=== PATIENT | male | born 1955 | race Caucasian/White ===

== ENCOUNTER 2019-02-05 02:36 | Observation (INO) | payer MEDICARE, SELFPAY ==
[2019-02-05] VITALS (32 sets, daily range): BP systolic 134–174; BP diastolic 67–129; PULSE 41–93; RESP 10–24; TEMP 36.4–36.8; O2SAT 96–100
--- NOTE | 2019-02-05 03:01 | W.ED.GENAD ---
Discharge Plan Disposition Patient Disposition: [facility] INPATIENT Condition: Good Discharge Details Chief Complaint: Palpitatns Clinical Impression: Frequent PVCs, Restless leg syndrome, Heart palpitations, Hypomagnesemia Primary Care Provider: Lisa Jack ED Provider: Duc Pulido Home Meds and New Rx's Prescriptions: No Action montelukast [Singulair] 5 MG tablet,chewable 10 mg PO HS RF: 0 carvedilol [Coreg] 12.5 MG tablet 18.25 mg PO BID RF: 0 allopurinol 100 MG tablet 100 mg PO DAILY RF: 0 doxazosin 8 MG tablet 4 mg PO DAILY RF: 0 ascorbic acid (vitamin C) [Vitamin C] 250 MG tablet 250 mg PO DAILY RF: 0 morphine 30 MG tablet 30 mg PO TID RF: 0 ferrous sulfate 325 MG tablet 325 mg PO DAILY RF: 0 bisacodyl 5 MG tablet,delayed release (DR/EC) 100 mg PO DAILY RF: 0 calcitriol 0.25 MCG capsule 0.25 mg PO . TWICE A WEEK RF: 0 tacrolimus 0.5 MG capsule 3 tab PO DAILY RF: 0 oxycodone 5 MG tablet 5 mg PO QID RF: 0 atorvastatin [Lipitor] 40 mg Tablet 40 mg PO QHS RF: 0 chlorthalidone 25 mg Tablet 25 mg PO DAILY RF: 0 dronabinol 2.5 mg Capsule 2.5 mg PO QHS RF: 0 alogliptin 6.25 mg Tablet 6.25 mg PO DAILY RF: 0 omeprazole 20 mg Capsule,Delayed Release(Dr/Ec) 20 mg PO DAILY RF: 0 Medical Decision Making This is a pleasant 63-year-old male with a past medical history of hepatitis C which is resolved secondary liver transplant on tacrolimus, as well as a distant history of SVT but no history of any other significant cardiac disease at this time who presents today for evaluation of restlessness, palpitations, jitteriness and difficulty sleeping. Patient has been under a significant amount of stress over the last few weeks with the recent of his . Then over the last 24 hours he has had notable palpitations, heart thumping sensation. He denies any chest pain or chest tightness. He denies any new medication changes but of note he has not had any morphine for the last 3 days for his chronic 30 mg 3 times daily morphine dose. Physical exam is notably unremarkable, blood pressure stable. On the monitor the patient does go into bigeminy fairly consistently in normal sinus. Signs and symptoms have a broad differential, including thyroid disorder or electrolyte abnormality or other atypical cause, however also thought this may certainly be an atypical reflection of withdrawal from morphine. We will give the patient 0.1 mg clonidine, small amount of Ativan for rest, evaluate for any significant life-threatening etiology. 4:22 AM Patient's laboratory work-up is returned, relatively unremarkable. Hemoglobin is slightly low at 11 8, however MCV is normal. No history of rectal bleeding or other abnormalities, platelets stable. Electrolytes are relatively unremarkable. Magnesium is notably low at 1.4. Potassium normal. Creatinine 2.18 which is at the patient's baseline. Calcium normal. TSH troponin and albumin all normal. The patient was given Ativan IV and unfortunately the patient has had no solution to his symptomatology. Although he is slightly sleepier, he remains extremely fidgety, often jumping immediately out of rest as soon as he starts sleeping, having an extreme continued sensation of leg restlessness. He has received the clonidine but this is not helped his symptoms. We will add morphine supplementation. Additionally we will add 0.125 mg of pramipexole to see if this helps. We will supplement with 2 g magnesium for his hypomagnesemia this this may be a component of his PVCs but I feel unlikely the cause. With the notable frequency of the patient's PVCs, his lack of resolution of symptoms, and his notable frustration with his current state I do feel that 12 the 24-hour observation is indicated for completion of magnesium replacement, continued cardiac evaluation and monitoring, and reassessment. I discussed the case with hospitalist , he agrees with the assessment and plan. I will place admission orders. I have extensively reviewed the treatment plan with the patient. I have addressed all patient concerns at this time. I have also discussed the plan with the admitting physician and they agree with the current assessment and plan and have agreed to assume responsibility for the patient. All parties demonstrate verbal understanding and agreement with our assessment and plan at this time. EKG 2: 46 Rate 75, CO 166, QTc 467, QRS 136, sinus rhythm with a right bundle branch block, no evidence of STEMI. Notable PVCs. EKG from 10/17/2008 demonstrates nearly identical findings. HPI General Date/Time Provider Initiated Documentation: 02/05/19 02:48. HPI Narrative: This is a pleasant 63-year-old male with past medical history of liver transplant, hepatitis C which is resolved, on tacrolimus for his transplant, previous history of SVT, high cholesterol who presents today for evaluation of palpitations that started last 24 hours. Patient has been under an extreme amount of stress with the loss of his , and multiple other family stressors. He has not been sleeping well for the last few weeks, he has noticed continued jitteriness in his legs for the last 2 days, as well as a heart racing sensation, and a thumping and pounding sensation in his chest in the last 24 hours. Patient denies any medication changes, however of note he has not had his chronic regular daily 30 mg 3 times daily morphine for the last 3 days secondary to his prescription not coming in. Patient denies any other complaints at this time. He denies any chest tightness, shortness of breath, numbness tingling or weakness, recent trauma, IV or illicit drug use. He denies any nausea vomiting or diarrhea. He denies any feelings of anxiety. No other complaints. No other modifying factors. Related Data Home Medications Medication Instructions Recorded Confirmed allopurinol 100 mg PO DAILY 11/25/15 02/05/19 ascorbic acid (vitamin C) [Vitamin 250 mg PO DAILY 11/25/15 11/25/15 C] bisacodyl 100 mg PO DAILY 11/25/15 11/25/15 calcitriol 0.25 mg PO . TWICE A WEEK 11/25/15 02/05/19 carvedilol [Coreg] 18.25 mg PO BID 11/25/15 02/05/19 doxazosin 4 mg PO DAILY 11/25/15 11/25/15 ferrous sulfate 325 mg PO DAILY 11/25/15 02/05/19 montelukast [Singulair] 10 mg PO HS 11/25/15 02/05/19 morphine 30 mg PO TID 11/25/15 02/05/19 oxycodone 5 mg PO QID 11/25/15 02/05/19 tacrolimus 3 tab PO DAILY 11/25/15 02/05/19 alogliptin 6.25 mg PO DAILY 02/05/19 02/05/19 atorvastatin [Lipitor] 40 mg PO QHS 02/05/19 02/05/19 chlorthalidone 25 mg PO DAILY 02/05/19 02/05/19 dronabinol 2.5 mg PO QHS 02/05/19 02/05/19 omeprazole 20 mg PO DAILY 02/05/19 02/05/19 Allergies Allergy/AdvReac Type Severity Reaction Status Date / Time cephalexin monohydrate Allergy Severe Anaphylaxsi Unverified 02/05/19 02:58 [From Keflex] s General Stated Complaint: Palpitatns PAPO: 3 Review of Systems All systems reviewed & are unremarkable except as noted in HPI and below PFSH Medical History (Updated 02/05/19 @ 02:58 by Tona Mccall) Diabetes (Chronic) Hepatitis C (Chronic) High cholesterol (Chronic) Myocardial infarction (Chronic) Tachycardia (Acute) Surgical History (Updated 02/05/19 @ 02:53 by Tona Mccall) Liver transplant recipient (Acute) Social History Smoking/Tobacco Use Status: Former Tobacco Use Alcohol Intake: current Drug use: Never Substance use type: does not use Do you feel safe at home: Yes Do you feel safe in your relationship?: Yes Additional Social history: recently ; still going through grieving process Exam Narrative Exam Narrative: 1.Const: Well-nourished, Well-developed, appearing stated age 2.Eyes: PERRL, no conjunctival injection, and symmetrical lids. 3.ENT: Atraumatic external nose and ears. Moist MM. Neck: Symmetric, trachea midline, No thyromegaly. 4.CVS: +S1/S2, No murmurs or gallops. Peripheral pulses 2+ and equal in all extremities. Brisk capillary refill in all extremities. 5.RESP: Unlabored respiratory effort. Clear to auscultation bilaterally. No wheezes rales or rhonchi 6.GI: Soft, Nontender/Nondistended, No hepatosplenomegaly. No guarding or rebound. Notable appropriate abdominal chevron scar from his liver transplant 7.MSK: Normocephalic/Atraumatic, Extremities w/o deformity or ttp No cyanosis or clubbing, Normal movement of all extremities 8.Skin: Warm, Dry. No rashes or lesions. 9.Neuro: spool sorter II-XII grossly intact. Sensation grossly intact, no focal neurologic deficits. 10.Psych: (AAO) x3. Appropriate mood and affect Course Vital Signs Vital signs: Vital Signs Temperature 36.6 C 02/05/19 02:48 Pulse 88 02/05/19 02:48 Respiratory Rate 16 02/05/19 02:48 Blood Pressure 153/89 H 02/05/19 02:48 Pulse Oximetry 100 02/05/19 02:48 Temperature 36.6 C 02/05/19 02:48 Temperature Source Skin 02/05/19 02:48 Pulse 88 02/05/19 02:48 Respiratory Rate 16 02/05/19 02:48 Blood Pressure 153/89 H 02/05/19 02:48 Pulse Oximetry 100 02/05/19 02:48
[2019-02-05] MEDS: Normal Saline 500 ML IV (03:11)
[2019-02-05] MEDS: LORazepam 2 MG/ML VIAL 1 MG IVP (03:12)
[2019-02-05 03:30] LABS: Abs Immature Grans 0.03 k/cumm (0.0-0.09); Absolute Basophil Count 0.02 k/cumm (0.0-0.2); Absolute Eosinophil Count 0.26 k/cumm (0.0-0.7); Absolute Lymphocyte Count 1.22 k/cumm (1.2-3.4); Absolute Monocyte Count 0.71 k/cumm (0.11-0.7); Basophils % 0.2; HGB 11.8 g/dL (13.5-17.5); Immature Grans % 0.3; Lymphocytes % 14.1; Mean Corp. HGB Concentration 35.8 g/dL (32.0-36.0); Mean Corpuscular Hemoglobin 32.2 pg (27.0-33.0); Mean Corpuscular Volume 89.9 fL (80-95); Mean Platelet Volume 10.8 fL (8.0-11.0); Monocytes % 8.2; Neutrophils % 74.2; Platelet Count 147 x1000/uL (130-400); RBC 3.67 m/cumm (4.50-6.00); RBC Distribution Width 11.9 % (11.8-14.1); White Blood Cell Count 8.64 k/cumm (4.4-10.8)
[2019-02-05] MEDS: cloNIDine 0.1 MG TAB PO (03:34)
[2019-02-05 03:46] LABS: INR 1.1 (0.9-1.1); PTT Activated 18.5 sec (21.0-31.4); Prothrombin Time 10.6 sec (9.3-11.0)
[2019-02-05 03:49] LABS: Ammonia 18 umol/L (11-32)
[2019-02-05 03:55] LABS: ALT 19 U/L (16-63); AST 19 U/L (15-37); Albumin 4.2 g/dL (3.4-5.0); Alkaline Phosphatase 112 U/L (46-116); Anion Gap 11.7 mmol/L (3-11); BUN 37 mg/dL (7-18); Bilirubin, Total 0.3 mg/dL (0.2-1.0); CO2 25.3 mmol/L (21.0-32.0); CREATININE 2.18 mg/dL (0.70-1.30); Calcium 9.7 mg/dL (8.5-10.1); Chloride 104 mmol/L (98-107); Glucose 208 mg/dL (74-106); NT-proBNP 6769 pg/mL (<300); Potassium 4.2 mmol/L (3.5-5.1); Sodium 141 mmol/L (136-145); Total Protein 8.5 g/dL (6.4-8.2)
[2019-02-05 03:56] LABS: Troponin I < 0.05 ng/Ml (<0.06)
[2019-02-05 04:01] LABS: Magnesium 1.4 mg/dL (1.8-2.4); TSH (W/Ref FT4) 1.48 uIU/mL (0.36-3.74)
[2019-02-05] MEDS: MAGNESIUM SULFATE 2 GM/50 ML BAG IVPB (04:24)
[2019-02-05] MEDS: Pramipexole 0.25 MG TAB 0.125 MG PO (04:50)
--- NOTE | 2019-02-05 06:08 | HPE_ITS ---
Date of service: 02/05/19 Time of Service: 06:08 Assessment and Plan Assessment and plan (1) Ventricular ectopy: Status: Acute Assessment and plan: We will recheck his magnesium level as well as put shlomo quesada on oral magnesium supplementation. Continue to check serial troponin I levels. We will check an echocardiogram to evaluate LV and RV function particularly in the setting of an elevated proBNP although clinically does not appear to be in any acute congestive heart failure. Consider obtaining an outpatient stress MPI study. He has a history of a myocardial infarction around the time of his liver transplant in 2007 but cannot give me any specifics as to what was done about this. He does not have a history of stent or coronary bypass graft. (2) Myoclonus: Status: Acute Assessment and plan: Probably related to the hypomagnesemia. Although this could be due to acute withdrawal from his narcotics. Patient has been restarted on his routine dose of morphine. Although review the adverse reactions of tacrolimus include myoclonus as well as cardiac arrhythmias however he is been on this since his liver transplant 2007. A tacrolimus level was obtained and sent out for outside labs. (3) Hypomagnesemia: Status: Acute Assessment and plan: Probably nutritionally related as he is been depressed since his 's and has not been eating well and this is been complicated by his continued use of chlorthalidone. He may actually be chronically hypomagnesemic. We will recheck his levels this morning after the IV replacement and start him on some oral supplementation. (4) Chronic kidney disease: Status: Chronic Assessment and plan: It is unspecified as the etiology of his chronic kidney disease however he has had an elevated creatinine dating back to 2015 was 2.62. We will need to obtain more recent labs from his primary care provider for comparison as well as any records related to previous renal work-up. Qualifiers: Chronic kidney disease stage: unspecified stage Qualified Code(s): N18.9 - Chronic kidney disease, unspecified (5) Diabetes: Status: Chronic Assessment and plan: I will check a glycohemoglobin A1c to assess his recent diabetes control. I will continue his alogliptin but monitor his blood sugars before meals and at bedtime and cover with sliding scale insulin sensitive level as needed. History of Present Illness History of Present Illness Chief Complaint: palpitations, muscle twitching Narrative: 63-year-old male with a past medical history significant fo r essential hypertension, diabetes mellitus type 2, hepatitis C, status post liver transplant maintained on tacrolimus, chronic renal disease, hyperlipidemia, SVT, myocardial infarction presents emergency department with complaints of palpitations and muscle twitching. Patient has been under increa sed stress over the last week since his 's . Patient states that she used to manage his medications and order them for him and he has missed multiple doses of his medications over the last 3 days. He has a chronic pain syndrome for which she is on morphine 30 mg 3 times a day but ran out of this 3 days ago. He also takes carvedilol for his hypertension and tachycardia and may have miss ed some doses of this as well. Over the past 24 hours he is developed palpitations with a feeling like his heart is pounding but denies any chest pressure or heaviness, tightness or dyspnea. He also has noted beginning last night severe muscle twitching and jerking which is prevented him from being able to sleep. Patient was evaluated and treated in the emergency department by Dr. Duc Pulido who included EKG and routine labs as per the work-up. CBC showed a chronic anemia with a hemoglobin 11.8 g with normal red cell indices and normal platelet count and normal WBCs. CMP demonstrated a stable chronic kidney disease with a BUN of 37 creatinine 2.18. Electrolytes demonstrate significant hypomagnesemia of 1.4 with rest of his electrolytes being normal. Glucose was 208. LFTs were normal and ammonia level was normal. Initial troponin was less than 0.05. proBNP was elevated at 6769. TSH is normal at 1.48. ECG demonstrates sinus rhythm with a right bundle branch block with frequent PVCs occurring in a trigeminal pattern with no acute ischemic ST changes. According to Dr. Pulido patient had frequent isolated PVCs as well as runs of bigeminy and trigeminy. Prior to lab results Dr. Pulido thought perhaps the patient was suffering from withdrawal of his narcotics and gave him a dose of clonidine 0.1 mg orally as well as Ativan 1 mg IV. He was given a bolus of normal saline 500 mL's and was given a dose of Mirapex 0.125 mg to help with the mild clonus. He was also given a dose of morphine sulfate 4 mg IV when the magnesium level came back low he was given a dose of magnesium sulfate 2 g IV. I discussed case with Dr. Pulido and agree that the patient should be admitted for observation on telemetry while we treat his hypomagnesemia and continue to rule him out for acute coronary syndrome. The myoclonus may be related to his hypomagnesemia. The PVCs may be related to the acute withdrawal of his beta- consuelo therapy as well as the increased stress that he has been under. At this time I am not can put him on any routine medications for restless leg syndrome but see how he responds to the magnesium therapy and put him on some oral replacement since he continues to take chlorthalidone. Tacrolimus level was sent off from the emergency room. Review of Systems All systems reviewed & are unremarkable except as noted in HPI and below [facility] Medical History (Updated 02/05/19 @ 06:58 by Murphy Lima) Chronic kidney disease (Chronic) Diabetes (Chronic) Hepatitis C (Chronic) High cholesterol (Chronic) Myocardial infarction (Chronic) Tachycardia (Acute) Surgical History (Updated 02/05/19 @ 06:53 by Murphy Lima) Liver transplant recipient (Acute) Social History Smoking/Tobacco Use Status: Former Tobacco Use Alcohol Intake: current Drug use: Never Substance use type: does not use Do you feel safe at home: Yes Do you feel safe in your relationship?: Yes Additional Social history: recently ; still going through grieving process Meds Home Medications and Allergies Home Medications Medication Instructions Recorded Confirmed Type allopurinol 100 mg PO DAILY 11/25/15 02/05/19 History ascorbic acid (vitamin C) [Vitamin 250 mg PO DAILY 11/25/15 11/25/15 History C] bisacodyl 100 mg PO DAILY 11/25/15 11/25/15 History calcitriol 0.25 mg PO . TWICE A WEEK 11/25/15 02/05/19 History carvedilol [Coreg] 18.25 mg PO BID 11/25/15 02/05/19 History doxazosin 4 mg PO DAILY 11/25/15 11/25/15 History ferrous sulfate 325 mg PO DAILY 11/25/15 02/05/19 History montelukast [Singulair] 10 mg PO HS 11/25/15 02/05/19 History morphine 30 mg PO TID 11/25/15 02/05/19 History oxycodone 5 mg PO QID 11/25/15 02/05/19 History tacrolimus 3 tab PO DAILY 11/25/15 02/05/19 History alogliptin 6.25 mg PO DAILY 02/05/19 02/05/19 History atorvastatin [Lipitor] 40 mg PO QHS 02/05/19 02/05/19 History chlorthalidone 25 mg PO DAILY 02/05/19 02/05/19 History dronabinol 2.5 mg PO QHS 02/05/19 02/05/19 History omeprazole 20 mg PO DAILY 02/05/19 02/05/19 History Allergies Allergy/AdvReac Type Severity Reaction Status Date / Time cephalexin monohydrate Allergy Severe Anaphylaxsi Unverified 02/05/19 02:58 [From Keflex] s Exam Narrative Exam Narrative: Late middle-aged gentleman lying in bed sleeping. I woke him up and he seemed to be calm and relaxed with no visible myoclonus. He is alert and oriented person place time circumstance. Neck is supple nontender with no thyromegaly no cervical lymphadenopathy. Carotid pulses are strong without bruits. Lungs are clear to auscultation. Heart is regular with intermittent ectopic beats. There is no thrill heave gallop or rub. Abdomen soft and nontender no palpable masses or bruits Lower extremities without peripheral cyanosis or edema. No calf tenderness or swelling Neurologic exam grossly intact no focal motor or sensory deficits. Results Labs Result diagrams: 02/05/19 03:17 02/05/19 03:17 Labs: Laboratory Results - last 24 hr 02/05/19 02/05/19 02/05/19 03:17 03:17 03:17 WBC 8.64 RBC 3.67 L Hgb 11.8 L Hct 33.0 L MCV 89.9 MCH 32.2 MCHC 35.8 RDW 11.9 Plt Count 147 MPV 10.8 Immature Gran % 0.3 Neutrophils % 74.2 Lymphocytes % 14.1 Monocytes % 8.2 Eosinophils % 3.0 Basophils % 0.2 Absolute Neutrophils 6.40 Absolute Lymphocytes 1.22 Absolute Monocytes 0.71 H Absolute Eosinophils 0.26 Absolute Basophils 0.02 PT INR APTT Sodium 141 Potassium 4.2 Chloride 104 Carbon Dioxide 25.3 Anion Gap 11.7 H BUN 37 H Creatinine 2.18 H Estimated GFR/1.73 m2 30.70 Glucose 208 H Calcium 9.7 Magnesium 1.4 L Total Bilirubin 0.3 AST 19 ALT 19 Alkaline Phosphatase 112 Ammonia Troponin I < 0.05 NT-Pro-B Natriuret Pep 6769 Total Protein 8.5 H Albumin 4.2 TSH 1.48 02/05/19 02/05/19 03:17 03:17 WBC RBC Hgb Hct MCV MCH MCHC RDW Plt Count MPV Immature Gran % Neutrophils % Lymphocytes % Monocytes % Eosinophils % Basophils % Absolute Neutrophils Absolute Lymphocytes Absolute Monocytes Absolute Eosinophils Absolute Basophils PT 10.6 INR 1.1 APTT 18.5 L Sodium Potassium Chloride Carbon Dioxide Anion Gap BUN Creatinine Estimated GFR/1.73 m2 Glucose Calcium Magnesium Total Bilirubin AST ALT Alkaline Phosphatase Ammonia 18 Troponin I NT-Pro-B Natriuret Pep Total Protein Albumin TSH Last Vital Signs Temp 36.6 C 02/05/19 02:48 Pulse 75 02/05/19 05:44 Resp 15 02/05/19 04:50 BP 138/73 02/05/19 04:46 Pulse Ox 98 02/05/19 04:50
[2019-02-05 07:15] LABS: Troponin I < 0.05 ng/Ml (<0.06)
[2019-02-05 07:39] LABS: Hemoglobin A1C 7.3 % (4.5-6.2)
[2019-02-05 07:42] LABS: Calculated LDL 52 mg/dL; Cholesterol 102 mg/dL (<200); HDL Cholesterol 34 mg/dL (40-60); Triglyceride 84 mg/dL (<150)
[2019-02-05] MEDS: Tacrolimus 0.5 MG CAP 1.5 MG PO (08:27)
[2019-02-05] MEDS: Insulin Aspart 300 UNITS/3 ML PEN SC ×3 (08:27→16:58)
[2019-02-05] MEDS: Omeprazole 20 MG CAPCR PO (08:27)
[2019-02-05] MEDS: Chlorthalidone 25 MG TAB PO (08:28)
[2019-02-05] MEDS: Ferrous Sulfate 325 MG TAB PO (08:28)
[2019-02-05] MEDS: Magnesium Gluconate 500 MG TAB PO (08:28)
[2019-02-05] MEDS: Allopurinol 100 MG TAB PO (08:28)
[2019-02-05] MEDS: oxyCODONE 5 MG TAB PO (08:41)
--- NOTE | 2019-02-05 09:00 | DI.US_ITS ---
APPROVED REPORT EXAM: Comprehensive 2D, Doppler, and color-flow Echocardiogram Patient Location: In-Patient Slope Hoist Operator: JERALD Hernandez (AE) Indications: palpitations, frequent PVCs. h/o TX now with frequent ventricular ectopy. evaluate LV fu nction Conclusion Left Ventricle : The left ventricle is normal size. Left ventricular systolic function appears mildl y decreased. The posterior wall thickness is mildly increased. The septum is normal. There is normal LV segmental wall motion. The left ventricular diastolic function is normal. LVEF is estimated to be 50-55%. Right Ventricle : The right ventricle appears normal size. The right ventricular systolic function is normal. Atria : The left atrium size is normal. The right atrium size is normal. Aortic Valve : Aortic valve is trileaflet. Trace aortic regurgitation. There is no aortic valvular st enosis. Mitral Valve : The mitral valve leaflets are mildly thickened. Mild mitral regurgitation. No evidence of mitral valve stenosis. Tricuspid Valve : The tricuspid valve is normal in structure. Trace tricuspid regurgitation. Great Vessels : IVC appears normal in size and collapses >50% with inspiration. Estimated RVSP is 21 -24 mmHg. There is no prior echocardiogram available for comparison Wall motion Left Ventricle The left ventricle is normal size. Left ventricular systolic function appears mildly decreased. The p osterior wall thickness is mildly increased. The septum is normal. There is normal LV segmental wall motion. The left ventricular diastolic function is normal. LVEF is estimated to be 50-55%. Right Ventricle The right ventricle appears normal size. The right ventricular systolic function is normal. Atria The left atrium size is normal. The right atrium size is normal. Aortic Valve Aortic valve is trileaflet. There is no aortic valvular stenosis. Trace aortic regurgitation. Mitral Valve The mitral valve leaflets are mildly thickened. No evidence of mitral valve stenosis. Mild mitral reg urgitation. Tricuspid Valve The tricuspid valve is normal in structure. Trace tricuspid regurgitation. Pulmonic Valve Pulmonic valve is not well visualized. Great Vessels The aortic root size is normal. The ascending aorta size is normal. IVC appears normal in size and co llapses >50% with inspiration. Estimated RVSP is 21-24 mmHg. Pericardium possible trivial anterior pericardial effusion. 2D Dimensions IVSd 0.75 cm M: 0.6-1.2 LV EDV A2C 113.20 mL PWd 1.15 cm M: 0.6 - 1.2 LV EDV A4C 96.60 mL LVDd 5.30 cm M: 4.2 - 5.8 LA Volume Index A2C 24.74 mL/m2 LVDs 3.80 cm M: 2.5 - 4.0 LA Volume Index A4C 19.47 mL/m2 Aortic Root 3.35 cm M: 3.1 - 3.7 LA Volume Index Biplane 25.57 mL/m2 RA Area A4C 12.36 cm2 LA Area A4C 13.59 cm2 LVOT 2.20 cm (M/F) 1.5-2.5 LA Area A2C 17.84 cm2 Ascending Aorta 3.21 cm M: 2.6 - 3.4 EF AP4 46.58 % LVEF (Teich) 53.75 % EF AP2 56.18 % LVEF (Posadas's) 50.84 % M: 52 - 72 EF BP 50.84 % LV Volume 79.57 mL M: 62 - 150 LV Volume Index 38.43 mL/m2 M: 34 - 74 FS 27.95 % LV Diastology E/A Ratio 0.8 MED E' 0.07 (>0.07 m/s) LV E/e MED 5.90 (<14) LAT E' 0.09 (>0.1 m/s) LV E/e LAT 4.85 (<14) Aortic Valve LVOT Area 3.89 cm2 LVOT Peak Lg. 0.90 m/s LVOT Mean Lg. 0.65 m/s LVOT Peak Gr. 3.55 mmHg FABIAN Vmax Index 1.25 cm2/m2 LVOT Mean Gr. 1.90 mmHg LVOT VTI 0.10 m FABIAN Mean Lg. Index 1.18 cm2/m2 AoV Peak Lg. 1.42 (0.5-1.3 m/s) AoV Mean Lg. 1.02 m/s AO Peak GR. 8.04 mmHg AO Mean GR. 4.48 (<5 mmHg) VTI Ratio 0.50 FABIAN (VTI) 2.59 (2.5-4.5 cm2) FABIAN (VTI) Index 0.93 cm/m2 Mitral Valve MV E Max Lg. 0.44 (0.4-1.3 m/s) MV A Velocity 0.55 (0.4-1.3 m/s) E/A Ratio 0.80 MV Decel. Time 291.55 (160-240 msec) MV PHT 84.55 msec MVA PHT 2.60 cm2 Tricuspid Valve TR P. Velocity 2.30 m/s TV Regurg Vmax 2.30 m/s RAP Estimate 3.00 mmHg RVSP 24.00 mmHg TR P. Gradient 21.10 mmHg
[2019-02-05] MEDS: Carvedilol 25 MG TAB PO ×2 (10:27→20:07)
[2019-02-05] MEDS: Normal Saline Flush 10 ML SYR IVP (10:28)
[2019-02-05 10:54] LABS: Magnesium 1.9 mg/dL (1.8-2.4)
[2019-02-05 11:15] LABS: Troponin I < 0.05 ng/Ml (<0.06)
--- NOTE | 2019-02-05 11:49 | INITIAL_ITS ---
- If Service Date Differs Date of service: 02/05/19 Time of Service: 11:49 Care Management Initial Assess REASON FOR HOSPITALIZATION:: Palpitations, PVC, restless leg syndrome PAST MEDICAL HISTORY/PAST SURGICAL HISTORY:: Medical History. Chronic kidney disease (Chronic). Diabetes (Chronic). Hepatitis C (Chronic). High cholesterol (Chronic). Myocardial infarction (Chronic). Tachycardia (Acute). Surgical History. Liver transplant recipient (Acute) PREVIOUS FUNCTIONAL STATUS/SOCIAL/FAMILY SUPPORTS:: Ismael lives in [place] with his son and three of his grandkids. His recently , which he is still grieving from. His daughter, Rosmery, lives locally and is very supportive. He has a large, supportive family in the area. He had a liver transplant in 2007. He is independent at baseline. CURRENT FUNCTIONAL STATUS:: Ismael was lying in bed when CM met with him. He reported that he was very tired, but he was pleasant and engaged in conversation. He stated that this visit to the ED was a wake up call, and that he knows he needs to take better care of himself. He reported that he had a liver transplant 11 years ago, and he feels very fortunate to be alive. He stated that he has not been getting much sleep, 1-2 hours a night, since his . He believes this is why he missed his medication. He reported that he hopes to go home soon. CM will continue to follow. ADVANCE DIRECTIVES:: None on file Has patient been provided with information about the portal?: No Did the patient sign up for the portal?: No CODE STATUS:: Full Code INSURANCE COVERAGE / FINANCIAL ISSUES:: [facility] CURRENT HOME/COMMUNITY SERVICES/EQUIPMENT:: Ismael has a cane, crutches and a wheelchair. PRIMARY CARE PHYSICIAN:: Lisa Jack POTENTIAL DISCHARGE NEEDS:: Evalutations for further needs, follow up appointments PATIENT/FAMILY EDUCATION NEEDS:: Review discharge instructions, discussion of self care including Ask Me Three ANTICIPATED BARRIERS TO DISCHARGE:: None identified at this time. TRANSPORTATION:: Anticipate Ismael will return home with family via private vehicle PLAN:: Anticipate Ismael will return home when medically cleared. He may need new orders for RN for med management. His family will transport him home via private vehicle when he is ready.
[2019-02-05] MEDS: Heparin 5,000 UNITS/ML VIAL 5000 UNITS SC ×2 (13:55→22:30)
--- NOTE | 2019-02-05 14:57 | CHAPLAIN ---
Ismael was sitting up in a chair when I visited. He said he was tired as he hasn't gotten much sleep the past few days. Along with his medical concerns, he said his three weeks and he's trying to be strong for his children and grandchildren.. One son and young three grandchildren live with Ismael. he said the grandchildren and a good distraction, and that he needs to be distracted. He explained that his was a bit of a hoarder and so he is beginning to go through her belongs and that has been time consuming, and emotionally difficult at times. He said he realizes he doesn't need to go through everything at once, but he likes to finish a project once he starts it. Ismael said he's had difficulty figuring out his record keeping system for paying bills, because she always took care of that and he never learned her system. We talked about how emotional stress can cause physical health issues. Ismael said he can get time for himself while the kids are at school. He is interested in information about the Grieve Support Group offered by [facility], so I will get that information to him. Ismael shared some personal history, and talked about his family, , children and grandchildren.
[2019-02-05] MEDS: Tacrolimus 0.5 MG CAP 1 MG PO (20:07)
[2019-02-05] MEDS: Atorvastatin 20 MG TAB PO (20:09)
[2019-02-05] MEDS: Montelukast 10 MG TAB PO (22:30)
[2019-02-06] VITALS (7 sets, daily range): BP systolic 107–161; BP diastolic 62–95; PULSE 65–82; RESP 16–18; TEMP 36–36.9; O2SAT 98–99
[2019-02-06] MEDS: Heparin 5,000 UNITS/ML VIAL 5000 UNITS SC (06:41)
[2019-02-06 07:06] LABS: Abs Immature Grans 0.01 k/cumm (0.0-0.09); Absolute Basophil Count 0.02 k/cumm (0.0-0.2); Absolute Eosinophil Count 0.27 k/cumm (0.0-0.7); Absolute Monocyte Count 0.51 k/cumm (0.11-0.7); Absolute Neutrophil Count 3.09 k/cumm (1.2-6.7); Basophils % 0.4; Eosinophils % 5.1; HCT 31.4 % (40.0-50.0); HGB 10.7 g/dL (13.5-17.5); Immature Grans % 0.2; Lymphocytes % 26.4; Mean Corp. HGB Concentration 34.1 g/dL (32.0-36.0); Mean Platelet Volume 10.8 fL (8.0-11.0); Monocytes % 9.6; Neutrophils % 58.3; Platelet Count 122 x1000/uL (130-400); RBC 3.45 m/cumm (4.50-6.00); RBC Distribution Width 11.9 % (11.8-14.1)
[2019-02-06 07:09] LABS: Anion Gap 11.3 mmol/L (3-11); BUN 31 mg/dL (7-18); CO2 26.7 mmol/L (21.0-32.0); Calcium 8.6 mg/dL (8.5-10.1); Chloride 102 mmol/L (98-107); Estimated GFR 28.86 (mL/min/1.73m2); Glucose 146 mg/dL (74-106); Magnesium 1.5 mg/dL (1.8-2.4); Sodium 140 mmol/L (136-145)
[2019-02-06] MEDS: Insulin Aspart 300 UNITS/3 ML PEN SC ×2 (08:03→12:17)
[2019-02-06] MEDS: Ferrous Sulfate 325 MG TAB PO (08:04)
[2019-02-06] MEDS: Tacrolimus 0.5 MG CAP 1 MG PO (08:04)
[2019-02-06] MEDS: Magnesium Gluconate 500 MG TAB PO (08:04)
[2019-02-06] MEDS: Calcitriol 0.25 MCG CAP PO (08:04)
[2019-02-06] MEDS: Allopurinol 100 MG TAB PO (08:05)
[2019-02-06] MEDS: Carvedilol 25 MG TAB PO (08:05)
[2019-02-06] MEDS: Chlorthalidone 25 MG TAB PO (08:05)
[2019-02-06] MEDS: oxyCODONE 5 MG TAB PO (09:13)
[2019-02-06] MEDS: MAGNESIUM SULFATE 2 GM/50 ML BAG IVPB (10:57)
[2019-02-06] MEDS: Normal Saline Flush 10 ML SYR IVP (11:06)
--- NOTE | 2019-02-06 13:22 | W.PM.DS.N ---
Date of service: 02/06/19 Time of Service: 13:22 DS: Diagnosis Discharge Diagnosis (1) Ventricular ectopy: Status: Acute (2) Myoclonus: Status: Acute (3) Hypomagnesemia: Status: Acute (4) Chronic kidney disease: Status: Chronic (5) Diabetes: Status: Chronic Discharge Plan Disposition Patient Disposition: HOME Condition: Stable Discharge Details Chief Complaint: Palpitatns Clinical Impression: Frequent PVCs, Restless leg syndrome, Heart palpitations, Hypomagnesemia Reason For Visit: PALPITATIONS, PVC'S, WRESTLESS LEG SYNDROME Admit Date/Time: 02/05/19 04:31 Admit Provider: Murphy Lima Attending Provider: Murphy Lima Primary Care Provider: Lisa Jack ED Provider: Duc Pulido Hospital Course Hospital Course: Chief Complaint: Palpitations HPI: For details of patien'ts admission, please refer to H&P from yesterday by Dr. Shantanu Lima. In short, 63 year old gentleman with a prior history of HTN, DM, HCV s/p treatment, Liver transplant maintained on Tacrolimus, and CKD, admitted secondary to complaints of palpitations, found to have frequent PVCs with bigeminy and trigeminy. He also complained of jerking/myoclonic type motion that had woken him from sleep. Patient reported running out of most of his medications prior to his hospitalization, including his Carvedilol as well as Oxycodone and Morpine. He did report compliance with his Tacrolimus however. Following admission Mr. Thomas was resumed on his normal home medications. While he still has some evidence of Ventricular ectopy, the rate of PVCs, bigeminy, and trigeminy have dramatically and significantly reduced, and he feels symptomatically improved and at baseline - symptoms were attributed to abrupt stoppage of BB therapy and hypomagnesemia. The 'twitching' was thought secondary to abrupt withdrawl of chronic opiate therapy. The patient is being discharged at baseline condition, with resumption of his usual medications and initiation of magnesium supplementation. Will recheck mag level in 3 days to ensure stablility. Of note, Mr. Thomas's ProBNP was elevated at time of admission, but ECHO was essentially unremarkable (Interpreted as mildly low LV Function, but with LVEF of 50-55%, and clinically euvolemic). He also ruled out with serial cardiac biomarkers. Home Meds and New Rx's Prescriptions: New magnesium gluconate 27 mg magnesium (500 mg) Tablet 500 mg PO BID Qty: 60 RF: 0 Continued montelukast [Singulair] 5 MG tablet,chewable 10 mg PO HS RF: 0 carvedilol [Coreg] 12.5 MG tablet 25 mg PO BID RF: 0 allopurinol 100 MG tablet 100 mg PO DAILY RF: 0 doxazosin 8 MG tablet 4 mg PO DAILY RF: 0 ascorbic acid (vitamin C) [Vitamin C] 250 MG tablet 250 mg PO DAILY RF: 0 ferrous sulfate 325 MG tablet 325 mg PO DAILY RF: 0 bisacodyl 5 MG tablet,delayed release (DR/EC) 100 mg PO DAILY RF: 0 calcitriol 0.25 MCG capsule 0.25 mg PO DAILY RF: 0 tacrolimus 0.5 MG capsule 2 tab PO BID RF: 0 oxycodone 5 MG tablet 5 mg PO QID PRNRF: 0 chlorthalidone 25 mg Tablet 25 mg PO DAILY RF: 0 dronabinol 2.5 mg Capsule 2.5 mg PO BID PRNRF: 0 alogliptin 6.25 mg Tablet 6.25 mg PO DAILY RF: 0 atorvastatin 20 mg Tablet 20 mg PO QPM RF: 0 morphine 30 mg Tablet Extended Release 30 mg PO BID RF: 0 rabeprazole 20 mg Tablet,Delayed Release (Dr/Ec) 20 mg PO DAILY RF: 0 Discharge Instructions Additional Instructions: Please follow-up with your primary care provider within 2 weeks of discharge. Please note that there was some question regarding the correct dosing of your home medications. You are to resume your regular home meds at the same dose, with the only change being the addition of supplemental Magnesium. Stand Alone Forms: Nursing Discharge Form Referrals: Lisa Jack [Primary Care Provider] - 02/16/19 2:00 pm Activity:: No strenuous activity Equipment/Supplies:: No Equipment Needed Diet:: Carb Counting Discharge Orders Discharge Orders: Discharge Order (Routine); Ordered 02/06/19 Ordered By: Irving Khan DS: Summary Status at Discharge Functional status at discharge: independent ambulation Overall status at discharge: patient is back to baseline Mental Status: mental status grossly normal Speech and Movement: speech and movement normal Mood: congruent mood Affect: normal affect Exam Psych Mental Status: mental status grossly normal Speech and Movement: speech and movement normal Mood: congruent mood Affect: normal affect DS: Data Vitals/I&O Vitals and I&O: Vital Signs Temperature 36.7 C 02/06/19 07:23 Temperature Source Tympanic 02/06/19 07:23 Pulse 65 02/06/19 07:23 Pulse Rhythm Irregular 02/06/19 10:11 Pulse 75 02/05/19 04:50 Respiratory Rate 18 02/06/19 07:23 Respiratory Effort 02/06/19 10:11 Respiratory Depth Normal 02/06/19 10:11 Respiratory Pattern Normal 02/06/19 10:11 Blood Pressure 161/95 H 02/06/19 07:23 Blood Pressure Mean 88 02/05/19 04:46 Pulse Oximetry 99 02/06/19 07:23 Oxygen Delivery Method Room Air 02/06/19 07:23 Oxygen Flow Rate 0 02/06/19 07:23 Pain Level 4 02/06/19 09:13 Intake & Output 02/05/19 02/06/19 02/06/19 23:59 11:59 23:59 Intake Total 480 / 1280 240 / 240 Balance 480 / 880 240 / 240 Weight 74.9 kg Intake: Oral 480 / 780 240 / 240 Other: Urine Appearance Clear Data Completed and Pending Completed studies during hospitalization [Text1]: Exam(s) a US:US echocardiogram APPROVED REPORT EXAM: Comprehensive 2D, Doppler, and color-flow Echocardiogram Patient Location: In-Patient 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 h/o ME now with frequent ventricular ectopy. evaluate LV function Conclusion Left Ventricle : The left ventricle is normal size. Left ventricular systolic function appears mildly decreased. The posterior wall thickness is mildly increased. The septum is normal. There is normal LV segmental wall motion. The left ventricular diastolic function is normal. LVEF is estimated to be 50-55%. Right Ventricle : The right ventricle appears normal size. The right ventricular systolic function is normal. Atria : The left atrium size is normal. The right atrium size is normal. Aortic Valve : Aortic valve is trileaflet. Trace aortic regurgitation. There is no aortic valvular stenosis. Mitral Valve : The mitral valve leaflets are mildly thickened. Mild mitral regurgitation. No evidence of mitral valve stenosis. Tricuspid Valve : The tricuspid valve is normal in structure. Trace tricuspid regurgitation. Great Vessels : IVC appears normal in size and collapses >50% with inspiration. Estimated RVSP is 21-24 mmHg. There is no prior echocardiogram available for comparison Labs on day of discharge: Labs from last 24 hours 02/06/19 02/06/19 06:35 06:35 WBC 5.30 D RBC 3.45 L Hgb 10.7 L Hct 31.4 L MCV 91.0 MCH 31.0 MCHC 34.1 RDW 11.9 Plt Count 122 L MPV 10.8 Immature Gran % 0.2 Neutrophils % 58.3 Lymphocytes % 26.4 Monocytes % 9.6 Eosinophils % 5.1 Basophils % 0.4 Absolute Neutrophils 3.09 Absolute Lymphocytes 1.40 Absolute Monocytes 0.51 Absolute Eosinophils 0.27 Absolute Basophils 0.02 Sodium 140 Potassium 4.0 Chloride 102 Carbon Dioxide 26.7 Anion Gap 11.3 H BUN 31 H Creatinine 2.30 H Estimated GFR/1.73 m2 28.86 Glucose 146 H Calcium 8.6 Magnesium 1.5 L PFSH Medical History Chronic kidney disease (Chronic) Diabetes (Chronic) Hepatitis C (Chronic) High cholesterol (Chronic) Myocardial infarction (Chronic) Tachycardia (Acute) Surgical History Liver transplant recipient (Acute) Social History Smoking/Tobacco Use Status: Former Tobacco Use Alcohol Intake: current Drug use: Never Substance use type: does not use Do you feel safe at home: Yes Do you feel safe in your relationship?: Yes Additional Social history: recently ; still going through grieving process
[2019-02-06 13:27] LABS: Tacrolimus 3.2 ng/mL (See Note)
--- NOTE | 2019-02-06 15:50 | CHAPLAIN ---
I checked in with Ismael to make sure he got the information about the bereavement support group that I had left for him yesterday while he was sleeping. Today we talked about his plans for the holidays. He explained that his Stacy, who three weeks ago, was very much into celebrating [place] and had lots of decorations. Ismael said he plans to give each of his kids and grandkids some of the decorations. He anticipates it will be a difficult Lucy for his young grandchildren, as well as his kids and himself. We talked about grief not happening in a set order of stages, and he said he has already experienced that. He understands that his grief, and the pressure to be the patriarch and be strong for everyone, may have something to do with what brought him to the ER. He said he realized know that he needs to make some time for himself on a daily basis and find something he likes to do, or rest. I have Ismael my work phone number in case I can be of any help in the future, and he said he plans to attend the bereavement support group at least once to check it out.
--- NOTE | 2019-02-06 16:29 | CMDISCH_ITS ---
- If Service Date Differs Date of service: 02/06/19 Time of Service: 16:29 LACE Index Scoring Tool - Questions: Length of Stay (in days): 1 Acuity (Admit via E.D.?): Yes Comorbidities: Previous M.I., Diabetes w/o Complication, Liver or Renal Disease E.D. Visits: 1 - Answers: Total Score: 10 Risk of Readmission: High Risk Care Management Discharge Reason for Hospitalization: Palpitations, PVC, restless leg syndrome Discharge Plan: Al will be discharged home with a resumption of Meals on Wheels. He will follow up with his new P[facility] [place]. He will transport with his son via private vehicle. Patient/Family Education Needs: Discharge plan, limitations, follow up plan, Ask Me Three. Services Needed at Discharge: Home Delivered Meals
== END 2019-02-06 16:40 | disposition home or self-care (01) ==
LOC: ER 04:50 → MS 05:19
PROVIDERS: Admitting Provider Internal Medicine; Emergency Provider Student in an Organized Health Care Education/Training Program; PCP Internal Medicine; Visit Provider Internal Medicine
DX: I49.3 Ventricular premature depolarization (principal); G25.3 Myoclonus; E83.42 Hypomagnesemia; E11.22 Type 2 diabetes mellitus with diabetic chronic kidney disease; N18.9 Chronic kidney disease, unspecified; R00.8 Other abnormalities of heart beat; Z94.4 Liver transplant status; Z79.899 Other long term (current) drug therapy
CPT/HCPCS: 36415; 80048; 80053; 80061; 93005; 93306; 96361; 96374; 96375; 99217; 99223; 99285; 80197; 82140; 83036; 83735; 83880; 84443; 84484; 85025; 85610; 85730; 93010; 99220; G0378; J1644; J2060; J3490

== ENCOUNTER 2019-04-13 13:19 | Emergency (ER) | payer MEDICARE, SELFPAY ==
[2019-04-13] VITALS (10 sets, daily range): BP systolic 150–155; BP diastolic 57–86; PULSE 44–106; RESP 9–30; TEMP 36.6; O2SAT 97–99
--- NOTE | 2019-04-13 13:58 | ED.GENADUL_ITS ---
Discharge Plan Disposition Patient Disposition: HOME Condition: Good Discharge Details Chief Complaint: Palpitatns Clinical Impression: Palpitations Primary Care Provider: Kassi,Local ED Provider: Margoth Caballero Home Meds and New Rx's Prescriptions: New Narcan 4 mg/actuation spray,non-aerosol 4 mg CALE Q2M PRN (Reason: opioid overdose) Qty: 2 RF: 0 Continued montelukast [Singulair] 5 MG tablet,chewable 10 mg PO HS RF: 0 carvedilol [Coreg] 12.5 MG tablet 25 mg PO BID RF: 0 allopurinol 100 MG tablet 100 mg PO DAILY RF: 0 doxazosin 8 MG tablet 4 mg PO DAILY RF: 0 ascorbic acid (vitamin C) [Vitamin C] 250 MG tablet 250 mg PO DAILY RF: 0 ferrous sulfate 325 MG tablet 325 mg PO DAILY RF: 0 bisacodyl 5 MG tablet,delayed release (DR/EC) 100 mg PO DAILY RF: 0 calcitriol 0.25 MCG capsule 0.25 mg PO DAILY RF: 0 tacrolimus 0.5 MG capsule 2 tab PO BID RF: 0 oxycodone 5 MG tablet 5 mg PO QID PRNRF: 0 chlorthalidone 25 mg Tablet 25 mg PO DAILY RF: 0 dronabinol 2.5 mg Capsule 2.5 mg PO BID PRNRF: 0 alogliptin 6.25 mg Tablet 6.25 mg PO DAILY RF: 0 atorvastatin 20 mg Tablet 20 mg PO QPM RF: 0 morphine 30 mg Tablet Extended Release 30 mg PO BID RF: 0 rabeprazole 20 mg Tablet,Delayed Release (Dr/Ec) 20 mg PO DAILY RF: 0 magnesium gluconate 27 mg magnesium (500 mg) Tablet 500 mg PO BID Qty: 60 RF: 0 Discharge Instructions Instructions: Lorazepam (By mouth), Palpitations (ED) Additional Instructions: Drink plenty of fluids and get plenty of rest. Take your regular medications as directed. Follow-up with your primary care doctor next week. Return to the emergency department with any worsening or new concerning symptoms. You may use the Ativan as prescribed if you have any recurrent anxiety. Please only take as prescribed and do not take when you are taking your pain medication. Please call respiratory therapy in the morning, numbers on your form, to discuss when to come in for Holter monitor. Discharge Data Discharge Date/Time-TO BE ENTERED AT DEPARTURE: 04/13/19 19:30 Discharge Physician: Eladia Lacey Medical Decision Making <Eladia Lacey DO - Last Filed: 04/14/19 09:13> 1345 -- 64-year-old male with a history of diabetes, chronic kidney disease, hepatitis C with liver transplant 2007, previous history of tachycardia presents with an episode of palpitations and tachycardia that occurred while sitting at h ome 30 minutes prior to arrival. States symptoms have since improved. He denies any chest pain, shortness of breath, cough or fever. He does admit to some dizziness with standing. He admits to the loss of his 3 months ago and has had stress and anxiety since then and feels that this may be a factor. He denies any caffeine intake, recent illness, alcohol or drugs. EKG on arrival notes a rate of 92, sinus with frequent PVCs but no acute ST ischemic changes. There is no acute significant change from previous EKG. Heart rate 90s on my evaluation. Blood pressure mildly elevated. He appears nontoxic. Lungs clear. Differential diagnosis includes arrhythmia, electrolyte abnormality, dehydration, PE, anxiety reaction, etc. Will check screening labs including d- dimer, TSH as well as chest x-ray. 1530 --labs and imaging reviewed. Normal white blood cell count. D-dimer elevated at 649 but appropriate per age-adjusted cut off. Creatinine 2.17 which is his baseline. Magnesium 1.4, will replete. Troponin negative. TSH within normal limits. Chest x-ray notes a density right apex and markings in the right super hilar region both are was concerning for a mass. This was discussed with radiologist who is recommending a CT chest. Unable to obtain with contrast due to CKD. 1545 --patient feels much better after ativan and denies any sensation of heart palpitations at this time. 1600 --Case endorsed to KYARA Justin to follow-up on repeat troponin and CT chest. Medical Records Medical records reviewed: Yes I reviewed the patient's medical records. Lab Data Lab results reviewed: Yes I reviewed the patient's lab results. ECG Data Attestation: I personally reviewed and interpreted this ECG (s) as follows: Interpretation: Rate of 92, sinus, occasional PVCs. <KYARA Gonzalez - Last Filed: 04/14/19 12:06> Care assumed to be myself from Dr. Lacey. Please see her initial note for exam, initial medical evaluation. Patient presents today with chief complaint of palpable and audible palpitations. Also noticed some lightheadedness with sitting standing position. Patient has had palpitations in the past. He has been on Holter monitor historically. Recently diagnosed per patient report. Patient has been asymptomatic since being here. He received IV fluids and IV Ativan. Thus far, labs and exam are reassuring. Repeat troponin and CT results pending. Repeat troponin is less than 0.05. CT reviewed by radiologist: FINDINGS: Lungs: Consolidation in the right apex could represent pneumonia, scarring or less likely malignancy. This extends into the anterior segment of the right upper lobe. 5 mm nodule in the lateral segment of the right lower lobe (2/39). 4 mm nodule in the lateral segment of the right middle lobe (2/40). Calcified granuloma in the left lower lobe. Subsegmental atelectatic changes at the pulmonary bases. Pleural space: Unremarkable. No pneumothorax. No pleural effusion. Heart: Unremarkable. No cardiomegaly. No pericardial effusion. Pulmonary arteries: Normal. Aorta: Unremarkable. No aortic aneurysm. Lymph nodes: Unremarkable. No enlarged lymph nodes. Bones/joints: Unremarkable. No acute fracture. Soft tissues: Unremarkable. IMPRESSION: Consolidation in the right apex could represent pneumonia, scarring or less likely malignancy. This extends into the anterior segment of the right upper lobe. Pulmonary nodules. For patients at low risk (minimal or absent history of smoking and of other known risk factors), no routine follow-up is indicated. For patients at high risk (history of smoking or of other known risk factors), consider optional CT at 12 months. (Renetta et al., Fleischner Society, 2017) Discussed these findings with the patient and his daughter. Patient has had history of spontaneous pneumothorax and has had chest tubes placed historically. The daughter is aware that the patient has had findings on his x-ray followed by his primary care. They believe that these findings are associated with scarring. He is not had any fevers, cough or evidence to suggest pneumonia. At this point, we will hold off on treating for pneumonia and will have him follow- up with primary care to discuss necessity of repeat imaging based on history. Discussed palpitations further with the patient and his daughter. Patient does have history of anxiety has been on Ativan historically. He is responded quite well to this medication the past and did so again today. They are questioning some of these palpitations and symptoms he been having is associated with recurrent anxiety in the setting of the recent passing of his . They are questioning if he could have a few PRN Ativan for home with. I am in agreement with this particular as patient is responded well to this historically. However, as the patient is chronically on narcotics strict usage guidelines was given and patient was also prescribed Narcan. I have asked that he follow-up with primary care soon as possible. Unable to obtain a Holter monitor today but have asked that he return to have this placed. All of their questions or concerns were addressed and they are in agreement this plan. Patient was ordered to have a Holter monitor recently by primary care as he had had palpitations similar to this recently. HPI <Eladia Lacey DO - Last Filed: 04/14/19 09:13> General Mode of arrival: ambulatory . Date/Time Provider Initiated Documentation: 04/13/19 13:50 . Limitations to Documentation: no limitations . Information obtained by: patient . History of Present Illness 64 year old M presents to the emergency department with the chief complaint of Palpitations and thumping of heartbeat, and is localized to the chest. Patient reports no radiation. Patient started experiencing this hour(s) (1) and it has been intermittent (Now improved). No relieving factors improve symptom(s), No exacerbating factors reported . Patient notes denies chest pain, cough, diaphoresis, fever/chills, headaches, loss of appetite, malaise, nausea/vomiting, rash, seizure, shortness of breath, syncope and weakness. Patient did receive the following treatments prior to arrival, none Related Data Home Medications Medication Instructions Recorded Confirmed allopurinol 100 mg PO DAILY 11/25/15 04/13/19 ascorbic acid (vitamin C) [Vitamin 250 mg PO DAILY 11/25/15 04/13/19 C] bisacodyl 100 mg PO DAILY 11/25/15 04/13/19 calcitriol 0.25 mg PO DAILY 11/25/15 04/13/19 carvedilol [Coreg] 25 mg PO BID 11/25/15 04/13/19 doxazosin 4 mg PO DAILY 11/25/15 04/13/19 ferrous sulfate 325 mg PO DAILY 11/25/15 04/13/19 montelukast [Singulair] 10 mg PO HS 11/25/15 04/13/19 oxycodone 5 mg PO QID PRN 11/25/15 04/13/19 tacrolimus 2 tab PO BID 11/25/15 04/13/19 alogliptin 6.25 mg PO DAILY 02/05/19 04/13/19 atorvastatin 20 mg PO QPM 02/05/19 04/13/19 chlorthalidone 25 mg PO DAILY 02/05/19 04/13/19 dronabinol 2.5 mg PO BID PRN 02/05/19 04/13/19 morphine 30 mg PO BID 02/05/19 04/13/19 rabeprazole 20 mg PO DAILY 02/05/19 04/13/19 magnesium gluconate 500 mg PO BID #60 tab 02/06/19 04/13/19 naloxone [Narcan] 4 mg CALE Q2M PRN #2 each 04/13/19 Previous Rx's Medication Instructions Recorded magnesium gluconate 500 mg PO BID #60 tab 02/06/19 naloxone [Narcan] 4 mg CALE Q2M PRN #2 each 04/13/19 Allergies Allergy/AdvReac Type Severity Reaction Status Date / Time cephalexin monohydrate Allergy Severe Anaphylaxsi Unverified 04/13/19 13:39 [From Keflex] s General Stated Complaint: Palpitatns PAPO: 2 Review of Systems <Eladia Lacey DO - Last Filed: 04/14/19 09:13> All systems reviewed & are unremarkable except as noted in HPI and below Constitutional Constitutional: Reports as per HPI, Denies chills and Denies fever(s) Eyes Eyes: Denies blurry vision ENT Ears, Nose, Mouth, and Throat: Reports dizziness (with standing), Denies sore throat and Denies throat swelling Cardiovascular Cardiovascular: Denies chest pain, Reports palpitations and Denies dyspnea Respiratory Respiratory: Denies cough and Denies dyspnea Gastrointestinal Gastrointestinal: Denies abdominal pain, Denies diarrhea and Denies vomiting Genitourinary Genitourinary: Denies hematuria and Denies dysuria Musculoskeletal Musculoskeletal: Denies back pain and Denies numbness Integumentary/Breasts Skin/Breast: Denies lesions and Denies rash Neurologic Neurologic: Reports dizziness (with standing), Denies focal weakness and Denies numbness Endocrine Endocrine: Reports palpitations Allergic/Immunologic Allergic/Immunologic: Denies throat swelling PFSH <Eladia Lacey DO - Last Filed: 04/14/19 09:13> Medical History Chronic kidney disease (Chronic) Diabetes (Chronic) Hepatitis C (Chronic) High cholesterol (Chronic) Myocardial infarction (Chronic) Tachycardia (Acute) Surgical History Liver transplant recipient (Acute) Social History Smoking/Tobacco Use Status: Former Tobacco Use Alcohol Intake: former Drug use: Never Substance use type: does not use Do you feel safe at home: Yes Do you feel safe in your relationship?: Yes Additional Social history: recently ; still going through grieving process Exam <Eladia Lacey DO - Last Filed: 04/14/19 09:13> Const General: cooperative, comfortable and no acute distress HENMT Head: normal to inspection Face and sinus: normal facial exam Eyes General: appearance normal, both eyes and all related structures EOM: EOM intact bilaterally Neck Neck: normal visual inspection and No submandibular swelling Lymphatic: no lymphadenopathy noted Chest Chest: normal inspection of the chest and no tenderness Resp Effort & Inspection: normal respiratory effort and able to speak in complete sentences Auscultation: clear to auscultation bilaterally Cardio Rate: regular rate Rhythm: regular rhythm GI Inspection: normal to inspection Palpation: soft, not firm, not rigid and nontender Auscultation: normal bowel sounds Skin General skin exam: no rashes or lesions noted Neuro General: alert, awake and oriented x3 Cognition: normal cognition Speech: speech normal Motor: muscle tone normal throughout Sensory Exam: no sensory deficits noted Extrem General: normal to inspection, full ROM, normal capillary refill, no calf tenderness bilaterally and no edema Psych Appearance: grossly normal Mental Status: mental status grossly normal Speech and Movement: speech and movement normal Affect: normal affect Course <Eladia Lacey DO - Last Filed: 04/14/19 09:13> Vital Signs Vital signs: Vital Signs Temperature 97.9 F 04/13/19 13:33 Pulse 106 H 04/13/19 13:33 Respiratory Rate 18 04/13/19 13:33 Blood Pressure 153/62 H 04/13/19 13:33 Pulse Oximetry 99 04/13/19 13:33 Temperature 97.9 F 04/13/19 13:33 Temperature Source Skin 04/13/19 13:33 Pulse 106 H 04/13/19 13:33 Respiratory Rate 18 04/13/19 13:33 Respiratory Effort Non-Labored 04/13/19 13:38 Blood Pressure 153/62 H 04/13/19 13:33 Blood Pressure Position Supine 04/13/19 13:33 Pulse Oximetry 99 04/13/19 13:33 Oxygen Delivery Method Room Air 04/13/19 13:33 Oxygen Flow Rate 0 04/13/19 13:33 Pain Level 0 04/13/19 13:33 Sign Out <Eladia Lacey DO - Last Filed: 04/14/19 09:13> Sign Out Data: Sign Out Comment: Follow-up on repeat troponin and results of CT chest. If negative and patient symptoms continue to improve, can discharged home with plan for follow-up with PCP. Last updated by Eladia Lacey DO at 04/13/19 16:13
[2019-04-13 14:05] LABS: Abs Immature Grans 0.01 k/cumm (0.0-0.09); Absolute Basophil Count 0.02 k/cumm (0.0-0.2); Absolute Eosinophil Count 0.24 k/cumm (0.0-0.7); Absolute Lymphocyte Count 1.04 k/cumm (1.2-3.4); Absolute Monocyte Count 0.61 k/cumm (0.11-0.7); Absolute Neutrophil Count 3.95 k/cumm (1.2-6.7); Basophils % 0.3; Eosinophils % 4.1; HCT 35.9 % (40.0-50.0); HGB 12.6 g/dL (13.5-17.5); Immature Grans % 0.2 %; Lymphocytes % 17.7; Mean Corp. HGB Concentration 35.1 g/dL (32.0-36.0); Mean Corpuscular Hemoglobin 31.2 pg (27.0-33.0); Mean Corpuscular Volume 88.9 fL (80-95); Mean Platelet Volume 10.8 fL (8.0-11.0); Monocytes % 10.4; Neutrophils % 67.3; Platelet Count 140 x1000/uL (130-400); RBC 4.04 m/cumm (4.50-6.00); RBC Distribution Width 11.8 % (11.8-14.1); White Blood Cell Count 5.87 k/cumm (4.4-10.8)
[2019-04-13 14:26] LABS: ALT 23 U/L (16-63); AST 19 U/L (15-37); Albumin 4.2 g/dL (3.4-5.0); Alkaline Phosphatase 95 U/L (46-116); Anion Gap 7.6 mmol/L (3-11); BUN 29 mg/dL (7-18); Bilirubin, Total 0.5 mg/dL (0.2-1.0); CO2 31.4 mmol/L (21.0-32.0); CREATININE 2.17 mg/dL (0.70-1.30); Calcium 8.8 mg/dL (8.5-10.1); Chloride 100 mmol/L (98-107); Estimated GFR 30.77 (mL/min/1.73m2); Glucose 189 mg/dL (74-106); Magnesium 1.4 mg/dL (1.8-2.4); Potassium 3.9 mmol/L (3.5-5.1); Sodium 139 mmol/L (136-145); TSH (W/Ref FT4) 0.99 uIU/mL (0.36-3.74); Total Protein 8.1 g/dL (6.4-8.2)
[2019-04-13 14:27] LABS: Troponin I < 0.05 ng/Ml (<0.06)
[2019-04-13] MEDS: Normal Saline 1,000 ML 1000 ML IV (14:28)
[2019-04-13] MEDS: LORazepam 2 MG/ML VIAL 0.5 MG IVP (14:28)
[2019-04-13 14:41] LABS: D-Dimer 649 ng/mlFEU (<500)
[2019-04-13] MEDS: MAGNESIUM SULFATE 1 GM/100 ML BAG IVPB (14:50)
--- NOTE | 2019-04-13 15:03 | DI.RAD_ITS ---
EXAM: XR CHEST 2V PA LATERAL CLINICAL HISTORY: tachycardia, palpitations, r/o acute disease TECHNIQUE: COMPARISON: ABD FLAT UPRIGHT PA CHEST from 01/27/2010 FINDINGS: Heart is not enlarged. Left lung is clear. There is masslike radiodensity at the right lung apex, n ot present on prior films of 01/27/2010. There is also a question of mild right superior hilar fulln ess and retraction. No pleural effusion seen. No additional pulmonary findings. IMPRESSION: Findings raising the possibility of right upper lobe mass, suspicious for neoplasm. Correlation with chest CT recommended.
--- NOTE | 2019-04-13 16:05 | DI.CT_ITS ---
EXAM: CT CHEST WO CLINICAL HISTORY: assess R apex/suprahilar region for mass. TECHNIQUE: Imaging protocol: Axial computed tomography images were obtained and coronal and sagittal reformatted images were created and reviewed. COMPARISON: XR CHEST 2V PA LATERAL from 04/13/2019 FINDINGS: Tracheobronchial tree: Patent where visualized. Mediastinum and Carli: No dominant adenopathy or fluid collection. Pulmonary parenchyma: There is an area of consolidation in the right lung apex. This lies predominan tly posteriorly. There is also an area of consolidation in the anterior aspect of the right upper lo be. There is scarring in the lung bases bilaterally. There is a 4 millimeter noncalcified pulmonary nodule in the lateral aspect of the right middle lobe. There is a 5 millimeter noncalcified pulmona ry nodule in the lateral aspect of the right lower lobe. There is a calcified granuloma in the left lower lobe. Pleura: No effusion or pneumothorax. Heart: The heart is not dilated. Mild coronary artery calcification is present. Aorta: Thoracic aorta non-dilated. Mild atherosclerosis. Upper abdomen: Unremarkable. Lymph nodes: Within normal limits. Bones:Degenerative changes. IMPRESSION: 1. Areas of consolidation in the right lung apex and right upper lobe. This could represent pneumoni a or scarring. Malignancy cannot be excluded. 2. Pulmonary nodules. For patients at high risk, consider CT scan at 6-12 months. DATA REPOSITORY: All CT scans at this facility are submitted to the National Radiology Data Registry (NRDR) Dose Index Registry (DIR) with the [employer] (ACR). RADIATION OPTIMIZATION: All CT scans at this facility use at least one of these dose optimization te chniques: automated exposure control; mA and/or kV adjustment per patient size (includes targeted exa ms where dose is matched to clinical indication); or iterative reconstruction.
--- NOTE | 2019-04-13 16:18 | DI.VRAD_ITS ---
PROCEDURE INFORMATION: Exam: CT Chest Without Contrast Exam date and time: 04/13/2019 4:01 PM Age: 64 years old Clinical indication: Mass, lump, or swelling in the chest; Patient HX: Assess R apex/suprahilar region for mass TECHNIQUE: Imaging protocol: Computed tomography of the chest without contrast. Radiation optimization: All CT scans at this facility use at least one of these dose optimization techniques: automated exposure control; mA and/or kV adjustment per patient size (includes targeted exams where dose is matched to clinical indication); or iterative reconstruction. COMPARISON: CR XR CHEST 2V PA LATERAL 04/13/2019 3:03 PM FINDINGS: Lungs: Consolidation in the right apex could represent pneumonia, scarring or less likely malignancy. This extends into the anterior segment of the right upper lobe. 5 mm nodule in the lateral segment of the right lower lobe (2/39). 4 mm nodule in the lateral segment of the right middle lobe (2/40). Calcified granuloma in the left lower lobe. Subsegmental atelectatic changes at the pulmonary bases. Pleural space: Unremarkable. No pneumothorax. No pleural effusion. Heart: Unremarkable. No cardiomegaly. No pericardial effusion. Pulmonary arteries: Normal. Aorta: Unremarkable. No aortic aneurysm. Lymph nodes: Unremarkable. No enlarged lymph nodes. Bones/joints: Unremarkable. No acute fracture. Soft tissues: Unremarkable. IMPRESSION: Consolidation in the right apex could represent pneumonia, scarring or less likely malignancy. This extends into the anterior segment of the right upper lobe. Pulmonary nodules. For patients at low risk (minimal or absent history of smoking and of other known risk factors), no routine follow-up is indicated. For patients at high risk (history of smoking or of other known risk factors), consider optional CT at 12 months. (Renetta et al., Fleischner Society, 2017) Dictated and Authenticated by: Taj Kaur MD. Ordering:SANAM Montilla MD
[2019-04-13 18:10] LABS: Troponin I < 0.05 ng/Ml (<0.06)
[2019-04-13] MEDS: LORazepam 0.5 MG TAB 1 MG PO (19:19)
--- NOTE | 2019-04-13 19:32 | NUR.NOTE ---
IV removed. Discharge instructions reviewed with verbal understanding. aware to f/u with resp tomorrow re: holter monitor placement. ambulated to exit with steady gait.
== END 2019-04-13 19:30 | disposition home or self-care (01) ==
PROVIDERS: Physician Assistant; Emergency Provider Physician Assistant
DX: R00.2 Palpitations (principal); R00.0 Tachycardia, unspecified; F41.9 Anxiety disorder, unspecified; E11.22 Type 2 diabetes mellitus with diabetic chronic kidney disease; N18.9 Chronic kidney disease, unspecified
CPT/HCPCS: 36415; 71250; 80053; 93005; 96361; 96365; 96375; 99285; 71046; 83735; 84443; 84484; 85025; 85379; 93010; J2060; J3475

== ENCOUNTER 2019-04-14 10:39 | Outpatient (CLI) | payer MEDICARE, SELFPAY ==
--- NOTE | 2019-04-19 09:05 | W.HOLTRPT ---
Date of service: 04/19/19 Time of Service: 09:06 Holter Monitor Report Holter Monitor Note: This is a 2-day Holter monitor ordered for the indication of palpitations. ?Patient was in normal sinus rhythm for 88% of this recording. ?There was one episode of supraventricular tachycardia with lasted 3 beats. There were rare (0.1%) premature atrial contractions. ?There were no episodes of ventricular tachycardia. ?There were frequent (7.4%) premature ventricular contractions as well as couplets and triplets. ?There were no episodes of atrial fibrillation, no pauses greater than 3 seconds, and no evidence of high degree heart block.
== END 2019-04-14 10:59 ==
PROVIDERS: PCP Family Medicine; Visit Provider Internal Medicine Cardiovascular Disease
DX: R00.2 Palpitations (principal); I47.1 Supraventricular tachycardia; I49.1 Atrial premature depolarization; I49.3 Ventricular premature depolarization
CPT/HCPCS: 93225

== ENCOUNTER 2019-04-18 11:54 | Outpatient (CLI) | payer MEDICARE, SELFPAY | END 2019-04-18 12:14 | PROVIDERS: PCP Family Medicine; Visit Provider Internal Medicine Cardiovascular Disease | DX: R00.2 Palpitations (principal); I47.1 Supraventricular tachycardia; I49.1 Atrial premature depolarization; I49.3 Ventricular premature depolarization | CPT/HCPCS: 93226 ==

== ENCOUNTER 2019-04-19 09:05 | Outpatient (CLI) | payer MEDICARE, SELFPAY | END 2019-04-19 09:25 | PROVIDERS: PCP Family Medicine; Referring Provider Family Medicine; Visit Provider Internal Medicine Cardiovascular Disease | DX: R00.2 Palpitations (principal); I47.1 Supraventricular tachycardia; I49.1 Atrial premature depolarization; I49.3 Ventricular premature depolarization | CPT/HCPCS: 93227 ==

== ENCOUNTER 2020-10-31 17:41 | Emergency (ER) | payer MEDICARE, SELFPAY ==
[2020-10-31] VITALS (57 sets, daily range): BP systolic 127–169; BP diastolic 81–114; PULSE 89–149; RESP 4–30; TEMP 36.6; O2SAT 94–100
--- NOTE | 2020-10-31 18:02 | W.ED.GENAD ---
Discharge Plan Disposition Patient Disposition: OTHER Condition: Serious Discharge Details Clinical Impression: Non-ST elevation [place] (NSTEMI) Primary Care Provider: John Ceballos ED Provider: Margoth Caballero Home Meds and New Rx's Prescriptions: No Action montelukast [Singulair] 5 MG tablet,chewable 10 mg PO HS RF: 0 carvedilol [Coreg] 12.5 MG tablet 37.5 mg PO BID RF: 0 allopurinol 100 MG tablet 200 mg PO DAILY PRNRF: 0 doxazosin 8 MG tablet 4 mg PO DAILY RF: 0 ascorbic acid (vitamin C) [Vitamin C] 250 MG tablet 250 mg PO DAILY RF: 0 ferrous sulfate 325 MG tablet 325 mg PO DAILY RF: 0 bisacodyl 5 MG tablet,delayed release (DR/EC) 100 mg PO DAILY PRNRF: 0 calcitriol 0.25 MCG capsule 0.25 mg PO DAILY RF: 0 tacrolimus 0.5 MG capsule 2 tab PO HS RF: 0 oxycodone 5 MG tablet 5 mg PO Q4H PRNRF: 0 chlorthalidone 25 mg Tablet 25 mg PO DIRECTED RF: 0 dronabinol 2.5 mg Capsule 2.5 mg PO BID PRNRF: 0 alogliptin 6.25 mg Tablet 6.25 mg PO DAILY RF: 0 atorvastatin 20 mg Tablet 20 mg PO QPM RF: 0 morphine 30 mg Tablet Extended Release 30 mg PO BID RF: 0 rabeprazole 20 mg Tablet,Delayed Release (Dr/Ec) 20 mg PO DAILY RF: 0 magnesium gluconate 27 mg magnesium (500 mg) Tablet 500 mg PO BID Qty: 60 RF: 0 Narcan 4 mg/actuation spray,non-aerosol 4 mg CALE Q2M PRN (Reason: opioid overdose) Qty: 2 RF: 0 albuterol sulfate 90 mcg/actuation Aerosol Powdr Breath Activated 2 inh INHALATION TID PRNRF: 0 psyllium Powder 1 tsp PO DAILY RF: 0 cholecalciferol (vitamin D3) 50 mcg (2,000 unit) Tablet 4,000 unit PO DAILY RF: 0 aspirin 81 mg Tablet 81 mg PO DAILY RF: 0 magnesium oxide 400 mg magnesium Tablet 400 mg PO BID RF: 0 Discharge Data Discharge Date/Time-TO BE ENTERED AT DEPARTURE: 10/31/20 23:45 Medical Decision Making Patient is a pleasant 55-year-old male presenting today with chief complaint of hot flashes, nausea, diarrhea. He states that he woke with some GI upset this morning. Denies any unusual p.o. intake. No recent medication changes. Patient is status post liver transplant. He reports that he has been having episodes of lightheadedness with profuse diaphoresis and nausea. Reports that he has felt like he had a fever then will become chilled. Has not used any antipyretics. He denies any chest pain or shortness of breath. No palpitations. Denies any abdominal pain. Reports that he is currently mildly nauseous but declines any antiemetics. He denies any significant cardiac history. Denies any blood in his stool. No change in urinary habits. Past medical history is pertinent for liver transplant, CKD, high cholesterol, diabetes, ventricular ectopy. On exam, patient appears acute on chronically ill. He is quite pale and thin. He is tachycardic. At the time I evaluated in the room, his heart rate was 140. He had multiple PVCs at times having runs of bigeminy. His lungs are clear. Abdomen is benign. He has 2+ distal pulses in all extremities. No calf tenderness. No lower extremity edema. Patient is immunocompromised. Considered in this etiology particularly as he did feel febrile at home. Will obtain urinalysis, CBC, CMP, lactate, blood cultures. Also concern for potential cardiac source of his diaphoresis and nausea. He is not actively having chest pain but with his chronic disease, these may be anemic. Also obtain EKG and troponin. EKG was obtained and reviewed by Dr. Lacey. Patient is in sinus tachycardia with a rate of 128. Patient does have 4 beats of bigeminy. No STEMI. Patient has elevated troponin 0.23. Will give the patient aspirin, begin heparinizing the patient. Patient began having another episode of diaphoresis and nausea. Heart rate again bumped into the 140s. Patient does report that he did take his carvedilol this morning. Remaining labs reviewed. Patient is awake and of 11.8. Stable H&H. Lactate 1.4. Coags are normal. Creatinine is elevated at 2.3 which is baseline for the patient. TSH is normal. Patient does have blood in his urine he reports that this is typical for him. We will give the patient dose of Lopressor and nitroglycerin sublingual. [facility] is unable to accept the patient or put on list for tomorrow. Consulted with [facility]. They do not have capacity to accept patient that is not in network. FINDINGS: Tubes, catheters and devices: Monitoring wires noted. Lungs: Mild patchy airspace opacity noted at the lung bases, right greater than left. Pleural spaces: Blunting noted in the costophrenic angles, right greater than left. No evidence of pneumothorax. Heart/Mediastinum: Unremarkable. No cardiomegaly. Bones/joints: Unremarkable. IMPRESSION: 1. Mild basilar infiltrates and/or edema. 2. Mild bilateral pleural effusions versus pleuroparenchymal scar. Patient did not clinically appear fluid overloaded. No lower extremity edema. No calf tenderness. lungs clear on initial exam. Heart rate is now down into the 110s. He is no longer diaphoretic. He reports that his nausea is improved after the sublingual nitro. Called multiple facilities. [facility] closest with bed availability. Consulted with Dr. Carmen. Discussed history, exam, labs. [facility] is able to accept the patient into their ICU. Patient transferred to their facility. Heart rate is now in the 110s. He is feeling much improved and has no active symptoms. Patient was being transferred to [facility], his daughter arrived. She adds that infected patient does have a cardiac history and had an [place] several years ago with stent placement. She also reports that he has been endorsing some chest pressure as well as shortness of breath over the past several days to week but has been hesitant to be evaluated. HPI General Mode of arrival: EMS. Date/Time Provider Initiated Documentation: 10/31/20 18:01. Limitations to Documentation: no limitations. Information obtained by: patient, EMS and RN notes reviewed. History of Present Illness 65 year old M presents to the emergency department with the chief complaint of nausea and diarrhea, diaphoresis, described as moderate, Quality is described as other (patient denies any pain), and is localized to the abdomen. Patient started experiencing this hour(s) and it has been intermittent. No relieving factors improve symptom(s), No exacerbating factors reported . Patient notes diaphoresis, loss of appetite and nausea/vomiting (nausea, no vomiting); denies chest pain, fever/chills, rash, shortness of breath and weakness. Patient did receive the following treatments prior to arrival, none Related Data Home Medications Medication Instructions Recorded Confirmed allopurinol 200 mg PO DAILY PRN 11/25/15 10/31/20 ascorbic acid (vitamin C) [Vitamin 250 mg PO DAILY 11/25/15 10/31/20 C] bisacodyl 100 mg PO DAILY PRN 11/25/15 10/31/20 calcitriol 0.25 mg PO DAILY 11/25/15 10/31/20 carvedilol [Coreg] 37.5 mg PO BID 11/25/15 10/31/20 doxazosin 4 mg PO DAILY 11/25/15 10/31/20 ferrous sulfate 325 mg PO DAILY 11/25/15 10/31/20 montelukast [Singulair] 10 mg PO HS 11/25/15 10/31/20 oxycodone 5 mg PO Q4H PRN 11/25/15 10/31/20 tacrolimus 2 tab PO HS 11/25/15 10/31/20 alogliptin 6.25 mg PO DAILY 02/05/19 10/31/20 atorvastatin 20 mg PO QPM 02/05/19 10/31/20 chlorthalidone 25 mg PO DIRECTED 02/05/19 10/31/20 dronabinol 2.5 mg PO BID PRN 02/05/19 10/31/20 morphine 30 mg PO BID 02/05/19 10/31/20 rabeprazole 20 mg PO DAILY 02/05/19 10/31/20 magnesium gluconate 500 mg PO BID #60 tab 02/06/19 04/13/19 naloxone [Narcan] 4 mg CALE Q2M PRN #2 each 04/13/19 10/31/20 albuterol sulfate 2 inh INHALATION TID PRN 10/31/20 10/31/20 aspirin 81 mg PO DAILY 10/31/20 10/31/20 cholecalciferol (vitamin D3) 4,000 unit PO DAILY 10/31/20 10/31/20 magnesium oxide 400 mg PO BID 10/31/20 10/31/20 psyllium 1 tsp PO DAILY 10/31/20 10/31/20 Previous Rx's Medication Instructions Recorded magnesium gluconate 500 mg PO BID #60 tab 02/06/19 naloxone [Narcan] 4 mg CALE Q2M PRN #2 each 04/13/19 Allergies Allergy/AdvReac Type Severity Reaction Status Date / Time cephalexin monohydrate Allergy Severe Anaphylaxsi Unverified 10/31/20 20:14 [From Keflex] s General Stated Complaint: Nausea/Vomit/Diar PAPO: 2 Review of Systems Constitutional Constitutional: Reports as per HPI, Denies chills, Reports excessive sweating, Denies fever(s), Denies headache(s), Denies lethargy and Denies poor appetite Eyes Eyes: Denies change in vision ENT Ears, Nose, Mouth, and Throat: Denies dizziness and Denies headache(s) Cardiovascular Cardiovascular: Reports as per HPI, Denies dyspnea and Denies dyspnea on exertion Respiratory Respiratory: Reports as per HPI, Denies chest congestion, Denies cough, Denies pain on inspiration, Denies pain with cough, Denies dyspnea, Denies dyspnea on exertion and Denies wheezing Gastrointestinal Gastrointestinal: Reports as per HPI, Denies abdominal pain, Denies melena, Denies bloating, Denies hematochezia, Denies cramping, Reports diarrhea, Reports nausea and Denies vomiting Genitourinary Genitourinary: Denies system reviewed and no additional complaints, except as documented (denies change in urinary habits) Musculoskeletal Musculoskeletal: Reports as per HPI and Denies back pain Integumentary/Breasts Skin/Breast: Reports as per HPI and Denies rash Neurologic Neurologic: Reports as per HPI, Denies dizziness and Denies headache(s) Endocrine Endocrine: Reports excessive sweating Allergic/Immunologic Allergic/Immunologic: Denies wheezing [facility] Medical History (Updated 11/01/20 @ 14:04 by KYARA Gonzalez) Chronic kidney disease Diabetes Hepatitis C High cholesterol Myocardial infarction Tachycardia Surgical History Liver transplant recipient Social History Smoking/Tobacco Use Status: Former Tobacco Use Smoking risk assessment performed?: Yes Alcohol Intake: former Drug use: Never Substance use type: does not use Do you feel safe at home: Yes Do you feel safe in your relationship?: Yes Additional Social history: recently ; still going through grieving process Exam Const General: cooperative, comfortable, well developed, anxious and ill appearing acutely and chronically Nutritional Appearance: average body habitus and well nourished Orientation: alert, awake and oriented x3 HENMT Head: normal to inspection Ears: hearing grossly normal bilaterally Mouth: moist mucous membranes Resp Effort & Inspection: normal respiratory effort, able to speak in complete sentences and no respiratory distress Auscultation: clear to auscultation bilaterally, no rales, no rhonchi and no wheezes Cardio Rate: tachycardic Rhythm: regular rhythm Heart Sounds: S1 normal and S2 normal GI Inspection: normal to inspection, no edema and non-distended Palpation: soft, no hepatosplenomegaly, not firm, no guarding, no masses, no pulsatile masses, not rigid and nontender Auscultation: normal bowel sounds Back/Spine/Pelvis Back: no CVA tenderness Thoracic/Lumbar Spine: thoracic and lumbar spine normal to inspection Skin General skin exam: no rashes or lesions noted Trauma: no lacerations or abrasions Neuro General: patient alert, patient awake and patient oriented x3 Cognition: normal cognition Speech: speech normal Extrem General: normal to inspection, capillary refill normal, no pedal edema, no calf tenderness and other (2+ distal pulses in all extremities) Psych Appearance: grossly normal and well kempt Mental Status: mental status grossly normal Speech and Movement: speech and movement normal Course Vital Signs Vital signs: Vital Signs Temperature 36.6 C 10/31/20 17:47 Pulse 120 H 10/31/20 17:47 Respiratory Rate 18 10/31/20 17:47 Blood Pressure 143/96 H 10/31/20 17:47 Pulse Oximetry 99 10/31/20 17:47 Temperature 36.6 C 10/31/20 17:47 Temperature Source Oral 10/31/20 17:47 Pulse 120 H 10/31/20 17:47 Respiratory Rate 18 10/31/20 17:47 Blood Pressure 143/96 H 10/31/20 17:47 Blood Pressure Position Supine 10/31/20 17:47 Pulse Oximetry 99 10/31/20 17:47 Oxygen Delivery Method Room Air 10/31/20 17:47 Oxygen Flow Rate 0 10/31/20 17:47 Pain Level 0 10/31/20 17:47 Critical Care Time Critical Care Time Critical Care Time: Yes Total Critical Care Time: 47 Attestation: Bedside management of the patient's NSTEMI with tachydysrhythmia required . Immediate management of life-threatening pathology
[2020-10-31] MEDS: Normal Saline 1,000 ML 1000 ML IV (18:10)
--- NOTE | 2020-10-31 18:15 | RT.EKG_ITS ---
APPROVED REPORT Exam: Resting ECG Reason for Exam: lightheaded Patient Location: E HR:128 bpm ECG Measurements Heart Rate 128 AXIS OR 152 P 78 QRSd 134 QRS -80 QT 352 T 30 QTc 515 Conclusion Sinus tachycardia...rate> 99 Ventricular bigeminy...bigeminy string>4 w/ V complexes RBBB and LAFB...QRSd >120mS, axis(-40,240) Consider anteroseptal infarct...Q >30mS, dimin R, V1-V2. Sinus. Bigeminy. No STEMI. I have reviewed and interpreted ECG and agree with software generated interpretation.
[2020-10-31 18:40] LABS: Source Nasal/Nares
--- NOTE | 2020-10-31 19:00 | RT.EKG_ITS ---
APPROVED REPORT Exam: Resting ECG Reason for Exam: sweating again Patient Location: E HR:124 bpm ECG Measurements Heart Rate 124 AXIS IA 158 P 77 QRSd 131 QRS 239 QT 324 T 30 QTc 464 Conclusion Sinus tachycardia...rate> 99 Multiple ventricular premature complexes...V complexes w/ short R-R intervls Right bundle branch block...QRSd>120, terminal axis(90,270) Consider anteroseptal infarct...Q >30mS, dimin R, V1-V2. Sinus. PVCs. No STEMI. I have reviewed and interpreted ECG and agree with software generated interpretation.
[2020-10-31 19:07] LABS: Lactate 1.4 mmol/L (0.6-1.4)
[2020-10-31 19:13] LABS: Abs Immature Grans 0.06 10^3/uL (0.0-0.06); Absolute Eosinophil Count 0.14 10^3/uL (0.0-0.7); Absolute Lymphocyte Count 1.17 10^3/uL (1.2-3.4); Basophils % 0.3; Eosinophils % 1.2; HCT 38.7 % (40.0-50.0); HGB 13.3 g/dL (13.5-17.5); Immature Grans % 0.5; Lymphocytes % 9.9; MCH 29.8 pg (27.0-33.0); MCHC 34.4 % (32.0-36.0); MCV 86.8 fL (80-95); MPV 10.5 fL (8.0-11.0); Monocytes % 6.3; Neutrophils % 81.8; Nucleated RBC 0 %; Platelet Count 203 10^3/uL (130-400); RBC 4.46 10^6/uL (4.36-5.78); WBC 11.83 10^3/uL (4.4-10.8)
[2020-10-31 19:14] LABS: Absolute Basophil Count 0.04 10^3/uL (0.0-0.2); Absolute Monocyte Count 0.75 10^3/uL (0.1-0.8); Absolute Neutrophil Count 9.68 10^3/uL (1.2-6.7)
[2020-10-31 19:20] LABS: Bilirubin Negative (Negative); Blood Moderate (Negative); Clarity Sl Cloudy (Clear); Glucose Negative (Negative); Ketones Negative (Negative); Leukocyte Esterase Small (Negative); Nitrite Negative (Negative); Urobilinogen 0.2 EU/dL (Up TO 0.2); pH 5.5 (5-8)
[2020-10-31 19:28] LABS: ALT 17 U/L (16-63); AST 15 U/L (15-37); Albumin 4.3 g/dL (3.4-5.0); Alkaline Phosphatase 143 U/L (46-116); Anion Gap 9.2 mmol/L (3-11); BUN 26 mg/dL (7-18); Bilirubin, Total 0.5 mg/dL (0.2-1.0); CO2 26.8 mmol/L (21.0-32.0); CREATININE 2.3 mg/dL (0.70-1.30); Calcium 9.3 mg/dL (8.5-10.1); Chloride 102 mmol/L (98-107); Estimated GFR 28.68 (mL/min/1.73m2); Glucose 193 mg/dL (74-106); Magnesium 1.8 mg/dL (1.8-2.4); Potassium 4.9 mmol/L (3.5-5.1); Sodium 138 mmol/L (136-145); Total Protein 8.9 g/dL (6.4-8.2)
[2020-10-31 19:31] LABS: Bacteria Few HPF (Negative); C & S Indicated? Yes; Casts 0-2 Hyaline LPF (Negative); Crystals Negative HPF (Negative); Epithelial Cells Few HPF (Negative); Mucus Negative (Negative); Other Cells Few Transitional (Negative); WBC >50 HPF (0-5)
[2020-10-31 19:35] LABS: COVID-19 PCR Negative (Negative)
[2020-10-31 19:35] LABS: TSH (W/Ref FT4) 1.12 uIU/mL (0.36-3.74)
[2020-10-31 19:44] LABS: Troponin I 0.23 ng/mL (<0.06)
--- NOTE | 2020-10-31 20:00 | DI.RAD_ITS ---
Exam(s) XR PORTABLE CHEST AP EXAM: XR PORTABLE CHEST AP CLINICAL HISTORY: elevated troponin, diaphoresis. TECHNIQUE: 2D digital imaging was performed. COMPARISON: CR XR CHEST 2V PA LATERAL from 04/13/2019 FINDINGS: Heart size is normal. The mediastinum is not widened. Left lung is clear. Increased markings in the right upper lobe are again noted, possibly scarring. No new confluent infiltrates evident. No pleural effusions. No pulmonary edema. Chest leads in place. IMPRESSION: No acute pulmonary findings on this single AP portable view of the chest. Right upper lobe infiltrate and pleural thickening, similar to previous. No obvious rib destruction. If clinically indicated follow-up CT scan can be performed to exclude lesion at this level in right lung. DATA REPOSITORY: RADIATION DOSE DELIVERED: All CT scans at this facility use at least one of these dose optimization techniques: automated exposure control; mA and/or kV adjustment per patient size (includes targeted e xams where dose is matched to clinical indication); or iterative reconstruction.
[2020-10-31] MEDS: Aspirin 81 MG CHEW 324 MG CH (20:07)
[2020-10-31] MEDS: nitroGLYcerin 0.4 MG TAB (20:13)
[2020-10-31] MEDS: Clopidogrel 75 MG TAB PO (20:24)
[2020-10-31] MEDS: Metoprolol 5 MG/5 ML VIAL IVP (20:25)
[2020-10-31 21:01] LABS: INR 1.1 (0.9-1.1); PTT Activated 24.6 sec (21.0-27.5)
--- NOTE | 2020-10-31 21:02 | DI.VRAD_ITS ---
PROCEDURE INFORMATION: Exam: XR Chest Exam date and time: 10/31/2020 8:10 PM Age: 65 years old Clinical indication: Patient HX: Elevated troponin, diaphoresis. Weakness, TECHNIQUE: Imaging protocol: XR of the chest. Views: 1 view. COMPARISON: CT CHEST WO 04/13/2019 4:05 PM FINDINGS: Tubes, catheters and devices: Monitoring wires noted. Lungs: Mild patchy airspace opacity noted at the lung bases, right greater than left. Pleural spaces: Blunting noted in the costophrenic angles, right greater than left. No evidence of pneumothorax. Heart/Mediastinum: Unremarkable. No cardiomegaly. Bones/joints: Unremarkable. IMPRESSION: 1. Mild basilar infiltrates and/or edema. 2. Mild bilateral pleural effusions versus pleuroparenchymal scar. Dictated and Authenticated by: Jed Trent MD. Ordering:АНДРЕЙ Justin MD
[2020-10-31 23:02] LABS: Troponin I 0.43 ng/mL (<0.06)
--- NOTE | 2020-11-05 08:33 | NUR.NOTE ---
Nursing Note: Urine culture result faxed to [facility], [id number] for follow up. Daina Tobar [phone]
== END 2020-10-31 23:45 | disposition other institution (70) ==
PROVIDERS: Emergency Provider Physician Assistant; PCP Family Medicine
DX: I21.4 Non-ST elevation (NSTEMI) myocardial infarction (principal); R00.0 Tachycardia, unspecified; I25.2 Old myocardial infarction; Z20.822 Contact with and (suspected) exposure to COVID-19; Z03.818 Encounter for observation for suspected exposure to other biological agents ruled out
CPT/HCPCS: 36415; 80053; 87040; 87077; 87635; 93005; 96361; 96365; 96366; 96375; 96376; 99291; 71045; 81003; 81015; 83605; 83735; 84443; 84484; 85025; 85610; 85730; 87086; 87186; 93010

== ENCOUNTER 2022-03-11 15:01 | Emergency (ER) | payer OTHER, SELFPAY ==
[2022-03-11 15:05] VITALS: BP 190/95; PULSE 84; RESP 20; TEMP 36.4; O2SAT 98
[2022-03-11 16:31] VITALS: BP 180/79; PULSE 84; RESP 19; TEMP 36.9; O2SAT 97
--- NOTE | 2022-03-11 16:59 | ED.GENADUL_ITS ---
Discharge Plan Disposition Patient Disposition: Home Condition: Improving Discharge Details Clinical Impression: Bronchitis Primary Care Provider: John Ceballos ED Provider: Ryan Wood Home Meds and New Rx's Prescriptions: New doxycycline hyclate 100 mg capsule 100 mg PO BID 7 Days Qty: 14 0RF prednisone 50 mg tablet 50 mg PO DAILY 5 Days Qty: 5 0RF Continued montelukast [Singulair] 5 MG tablet,chewable 10 mg PO HS carvedilol [Coreg] 12.5 MG tablet 37.5 mg PO BID allopurinol 100 MG tablet 200 mg PO DAILY PRN doxazosin 8 MG tablet 4 mg PO DAILY ascorbic acid (vitamin C) [Vitamin C] 250 MG tablet 250 mg PO DAILY ferrous sulfate 325 MG tablet 325 mg PO DAILY bisacodyl 5 MG tablet,delayed release (DR/EC) 100 mg PO DAILY PRN calcitriol 0.25 MCG capsule 0.25 mg PO DAILY tacrolimus 0.5 MG capsule 2 tab PO HS Label Comments: 11/25/15-takes 0.75 in the am, 0.75 at night every other day and on the odd day takes 0.5. oxycodone 5 MG tablet 5 mg PO Q4H PRN Rx Instructions: Q4-6H PRN chlorthalidone 25 mg Tablet 25 mg PO DIRECTED Rx Instructions: every other day dronabinol 2.5 mg Capsule 2.5 mg PO BID PRN alogliptin 6.25 mg Tablet 6.25 mg PO DAILY atorvastatin 20 mg Tablet 20 mg PO QPM Label Comments: does not take morphine 30 mg Tablet Extended Release 30 mg PO BID rabeprazole 20 mg Tablet,Delayed Release (Dr/Ec) 20 mg PO DAILY magnesium gluconate 27 mg magnesium (500 mg) Tablet 500 mg PO BID Qty: 60 0RF naloxone [Narcan] 4 mg/actuation spray,non-aerosol 4 mg CALE Q2M PRN (Reason: opioid overdose) Qty: 2 0RF Rx Instructions: spray 1 dose into ONE nostril; alternate nostrils w each dose until help arrives albuterol sulfate 90 mcg/actuation Aerosol Powdr Breath Activated 2 inh INHALATION TID PRN psyllium Powder 1 tsp PO DAILY cholecalciferol (vitamin D3) 50 mcg (2,000 unit) Tablet 4,000 unit PO DAILY aspirin 81 mg Tablet 81 mg PO DAILY magnesium oxide 400 mg magnesium Tablet 400 mg PO BID Discharge Instructions Instructions: Acute Bronchitis (ED) Additional Instructions: Please take antibiotics and prednisone as prescribed until finished. Home to rest this evening. Continue small, frequent sips of fluids to maintain good hydration. Please follow-up with regular doctor if not improving in 5 to 7 days time. Return to the emergency department for any acute concerns. Medical Decision Making 66-year-old male presents complaining of persistent cough, congestion, fever and chills over 3+ weeks time. He states at the beginning of of the month he had a home positive test for COVID, then felt like he improved, now with 1 week of worsening cough, congestion and fever. He has a history of liver transplantation and is immunocompromised. He is afebrile and oxygenating normally. Exam does reveal left base rhonchi. Patient referred for viral swab which indicates negative COVID and negative influenza. The remainder of his laboratories show a CBC that is reassuring, chemistries that note BUN 28, creatinine 1.9. AST 54, 54. Chest x-ray with no focal consolidation. Please see the formal report. Patient is not hypoxic or wheezing but may have a mild exacerbation of COPD, he may also have long COVID. Cannot exclude underlying postviral bronchitis and will opt to treat him with a burst of steroid as well as antibiotic. He understands home management and indications to seek reevaluation. HPI General Mode of arrival: ambulatory . Date/Time Provider Initiated Documentation: 03/11/22 15:38 . Limitations to Documentation: no limitations . Information obtained by: patient . History of Present Illness 66 year old M presents to the emergency department with the chief complaint of Cough, fever, malaise, described as moderate, Quality is described as dull, and is localized to the chest. Patient reports no radiation. Patient started experiencing this day(s) and it has been constant. No relieving factors improve symptom(s), No exacerbating factors reported . Patient notes cough, fever/chills, loss of appetite, malaise, nausea/vomiting and weakness; denies confusion, chest pain and syncope. Patient did receive the following treatments prior to arrival, none Related Data Home Medications Medication Instructions Recorded Confirmed allopurinol 100 mg tablet 200 mg PO DAILY PRN 11/25/15 03/11/22 ascorbic acid (vitamin C) 250 mg 250 mg PO DAILY 11/25/15 03/11/22 tablet (Vitamin C) bisacodyl 5 mg tablet,delayed 100 mg PO DAILY PRN 11/25/15 03/11/22 release calcitriol 0.25 mcg capsule 0.25 mg PO DAILY 11/25/15 03/11/22 carvedilol 12.5 mg tablet (Coreg) 37.5 mg PO BID 11/25/15 03/11/22 doxazosin 8 mg tablet 4 mg PO DAILY 11/25/15 03/11/22 ferrous sulfate 325 mg (65 mg 325 mg PO DAILY 11/25/15 03/11/22 iron) tablet montelukast 5 mg chewable tablet 10 mg PO HS 11/25/15 03/11/22 (Singulair) oxycodone 5 mg tablet 5 mg PO Q4H PRN 11/25/15 03/11/22 tacrolimus 0.5 mg capsule, 2 tab PO HS 11/25/15 03/11/22 immediate-release alogliptin 6.25 mg tablet 6.25 mg PO DAILY 02/05/19 03/11/22 atorvastatin 20 mg tablet 20 mg PO QPM 02/05/19 03/11/22 chlorthalidone 25 mg tablet 25 mg PO DIRECTED 02/05/19 03/11/22 dronabinol 2.5 mg capsule 2.5 mg PO BID PRN 02/05/19 03/11/22 morphine 30 mg tablet,extended 30 mg PO BID 02/05/19 03/11/22 release rabeprazole 20 mg tablet,delayed 20 mg PO DAILY 02/05/19 03/11/22 release magnesium gluconate 27 mg 500 mg PO BID #60 tabs 02/06/19 03/11/22 magnesium (500 mg) tablet naloxone 4 mg/actuation nasal 4 mg intranasal Q2M PRN opioid 04/13/19 03/11/22 spray (Narcan) overdose #2 ea albuterol sulfate 90 mcg/actuation 2 inh inhalation TID PRN 10/31/20 03/11/22 breath activated powder inhaler aspirin 81 mg tablet 81 mg PO DAILY 10/31/20 03/11/22 cholecalciferol (vitamin D3) 50 4,000 unit PO DAILY 10/31/20 03/11/22 mcg (2,000 unit) tablet magnesium oxide 400 mg PO BID 10/31/20 03/11/22 psyllium 1 tsp PO DAILY 10/31/20 03/11/22 doxycycline hyclate 100 mg capsule 100 mg PO BID 7 days #14 caps 03/11/22 prednisone 50 mg tablet 50 mg PO DAILY 5 days #5 tabs 03/11/22 Previous Rx's Medication Instructions Recorded magnesium gluconate 27 mg 500 mg PO BID #60 tabs 02/06/19 magnesium (500 mg) tablet naloxone 4 mg/actuation nasal 4 mg intranasal Q2M PRN opioid 04/13/19 spray (Narcan) overdose #2 ea doxycycline hyclate 100 mg capsule 100 mg PO BID 7 days #14 caps 03/11/22 prednisone 50 mg tablet 50 mg PO DAILY 5 days #5 tabs 03/11/22 Allergies Allergy/AdvReac Type Severity Reaction Status Date / Time cephalexin monohydrate Allergy Severe Anaphylaxsi Unverified 03/11/22 15:10 [From Keflex] s General Stated Complaint: RespSymp PAPO: 4 Review of Systems Narrative: No known sick contacts but attended [employer] events with his family. Reports home positive COVID test 4 weeks ago. No leg pain or swelling. States has been taking his medications. Reports malaise, body ache, fever, chills, cough, congestion, production of sputum. 8 systems were reviewed. PFSH All Active Problems (Updated 03/11/22 @ 18:36 by Ryan Wood MD) Palpitations (Acute) Non-ST elevation [place] (NSTEMI) (Acute) Bronchitis (Acute) Liver transplant recipient (Acute) Chronic kidney disease (Chronic) High cholesterol (Chronic) Diabetes (Chronic) Hypomagnesemia (Acute) Myoclonus (Acute) Ventricular ectopy (Acute) Medical History (Updated 03/11/22 @ 18:36 by Ryan Wood MD) Hepatitis C Myocardial infarction Tachycardia Social History Smoking/Tobacco Use Status: Former Tobacco Use Smoking risk assessment performed?: Yes Alcohol Intake: former Drug use: Never Substance use type: does not use Do you feel safe at home: Yes Do you feel safe in your relationship?: Yes Additional Social history: recently ; still going through grieving process Exam Narrative Exam Narrative: GEN: awake, alert, oriented 3. Pleasant, well groomed, interactive. HEAD: Normocephalic, atraumatic ENT: Mucous membranes moist, oropharynx unremarkable, External ear exam unremarkable EYES: PERRL, EOMI NECK: Full ROM, no YANIV, no menigismus CHEST/RESP: Nontender, left base rhonchi, otherwise clear CARDIOVASCULAR: RRR, no murmur, rub sam. 2+ Rad pulse bilateral ABDOMEN: Soft, nontender, no mass. +Bowel sounds EXT: Full ROM, no edema, no rash Neuro: Grossly normal neurologic exam, conversant, interactive. Psych: Speech fluent, thoughts congruent, affect normal Course Vital Signs Vital signs: Vital Signs Temperature 36.4 C L 03/11/22 15:05 Pulse 84 03/11/22 15:05 Respiratory Rate 20 03/11/22 15:05 Blood Pressure 190/95 H 03/11/22 15:05 Pulse Oximetry 98 03/11/22 15:05 Temperature 36.9 C 03/11/22 16:31 Temperature Source Oral 03/11/22 16:31 Pulse 84 03/11/22 16:31 Respiratory Rate 19 03/11/22 16:31 Respiratory Effort Non-Labored 03/11/22 15:13 Respiratory Depth Normal 03/11/22 15:12 Blood Pressure 180/79 H 03/11/22 16:31 Blood Pressure Position Sitting 03/11/22 15:05 Pulse Oximetry 97 03/11/22 16:31 Oxygen Delivery Method Room Air 03/11/22 16:31 Oxygen Flow Rate 0 03/11/22 16:31 Pain Level 10 03/11/22 16:31
[2022-03-11 17:24] LABS: Abs Immature Grans 0.02 10^3/uL (0.0-0.06); Absolute Basophil Count 0.02 10^3/uL (0.0-0.2); Absolute Eosinophil Count 0.12 10^3/uL (0.0-0.7); Absolute Lymphocyte Count 1.31 10^3/uL (1.2-3.4); Absolute Monocyte Count 0.83 10^3/uL (0.1-0.8); Absolute Neutrophil Count 5.65 10^3/uL (1.2-6.7); Basophils % 0.3; Eosinophils % 1.5; HCT 43.4 % (40.0-50.0); HGB 14.8 g/dL (13.5-17.5); Immature Grans % 0.3; Lymphocytes % 16.5; MCH 30.7 pg (27.0-33.0); MCHC 34.1 % (32.0-36.0); MCV 90 fL (80-95); MPV 10.9 fL (8.0-11.0); Monocytes % 10.4; Platelet Count 169 10^3/uL (130-400); RBC 4.82 10^6/uL (4.36-5.78); RDW 11.9 % (11.8-14.1); WBC 7.95 10^3/uL (4.4-10.8)
[2022-03-11] MEDS: Normal Saline 1,000 ML 1000 ML IV (17:25)
--- NOTE | 2022-03-11 17:32 | DI.RAD_ITS ---
Exam(s) XR CHEST 2V PA LATERAL EXAM: XR CHEST 2V PA LATERAL CLINICAL HISTORY: cough TECHNIQUE: 2D digital imaging was performed. COMPARISON: CT CT CHEST WO from 04/13/2019 CR,XR XR PORTABLE CHEST AP from 10/31/2020 FINDINGS: Right-sided volume loss is again noted. HEART: Normal size. Aorta: Not dilated. PULMONARY VASCULATURE: Normal. LUNGS: Biapical pleural thickening, right greater than left. Right upper lobe scarring. Some underl reggie emphysematous changes. No superimposed acute infiltrate. PLEURAL SPACE: No pleural effusion or pneumothorax. BONE:Unremarkable for age. IMPRESSION: Stable right-sided postsurgical changes and bi apical scarring. No acute abnormality. DATA REPOSITORY: RADIATION DOSE DELIVERED:
[2022-03-11 17:39] LABS: ALT 54 U/L (16-63); AST 54 U/L (15-37); Albumin 4.8 g/dL (3.4-5.0); Alkaline Phosphatase 204 U/L (46-116); Anion Gap 7.5 mmol/L (3-11); BUN 28 mg/dL (7-18); Bilirubin, Total 0.7 mg/dL (0.2-1.0); CO2 30.5 mmol/L (21.0-32.0); CREATININE 1.9 mg/dL (0.70-1.30); Calcium 9.9 mg/dL (8.5-10.1); Chloride 100 mmol/L (98-107); Estimated GFR 38.42 (mL/min/1.73m2); Glucose 161 mg/dL (74-106); Magnesium 2.2 mg/dL (1.8-2.4); Potassium 4.2 mmol/L (3.5-5.1); Sodium 138 mmol/L (136-145); Total Protein 9.4 g/dL (6.4-8.2)
--- NOTE | 2022-03-11 17:57 | DI.VRAD_ITS ---
PROCEDURE INFORMATION: Exam: XR Chest Exam date and time: 03/11/2022 17:35 Age: 66 years old Clinical indication: Cough TECHNIQUE: Imaging protocol: Radiologic exam of the chest. Views: 2 views. COMPARISON: CR XR PORTABLE CHEST AP 10/31/2020 20:34 FINDINGS: Lungs: Emphysema without airspace consolidation. Pleural spaces: No pleural effusion. No pneumothorax. Heart/Mediastinum: No cardiomegaly. Diaphragm: Elevated right hemidiaphragm. Bones/joints: No acute fracture. Other findings: Mild apical scarring right greater than left similar to prior. IMPRESSION: Emphysema without airspace consolidation. Dictated and Authenticated by: Jodee Shrestha MD. Ordering:DANNY Davis MD
[2022-03-11] MEDS: Doxycycline Hyclate 100 MG CAP PO (18:48)
--- NOTE | 2022-03-15 09:35 | NUR.NOTE ---
Nursing Note: Accessed patient chart to determine how many EKG orders were in the chart from the ED. There was an outstanding EKG in ordered status. There are no EKG's in the [employer] system that are outstanding. EKG order was deleted.
== END 2022-03-11 18:51 | disposition home or self-care (01) ==
PROVIDERS: Emergency Provider Emergency Medicine; PCP Family Medicine
DX: J20.9 Acute bronchitis, unspecified (principal); Z86.16 Personal history of COVID-19; Z94.4 Liver transplant status; R50.9 Fever, unspecified
CPT/HCPCS: 80053; 96360; 99284; 71046; 83735; 85025

== ENCOUNTER 2022-03-11 19:17 | Inpatient (IN) | payer OTHER, SELFPAY ==
[2022-03-11] VITALS (88 sets, daily range): BP systolic 131–210; BP diastolic 64–183; PULSE 50–171; RESP 11–33; TEMP 36.5
--- NOTE | 2022-03-11 19:15 | RT.EKG_ITS ---
APPROVED REPORT Exam: Resting ECG Reason for Exam: SOB Patient Location: E HR:139 bpm ECG Measurements Heart Rate 139 AXIS [place] [id number] P [id number] QRSd 132 QRS 153 QT 324 T 45 QTc 494 Conclusion Atrial fibrillation. Right bundle branch block
--- NOTE | 2022-03-11 19:25 | ED.GENADUL_ITS ---
Discharge Plan Disposition Patient Disposition: Admit to [facility] Condition: Stable Discharge Details Clinical Impression: New onset atrial fibrillation, Generalized weakness, History of COVID-19 Admit Date/Time: 03/11/22 22:56 Admit Provider: Sushma Gale Attending Provider: Sushma Gale Primary Care Provider: John Ceballos ED Provider: Eladia Lacey Discharge Data Discharge Date/Time-TO BE ENTERED AT DEPARTURE: 03/12/22 01:43 Medical Decision Making <Ryan Wood MD - Last Filed: 03/11/22 19:49> XT 6-year-old male who returns after evaluation in the emergency department this afternoon. He has a history of COVID infection approximately 4 weeks ago that seemed to improved and then has had recurrence of cough, congestion, subjective fever and chills and what he states are episodes of diaphoresis. After being evaluated in the emergency department earlier today with chest x-ray, negative influenza and COVID swabs, screening blood work and approximately 300 cc of fluid, the patient had felt improved and was discharged. I had elected to treat him for bronchitis and initiated a course of doxycycline. Upon leaving the patient states with walking out to his car he became lighthead ed, diaphoretic, and was noted to have tachycardia. He was brought back and readmitted to the emergency department. After the patient's exertion his pulse is approximately 140. Will initiate fluids, obtain troponin, blood cultures lactic acid and CRP.. The patient's previous work-up included CBC and comprehensive panel; will repeat CBC. He appears to have gone into rapid atrial fibrillation after discharge. Given that he is described intermittent episodes of this sensation since having COVID infection, would strongly consider he has had paroxysmal and rapid atrial fibrillation. As he does take a beta-consuelo, will initiate increased beta- blockade/rate control with 5 mg IV metoprolol. Would consider the patient's differential diagnosis to include hypovolemia, paroxysmal atrial fibrillation, atypical presentation of myocarditis; As it is change of shift, we will sign the patient out to Dr. Lacey pending repeat evaluation. <Eladia Lacye DO - Last Filed: 03/13/22 05:22> Dr. Wood 66-year-old male who returns after evaluation in the emergency department this afternoon. He has a history of COVID infection approximately 4 weeks ago that seemed to improved and then has had recurrence of cough, congestion, subjective fever and chills and what he states are episodes of diaphoresis. After being evaluated in the emergency department earlier today with chest x-ray, negative influenza and COVID swabs, screening blood work and approximately 300 cc of fluid, the patient had felt improved and was discharged. I had elected to treat him for bronchitis and initiated a course of doxycycline. Upon leaving the patient states with walking out to his car he became lightheaded, diaphoretic, and was noted to have tachycardia. He was brought back and readmitted to the emergency department. After the patient's exertion his pulse is approximately 140. Will initiate fluids, obtain troponin, blood cultures lactic acid and CRP.. The patient's previous work-up included CBC and comprehensive panel; will repeat CBC. He appears to have gone into rapid atrial fibrillation after discharge. Given that he is described intermittent episodes of this sensation since having COVID infection, would strongly consider he has had paroxysmal and rapid atrial fibrillation. As he does take a beta-consuelo, will initiate increased beta- blockade/rate control with 5 mg IV metoprolol. Would consider the patient's differential diagnosis to include hypovolemia, paroxysmal atrial fibrillation, atypical presentation of myocarditis; As it is change of shift, we will sign the patient out to Dr. Lacey pending repeat evaluation. Dr. Lacey 1999 --please see Dr. Wood's note for initial presentation, exam and plan. Case endorsed to follow-up on labs and imaging and final disposition. 66-year-old male with a history of liver transplant on tacrolimus, hypertension, hyperlipidemia, diabetes, chronic kidney disease who presents for several weeks of cough, congestion, generalized weakness and fatigue which were likely secondary to recent diagnosis of COVID and then the symptoms improved and he developed multiple episodes feeling cold sweats and chills over the last 3 weeks. I agree with Dr. Wood that I suspect he may have been experiencing paroxysmal A. fib during these episodes. Patient has no known history of atrial fibrillation. Heart rate now improved to 90s but occasionally increases to 120s. Repeat EKG notes a rate of 98 still in A. fib with PVCs but no ischemic findings. His blood pressure remains hypertensive at 199/101. May consider diltiazem and/or diltiazem drip if heart rate becomes elevated and persists. Will need IV fluid hydration, cardiology consultation and potentially PT due to generalized fatigue and weakness. 2044 --heart rate continuing to increase to 110s to 120s. We will give a dose of diltiazem and additional IV fluids. We will plan for admission. No beds available will likely have to hold in the ED for boarding until staffing and bed available in the morning. 2199 --Case discussed with hospitalist --patient is apparently followed by the [facility]. We will attempt to see if they have beds available for transfer. If no beds available at the [facility], will admit here. Heart rate much improved to the 70s to 80s. We will also give his evening dose of Coreg. 2299 --no bed availability at the [facility]. Per [facility] accounts receivable administrator, patient is not fully service-connected and can be admitted here. Case discussed with hospitalist accepts patient for admission. Medical Records Medical records reviewed: Yes I reviewed the patient's medical records. Medical records narrative: 03/11/22 ?XR Chest Exam date and time: 03/11/2022 17:35 Age: 66 years old Clinical indication: Cough TECHNIQUE: Imaging protocol: Radiologic exam of the chest. Views: 2 views. COMPARISON: CR XR PORTABLE CHEST AP 10/31/2020 20:34 FINDINGS: Lungs: Emphysema without airspace consolidation. Pleural spaces: No pleural effusion. No pneumothorax. Heart/Mediastinum: No cardiomegaly. Diaphragm: Elevated right hemidiaphragm. Bones/joints: No acute fracture.? Other findings: Mild apical scarring right greater than left similar to prior. IMPRESSION: Emphysema without airspace consolidation. Lab Data Lab results reviewed: Yes I reviewed the patient's lab results. Labs: 03/11/22 19:55 Blood Blood Culture - Pending 03/11/22 19:45 Blood Blood Culture - Pending Laboratory Tests Range/Units 03/11/22 03/11/22 03/11/22 19:40 19:45 19:55 WBC (4.4-10.8) 10^3/uL RBC (4.36-5.78) 10^6/uL Hgb (13.5-17.5) g/dL Hct (40.0-50.0) % MCV (80-95) fL MCH (27.0-33.0) pg MCHC (32.0-36.0) % RDW (11.8-14.1) % Plt Count (130-400) 10^3/uL MPV (8.0-11.0) fL Immature Gran % Neutrophils % Lymphocytes % Monocytes % Eosinophils % Basophils % Nucleated RBC % (0.0-0.3) % Absolute Neutrophils (1.2-6.7) 10^3/uL Absolute Lymphocytes (1.2-3.4) 10^3/uL Absolute Monocytes (0.1-0.8) 10^3/uL Absolute Eosinophils (0.0-0.7) 10^3/uL Absolute Basophils (0.0-0.2) 10^3/uL VBG Lactate (0.6-1.4) mmol/L Sodium (136-145) mmol/L 138 Potassium (3.5-5.1) mmol/L 3.8 Chloride (98-107) mmol/L 99 Carbon Dioxide (21.0-32.0) mmol/L 26.5 Anion Gap (3-11) mmol/L 12.5 H BUN (7-18) mg/dL 28 H Creatinine (0.70-1.30) mg/dL 2.1 H Est GFR (CKD-EPI 2020) (mL/min/1.73m2) 34.08 Glucose (74-106) mg/dL 242 H Calcium (8.5-10.1) mg/dL 9.8 Total Bilirubin (0.2-1.0) mg/dL 0.8 AST (15-37) U/L 52 H ALT (16-63) U/L 54 Alkaline Phosphatase (46-116) U/L 207 H Troponin I (<or=60) ng/L < 50 C-Reactive Protein (0.0-0.3) mg/dL 0.40 H Total Protein (6.4-8.2) g/dL 9.7 H Albumin (3.4-5.0) g/dL 4.9 TSH (0.36-3.74) uIU/mL Urine Color (Yellow) Urine Clarity (Clear) Urine pH (5-8) Ur Specific Lincoln (1.005-1.025) Urine Protein (Negative) mg/dL Urine Ketones (Negative) mg/dL Urine Blood (Negative) Urine Nitrite (Negative) Urine Bilirubin (Negative) Urine Urobilinogen (Up TO 0.2) EU/dL Ur Leukocyte Esterase (Negative) Urine RBC (0-2) HPF Urine WBC (0-5) HPF Ur Epithelial Cells (Negative) HPF Urine Crystals (Negative) HPF Urine Bacteria (Negative) HPF Urine Casts (Negative) LPF Urine Mucus (Negative) Ur Culture Indicated? Urine Glucose (Negative) mg/dL Range/Units 03/11/22 03/11/22 03/11/22 19:55 19:55 19:55 WBC (4.4-10.8) 10^3/uL 8.51 RBC (4.36-5.78) 10^6/uL 5.29 Hgb (13.5-17.5) g/dL 16.2 Hct (40.0-50.0) % 48.1 MCV (80-95) fL 91 MCH (27.0-33.0) pg 30.6 MCHC (32.0-36.0) % 33.7 RDW (11.8-14.1) % 12.0 Plt Count (130-400) 10^3/uL 172 MPV (8.0-11.0) fL 10.9 Immature Gran % 0.2 Neutrophils % 67.9 Lymphocytes % 22.2 Monocytes % 8.0 Eosinophils % 1.3 Basophils % 0.4 Nucleated RBC % (0.0-0.3) % 0.0 Absolute Neutrophils (1.2-6.7) 10^3/uL 5.78 Absolute Lymphocytes (1.2-3.4) 10^3/uL 1.89 Absolute Monocytes (0.1-0.8) 10^3/uL 0.68 Absolute Eosinophils (0.0-0.7) 10^3/uL 0.11 Absolute Basophils (0.0-0.2) 10^3/uL 0.03 VBG Lactate (0.6-1.4) mmol/L 1.9 H Sodium (136-145) mmol/L Potassium (3.5-5.1) mmol/L Chloride (98-107) mmol/L Carbon Dioxide (21.0-32.0) mmol/L Anion Gap (3-11) mmol/L BUN (7-18) mg/dL Creatinine (0.70-1.30) mg/dL Est GFR (CKD-EPI 2020) (mL/min/1.73m2) Glucose (74-106) mg/dL Calcium (8.5-10.1) mg/dL Total Bilirubin (0.2-1.0) mg/dL AST (15-37) U/L ALT (16-63) U/L Alkaline Phosphatase (46-116) U/L Troponin I (<or=60) ng/L C-Reactive Protein (0.0-0.3) mg/dL Total Protein (6.4-8.2) g/dL Albumin (3.4-5.0) g/dL TSH (0.36-3.74) uIU/mL 2.32 Urine Color (Yellow) Urine Clarity (Clear) Urine pH (5-8) Ur Specific Lincoln (1.005-1.025) Urine Protein (Negative) mg/dL Urine Ketones (Negative) mg/dL Urine Blood (Negative) Urine Nitrite (Negative) Urine Bilirubin (Negative) Urine Urobilinogen (Up TO 0.2) EU/dL Ur Leukocyte Esterase (Negative) Urine RBC (0-2) HPF Urine WBC (0-5) HPF Ur Epithelial Cells (Negative) HPF Urine Crystals (Negative) HPF Urine Bacteria (Negative) HPF Urine Casts (Negative) LPF Urine Mucus (Negative) Ur Culture Indicated? Urine Glucose (Negative) mg/dL Range/Units 03/11/22 03/11/22 21:50 22:20 WBC (4.4-10.8) 10^3/uL RBC (4.36-5.78) 10^6/uL Hgb (13.5-17.5) g/dL Hct (40.0-50.0) % MCV (80-95) fL MCH (27.0-33.0) pg MCHC (32.0-36.0) % RDW (11.8-14.1) % Plt Count (130-400) 10^3/uL MPV (8.0-11.0) fL Immature Gran % Neutrophils % Lymphocytes % Monocytes % Eosinophils % Basophils % Nucleated RBC % (0.0-0.3) % Absolute Neutrophils (1.2-6.7) 10^3/uL Absolute Lymphocytes (1.2-3.4) 10^3/uL Absolute Monocytes (0.1-0.8) 10^3/uL Absolute Eosinophils (0.0-0.7) 10^3/uL Absolute Basophils (0.0-0.2) 10^3/uL VBG Lactate (0.6-1.4) mmol/L Sodium (136-145) mmol/L Potassium (3.5-5.1) mmol/L Chloride (98-107) mmol/L Carbon Dioxide (21.0-32.0) mmol/L Anion Gap (3-11) mmol/L BUN (7-18) mg/dL Creatinine (0.70-1.30) mg/dL Est GFR (CKD-EPI 2020) (mL/min/1.73m2) Glucose (74-106) mg/dL Calcium (8.5-10.1) mg/dL Total Bilirubin (0.2-1.0) mg/dL AST (15-37) U/L ALT (16-63) U/L Alkaline Phosphatase (46-116) U/L Troponin I (<or=60) ng/L < 50 C-Reactive Protein (0.0-0.3) mg/dL Total Protein (6.4-8.2) g/dL Albumin (3.4-5.0) g/dL TSH (0.36-3.74) uIU/mL Urine Color (Yellow) Yellow Urine Clarity (Clear) Sl Cloudy Urine pH (5-8) 6.5 Ur Specific Lincoln (1.005-1.025) 1.020 Urine Protein (Negative) mg/dL >=300 H Urine Ketones (Negative) mg/dL Negative Urine Blood (Negative) Small H Urine Nitrite (Negative) Negative Urine Bilirubin (Negative) Negative Urine Urobilinogen (Up TO 0.2) EU/dL 0.2 Ur Leukocyte Esterase (Negative) Negative Urine RBC (0-2) HPF 3-5 H Urine WBC (0-5) HPF Negative Ur Epithelial Cells (Negative) HPF Rare Urine Crystals (Negative) HPF Negative Urine Bacteria (Negative) HPF Rare Urine Casts (Negative) LPF Negative Urine Mucus (Negative) Negative Ur Culture Indicated? No Urine Glucose (Negative) mg/dL 500 H ECG Data Attestation: I personally reviewed and interpreted this ECG (s) as follows: Interpretation: #1 -- rate of 139, afib, RBBB, no stemi. HPI <Ryan Wood MD - Last Filed: 03/11/22 19:49> General Mode of arrival: wheelchair . Date/Time Provider Initiated Documentation: 03/11/22 19:20 . Limitations to Documentation: no limitations . Information obtained by: patient and family . History of Present Illness 66 year old M presents to the emergency department with the chief complaint of Diaphoresis and weakness, described as moderate and similar to prior episodes, Patient reports no radiation. Patient started experiencing this day(s) and it has been intermittent. Rest improves symptom(s), Movement worsens symptoms . Patient notes cough, fever/chills, loss of appetite and weakness; denies chest pain. Patient did receive the following treatments prior to arrival, other Related Data Home Medications Medication Instructions Recorded Confirmed allopurinol 100 mg tablet 200 mg PO DAILY PRN 11/25/15 03/11/22 ascorbic acid (vitamin C) 250 mg 250 mg PO DAILY 11/25/15 03/11/22 tablet (Vitamin C) bisacodyl 5 mg tablet,delayed 100 mg PO DAILY PRN 11/25/15 03/11/22 release calcitriol 0.25 mcg capsule 0.25 mg PO DAILY 11/25/15 03/11/22 carvedilol 12.5 mg tablet (Coreg) 37.5 mg PO BID 11/25/15 03/11/22 doxazosin 8 mg tablet 4 mg PO DAILY 11/25/15 03/11/22 ferrous sulfate 325 mg (65 mg 325 mg PO DAILY 11/25/15 03/11/22 iron) tablet montelukast 5 mg chewable tablet 10 mg PO HS 11/25/15 03/11/22 (Singulair) oxycodone 5 mg tablet 5 mg PO Q4H PRN 11/25/15 03/11/22 alogliptin 6.25 mg tablet 6.25 mg PO DAILY 02/05/19 03/11/22 atorvastatin 20 mg tablet 20 mg PO QPM 02/05/19 03/11/22 chlorthalidone 25 mg tablet 25 mg PO DIRECTED 02/05/19 03/11/22 morphine 30 mg tablet,extended 30 mg PO BID 02/05/19 03/11/22 release rabeprazole 20 mg tablet,delayed 20 mg PO DAILY 02/05/19 03/11/22 release magnesium gluconate 27 mg 500 mg PO BID #60 tabs 02/06/19 03/11/22 magnesium (500 mg) tablet naloxone 4 mg/actuation nasal 4 mg intranasal Q2M PRN opioid 04/13/19 03/11/22 spray (Narcan) overdose #2 ea albuterol sulfate 90 mcg/actuation 2 inh inhalation TID PRN 10/31/20 03/11/22 breath activated powder inhaler aspirin 81 mg tablet 81 mg PO DAILY 10/31/20 03/11/22 cholecalciferol (vitamin D3) 50 4,000 unit PO DAILY 10/31/20 03/11/22 mcg (2,000 unit) tablet magnesium oxide 400 mg PO BID 10/31/20 03/11/22 doxycycline hyclate 100 mg capsule 100 mg PO BID 7 days #14 caps 03/11/22 prednisone 50 mg tablet 50 mg PO DAILY 5 days #5 tabs 03/11/22 03/11/22 diltiazem HCl 120 mg 120 mg PO DAILY #30 caps 03/12/22 capsule,extended release 24 hr Previous Rx's Medication Instructions Recorded magnesium gluconate 27 mg 500 mg PO BID #60 tabs 02/06/19 magnesium (500 mg) tablet naloxone 4 mg/actuation nasal 4 mg intranasal Q2M PRN opioid 04/13/19 spray (Narcan) overdose #2 ea doxycycline hyclate 100 mg capsule 100 mg PO BID 7 days #14 caps 03/11/22 prednisone 50 mg tablet 50 mg PO DAILY 5 days #5 tabs 03/11/22 diltiazem HCl 120 mg 120 mg PO DAILY #30 caps 03/12/22 capsule,extended release 24 hr Allergies Allergy/AdvReac Type Severity Reaction Status Date / Time cephalexin monohydrate Allergy Severe Anaphylaxsi Unverified 03/11/22 15:10 [From Keflex] s General PAPO: 4 Review of Systems <Ryan Wood MD - Last Filed: 03/11/22 19:49> Narrative: No chest pain. Denies syncope. He has felt weak and lightheaded primarily with exertion. Its been associated with diaphoresis. PFSH <Ryan Wood MD - Last Filed: 03/11/22 19:49> All Active Problems (Updated 03/13/22 @ 00:00 by HECTOR YARBROUGH) Hypertension (Chronic) Palpitations (Acute) Non-ST elevation SD (NSTEMI) (Acute) New onset atrial fibrillation (Acute) History of COVID-19 (Acute) Liver transplant recipient (Chronic) Chronic kidney disease (Chronic) High cholesterol (Chronic) Diabetes (Chronic) Hypomagnesemia (Acute) Myoclonus (Acute) Ventricular ectopy (Acute) Medical History Depression Erectile dysfunction Gastric ulcer GI bleeding Hepatitis C Myocardial infarction SVT (supraventricular tachycardia) Tachycardia Surgical History H/O vasectomy S/P liver transplant Family History Mother Heart disease Sister Heart disease Brother Heart disease Other Diabetes Social History Smoking/Tobacco Use Status: Former Tobacco Use Smoking risk assessment performed?: Yes Alcohol Intake: former Drug use: Never Substance use type: does not use Do you feel safe at home: Yes Do you feel safe in your relationship?: Yes Additional Social history: recently ; still going through grieving process Exam <Ryan Wood MD - Last Filed: 03/11/22 19:49> Narrative Exam Narrative: GEN: awake, alert, oriented 3. Pleasant, well groomed, interactive. HEAD: Normocephalic, atraumatic ENT: Mucous membranes moist, oropharynx unremarkable, External ear exam unre markable EYES: PERRL, EOMI NECK: Full ROM, no YANIV, no menigismus CHEST/RESP: Nontender, clear to auscultation bilateral, no wheeze/rhonchi/rales CARDIOVASCULAR: Regular and tachycardic, no murmur, rub sam. Weak but palpable rad pulse bilateral ABDOMEN: Soft, nontender, no mass. +Bowel sounds EXT: Full ROM, no edema, no rash Neuro: Grossly normal neurologic exam, conversant, interactive. Psych: Speech fluent, thoughts congruent, affect normal Sign Out <Ryan Wood MD - Last Filed: 03/11/22 19:49> Sign Out Data: Sign Out Comment: Rapid Afib after DC, followup labs, etc. Last updated by Ryan Wood MD at 03/11/22 20:04
[2022-03-11] MEDS: Normal Saline 1,000 ML 1000 ML IV (19:48)
[2022-03-11] MEDS: Metoprolol 5 MG/5 ML VIAL IVP (19:48)
[2022-03-11 20:02] LABS: Lactate 1.9 mmol/L (0.6-1.4)
[2022-03-11 20:03] LABS: Abs Immature Grans 0.02 10^3/uL (0.0-0.06); Absolute Basophil Count 0.03 10^3/uL (0.0-0.2); Absolute Eosinophil Count 0.11 10^3/uL (0.0-0.7); Absolute Lymphocyte Count 1.89 10^3/uL (1.2-3.4); Absolute Monocyte Count 0.68 10^3/uL (0.1-0.8); Absolute Neutrophil Count 5.78 10^3/uL (1.2-6.7); Basophils % 0.4; Eosinophils % 1.3; HCT 48.1 % (40.0-50.0); HGB 16.2 g/dL (13.5-17.5); Immature Grans % 0.2; Lymphocytes % 22.2; MCH 30.6 pg (27.0-33.0); MCHC 33.7 % (32.0-36.0); MCV 91 fL (80-95); MPV 10.9 fL (8.0-11.0); Neutrophils % 67.9; Platelet Count 172 10^3/uL (130-400); RBC 5.29 10^6/uL (4.36-5.78); RDW-SD 40.1 fL; WBC 8.51 10^3/uL (4.4-10.8)
[2022-03-11] MEDS: Ondansetron 4 MG/2 ML VIAL IVP (20:03)
[2022-03-11 20:05] LABS: Troponin I < 50 ng/L (<or=60)
--- NOTE | 2022-03-11 20:15 | RT.EKG_ITS ---
APPROVED REPORT Exam: Resting ECG Reason for Exam: tach Patient Location: E HR:98 bpm ECG Measurements Heart Rate 98 AXIS SD [id number] P [id number] QRSd 140 QRS -93 QT 398 T 49 QTc 509 Conclusion Atrial fibrillation...V-rate 68-117, irreg A-activity Paired ventricular premature complexes...sequence of 2 V complexes RBBB and LAFB...QRSd >120mS, axis(-40,240). Afib. PVCs. No STEMI. I have reviewed and interpreted ECG and agree with software generated interpretation.
[2022-03-11 20:30] LABS: TSH 2.32 uIU/mL (0.36-3.74)
[2022-03-11 20:34] LABS: ALT 54 U/L (16-63); AST 52 U/L (15-37); Albumin 4.9 g/dL (3.4-5.0); Alkaline Phosphatase 207 U/L (46-116); Anion Gap 12.5 mmol/L (3-11); BUN 28 mg/dL (7-18); Bilirubin, Total 0.8 mg/dL (0.2-1.0); CO2 26.5 mmol/L (21.0-32.0); CREATININE 2.1 mg/dL (0.70-1.30); Calcium 9.8 mg/dL (8.5-10.1); Chloride 99 mmol/L (98-107); Estimated GFR 34.08 (mL/min/1.73m2); Glucose 242 mg/dL (74-106); Potassium 3.8 mmol/L (3.5-5.1); Sodium 138 mmol/L (136-145); Total Protein 9.7 g/dL (6.4-8.2)
[2022-03-11] MEDS: dilTIAZem 25 MG/5 ML VIAL 15 MG IVP (20:52)
[2022-03-11] MEDS: LORazepam 1 MG TAB PO (21:32)
[2022-03-11 22:04] LABS: Bilirubin Negative (Negative); Blood Small (Negative); Clarity Sl Cloudy (Clear); Glucose 500 mg/dL (Negative); Ketones Negative (Negative); Leukocyte Esterase Negative (Negative); Nitrite Negative (Negative); Urobilinogen 0.2 EU/dL (Up TO 0.2); pH 6.5 (5-8)
[2022-03-11 22:06] LABS: WBC Negative HPF (0-5)
[2022-03-11 22:07] LABS: Bacteria Rare HPF (Negative); C & S Indicated? No; Casts Negative LPF (Negative); Crystals Negative HPF (Negative); Epithelial Cells Rare HPF (Negative); Mucus Negative (Negative)
[2022-03-11 22:48] LABS: Troponin I < 50 ng/L (<or=60)
--- NOTE | 2022-03-11 23:11 | W.PM.HP.N ---
Date of service: 03/11/22 Time of Service: 23:12 Assessment and Plan Assessment and plan (1) New onset atrial fibrillation: Status: Acute Assessment and plan: The patient is not sure but thinks that may he has had this diagnosis before. We will obtain medical records. He did convert to NSR during my exam. Continue home coreg. Consider increasing dose. Add cardizem 30 mg PO TID. Obtain an echocardiogram. The patient does have a h/o GI bleeding in the past and I think that we should touch base with his hepatology/transplant team prior to making a decision on anticoagulation. (2) Bronchitis: Status: Suspected Assessment and plan: negative for influenza, RSV, and COVID-19. Await blood culture results. Check procalcitonin. Continue prednisone and doxycycline initiated in the ED. Will write for prn levalbuterol, mucinex, IS/Acapella. (3) Generalized weakness: Status: Acute Assessment and plan: C/s PT (4) Hypertension: Status: Chronic Assessment and plan: Add cardizem to coreg. Monitor BP on the new agents. We will also verify his outpatient medications (5) Liver transplant recipient: Status: Chronic Assessment and plan: Will obtain medication list from the [place] as the patient is not sure re names of his immunosuppresive medications. 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 He thinks he has a h/o Afib and does describe palpitations. He was found to be in rapid Afib with HR of about 140. He was initiated on lopressor 5 mg IV with HR improving to 120s. He then receive d a dose of diltiazem 15 mg IV x1 with HR going down to the 60s. Admission to the hospitalist service was requested for further management of Afib. When I spoke with the patient, he also endorsed generalized weakness, n/v, and constipation. He has been able to keep down his medications. He denies falls at home. Review of Systems All systems reviewed & are unremarkable except as noted in HPI and below PFSH All Active Problems (Updated 03/12/22 @ 01:42 by Sushma Gale MD) Discharge planning issues (Acute) DVT prophylaxis (Acute) Hypertension (Chronic) Palpitations (Acute) Non-ST elevation [place] (NSTEMI) (Acute) New onset atrial fibrillation (Acute) Generalized weakness (Acute) History of COVID-19 (Acute) Liver transplant recipient (Chronic) Chronic kidney disease (Chronic) High cholesterol (Chronic) Diabetes (Chronic) Hypomagnesemia (Acute) Myoclonus (Acute) Ventricular ectopy (Acute) Medical History (Updated 03/12/22 @ 01:42 by Sushma Gale MD) Depression Erectile dysfunction Gastric ulcer GI bleeding Hepatitis C Myocardial infarction SVT (supraventricular tachycardia) Tachycardia Surgical History (Updated 03/12/22 @ 01:43 by Sushma Gale MD) H/O vasectomy S/P liver transplant Family History (Updated 03/12/22 @ 01:44 by Sushma Gale MD) Mother Heart disease Sister Heart disease Brother Heart disease Other Diabetes Social History Smoking/Tobacco Use Status: Former Tobacco Use Smoking risk assessment performed?: Yes Alcohol Intake: former Drug use: Never Substance use type: does not use Do you feel safe at home: Yes Do you feel safe in your relationship?: Yes Additional Social history: recently ; still going through grieving process Meds Allergies and Home Medications Allergies Allergy/AdvReac Type Severity Reaction Status Date / Time cephalexin monohydrate Allergy Severe Anaphylaxsi Unverified 03/11/22 15:10 [From Keflex] s Home Medications Medication Instructions Recorded Confirmed Type allopurinol 100 mg tablet 200 mg PO DAILY PRN 11/25/15 03/11/22 History ascorbic acid (vitamin C) 250 mg 250 mg PO DAILY 11/25/15 03/11/22 History tablet (Vitamin C) bisacodyl 5 mg tablet,delayed 100 mg PO DAILY PRN 11/25/15 03/11/22 History release calcitriol 0.25 mcg capsule 0.25 mg PO DAILY 11/25/15 03/11/22 History carvedilol 12.5 mg tablet (Coreg) 37.5 mg PO BID 11/25/15 03/11/22 History doxazosin 8 mg tablet 4 mg PO DAILY 11/25/15 03/11/22 History ferrous sulfate 325 mg (65 mg 325 mg PO DAILY 11/25/15 03/11/22 History iron) tablet montelukast 5 mg chewable tablet 10 mg PO HS 11/25/15 03/11/22 History (Singulair) oxycodone 5 mg tablet 5 mg PO Q4H PRN 11/25/15 03/11/22 History alogliptin 6.25 mg tablet 6.25 mg PO DAILY 02/05/19 03/11/22 History atorvastatin 20 mg tablet 20 mg PO QPM 02/05/19 03/11/22 History chlorthalidone 25 mg tablet 25 mg PO DIRECTED 02/05/19 03/11/22 History morphine 30 mg tablet,extended 30 mg PO BID 02/05/19 03/11/22 History release rabeprazole 20 mg tablet,delayed 20 mg PO DAILY 02/05/19 03/11/22 History release magnesium gluconate 27 mg 500 mg PO BID #60 tabs 02/06/19 03/11/22 Rx magnesium (500 mg) tablet naloxone 4 mg/actuation nasal 4 mg intranasal Q2M PRN opioid 04/13/19 03/11/22 Rx spray (Narcan) overdose #2 ea albuterol sulfate 90 mcg/actuation 2 inh inhalation TID PRN 10/31/20 03/11/22 History breath activated powder inhaler aspirin 81 mg tablet 81 mg PO DAILY 10/31/20 03/11/22 History cholecalciferol (vitamin D3) 50 4,000 unit PO DAILY 10/31/20 03/11/22 History mcg (2,000 unit) tablet magnesium oxide 400 mg PO BID 10/31/20 03/11/22 History doxycycline hyclate 100 mg capsule 100 mg PO BID 7 days #14 caps 03/11/22 Rx prednisone 50 mg tablet 50 mg PO DAILY 5 days #5 tabs 03/11/22 03/11/22 Rx Exam Narrative Exam Narrative: General: Pleasant middle-aged male, having rigors and is diaphoretic, A&Ox3 Neurological: A&Ox3, no focal deficits Psychiatric: Appropriate speech pattern/content Skin: Visible skin intact, including B feet; clammy. HEENT: Atraumatic, normocephalic, EOMI, dry MM, clear oropharynx, no submandibular or cervical lymphadenopathy, no goiter or JVD Cardiovascular: RRR by the time of my exam, no m/r/g Lungs: Diminished breath sounds Gastrointestinal: soft, nontender, nondistended Genitourinary: deferred Extremities: no edema BLEs, trace to 1+ pedal pulses B, no c/c, no lesions on B feet Results Imaging Additional studies: CXR: Emphysema without airspace consolidation. Afib, HR 98, PVCs, no acute ischemia Labs Result diagrams: 03/11/22 19:55 03/11/22 19:45 Labs: Laboratory Results - last 24 hr 03/11/22 03/11/22 03/11/22 19:40 19:45 19:55 WBC RBC Hgb Hct MCV MCH MCHC RDW Plt Count MPV Immature Gran % Neutrophils % Lymphocytes % Monocytes % Eosinophils % Basophils % Nucleated RBC % Absolute Neutrophils Absolute Lymphocytes Absolute Monocytes Absolute Eosinophils Absolute Basophils VBG Lactate Sodium 138 Potassium 3.8 Chloride 99 Carbon Dioxide 26.5 Anion Gap 12.5 H BUN 28 H Creatinine 2.1 H Est GFR (CKD-EPI 2020) 34.08 Glucose 242 H Calcium 9.8 Total Bilirubin 0.8 AST 52 H ALT 54 Alkaline Phosphatase 207 H Troponin I < 50 C-Reactive Protein 0.40 H Total Protein 9.7 H Albumin 4.9 TSH Urine Color Urine Clarity Urine pH Ur Specific [place] Urine Protein Urine Ketones Urine Blood Urine Nitrite Urine Bilirubin Urine Urobilinogen Ur Leukocyte Esterase Urine RBC Urine WBC Ur Epithelial Cells Urine Crystals Urine Bacteria Urine Casts Urine Mucus Ur Culture Indicated? Urine Glucose 03/11/22 03/11/22 03/11/22 19:55 19:55 19:55 WBC 8.51 RBC 5.29 Hgb 16.2 Hct 48.1 MCV 91 MCH 30.6 MCHC 33.7 RDW 12.0 Plt Count 172 MPV 10.9 Immature Gran % 0.2 Neutrophils % 67.9 Lymphocytes % 22.2 Monocytes % 8.0 Eosinophils % 1.3 Basophils % 0.4 Nucleated RBC % 0.0 Absolute Neutrophils 5.78 Absolute Lymphocytes 1.89 Absolute Monocytes 0.68 Absolute Eosinophils 0.11 Absolute Basophils 0.03 VBG Lactate 1.9 H Sodium Potassium Chloride Carbon Dioxide Anion Gap BUN Creatinine Est GFR (CKD-EPI 2020) Glucose Calcium Total Bilirubin AST ALT Alkaline Phosphatase Troponin I C-Reactive Protein Total Protein Albumin TSH 2.32 Urine Color Urine Clarity Urine pH Ur Specific [place] Urine Protein Urine Ketones Urine Blood Urine Nitrite Urine Bilirubin Urine Urobilinogen Ur Leukocyte Esterase Urine RBC Urine WBC Ur Epithelial Cells Urine Crystals Urine Bacteria Urine Casts Urine Mucus Ur Culture Indicated? Urine Glucose 03/11/22 03/11/22 21:50 22:20 WBC RBC Hgb Hct MCV MCH MCHC RDW Plt Count MPV Immature Gran % Neutrophils % Lymphocytes % Monocytes % Eosinophils % Basophils % Nucleated RBC % Absolute Neutrophils Absolute Lymphocytes Absolute Monocytes Absolute Eosinophils Absolute Basophils VBG Lactate Sodium Potassium Chloride Carbon Dioxide Anion Gap BUN Creatinine Est GFR (CKD-EPI 2020) Glucose Calcium Total Bilirubin AST ALT Alkaline Phosphatase Troponin I < 50 C-Reactive Protein Total Protein Albumin TSH Urine Color Yellow Urine Clarity Sl Cloudy Urine pH 6.5 Ur Specific [place] 1.020 Urine Protein >=300 H Urine Ketones Negative Urine Blood Small H Urine Nitrite Negative Urine Bilirubin Negative Urine Urobilinogen 0.2 Ur Leukocyte Esterase Negative Urine RBC 3-5 H Urine WBC Negative Ur Epithelial Cells Rare Urine Crystals Negative Urine Bacteria Rare Urine Casts Negative Urine Mucus Negative Ur Culture Indicated? No Urine Glucose 500 H Last Vital Signs Temp 36.5 C 03/11/22 19:21 Pulse 56 L 03/11/22 21:51 Resp 13 03/11/22 21:51 BP 188/106 H 03/11/22 21:51
[2022-03-11] MEDS: Carvedilol 12.5 MG TAB 37.5 MG PO (23:13)
[2022-03-11 23:18] LABS: Source Nasal/Nares
[2022-03-11 23:48] LABS: COVID-19 PCR Negative (Negative)
[2022-03-11] MEDS: oxyCODONE 5 MG TAB PO (23:51)
[2022-03-12] VITALS (30 sets, daily range): BP systolic 104–194; BP diastolic 62–148; PULSE 59–135; RESP 2–28; TEMP 36.2–37; O2SAT 91–100
[2022-03-12] MEDS: dilTIAZem 30 MG TAB PO ×2 (00:20→09:10)
[2022-03-12] MEDS: Heparin 5,000 UNITS/ML VIAL 5000 UNITS SC ×3 (00:21→14:29)
--- NOTE | 2022-03-12 00:57 | TELEP.MEDR_ITS ---
Date of service: 03/12/22 Time of Service: 00:57 Telepharmacy Home Med Rec Allergies Allergies: cephalexin monohydrate [From Keflex] Allergy (Severe, Unverified 03/11/22 15:10) Anaphylaxsis Interview Person Interviewed: * none Changes made to Home Medication List: ADDITIONS: * none Additional Notes Additional Notes: * Called [facility] station and asked to speak with patient. RN said to call back since patient is in the bathroom. Later when we called back, we were informed by RN that everything is all set, that med rec is no longer needed from us. Recommended Changes Attestation: The home medication list is now updated to the best of my knowledge and is ready to be reconciled by the provider. Please contact the TelePharmacy Medication Reconciliation Pharmacist at for any questions.
--- NOTE | 2022-03-12 01:00 | RT.EKG_ITS ---
APPROVED REPORT Exam: Resting ECG Reason for Exam: ryskyem change Patient Location: E HR:89 bpm ECG Measurements Heart Rate 89 AXIS ME 190 P 77 QRSd 139 QRS -105 QT 424 T 43 QTc 514 Conclusion Sinus rhythm...normal P axis, V-rate 60- 99 Multiform ventricular premature complexes...short R-R, variable morphology Probable left atrial enlargement...P >50mS, <-0.10mV V1 RBBB and LAFB...QRSd >120mS, axis(-40,240). Sinus. PVCs. No STEMI. I have reviewed and interpreted ECG and agree with software generated interpretation.
[2022-03-12] MEDS: Lactated Ringers 1,000 ML 125 ML IV (06:06)
[2022-03-12 06:53] LABS: HCT 39.6 % (40.0-50.0); MCH 30.4 pg (27.0-33.0); MCHC 32.8 % (32.0-36.0); MCV 93 fL (80-95); MPV 11.2 fL (8.0-11.0); Platelet Count 169 10^3/uL (130-400); RBC 4.27 10^6/uL (4.36-5.78); RDW 12.2 % (11.8-14.1); WBC 7.59 10^3/uL (4.4-10.8)
[2022-03-12 07:11] LABS: Anion Gap 5.4 mmol/L (3-11); BUN 30 mg/dL (7-18); CO2 31.6 mmol/L (21.0-32.0); Calcium 8.9 mg/dL (8.5-10.1); Chloride 104 mmol/L (98-107); Estimated GFR 36.13 (mL/min/1.73m2); Glucose 143 mg/dL (74-106); Magnesium 2.1 mg/dL (1.8-2.4); Sodium 141 mmol/L (136-145)
[2022-03-12 07:31] LABS: Procalcitonin 0.1 ng/mL
--- NOTE | 2022-03-12 07:50 | DI.US_ITS ---
APPROVED REPORT EXAM: Comprehensive 2D, Doppler, and color-flow Echocardiogram Patient Location: In-Patient Room/Bed: 227 Supervisor Lump Room: Ashley Martinez RDCS (AE) Indications: New onset A Fib Other Information Study Quality: Fair. Technically limited study due to body habitus, patient unable to stay still. Conclusion Normal left ventricular wall thickness and chamber size. Estimated ejection fraction is 50 to 55%. There is very mild global hypokinesis Right atrium and right ventricle are not well visualized Left atrium is normal in size There are no structural valvular abnormalities Trace aortic regurgitation Moderate mitral regurgitation Right ventricular systolic pressure could not be estimated Wall motion Left Ventricle The left ventricle is normal size. Left ventricular systolic function is mildly decreased. There is n ormal left ventricular wall thickness. There is very mild global hypokinesis of the left ventricle. T here is no ventricular septal defect visualized. LVEF is 50-55%. Right Ventricle Right ventricle is not well visualized. Right ventricular systolic function could not be assessed. Atria The left atrium size is normal. Right atrium is not well visualized. The interatrial septum is intact with no evidence for an atrial septal defect. Aortic Valve The aortic valve is normal in structure. Aortic valve is trileaflet. There is no aortic valvular sten osis. Trace aortic regurgitation. Mitral Valve The mitral valve is normal in structure. No evidence of mitral valve stenosis. Moderate mitral regurg itation. Tricuspid Valve The tricuspid valve is normal in structure. There is no tricuspid valve stenosis. Trace tricuspid reg urgitation. Unable to assess PA pressure. Pulmonic Valve The pulmonary valve is normal in structure. There is no pulmonic valvular stenosis. Trace pulmonic re gurgitation. Great Vessels The aortic root is normal in size. The ascending aorta is normal in size. Aortic arch is normal in ca liber. IVC is normal in size and collapses >50% with inspiration. Pericardium There is no pericardial effusion. 2D Dimensions IVSD d PLAX 0.82 cm M: 0.6-1.2 LV Vol A2C d MOD 153.1 mL LVPW d PLAX 0.89 cm M: 0.6 - 1.2 LV Vol A4C d MOD 138.2 mL LVID d PLAX 5.34 cm M: 4.2 - 5.8 LA Area A4C s MOD 17.00 cm2 LVDs 3.95 cm M: 2.5 - 4.0 LA Area A2C s MOD 14.23 cm2 Ao Root d 3.32 cm M: 3.1 - 3.7 LV EF A4C MOD 50.3 % Ao Asc Diam d 3.19 cm M: 2.6 - 3.4 LV EF A2C MOD 50.5 % LV EF Teichholz 50.0 % LV EF Biplane MOD 50.3 % LVEF (Posadas's) 50.31 % M: 52 - 72 SV 73.88 mL LV Volume 146.86 mL M: 62 - 150 LV Volume Index 72.70 mL/m2 M: 34 - 74 LV Vol Biplane MOD 146.9 mL FS 25.60 % M-Mode TAPSE 2.09 cm (M/F) >1.7 LV Diastology E/A Ratio 3.3 MV E Vmax 0.99 (0.4-1.3 m/s) MV A Vmax 0.30 (0.4-1.3 m/s) MV E/A Ratio 3.27 Aortic Valve LVOT Area 3.44 cm2 AoV Area Vmax 2.96 cm2 LVOT Vmax 0.77 m/s FABIAN Mean Lg. 2.63 cm2 LVOT Mean Lg. 0.50 m/s LVOT Peak Grad 2.3 mmHg LVOT Mean Grad 1.2 mmHg LVOT VTI 0.142 m LVOT Diam s 2.05 cm AoV Vmax 0.89 m/s Velocity Ratio 0.87 AoV Mean Lg. 0.66 m/s AoV Peak Grad 3.2 mmHg LVOT SV 48.92 mL AoV Mean Grad 1.9 mmHg AoV VTI 0.157 m AoV Area VTI 3.11 cm2 Mitral Valve MV DT 145 (160-240 msec) MR Vmax 4.99 m/s MV PHT 42 msec MR VTI 1.663 m MV Area PHT 5.23 cm2 MR Peak Grad 99.5 mmHg MV VTI 0.308 m MR Mean Grad 72.4 mmHg MV Area VTI 1.59 (4.0-6.0 cm2) Pulmonary Valve PV Vmax 0.88 (0.5-1.5 m/s) RVOT Peak Gr. 1.87 mmHg PV Peak Grad 3.1 mmHg RVOT Mean Gr. 1.00 mmHg PV Mean Grad 1.6 mmHg RVOT VTI 0.126 m PV VTI 0.169 m RVOT Vmax 0.68 m/s
[2022-03-12 08:40] LABS: Lab Add On Test DONE
[2022-03-12] MEDS: Ipratropium 0.5 MG/2.5 ML UPD VIAL UPD ×2 (08:55→11:49)
[2022-03-12] MEDS: Levalbuterol 1.25 MG/3 ML UPD VIAL UPD (08:57)
[2022-03-12] MEDS: Cholecalciferol (Vitamin D3) 1,000 UNIT TAB 4000 UNITS PO (09:10)
[2022-03-12] MEDS: Polyethylene Glycol 3350 17 GM PACKET PO (09:10)
[2022-03-12] MEDS: Ferrous Sulfate 325 MG TAB PO (09:11)
[2022-03-12] MEDS: Doxycycline Hyclate 100 MG CAP PO (09:11)
[2022-03-12] MEDS: guaiFENesin 600 MG TABCR PO (09:11)
[2022-03-12] MEDS: Docusate Sodium 100 MG CAP PO (09:11)
[2022-03-12] MEDS: Magnesium Gluconate 500 MG TAB PO (09:11)
[2022-03-12] MEDS: Carvedilol 12.5 MG TAB 37.5 MG PO (09:12)
[2022-03-12] MEDS: Pantoprazole 40 MG TABCR PO (09:12)
[2022-03-12] MEDS: Aspirin 81 MG CHEW PO (09:12)
[2022-03-12] MEDS: predniSONE 20 MG TAB 40 MG PO (09:12)
[2022-03-12] MEDS: Magnesium Oxide 400 MG TAB PO (09:12)
[2022-03-12] MEDS: Ascorbic Acid 500 MG TAB 250 MG PO (09:12)
[2022-03-12] MEDS: Insulin Aspart 300 UNITS/3 ML PEN SC ×2 (09:13→12:00)
[2022-03-12] MEDS: Normal Saline Flush 10 ML SYR (09:13)
[2022-03-12] MEDS: oxyCODONE 5 MG TAB PO (09:36)
--- NOTE | 2022-03-12 10:11 | INITIAL_ITS ---
- If Service Date Differs Date of service: 03/12/22 Time of Service: 10:11 Care Management Initial Assess REASON FOR HOSPITALIZATION:: New onset atrial fibrillation, Bronchitis PAST MEDICAL HISTORY/PAST SURGICAL HISTORY:: All Active Problems (Updated 03/12/22 @ 01:42 by Sushma Gale MD). Discharge planning issues (Acute). DVT prophylaxis (Acute). Hypertension (Chronic). Palpitations (Acute). Non-ST elevation PR (NSTEMI) (Acute). New onset atrial fibrillation (Acute). Generalized weakness (Acute). History of COVID-19 (Acute). Liver transplant recipient (Chronic). Chronic kidney disease (Chronic). High cholesterol (Chronic). Diabetes (Chronic). Hypomagnesemia (Acute). Myoclonus (Acute). Ventricular ectopy (Acute). Medical History (Updated 03/12/22 @ 01:42 by Sushma Gale MD). Depression. Erectile dysfunction. Gastric ulcer. GI bleeding. Hepatitis C. Myocardial infarction. SVT (supraventricular tachycardia). Tachycardia. Surgical History (Updated 03/12/22 @ 01:43 by Sushma Gale MD). H/O vasectomy. S/P liver transplant PREVIOUS FUNCTIONAL STATUS/SOCIAL/FAMILY SUPPORTS:: Ismael lives in alone in [place]. He is retired, [facility] and gets his care through the [place]. He has four adult children that he identifies as being supportive. He is independent at baseline and drives. He recently started using a cane. CURRENT FUNCTIONAL STATUS:: Ismael is sitting in his chair when CM met with him. He is awake, alert and able to engaged in conversation. He has no concerns at this time. ADVANCE DIRECTIVES:: None on file. Has patient been provided with info about the portal/API?: Yes Did the patient sign up for the portal?: No CODE STATUS:: Full Code INSURANCE COVERAGE / FINANCIAL ISSUES:: [place]. [place] CURRENT HOME/COMMUNITY SERVICES/EQUIPMENT:: [employer]. [facility]. Uses a cane and home nebulizer PRIMARY CARE PHYSICIAN:: Dr. Munroe ([place]) POTENTIAL DISCHARGE NEEDS:: New [facility] RN/PT, close outpatient follow up with [facility] and community providers. PATIENT/FAMILY EDUCATION NEEDS:: Review discharge instructions, limitations, medications and plan to follow up with [facility] and community providers. Discuss ask me three and goals of self care. TRANSPORTATION:: via private vehicle with son. PLAN:: Anticipate, Ismael will discharge home with New [facility] RN/PT (if needed) when medically ready. He will follow up with [facility] and community providers. CM will continue to support pt and access discharge needs.
--- NOTE | 2022-03-12 10:29 | IN_ITS ---
Date of service: 03/12/22 Time of Service: 10:29 PT Notes Visit Reasons: Rapid Afib Physical Therapy Inpatient Initial Evaluation Date: 03/12/2022 Referring Doctor: Sushma Gale MD PT Orders: PT CONSULT: Limited ability Precautions: Fall. Standard. Activity as tolerated. Patient Profile/Admitting Diagnosis: This is a 66-year-old male who recently received liver transplant who presented to the ED on 03/11/2022 due to recurrence of cough, congestion, fever, chills, and diaphoresis patient is diagnosed with new onset atrial fibrillation, bronchitis, generalized weakness, and hypertension. PMHX: All Active Problems?(Updated 03/12/22 @ 01:42 by Sushma Gale MD) Discharge planning issues (Acute) DVT prophylaxis (Acute) Hypertension (Chronic) Palpitations (Acute) Non-ST elevation [place] (NSTEMI) (Acute) New onset atrial fibrillation (Acute) Generalized weakness (Acute) History of COVID-19 (Acute) Liver transplant recipient (Chronic) Chronic kidney disease (Chronic) High cholesterol (Chronic) Diabetes (Chronic) Hypomagnesemia (Acute) Myoclonus (Acute) Ventricular ectopy (Acute) Medical History?(Updated 03/12/22 @ 01:42 by Sushma Gale MD) Depression Erectile dysfunction Gastric ulcer GI bleeding Hepatitis C Myocardial infarction SVT (supraventricular tachycardia) Tachycardia Surgical History?(Updated 03/12/22 @ 01:43 by Sushma Gale MD) H/O vasectomy S/P liver transplant Social History/Home Situation: Lives on the second floor of an apartment building with 1 flight of steps to enter, rail on one side. Independent with all indoor and outdoor ambulation using single point wooden cane. 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 Equipment Owned/DME: Single point cane, wooden Subjective: Feels much stronger and better today. Agreeable to walking in the hallway. States that he has family close by who can help as needed. Compained about discommfort and instability in B knees (R more affected) because of arthritis. Objective: General Observation: Seated at edge of bed. Telemetry monitoring in place. IV through R UE. Mental Status: Alert and oriented as to person, place, time, and purpose. Able to pay attention, focus, and respond appropriately. Pain: 2/10 in B knees Vital Signs: WNl as closely monitored via tele ROM: Right Upper Extremity: Shoulder Flexion WFL. Shoulder abduction WFL. Elbow flexion WFL. Wrist flexion WFL. Functional opening and closing of hand WFL. Left Upper Extremity: Shoulder Flexion WFL. Shoulder abduction WFL. Elbow flexion WFL. Wrist flexion WFL. Functional opening and closing of hand WFL. Right Lower Extremity: Hip flexion WFL. Hip abduction WFL. Knee flexion WFL. Ankle dorsiflexion WFL. Ankle plantarflexion WFL. Left Lower Extremity: Hip flexion WFL. Hip abduction WFL. Knee flexion WFL. Ankle dorsiflexion WFL. Ankle plantarflexion WFL. Strength: Right Upper Extremity: Shoulder flexors 4/5. Shoulder abductors 4/5. Elbow flexors 5/5. Elbow extensors 5/5. Aluminum Siding Installer strong. Left Upper Extremity: Shoulder flexors 4/5. Shoulder abductors 4/5. Elbow flexors 5/5. Elbow extensors 5/5. Aluminum Siding Installer strong. Right Lower Extremity: Hip flexors 4/5. Hip abductors 5/5. Knee flexors 5/5. Knee extensors 4/5. Ankle dorsiflexors 4/5. Ankle plantarflexors 4/5. Left Lower Extremity: Hip flexors 4/5. Hip abductors 5/5. Knee flexors 5/5. Knee extensors 4/5. Ankle dorsiflexors 4/5. Ankle plantarflexors 4/5. Bed Mobility/Transfers: Sit to stand independent Stand to sit independent Bed to reclining chair independent Reclining chair to bed independent Gait: Instructed patient with level surface ambulation of 250 feet requiring supervision assist. Lori decreased. Mild path deviation but no LOB. Patient feels better but not back at baseline yet. Stairs: Up and down 12 x 4-inch steps and 8 x 6-inchs teps while holding onto B rails for needed support. Step-over step pattern. Balance: Static Sitting: Normal Dynamic Sitting: Normal Static Standing: Good Dynamic Standing: Fair Special Tests: Mobility Limitations Standardized Measure [facility] AM-PAC 6 clicks Basic Mobility Inpatient Short Form: Raw Score: 24 CMS Score: 0% deficit Informed Consent/Education: Patient was instructed in purpose of PT consult and plan of care. Agreeable to proceed with established PT POC to achieve personal goals. Assessment: Still not fully at baseline mobility level and will be seen for 1-2 sessions more to establish independence in the hallway for an increased amount of distance using wooden single point wooden cane. Patient presents with clinical signs and symptoms consistent with current/admitting diagnoses that have resulted to mobility limitations, gait instability, generalized weakness, and overall ADL decline as demonstrated by the following impairment level findings: 1. Decreased strength to B quadriceps 2. Impaired standing balance 3. Impaired activity tolerance Impairments are contributing to the following functional limitations: 1. Difficulty with ambulation without assistive device 2. Increased completion time for mobility ADL performance 3. Increased risk for falls 4. Difficulty with managing steps alone safely Patient is assessed as a [id number] low complexity based on the following: History: 66-year-old male with past medical history as indicated above Examination: Demonstrable impairment in strength, balance, and mobility level with underlying impairments and functional limitations Presentation: Stable Decision Makin low complexity Goals: Goals X1 week 1. Independent gait on level surface with use of single point wooden stick for at least 300 feet without report of pain nor dyspnea 2. Independent stair negotiation while holding onto 1 rail for at least 12 steps without report of pain nor dyspnea Plan of Care/Treatment Plan: 1-2x/day, 7 days/week x 1 week. Plan of care has been reviewed with the CONSTRUCTION SAFETY MANAGER providing the service under Physical Therapy direction. Initiate Physical Therapy intervention for pain management as needed, strengthening, bed mobility, transfers, gait, stairs, balance training, and use of assistive device. DISCHARGE RECOMMENDATIONS: [X] Home with no services. Home when medically cleared by hospitalist. No equipment needs at this time. [] Home with services [specify] [] Home with outpatient PT [] [] SNF for continued rehabilitation [] [] [facility] [] [] SNF versus LTC based on ability to participate and progress [] TREATMENT CODE/TIME: 67073 x 20 minutes. 12025 x 11 minutes beginning at 10:29 AM. Thank you for the opportunity to participate in the care of this patient. Umu Cheek PT, DPT, CLT [facility] [place], [place]
--- NOTE | 2022-03-12 11:16 | W.INDIABCONS ---
Date of service: 03/12/22 Time of Service: 11:16 Diabetes Inpatient Consult Reason for Visit: DM DESCRIPTION/ASSESSMENT: Ismael was admitted last night for new onset afib, bronchitis with hx of NIDDM, liver transplant recepient, immunosuppressive therapy, CKD3. Typical weight around 158lbs, suspect most recent weight of 140 lbs is incorrect. Will monitor trends. Dm home meds: alogliptin. No A1C available. Following diabetic diet with 100% completion. At nutritional risk in view of low weight. Will monitor trends. Currently meeting 100% macronutrient needs. PLAN: Will follow up once A1C available. Will monitor po intake, labs and weight trends Time Spent in Nutritional Counseling and Treatment: 0
[2022-03-12] MEDS: Doxazosin 2 MG TAB 4 MG PO (12:00)
[2022-03-12] MEDS: Calcitriol 0.25 MCG CAP PO (12:00)
--- NOTE | 2022-03-12 12:50 | PT.INIE ---
Date of service: 03/12/22 Time of Service: 10:29 PT Notes Visit Reasons: Rapid Afib Physical Therapy Inpatient Initial Evaluation Date: 03/12/2022 Referring Doctor: Sushma Gale MD PT Orders: PT CONSULT: Limited ability Precautions: Fall. Standard. Activity as tolerated. Patient Profile/Admitting Diagnosis: Ismael is a 66-year-old male who presented to the ED on 03/11/2022 due to cough, congestion, fever, chills, and diaphoresis. Patient is diagnosed with new onset atrial fibrillation, bronchitis, generalized weakness, and hypertension. PMHX: All Active Problems?(Updated 03/12/22 @ 01:42 by Sushma Gale MD) Discharge planning issues (Acute) DVT prophylaxis (Acute) Hypertension (Chronic) Palpitations (Acute) Non-ST elevation [place] (NSTEMI) (Acute) New onset atrial fibrillation (Acute) Generalized weakness (Acute) History of COVID-19 (Acute) Liver transplant recipient (Chronic) Chronic kidney disease (Chronic) High cholesterol (Chronic) Diabetes (Chronic) Hypomagnesemia (Acute) Myoclonus (Acute) Ventricular ectopy (Acute) Medical History?(Updated 03/12/22 @ 01:42 by Sushma Gale MD) Depression Erectile dysfunction Gastric ulcer GI bleeding Hepatitis C Myocardial infarction SVT (supraventricular tachycardia) Tachycardia Surgical History?(Updated 03/12/22 @ 01:43 by Sushma Gale MD) H/O vasectomy S/P liver transplant Social History/Home Situation: Equipment Owned/DME: [] Subjective: [] Objective: [] General Observation: [] Mental Status: Alert and oriented as to person, place, time, and purpose. Able to pay attention, focus, and respond appropriately. Pain: []/10 in [] [] Vital Signs: [] ROM: Right Upper Extremity: Shoulder Flexion WFL. Shoulder abduction WFL. Elbow flexion WFL. Wrist flexion WFL. Functional opening and closing of hand WFL. Left Upper Extremity: Shoulder Flexion WFL. Shoulder abduction WFL. Elbow flexion WFL. Wrist flexion WFL. Functional opening and closing of hand WFL. Right Lower Extremity: Hip flexion WFL. Hip abduction WFL. Knee flexion WFL. Ankle dorsiflexion WFL. Ankle plantarflexion WFL. Left Lower Extremity: Hip flexion WFL. Hip abduction WFL. Knee flexion WFL. Ankle dorsiflexion WFL. Ankle plantarflexion WFL. Strength: Right Upper Extremity: Shoulder flexors []/5. Shoulder abductors []/5. Elbow flexors []/5. Elbow extensors []/5. Sizing Machine Operator strong. Left Upper Extremity: Shoulder flexors []/5. Shoulder abductors []/5. Elbow flexors []/5. Elbow extensors []/5. Sizing Machine Operator strong. Right Lower Extremity: Hip flexors []/5. Hip abductors []/5. Knee flexors []/5. Knee extensors []/5. Ankle dorsiflexors []/5. Ankle plantarflexors []/5. Left Lower Extremity: Hip flexors []/5. Hip abductors []/5. Knee flexors []/5. Knee extensors []/5. Ankle dorsiflexors []/5. Ankle plantarflexors []/5. Bed Mobility/Transfers: Rolling with [] cues for safe/correct technique Supine to sit with [] cues for safe/correct technique Sit to supine with [] cues for safe/correct technique Sit to stand with [] with [] cues for safe/correct technique Stand to sit with [] with [] cues for safe/correct technique Bed to bedside commode with [] with [] cues for safe/correct technique Bedside commode to bed with [] with [] cues for safe/correct technique Bed to reclining chair with [] with [] cues for safe/correct technique Reclining chair to bed with [] with [] cues for safe/correct technique Gait: Instructed patient with level surface ambulation of [] feet requiring [] assist. Lori []. Step height []. Step length []. Balance: Static Sitting: [] Dynamic Sitting: [] Static Standing: [] Dynamic Standing: [] Special Tests: Mobility Limitations Standardized Measure [facility] 6 clicks Basic Mobility Inpatient Short Form: Raw Score: [] CMS Score: []% deficit Informed Consent/Education: Patient was instructed in purpose of PT consult and plan of care. Agreeable to proceed with established PT POC to achieve personal goals. Assessment: Patient presents with clinical signs and symptoms consistent with current/admitting diagnoses that have resulted to mobility limitations, gait instability, generalized weakness, and overall ADL decline as demonstrated by the following impairment level findings: 1. Decreased strength to [] [] major muscle groups 2. Impaired sitting/standing balance 3. Impaired activity tolerance 4. Limitation of joint range of motion in [] 5. Shortness of breath 6. Swelling Impairments are contributing to the following functional limitations: 1. Decline in bed mobility skills 2. Decline in transfer skills 3. Difficulty with ambulation without assistive device and physical assistance 4. Increased completion time for mobility ADL performance 5. Increased risk for falls 6. Difficulty with managing steps alone safely Patient is assessed as a [] complexity based on the following: History: []-year-old [] with past medical history as indicated above Examination: Demonstrable impairment in strength, balance, and mobility level with underlying impairments and functional limitations as exhibited above as well as deficit score of []% utilizing the [facility] Mobility Inpatient Short Form Presentation: [] Decision Making: [] complexity Goals: Goals X1 week 1. Supine-Sit independent 2. Sit-Supine independent 3. Sit-Stand independent 4. Stand-Sit independent with [] 5. Bed-Chair independent with [] 6. Chair-Bed independent with [] 7. Independent gait on level surface with use of [] for at least [] feet without report of pain nor dyspnea 8. Independent stair negotiation while holding onto [] rails for at least [] steps without report of pain nor dyspnea 9. Independent with home exercise program 10. Good static and dynamic standing balance/tolerance Plan of Care/Treatment Plan: 1-2x/day, 7 days/week x 1 week. Plan of care has been reviewed with the TEACHING SPECIALISTS providing the service under Physical Therapy direction. Initiate Physical Therapy intervention for pain management as needed, strengthening, bed mobility, transfers, gait, stairs, balance training, and use of assistive device. DISCHARGE RECOMMENDATIONS: [] Home with no services [] [] Home with services [specify] [] Home with outpatient PT [] [] SNF for continued rehabilitation [] [] [facility] [] [] SNF versus LTC based on ability to participate and progress [] TREATMENT CODE/TIME: [] Thank you for the opportunity to participate in the care of this patient. Umu Cheek PT, DPT, CLT [facility] [place], [place]
[2022-03-12] MEDS: dilTIAZem CD 120 MG CAPCR PO (14:29)
--- NOTE | 2022-03-12 14:40 | DSE_ITS ---
Date of service: 03/12/22 Time of Service: 14:40 DS: Diagnosis Discharge Diagnosis (1) New onset atrial fibrillation: Status: Acute Asessment and Plan: 66-year-old male with a history of liver transplant with a history of recent COVID-19 illness 3 weeks ago as well as a history of NSTEMI was followed through the [facility] in [place] by his shank stitcher Dr. Spivey who also has chronic kidney disease stage III and NIDDM 2 recently diagnosed with acute bronchitis when he presented with complaints of sweats shaking and a cough and congestion. He was discharged home after being found negative for COVID-19 and RSV and influenza. He now return to emergency department with tachycardia and diaphoresis found to be in rapid atrial fibrillation. He had no associated chest pain but felt palpitations. He was initially treated with boluses of IV Lopressor and IV diltiazem and then started on diltiazem drip but then quickly weaned off and was admitted to the medical/surgical floor on telemetry where he was started on oral diltiazem and maintained on his Coreg. He converted overnight to normal sinus rhythm and remained in sinus rhythm throughout the rest of the day on 03/12/2022. Troponin enzymes were normal. Echocardiogram was performed demonstrated normal left ventricular size and wall motion but with very mild global hypokinesis with an LVEF of 50 to 55% which is improved over his previous echocardiogram performed at the [facility] March 2021 his echo does show moderate mitral regurgitation. Patient had no evidence for acute congestive heart failure and as the patient was doing markedly better and requiring no supplemental oxygen with stable heart rate and blood pressure and sinus rhythm he was discharged home to follow-up with his director of critical care at the [facility]. His director of critical care was called by myself and notified of the patient's admission and treatment for paroxysmal atrial fibrillation. When I performed [id number] score and a has bled score it was felt to be because of his chronic renal failure and liver disease there is risk of bleeding outweigh the benefit of anticoagulation and I defer decision regarding chronic anticoagulation to be determined by his director of critical care who plans to follow-up with him next week. Discharge Plan Disposition Patient Disposition: Home Condition: Good Discharge Details Reason For Visit: Rapid Afib Admit Date/Time: 03/11/22 22:56 Admit Provider: Sushma Gale Attending Provider: Sushma Gale Primary Care Provider: John Ceballos Home Meds and New Rx's Prescriptions: New diltiazem HCl 120 mg Capsule,Extended Release 24hr 120 mg PO DAILY Qty: 30 0RF Continued montelukast [Singulair] 5 MG tablet,chewable 10 mg PO HS carvedilol [Coreg] 12.5 MG tablet 37.5 mg PO BID allopurinol 100 MG tablet 200 mg PO DAILY PRN doxazosin 8 MG tablet 4 mg PO DAILY ascorbic acid (vitamin C) [Vitamin C] 250 MG tablet 250 mg PO DAILY ferrous sulfate 325 MG tablet 325 mg PO DAILY bisacodyl 5 MG tablet,delayed release (DR/EC) 100 mg PO DAILY PRN calcitriol 0.25 MCG capsule 0.25 mg PO DAILY oxycodone 5 MG tablet 5 mg PO Q4H PRN Rx Instructions: Q4-6H PRN chlorthalidone 25 mg Tablet 25 mg PO DIRECTED Rx Instructions: every other day alogliptin 6.25 mg Tablet 6.25 mg PO DAILY atorvastatin 20 mg Tablet 20 mg PO QPM Label Comments: does not take morphine 30 mg Tablet Extended Release 30 mg PO BID rabeprazole 20 mg Tablet,Delayed Release (Dr/Ec) 20 mg PO DAILY magnesium gluconate 27 mg magnesium (500 mg) Tablet 500 mg PO BID Qty: 60 0RF naloxone [Narcan] 4 mg/actuation spray,non-aerosol 4 mg CALE Q2M PRN (Reason: opioid overdose) Qty: 2 0RF Rx Instructions: spray 1 dose into ONE nostril; alternate nostrils w each dose until help arrives albuterol sulfate 90 mcg/actuation Aerosol Powdr Breath Activated 2 inh INHALATION TID PRN cholecalciferol (vitamin D3) 50 mcg (2,000 unit) Tablet 4,000 unit PO DAILY aspirin 81 mg Tablet 81 mg PO DAILY magnesium oxide 400 mg magnesium Tablet 400 mg PO BID doxycycline hyclate 100 mg capsule 100 mg PO BID 7 Days Qty: 14 0RF prednisone 50 mg tablet 50 mg PO DAILY 5 Days Qty: 5 0RF Discharge Instructions Instructions: Diltiazem (By mouth), A-fib (Atrial Fibrillation) (DC) Stand Alone Forms: Nursing Discharge Form Referrals: [facility] [Outside] (keep your follow up w/ your director of critical care, Dr. Monet Morales.) John Ceballos [Primary Care Provider] - (Please call to make a follow up appointment.) Activity:: Activity as Tolerated Equipment/Supplies:: No Equipment Needed Diet:: Low Sodium Discharge Orders Discharge Orders: Discharge Order (Routine); Ordered 03/12/22 Ordered By: Murphy Lima Other Ambulatory Orders: Cardiac Event Recorder (Routine) Timeframe: 1 Day Facility: [facility] - Location: Respiratory Therapy Ordered By: Murphy Lima Discharge Data Discharge Date/Time-TO BE ENTERED AT DEPARTURE: 03/12/22 16:03 DS: Summary Time Spent with Patient providing and/or coordinating discharge services: Greater than 30 minutes Specific discharge activities: Interview/exam of patient; review of discharge instructions, completion of prescriptions/discharge instructions; discussion w/ nursing and CM; documentation of hospital visit Status at Discharge Functional status at discharge: independent ambulation Overall status at discharge: patient is back to baseline Mental Status: mental status grossly normal Speech and Movement: speech and movement normal Mood: congruent mood Affect: normal affect Exam Narrative Exam Narrative: Middle-aged white male sitting up in bed alert and oriented person place time circumstance in no acute respiratory discomfort. Neck veins are flat Lungs are clear to auscultation Heart regular rate and rhythm Abdomen soft nondistended nontender Extremities without peripheral cyanosis or edema Psych Mental Status: mental status grossly normal Speech and Movement: speech and movement normal Mood: congruent mood Affect: normal affect DS: Data Vitals/I&O Vitals and I&O: Vital Signs Temperature 37 C 03/12/22 11:19 Temperature Source Tympanic 03/12/22 11:19 Pulse 78 03/12/22 12:08 Pulse Rhythm Irregular 03/12/22 09:00 Pulse 110 H 03/12/22 00:55 Respiratory Rate 16 03/12/22 12:08 Respiratory Effort Non-Labored 03/12/22 09:00 Respiratory Depth Normal 03/12/22 09:00 Respiratory Pattern Normal 03/12/22 09:00 Blood Pressure 104/62 03/12/22 11:19 Blood Pressure Mean 146 03/12/22 00:55 Pulse Oximetry 99 03/12/22 12:08 Oxygen Delivery Method Room Air 03/12/22 11:49 Oxygen Flow Rate 0 03/12/22 11:49 Pain Level 0 03/12/22 11:19 Intake & Output 03/11/22 03/12/22 03/12/22 23:59 11:59 23:59 Intake Total 1000 / 1000 440 / 1396.25 956.25 / 1396.25 Output Total 200 / 200 150 / 150 Balance 800 / 800 290 / 1246.25 956.25 / 1246.25 Weight 72.575 kg 64.4 kg Intake: IV 1000 / 1000 10 / 966.25 956.25 / 966.25 Oral 430 / 430 Output: Urine 200 / 200 150 / 150 Other: Urine Color Yellow Urine Appearance Clear Urine Odor Normal Voiding Methods Urinal Data Completed and Pending Labs on day of discharge: Labs from last 24 hours 03/12/22 03/12/22 03/12/22 06:41 06:00 06:00 WBC RBC Hgb Hct MCV MCH MCHC RDW Plt Count MPV Immature Gran % Neutrophils % Lymphocytes % Monocytes % Eosinophils % Basophils % Nucleated RBC % Absolute Neutrophils Absolute Lymphocytes Absolute Monocytes Absolute Eosinophils Absolute Basophils VBG Lactate Sodium Potassium Chloride Carbon Dioxide Anion Gap BUN Creatinine Est GFR (CKD-EPI 2020) Glucose Calcium Magnesium Total Bilirubin AST ALT Alkaline Phosphatase Troponin I C-Reactive Protein Total Protein Albumin Procalcitonin TSH Urine Color Urine Clarity Urine pH Ur Specific [place] Urine Protein Urine Ketones Urine Blood Urine Nitrite Urine Bilirubin Urine Urobilinogen Ur Leukocyte Esterase Urine RBC Urine WBC Ur Epithelial Cells Urine Crystals Urine Bacteria Urine Casts Urine Mucus Ur Culture Indicated? Urine Glucose B. divergens/MO-1 PCR Pending Babesia duncani (PCR) Pending Babesia microti DNA PCR Pending Lyme Disease Antibody Pending COVID-19 Source SARS-CoV-2 (PCR) E.chaffeensis DNA (PCR) Pending E.ewingii/canis DNA PCR Pending E.muris eauclairensis (PCR) Pending A. phagocytophilum (PCR) Pending Blood B. miyamotoi (PCR) Pending Add-On Test Request Pending DONE 03/12/22 03/12/22 03/12/22 06:00 06:00 06:00 WBC 7.59 RBC 4.27 L Hgb 13.0 L D Hct 39.6 L MCV 93 MCH 30.4 MCHC 32.8 RDW 12.2 Plt Count 169 MPV 11.2 H Immature Gran % Neutrophils % Lymphocytes % Monocytes % Eosinophils % Basophils % Nucleated RBC % Absolute Neutrophils Absolute Lymphocytes Absolute Monocytes Absolute Eosinophils Absolute Basophils VBG Lactate Sodium 141 Potassium 4.0 Chloride 104 Carbon Dioxide 31.6 Anion Gap 5.4 BUN 30 H Creatinine 2.0 H Est GFR (CKD-EPI 2020) 36.13 Glucose 143 H Calcium 8.9 Magnesium 2.1 Total Bilirubin AST ALT Alkaline Phosphatase Troponin I C-Reactive Protein Total Protein Albumin Procalcitonin 0.1 TSH Urine Color Urine Clarity Urine pH Ur Specific [place] Urine Protein Urine Ketones Urine Blood Urine Nitrite Urine Bilirubin Urine Urobilinogen Ur Leukocyte Esterase Urine RBC Urine WBC Ur Epithelial Cells Urine Crystals Urine Bacteria Urine Casts Urine Mucus Ur Culture Indicated? Urine Glucose B. divergens/MO-1 PCR Babesia duncani (PCR) Babesia microti DNA PCR Lyme Disease Antibody COVID-19 Source SARS-CoV-2 (PCR) E.chaffeensis DNA (PCR) E.ewingii/canis DNA PCR E.muris eauclairensis (PCR) A. phagocytophilum (PCR) Blood B. miyamotoi (PCR) Add-On Test Request 03/11/22 03/11/22 03/11/22 23:15 22:20 21:50 WBC RBC Hgb Hct MCV MCH MCHC RDW Plt Count MPV Immature Gran % Neutrophils % Lymphocytes % Monocytes % Eosinophils % Basophils % Nucleated RBC % Absolute Neutrophils Absolute Lymphocytes Absolute Monocytes Absolute Eosinophils Absolute Basophils VBG Lactate Sodium Potassium Chloride Carbon Dioxide Anion Gap BUN Creatinine Est GFR (CKD-EPI 2020) Glucose Calcium Magnesium Total Bilirubin AST ALT Alkaline Phosphatase Troponin I < 50 C-Reactive Protein Total Protein Albumin Procalcitonin TSH Urine Color Yellow Urine Clarity Sl Cloudy Urine pH 6.5 Ur Specific [place] 1.020 Urine Protein >=300 H Urine Ketones Negative Urine Blood Small H Urine Nitrite Negative Urine Bilirubin Negative Urine Urobilinogen 0.2 Ur Leukocyte Esterase Negative Urine RBC 3-5 H Urine WBC Negative Ur Epithelial Cells Rare Urine Crystals Negative Urine Bacteria Rare Urine Casts Negative Urine Mucus Negative Ur Culture Indicated? No Urine Glucose 500 H B. divergens/MO-1 PCR Babesia duncani (PCR) Babesia microti DNA PCR Lyme Disease Antibody COVID-19 Source Nasal/Nares SARS-CoV-2 (PCR) Negative E.chaffeensis DNA (PCR) E.ewingii/canis DNA PCR E.muris eauclairensis (PCR) A. phagocytophilum (PCR) Blood B. miyamotoi (PCR) Add-On Test Request 03/11/22 03/11/22 03/11/22 19:55 19:55 19:55 WBC 8.51 RBC 5.29 Hgb 16.2 Hct 48.1 MCV 91 MCH 30.6 MCHC 33.7 RDW 12.0 Plt Count 172 MPV 10.9 Immature Gran % 0.2 Neutrophils % 67.9 Lymphocytes % 22.2 Monocytes % 8.0 Eosinophils % 1.3 Basophils % 0.4 Nucleated RBC % 0.0 Absolute Neutrophils 5.78 Absolute Lymphocytes 1.89 Absolute Monocytes 0.68 Absolute Eosinophils 0.11 Absolute Basophils 0.03 VBG Lactate 1.9 H Sodium Potassium Chloride Carbon Dioxide Anion Gap BUN Creatinine Est GFR (CKD-EPI 2020) Glucose Calcium Magnesium Total Bilirubin AST ALT Alkaline Phosphatase Troponin I C-Reactive Protein Total Protein Albumin Procalcitonin TSH 2.32 Urine Color Urine Clarity Urine pH Ur Specific [place] Urine Protein Urine Ketones Urine Blood Urine Nitrite Urine Bilirubin Urine Urobilinogen Ur Leukocyte Esterase Urine RBC Urine WBC Ur Epithelial Cells Urine Crystals Urine Bacteria Urine Casts Urine Mucus Ur Culture Indicated? Urine Glucose B. divergens/MO-1 PCR Babesia duncani (PCR) Babesia microti DNA PCR Lyme Disease Antibody COVID-19 Source SARS-CoV-2 (PCR) E.chaffeensis DNA (PCR) E.ewingii/canis DNA PCR E.muris eauclairensis (PCR) A. phagocytophilum (PCR) Blood B. miyamotoi (PCR) Add-On Test Request 03/11/22 03/11/22 03/11/22 19:55 19:45 19:40 WBC RBC Hgb Hct MCV MCH MCHC RDW Plt Count MPV Immature Gran % Neutrophils % Lymphocytes % Monocytes % Eosinophils % Basophils % Nucleated RBC % Absolute Neutrophils Absolute Lymphocytes Absolute Monocytes Absolute Eosinophils Absolute Basophils VBG Lactate Sodium 138 Potassium 3.8 Chloride 99 Carbon Dioxide 26.5 Anion Gap 12.5 H BUN 28 H Creatinine 2.1 H Est GFR (CKD-EPI 2020) 34.08 Glucose 242 H Calcium 9.8 Magnesium Total Bilirubin 0.8 AST 52 H ALT 54 Alkaline Phosphatase 207 H Troponin I < 50 C-Reactive Protein 0.40 H Total Protein 9.7 H Albumin 4.9 Procalcitonin TSH Urine Color Urine Clarity Urine pH Ur Specific [place] Urine Protein Urine Ketones Urine Blood Urine Nitrite Urine Bilirubin Urine Urobilinogen Ur Leukocyte Esterase Urine RBC Urine WBC Ur Epithelial Cells Urine Crystals Urine Bacteria Urine Casts Urine Mucus Ur Culture Indicated? Urine Glucose B. divergens/MO-1 PCR Babesia duncani (PCR) Babesia microti DNA PCR Lyme Disease Antibody COVID-19 Source SARS-CoV-2 (PCR) E.chaffeensis DNA (PCR) E.ewingii/canis DNA PCR E.muris eauclairensis (PCR) A. phagocytophilum (PCR) Blood B. miyamotoi (PCR) Add-On Test Request 03/11/22 19:55 Blood Blood Culture - Pending 03/11/22 19:45 Blood Blood Culture - Pending Preliminary micro results at discharge 03/11/22 19:55 Blood Culture - Pending Blood 03/11/22 19:45 Blood Culture - Pending Blood PFSH All Active Problems Discharge planning issues (Acute) DVT prophylaxis (Acute) Hypertension (Chronic) Palpitations (Acute) Non-ST elevation [place] (NSTEMI) (Acute) New onset atrial fibrillation (Acute) Generalized weakness (Acute) History of COVID-19 (Acute) Liver transplant recipient (Chronic) Chronic kidney disease (Chronic) High cholesterol (Chronic) Diabetes (Chronic) Hypomagnesemia (Acute) Myoclonus (Acute) Ventricular ectopy (Acute) Medical History Depression Erectile dysfunction Gastric ulcer GI bleeding Hepatitis C Myocardial infarction SVT (supraventricular tachycardia) Tachycardia Surgical History H/O vasectomy S/P liver transplant Family History Mother Heart disease Sister Heart disease Brother Heart disease Other Diabetes Social History Smoking/Tobacco Use Status: Former Tobacco Use Smoking risk assessment performed?: Yes Alcohol Intake: former Drug use: Never Substance use type: does not use Do you feel safe at home: Yes Do you feel safe in your relationship?: Yes Additional Social history: recently ; still going through grieving process
--- NOTE | 2022-03-12 14:53 | CHAPLAIN ---
Ismael said he will likely be discharged home today. He asked me if we offered services in the chapel on Tuesday and I explained that we didn't. He said he and his family are Hinduism, but do not attend taoist. His grandchildren are beginning to ask questions, he said, and he was hoping he could bring them to a service. I invited him to bring his kids into the [facility] chapel anytime, and we talked about local churches that have Tuesday school programs.
--- NOTE | 2022-03-12 16:00 | CMDISCH_ITS ---
- If Service Date Differs Date of service: 03/12/22 Time of Service: 16:00 LACE Index Scoring Tool - Questions: Length of Stay (in days): 1 Acuity (Admit via E.D.?): Yes Comorbidities: Diabetes w/o Complication, Liver or Renal Disease E.D. Visits: 2 - Answers: Total Score: 11 Risk of Readmission: High Risk Care Management Discharge Reason for Hospitalization: New onset atrial fibrillation, Bronchitis Discharge Plan: Ismael is discharged home via private vehicle with his son. New RX is printed. Cardiac event recorder is ordered. Ismael will call his PCP to schedule a follow up and plans to keep his appt at [place] [facility]. No new [facility] services are indicated at the time of discharge. Patient/Family Education Needs: Review discharge instructions, limitations, medications and plan [facility]. Discuss ask me three and goals of self care.
--- NOTE | 2022-03-15 09:36 | NUR.NOTE ---
Nursing Note: Accessed patient chart to determine how many EKG orders were in the chart from the ED. There was an outstanding EKG in ordered status. There are no EKG's in the [employer] system that are outstanding. EKG order was deleted.
[2022-03-15 10:37] LABS: Lyme Ab w Rflx to Lyme Confirm Negative (Negative)
[2022-03-15 16:54] LABS: Anaplasma phagocytophilum Negative (Negative); B. miyamotoi PCR Negative (Negative); Babesia divergens/MO-1 Negative (Negative); Babesia duncani Negative (Negative); Babesia microti Negative (Negative); Ehrlichia chaffeensis Negative (Negative); Ehrlichia ewingii/canis Negative (Negative); Ehrlichia muris eauclairensis Negative (Negative)
--- NOTE | 2022-03-16 09:33 | PT.INDS ---
Date of service: 03/16/22 Time of Service: 09:33 PT Notes Visit Reasons: Rapid Afib Physical Therapy Inpatient Discharge Summary Date: 03/12/2022 Dates of Service: 03/12/2022 only This is a clinical summary of care provided for the duration of dates listed above. No charge was made in the completion of this documentation. Referring Doctor:? Sushma Gale MD PT Orders: PT CONSULT: Limited ability Precautions: Fall. Standard. Activity as tolerated. Patient Profile/Admitting Diagnosis:? This is a 66-year-old male who recently received liver transplant who presented to the ED on 03/11/2022 due to recurrence of cough, congestion, fever, chills, and diaphoresis patient is diagnosed with new onset atrial fibrillation, bronchitis, generalized weakness, and hypertension. PMHX: All Active Problems?(Updated 03/12/22 @ 01:42 by Sushma Gale MD) Discharge planning issues (Acute) DVT prophylaxis (Acute) Hypertension (Chronic) Palpitations (Acute) Non-ST elevation [place] (NSTEMI) (Acute) New onset atrial fibrillation (Acute) Generalized weakness (Acute) History of COVID-19 (Acute) Liver transplant recipient (Chronic) Chronic kidney disease (Chronic) High cholesterol (Chronic) Diabetes (Chronic) Hypomagnesemia (Acute) Myoclonus (Acute) Ventricular ectopy (Acute) Medical History?(Updated 03/12/22 @ 01:42 by Sushma Gale MD) Depression Erectile dysfunction Gastric ulcer GI bleeding Hepatitis C Myocardial infarction SVT (supraventricular tachycardia) Tachycardia Surgical History?(Updated 03/12/22 @ 01:43 by Sushma Gale MD) H/O vasectomy S/P liver transplant Social History/Home Situation: Lives on the second floor of an apartment building with 1 flight of steps to enter,? rail on one side.? Independent with all indoor and outdoor ambulation using single point wooden cane.? 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 Equipment Owned/DME: Single point cane, wooden Subjective: NT. See most recent BRICK CHIMNEY SUPERVISOR notes. Objective: General Observation: NT. See most recent BRICK CHIMNEY SUPERVISOR notes. Mental Status: NT. See most recent BRICK CHIMNEY SUPERVISOR notes. Pain: NT. See most recent BRICK CHIMNEY SUPERVISOR notes. Vital Signs: NT. See most recent BRICK CHIMNEY SUPERVISOR notes. ROM: Right Upper Extremity: ? Shoulder Flexion WFL. Shoulder abduction WFL. Elbow flexion WFL. Wrist flexion WFL. Functional opening and closing of hand WFL. Left Upper Extremity:? Shoulder Flexion WFL. Shoulder abduction WFL. Elbow flexion WFL. Wrist flexion WFL. Functional opening and closing of hand WFL. Right Lower Extremity: Hip flexion WFL. Hip abduction WFL. Knee flexion WFL. Ankle dorsiflexion WFL. Ankle plantarflexion WFL. Left Lower Extremity: Hip flexion WFL. Hip abduction WFL. Knee flexion WFL. Ankle dorsiflexion WFL. Ankle plantarflexion WFL. Strength: Right Upper Extremity: Shoulder flexors 4/5. Shoulder abductors 4/5. Elbow flexors 5/5. Elbow extensors 5/5. Fork Lift Truck Operator strong. Left Upper Extremity: Shoulder flexors 4/5. Shoulder abductors 4/5. Elbow flexors 5/5. Elbow extensors 5/5. Fork Lift Truck Operator strong. Right Lower Extremity: Hip flexors 4/5. Hip abductors 5/5. Knee flexors 5/5. Knee extensors 4/5. Ankle dorsiflexors 4/5. Ankle plantarflexors 4/5. Left Lower Extremity: Hip flexors 4/5. Hip abductors 5/5. Knee flexors 5/5. Knee extensors 4/5. Ankle dorsiflexors 4/5. Ankle plantarflexors 4/5. Bed Mobility/Transfers: Sit to stand independent Stand to sit independent Bed to reclining chair independent Reclining chair to bed independent Gait: Instructed patient with level surface ambulation of 250 feet requiring supervision assist. Lori decreased.? Mild path deviation but no LOB.? Patient feels better but not back at baseline yet. Stairs: Up and down 12 x 4-inch steps and 8 x 6-inchs teps while holding onto B rails for needed support.? Step-over step pattern. Balance: Static Sitting: Normal Dynamic Sitting: Normal Static Standing: Good Dynamic Standing: Fair Assessment: Still not fully at baseline mobility level and will be seen for 1-2 sessions more to establish independence in the hallway for an increased amount of distance using wooden single point wooden cane.? Patient presents with clinical signs and symptoms consistent with current/admitting diagnoses that have resulted to mobility limitations, gait instability, generalized weakness, and overall ADL decline as demonstrated by the following impairment level findings: 1.? Decreased strength to B quadriceps 2.? Impaired standing balance 3.? Impaired activity tolerance Impairments are contributing to the following functional limitations: 1.? Difficulty with ambulation without assistive device 2.? Increased completion time for mobility ADL performance 3.? Increased risk for falls 4.? Difficulty with managing steps alone safely Goals: Goals X1 week 1. Independent gait on level surface with use of single point wooden stick for at least 300 feet without report of pain nor dyspnea MET 2. Independent stair negotiation while holding onto 1 rail for at least 12 steps without report of pain nor dyspnea MET DISCHARGE RECOMMENDATIONS: [X] ? Home with no services.? Home when medically cleared by hospitalist.? No equipment needs at this time. [] ? Home with services [specify] [] ? Home with outpatient PT [] [] ? SNF for continued rehabilitation [] [] ? Half-Way Care [] [] ? SNF versus LTC based on ability to participate and progress [] TREATMENT CODE/TIME: OR Thank you for the opportunity to participate in the care of this patient. Umu Cheek PT, DPT, CLT [facility] [place], [place]
[2022-05-05 23:30] LABS: Lab Add On Test DONE
== END 2022-03-12 16:03 | disposition home or self-care (01) | DRG 309 ==
LOC: ER 23:13 → MS 03-12 01:41
PROVIDERS: Emergency Medicine; Admitting Provider Internal Medicine; Emergency Provider Physician Assistant; PCP Family Medicine; Visit Provider Internal Medicine
DX: I48.0 Paroxysmal atrial fibrillation (principal); D84.821 Immunodeficiency due to drugs; Z94.4 Liver transplant status; I34.0 Nonrheumatic mitral (valve) insufficiency; E11.22 Type 2 diabetes mellitus with diabetic chronic kidney disease; I10 Essential (primary) hypertension; N18.30 Chronic kidney disease, stage 3 unspecified; E78.00 Pure hypercholesterolemia, unspecified; R53.1 Weakness; E83.42 Hypomagnesemia; I25.2 Old myocardial infarction; Z79.899 Other long term (current) drug therapy; J20.9 Acute bronchitis, unspecified; Z87.891 Personal history of nicotine dependence; Z86.16 Personal history of COVID-19
CPT/HCPCS: 36415; 36416; 80048; 80053; 82962; 84145; 85027; 87040; 87077; 87635; 87798; 93005; 93270; 96361; 96374; 96375; 97162; 97530; 99285; 81003; 81015; 83605; 83735; 84443; 84484; 85025; 86140; 86618; 87186; 93010; 93306; 94640; 94667; 99223; 99239; J1644; J2405; J7512; J7614; J7644

== ENCOUNTER 2022-03-12 14:58 | Outpatient (RCR) | payer OTHER, SELFPAY | END 2022-03-13 23:59 | disposition home or self-care (01) | LOC: RT 14:58 | DX: I48.91 Unspecified atrial fibrillation (principal) ==

== ENCOUNTER 2022-04-06 08:14 | Outpatient (CLI) | payer OTHER, SELFPAY ==
--- NOTE | 2022-04-06 12:23 | W.CARDEVENT ---
Date of service: 04/06/22 Time of Service: 12:23 Cardiac Event Recorder Referring Provider:: Murphy Lima Indications:: Atrial fibrillation Cardiac Event Note: This disk and tape machine tender was ordered for atrial fibrillation. Patient was monitored for 4 days Rhythm was sinus with an average heart rate of 77. Minimum was 58, maximum 107 There was no atrial fibrillation, no high-grade AV block, no pauses greater than 3 seconds Self-limited runs occurred. These were most likely supraventricular tachycardia with aberrancy, not ventricular tachycardia. The longest of these was 9 beats in duration No patient symptoms were reported
== END 2022-04-06 08:15 | disposition home or self-care (01) ==
LOC: CARDOPNVT 08:14
PROVIDERS: Visit Provider Internal Medicine Cardiovascular Disease
DX: I48.91 Unspecified atrial fibrillation (principal)

== ENCOUNTER 2022-05-18 09:27 | Inpatient (IN) | payer OTHER, SELFPAY ==
[2022-05-18] VITALS (135 sets, daily range): BP systolic 102–190; BP diastolic 59–172; PULSE 70–159; RESP 10–37; TEMP 36.4–37.8; O2SAT 82–100
--- NOTE | 2022-05-18 09:30 | RT.EKG_ITS ---
APPROVED REPORT Exam: Resting ECG Reason for Exam: dizzy Patient Location: E HR:127 bpm ECG Measurements Heart Rate 127 AXIS [place] 157 P 84 QRSd 127 QRS -160 QT 304 T 43 QTc 442 Conclusion Sinus tachycardia...rate> 99 Ventricular trigeminy...trigeminy string>6 w/ V complexes Probable left atrial enlargement...P >50mS, <-0.10mV V1 Right bundle branch block...QRSd>120, terminal axis(90,270)
[2022-05-18 09:58] LABS: Abs Immature Grans 0.04 10^3/uL (0.0-0.06); Absolute Eosinophil Count 0.01 10^3/uL (0.0-0.7); Basophils % 0.3; Eosinophils % 0.1; HCT 45.1 % (40.0-50.0); HGB 15.8 g/dL (13.5-17.5); Immature Grans % 0.3; Lymphocytes % 6.5; MCH 31.1 pg (27.0-33.0); MCV 89 fL (80-95); MPV 10.7 fL (8.0-11.0); Monocytes % 6.5; Neutrophils % 86.3; Platelet Count 185 10^3/uL (130-400); RBC 5.08 10^6/uL (4.36-5.78); RDW 12.2 % (11.8-14.1); RDW-SD 39.5 fL; WBC 11.77 10^3/uL (4.4-10.8)
--- NOTE | 2022-05-18 09:58 | ED.GENADUL_ITS ---
Discharge Plan Disposition Patient Disposition: Admit to [facility] Condition: Critical Discharge Details Clinical Impression: Pneumonia, Sepsis, SABRINA (acute kidney injury), Atrial fibrillation, Acidosis, lactic Primary Care Provider: Hannah Farrell ED Provider: Qasim Benedict Home Meds and New Rx's Prescriptions: No Action montelukast [Singulair] 5 MG tablet,chewable 10 mg PO HS Patient Comments: patient no longer taking carvedilol [Coreg] 12.5 MG tablet 25 mg PO BID allopurinol 100 MG tablet 200 mg PO DAILY PRN Patient Comments: patient no longer taking doxazosin 8 MG tablet 4 mg PO DAILY Patient Comments: patient states no longer taking ascorbic acid (vitamin C) [Vitamin C] 250 MG tablet 250 mg PO DAILY Patient Comments: patient no longer taking bisacodyl 5 MG tablet,delayed release (DR/EC) 100 mg PO DAILY PRN Patient Comments: patient no longer taking calcitriol 0.25 MCG capsule 0.25 mg PO DAILY Patient Comments: patient no longer taking oxycodone 5 MG tablet 5 mg PO Q4H PRN Rx Instructions: Q4-6H PRN chlorthalidone 25 mg Tablet 25 mg PO DIRECTED Patient Comments: patient no longer taking Rx Instructions: every other day alogliptin 6.25 mg Tablet 6.25 mg PO DAILY Patient Comments: patient no longer taking atorvastatin 20 mg Tablet 20 mg PO QPM Patient Comments: does not take morphine 30 mg Tablet Extended Release 30 mg PO BID rabeprazole 20 mg Tablet,Delayed Release (Dr/Ec) 20 mg PO DAILY magnesium gluconate 27 mg magnesium (500 mg) Tablet 500 mg PO BID Qty: 60 0RF Patient Comments: patient no longer taking naloxone [Narcan] 4 mg/actuation spray,non-aerosol 4 mg CALE Q2M PRN (Reason: opioid overdose) Qty: 2 0RF Rx Instructions: spray 1 dose into ONE nostril; alternate nostrils w each dose until help arrives albuterol sulfate 90 mcg/actuation Aerosol Powdr Breath Activated 2 inh INHALATION TID PRN cholecalciferol (vitamin D3) 50 mcg (2,000 unit) Tablet 4,000 unit PO DAILY Patient Comments: patient no longer taking aspirin 81 mg Tablet 81 mg PO DAILY magnesium oxide 400 mg magnesium Tablet 400 mg PO BID tacrolimus 1 mg Capsule 1 mg PO HS Eliquis 5 mg Tablet 5 mg PO BID empagliflozin 25 mg Tablet 25 mg PO DAILY diltiazem HCl 120 mg Capsule,Extended Release 24hr 120 mg PO DAILY Qty: 30 0RF Patient Comments: patient no longer taking Medical Decision Making 1000 --67-year-old male with history of liver transplant 2005, on tacrolimus, here with fever, chills, generalized weakness, nausea and vomiting today. Patient does have tenderness left lower quadrant but has no abdominal pain. Patient is in critical condition on arrival. Patient is tachycardic and in atrial fibrillation. He is hypertensive. Saturating well in no respiratory distress. Airway intact and mentating well at this time. Initial labs including lactate reviewed and elevated. Concern for sepsis. Plan to check blood cultures. I will give IV fluid resuscitation with initial 1 L bolus. Plan to obtain CT of the abdomen pelvis to assess for acute intra- abdominal surgical process. Consider COVID. Consider influenza. Plan to obtain fluid testing. 1130 -- Patient reassessed remains tachycardic despite 1 L fluid bolus. Will give additional fluid bolus and plan to reassess. Leukocytosis noted. Creatinine is elevated at 2.4. Anion gap acidosis noted. 1324 --CT of the chest interpreted by radiology:1. There is infiltrate in the posterior basal segments of both lower lobes, larger on the left side.? There is also significant prominent area of infiltrate in the sub apical right upper lobe. 2. No pleural effusions.? No obvious intrathoracic adenopathy. 3. 5 millimeter noncalcified nodule in the right lower lobe which will require appropriate follow-up. Patient reassessed: Patient juana tachycardic 120s to 140s --appears to be atrial fibrillation with aberancy, RVR, PVCs noted. Patient remains hypertensive. Patient remains tachycardic despite IV fluid bolus. I spoke with Dr. Lima, on-call hospitalist, discussed ED presentation and course, he r emembers caring for the patient in the past and reviewed prior medical record. He will admit the patient. He recommends diltiazem 10 mg IV bolus to be given. Lab Data Lab results reviewed: Yes I reviewed the patient's lab results. Labs: 05/18/22 10:18 Blood Blood Culture - Pending 05/18/22 10:10 Blood Blood Culture - Pending Laboratory Tests Range/Units 05/18/22 05/18/22 05/18/22 09:50 09:50 09:50 WBC (4.4-10.8) 10^3/uL 11.77 H RBC (4.36-5.78) 10^6/uL 5.08 Hgb (13.5-17.5) g/dL 15.8 Hct (40.0-50.0) % 45.1 MCV (80-95) fL 89 MCH (27.0-33.0) pg 31.1 MCHC (32.0-36.0) % 35.0 RDW (11.8-14.1) % 12.2 Plt Count (130-400) 10^3/uL 185 MPV (8.0-11.0) fL 10.7 Immature Gran % 0.3 Neutrophils % 86.3 Lymphocytes % 6.5 Monocytes % 6.5 Eosinophils % 0.1 Basophils % 0.3 Nucleated RBC % (0.0-0.3) % 0.0 Absolute Neutrophils (1.2-6.7) 10^3/uL 10.16 H Absolute Lymphocytes (1.2-3.4) 10^3/uL 0.77 L Absolute Monocytes (0.1-0.8) 10^3/uL 0.77 Absolute Eosinophils (0.0-0.7) 10^3/uL 0.01 Absolute Basophils (0.0-0.2) 10^3/uL 0.04 VBG Lactate (0.6-1.4) mmol/L 3.3 H* Sodium (136-145) mmol/L 143 Potassium (3.5-5.1) mmol/L 4.2 Chloride (98-107) mmol/L 102 Carbon Dioxide (21.0-32.0) mmol/L 25.9 Anion Gap (3-11) mmol/L 15.1 H BUN (7-18) mg/dL 27 H Creatinine (0.70-1.30) mg/dL 2.4 H Est GFR (CKD-EPI 2020) (mL/min/1.73m2) 28.85 Glucose (74-106) mg/dL 237 H Calcium (8.5-10.1) mg/dL 10.0 Total Bilirubin (0.2-1.0) mg/dL 0.8 AST (15-37) U/L 30 ALT (16-63) U/L 38 Alkaline Phosphatase (46-116) U/L 193 H Troponin I (<or=60) ng/L Total Protein (6.4-8.2) g/dL 9.4 H Albumin (3.4-5.0) g/dL 4.5 Urine Color (Yellow) Urine Clarity (Clear) Urine pH (5-8) Ur Specific [place] (1.005-1.025) Urine Protein (Negative) mg/dL Urine Ketones (Negative) mg/dL Urine Blood (Negative) Urine Nitrite (Negative) Urine Bilirubin (Negative) Urine Urobilinogen (Up to 0.2) mg/dL Ur Leukocyte Esterase (Negative) Urine RBC (0-2) HPF Urine WBC (0-5) HPF Ur Epithelial Cells (Negative) HPF Urine Crystals (Negative) HPF Urine Bacteria (Negative) HPF Urine Casts (Negative) LPF Urine Mucus (Negative) Ur Culture Indicated? Urine Glucose (Negative) mg/dL COVID-19 Source SARS-CoV-2 (PCR) (Negative) Influenza Type A (PCR) (Negative) Influenza Type B (PCR) (Negative) RSV (PCR) (Negative) Range/Units 05/18/22 05/18/22 05/18/22 09:50 09:52 11:30 WBC (4.4-10.8) 10^3/uL RBC (4.36-5.78) 10^6/uL Hgb (13.5-17.5) g/dL Hct (40.0-50.0) % MCV (80-95) fL MCH (27.0-33.0) pg MCHC (32.0-36.0) % RDW (11.8-14.1) % Plt Count (130-400) 10^3/uL MPV (8.0-11.0) fL Immature Gran % Neutrophils % Lymphocytes % Monocytes % Eosinophils % Basophils % Nucleated RBC % (0.0-0.3) % Absolute Neutrophils (1.2-6.7) 10^3/uL Absolute Lymphocytes (1.2-3.4) 10^3/uL Absolute Monocytes (0.1-0.8) 10^3/uL Absolute Eosinophils (0.0-0.7) 10^3/uL Absolute Basophils (0.0-0.2) 10^3/uL VBG Lactate (0.6-1.4) mmol/L Sodium (136-145) mmol/L Potassium (3.5-5.1) mmol/L Chloride (98-107) mmol/L Carbon Dioxide (21.0-32.0) mmol/L Anion Gap (3-11) mmol/L BUN (7-18) mg/dL Creatinine (0.70-1.30) mg/dL Est GFR (CKD-EPI 2020) (mL/min/1.73m2) Glucose (74-106) mg/dL Calcium (8.5-10.1) mg/dL Total Bilirubin (0.2-1.0) mg/dL AST (15-37) U/L ALT (16-63) U/L Alkaline Phosphatase (46-116) U/L Troponin I (<or=60) ng/L 59 Total Protein (6.4-8.2) g/dL Albumin (3.4-5.0) g/dL Urine Color (Yellow) Yellow Urine Clarity (Clear) Clear Urine pH (5-8) 5.5 Ur Specific [place] (1.005-1.025) 1.025 Urine Protein (Negative) mg/dL >=300 H Urine Ketones (Negative) mg/dL 15 H Urine Blood (Negative) Moderate H Urine Nitrite (Negative) Negative Urine Bilirubin (Negative) Negative Urine Urobilinogen (Up to 0.2) mg/dL 0.2 Ur Leukocyte Esterase (Negative) Negative Urine RBC (0-2) HPF 10-20 H Urine WBC (0-5) HPF 0-2 Ur Epithelial Cells (Negative) HPF Rare Urine Crystals (Negative) HPF Negative Urine Bacteria (Negative) HPF Rare Urine Casts (Negative) LPF 0-2 Coarse Granular Urine Mucus (Negative) Trace Ur Culture Indicated? No Urine Glucose (Negative) mg/dL 500 H COVID-19 Source Nasopharynx SARS-CoV-2 (PCR) (Negative) Negative Influenza Type A (PCR) (Negative) Negative Influenza Type B (PCR) (Negative) Negative RSV (PCR) (Negative) Negative HPI General Mode of arrival: ambulatory . Date/Time Provider Initiated Documentation: 05/18/22 09:45 . Limitations to Documentation: no limitations . Information obtained by: patient, family and EMS . HPI Narrative: 67-year-old male with multiple medical problems including history of atrial fibrillation, hypertension, diabetes, hypercholesterolemia, chronic kidney disease, liver transplant 2005, here with chief complaint of nausea. Patient notes nausea and vomiting that started today. He has been experiencing generalized weakness and chills over the past few days. Symptoms worse today. Patient denies associated cough. No dysuria. No abdominal pain. No rash. No headache. No neck stiffness. Related Data Home Medications Medication Instructions Recorded Confirmed allopurinol 100 mg tablet 200 mg PO DAILY PRN 11/25/15 03/11/22 ascorbic acid (vitamin C) 250 mg 250 mg PO DAILY 11/25/15 03/11/22 tablet (Vitamin C) bisacodyl 5 mg tablet,delayed 100 mg PO DAILY PRN 11/25/15 03/11/22 release calcitriol 0.25 mcg capsule 0.25 mg PO DAILY 11/25/15 03/11/22 carvedilol 12.5 mg tablet (Coreg) 25 mg PO BID 11/25/15 05/18/22 doxazosin 8 mg tablet 4 mg PO DAILY 11/25/15 03/11/22 montelukast 5 mg chewable tablet 10 mg PO HS 11/25/15 03/11/22 (Singulair) oxycodone 5 mg tablet 5 mg PO Q4H PRN 11/25/15 05/18/22 alogliptin 6.25 mg tablet 6.25 mg PO DAILY 02/05/19 03/11/22 atorvastatin 20 mg tablet 20 mg PO QPM 02/05/19 03/11/22 chlorthalidone 25 mg tablet 25 mg PO DIRECTED 02/05/19 03/11/22 morphine 30 mg tablet,extended 30 mg PO BID 02/05/19 05/18/22 release rabeprazole 20 mg tablet,delayed 20 mg PO DAILY 02/05/19 05/18/22 release magnesium gluconate 27 mg 500 mg PO BID #60 tabs 02/06/19 03/11/22 magnesium (500 mg) tablet naloxone 4 mg/actuation nasal 4 mg intranasal Q2M PRN opioid 04/13/19 05/18/22 spray (Narcan) overdose #2 ea albuterol sulfate 90 mcg/actuation 2 inh inhalation TID PRN 10/31/20 05/18/22 breath activated powder inhaler aspirin 81 mg tablet 81 mg PO DAILY 10/31/20 05/18/22 cholecalciferol (vitamin D3) 50 4,000 unit PO DAILY 10/31/20 03/11/22 mcg (2,000 unit) tablet magnesium oxide 400 mg PO BID 10/31/20 03/11/22 diltiazem HCl 120 mg 120 mg PO DAILY #30 caps 03/12/22 capsule,extended release 24 hr apixaban 5 mg tablet (Eliquis) 5 mg PO BID 05/18/22 05/18/22 empagliflozin 25 mg tablet 25 mg PO DAILY 05/18/22 05/18/22 tacrolimus 1 mg capsule, 1 mg PO HS 05/18/22 05/18/22 immediate-release Previous Rx's Medication Instructions Recorded magnesium gluconate 27 mg 500 mg PO BID #60 tabs 02/06/19 magnesium (500 mg) tablet naloxone 4 mg/actuation nasal 4 mg intranasal Q2M PRN opioid 04/13/19 spray (Narcan) overdose #2 ea diltiazem HCl 120 mg 120 mg PO DAILY #30 caps 03/12/22 capsule,extended release 24 hr Allergies Allergy/AdvReac Type Severity Reaction Status Date / Time cephalexin monohydrate Allergy Severe Anaphylaxsi Unverified 05/18/22 09:36 [From Keflex] s General Stated Complaint: GenMedical PAPO: 2 Review of Systems All systems reviewed & are unremarkable except as noted in HPI and below Constitutional Constitutional: Reports chills, Reports fever(s) and Reports weakness Respiratory Respiratory: Denies cough Neurologic Neurologic: Reports weakness PFSH All Active Problems (Updated 05/18/22 @ 13:27 by Qasim Benedict MD) Pneumonia (Acute) Sepsis (Acute) SABRINA (acute kidney injury) (Acute) Atrial fibrillation (Chronic) Acidosis, lactic (Acute) Hypertension (Chronic) Palpitations (Acute) Non-ST elevation CA (NSTEMI) (Acute) New onset atrial fibrillation (Acute) History of COVID-19 (Acute) Liver transplant recipient (Chronic) Chronic kidney disease (Chronic) High cholesterol (Chronic) Diabetes (Chronic) Hypomagnesemia (Acute) Myoclonus (Acute) Ventricular ectopy (Acute) Medical History Depression Erectile dysfunction Gastric ulcer GI bleeding Hepatitis C Myocardial infarction SVT (supraventricular tachycardia) Tachycardia Surgical History H/O vasectomy S/P liver transplant Family History Mother Heart disease Sister Heart disease Brother Heart disease Other Diabetes Social History Smoking/Tobacco Use Status: Former Tobacco Use Smoking risk assessment performed?: Yes Alcohol Intake: former Drug use: Never Substance use type: does not use Do you feel safe at home: Yes Do you feel safe in your relationship?: Yes Additional Social history: recently ; still going through grieving process Exam Const General: cooperative and diaphoretic Nutritional Appearance: thin Orientation: alert, awake and oriented x3 HENMT Head: normocephalic Mouth: mucous membranes dry Eyes Conjunctivae: normal conjunctivae Sclera: normal sclerae Neck Neck: trachea midline and supple Resp Auscultation: clear to auscultation bilaterally, no rales, no rhonchi and no wheezes Cardio Rate: tachycardic Rhythm: abnormal rhythm irregularly irregular GI Palpation: soft, not firm, no guarding, no masses, not rigid and tender in the LLQ Skin General skin exam: no rashes or lesions noted Neuro General: patient alert, patient awake, patient oriented x3 and tone normal Extrem General: no edema Psych Appearance: grossly normal Mental Status: mental status grossly normal Course Vital Signs Vital signs: Vital Signs Temperature 36.4 C L 05/18/22 09:29 Pulse 135 H 05/18/22 09:29 Respiratory Rate 18 05/18/22 09:29 Blood Pressure 185/114 H 05/18/22 09:29 Pulse Oximetry 100 05/18/22 09:29 Temperature 36.4 C L 05/18/22 09:29 Temperature Source Oral 05/18/22 09:29 Pulse 135 H 05/18/22 09:29 Respiratory Rate 18 05/18/22 09:29 Respiratory Effort Normal 05/18/22 09:35 Blood Pressure 185/114 H 05/18/22 09:29 Blood Pressure Position Supine 05/18/22 09:29 Pulse Oximetry 100 05/18/22 09:29 Oxygen Delivery Method Room Air 05/18/22 09:29 Oxygen Flow Rate 0 05/18/22 09:29 Pain Level 0 05/18/22 09:29 Lab/Test Results Lab/Test Results: 05/18/22 09:47 Blood Blood Culture - Pending 05/18/22 09:47 Blood Blood Culture - Pending Critical Care Time Critical Care Time Critical Care Time: Yes Total Critical Care Time: 60 Attestation: I spent greater than 60 minutes addressing this patient's immediate life threats. Please see MDM section of note. This time was spent engaged in work directly related to the patient's care, exclusive of separate procedures, and failure to initiate these interventions would have likely resulted in clinically significant or life threatening deterioration in the patient's condition.
[2022-05-18 09:59] LABS: Absolute Basophil Count 0.04 10^3/uL (0.0-0.2); Absolute Lymphocyte Count 0.77 10^3/uL (1.2-3.4); Absolute Monocyte Count 0.77 10^3/uL (0.1-0.8); Absolute Neutrophil Count 10.16 10^3/uL (1.2-6.7)
[2022-05-18 10:01] LABS: Lactate 3.3 mmol/L (0.6-1.4)
[2022-05-18 10:22] LABS: ALT 38 U/L (16-63); AST 30 U/L (15-37); Albumin 4.5 g/dL (3.4-5.0); Alkaline Phosphatase 193 U/L (46-116); Anion Gap 15.1 mmol/L (3-11); BUN 27 mg/dL (7-18); Bilirubin, Total 0.8 mg/dL (0.2-1.0); CO2 25.9 mmol/L (21.0-32.0); CREATININE 2.4 mg/dL (0.70-1.30); Chloride 102 mmol/L (98-107); Estimated GFR 28.85 (mL/min/1.73m2); Glucose 237 mg/dL (74-106); Potassium 4.2 mmol/L (3.5-5.1); Sodium 143 mmol/L (136-145); Total Protein 9.4 g/dL (6.4-8.2)
[2022-05-18] MEDS: Ondansetron 4 MG/2 ML VIAL IVP (10:25)
[2022-05-18] MEDS: Normal Saline 1,000 ML 1000 ML IV (10:25)
--- NOTE | 2022-05-18 10:30 | DI.CT_ITS ---
Exam(s) CT ABDOMEN PELVIS WO EXAM: CT ABDOMEN PELVIS WO CLINICAL HISTORY: llq tenderness, septic, liver tplant 2006. TECHNIQUE: Imaging Protocol: Axial computed tomography images with coronal and sagittal reformatted images were created and reviewed CONTRAST MATERIAL: Intravenous: none Oral: None COMPARISON: CT RENAL COLIC WO CONTRAST from 11/24/2015 FINDINGS: VISUALIZED LUNG BASES: There is infiltrate in both lung bases involving the posterior basal segments of both lower lobes. This is more prominent on the left side. No associated pleural effusions.. ABDOMEN: There is no ascites. LIVER: There are no obvious focal hepatic lesions evident of this noninfused study. GALLBLADDER/BILIARY: Gallbladder is not definitively identified or may be slightly low lying it adjac ent to the CBD. CBD diameter is slightly prominent. There are no clips in the gallbladder fossa. C BD diameter is prominent but unchanged from 2016. Measures 1.3 cm. CBD is not dilated. PANCREAS: No evidence of pancreatic mass nor dilatation of the pancreatic duct. SPLEEN: Spleen is not enlarged. No obvious intrasplenic lesions. ADRENALS: There are no significant adrenal masses. KIDNEYS:No cysts evident. No solid renal masses. No calculi nor hydronephrosis. . ABDOMINAL AORTA: Calcified but not enlarged. Common iliac arteries are also calcified but not enlarg ed. Heavy calcification noted at the origin of the left renal artery. LYMPH NODES: There is no retroperitoneal nor paraaortic adenopathy. ABDOMINAL WALL: No evidence of significant anterior abdominal wall nor inguinal hernia. GI: There is no evidence of bowel obstruction, free air, nor abscess. PELVIS: LYMPH NODES: There is no intrapelvic nor inguinal adenopathy. GI: No evidence of appendicitis.No evidence of sigmoid diverticulitis. URINARY BLADDER: No calculi nor obvious masses evident REPRODUCTIVE: Prostate not enlarged. Seminal vesicles unremarkable. OSSEOUS: No significant osseous lesions. No fractures evident. IMPRESSION: 1. There is significant filtrate in both lung bases, more prominent on the left side. Infiltrate inv olves posterior basal segments of both lower lobes. There are no pleural effusions. 2. Gallbladder is not able to be identified, similar to 2016. Slight prominence of the CBD diameter is again noted which is possibly developmental. No calculus in lower CBD and no mass pancreatic head evident. 3. There presently no renal calculi (as was the case in 2016). No hydronephrosis nor hydroureter. N o calculi in the urinary bladder. RADIATION DOSE DELIVERED: 643.61mGy.cm Total DLP DATA REPOSITORY: All CT scans at this facility are submitted to the National Radiology Data Registry (NRDR) Dose Index Registry (DIR) with the [employer] ([employer]). RADIATION OPTIMIZATION: All CT scans at this facility use at least one of these dose optimization te chniques: automated exposure control; mA and/or kV adjustment per patient size (includes targeted exa ms where dose is matched to clinical indication); or iterative reconstruction.
[2022-05-18] MEDS: Normal Saline Flush 10 ML SYR IVP (11:06)
[2022-05-18 11:29] LABS: COVID-19 PCR Negative (Negative); Influenza A PCR Negative (Negative); Influenza B PCR Negative (Negative); RSV PCR Negative (Negative)
--- NOTE | 2022-05-18 11:30 | DI.CT_ITS ---
Exam(s) CT CHEST WO EXAM: CT CHEST WO CLINICAL HISTORY: ground glass opacity on ct abd. TECHNIQUE: Multi planar reconstructions were performed. CONTRAST MATERIAL: None COMPARISON: CT CT CHEST WO from 04/13/2019 FINDINGS: CHEST: LUNGS: There is a significant area of infiltrate in the superior aspect of the right upper lobe at an d below the lung apex, exhibiting air bronchograms but not associated with overlying rib destruction nor pleural effusion. Lower down in the right lung there is a 5 millimeter nodular density in the ri ght lower lobe, noncalcified. There is also small area of infiltrate in the posterior basal segment of the right lower lobe. In the opposite-left lung there is a larger area of infiltrate in the left lower lobe posterior basal segment extending up towards the superior segment of the left lower lobe. There is no infiltrate in the left upper lobe nor in lingular segment of the left lung. No pleural effusion. MEDIASTINUM: There is no obvious hilar nor mediastinal adenopathy. Visualized thyroid unremarkable.No obvious axillary adenopathy CARDIAC: Heart size is normal. There is no pericardial effusion.Caliber of the thoracic aorta is wit hin normal limits. VISUALIZED UPPER ABDOMEN:See abdominal CT report OSSEOUS: No significant osseous lesions.. IMPRESSION: 1. There is infiltrate in the posterior basal segments of both lower lobes, larger on the left side. There is also significant prominent area of infiltrate in the sub apical right upper lobe. 2. No pleural effusions. No obvious intrathoracic adenopathy. 3. 5 millimeter noncalcified nodule in the right lower lobe which will require appropriate follow-up. Called by myself to ER physician RADIATION DOSE DELIVERED: 398.35mGy.cm Total DLP DATA REPOSITORY: All CT scans at this facility are submitted to the National Radiology Data Registry (NRDR) Dose Index Registry (DIR) with the [employer] (ACR). RADIATION OPTIMIZATION: All CT scans at this facility use at least one of these dose optimization te chniques: automated exposure control; mA and/or kV adjustment per patient size (includes targeted exa ms where dose is matched to clinical indication); or iterative reconstruction.
[2022-05-18 11:35] LABS: Source Nasopharynx
[2022-05-18 11:41] LABS: Bilirubin Negative (Negative); Blood Moderate (Negative); Clarity Clear (Clear); Glucose 500 mg/dL (Negative); Ketones 15 mg/dL (Negative); Leukocyte Esterase Negative (Negative); Nitrite Negative (Negative); Specific Gravity 1.025 (1.005-1.025); Urobilinogen 0.2 mg/dL (Up to 0.2); pH 5.5 (5-8)
[2022-05-18 11:47] LABS: Bacteria Rare HPF (Negative); Epithelial Cells Rare HPF (Negative); WBC 0-2 HPF (0-5)
[2022-05-18] MEDS: levoFLOXacin 750 MG/150 ML BAG 100 MG IVPB (11:47)
[2022-05-18 11:48] LABS: C & S Indicated? No; Casts 0-2 Coarse Granular LPF (Negative); Crystals Negative HPF (Negative); Mucus Trace (Negative)
[2022-05-18 11:52] LABS: Troponin I 59 ng/L (<or=60)
[2022-05-18] MEDS: LORazepam 0.5 MG TAB (12:03)
[2022-05-18] MEDS: dilTIAZem 25 MG/5 ML VIAL 10 MG IVP (13:30)
[2022-05-18 16:02] LABS: Lactate 1.4 mmol/L (0.6-1.4)
[2022-05-18] MEDS: dilTIAZem 125 MG in Normal Saline 100 ML IV (17:07)
--- NOTE | 2022-05-18 17:12 | W.PM.HP.N ---
Date of service: 05/18/22 Time of Service: 17:12 Assessment and Plan Assessment and plan (1) Sepsis: Status: Acute Assessment and plan: Blood cultures have been obtained patient's been started on Levaquin 750 mg IV every 48 hours for treatment of community-acquired pneumonia. We will continue with bronchodilators attempt obtain a sputum culture as well as obtain urine for Legionella and strep antigen. Request sputum for mycoplasma. Encourage cough and deep breathing use of incentive spirometry and Acapella. We will treat his nausea and give him IV fluids overnight. Monitor his urine output. Critical care time spent interviewing and examining the patient, reviewing studies, discussing case with patient's nurse and consulting physicians was 60 minutes. (2) Pneumonia: Status: Acute Assessment and plan: As above (3) Atrial flutter: Status: Acute Assessment and plan: Titrate IV diltiazem, begin Lopressor. Coreg was held to allow more blood pressure for titration of the diltiazem and Lopressor was substituted for the Coreg. (4) Acidosis, lactic: Status: Acute Assessment and plan: Repeat lactate is normalized with IV fluid hydration. I think his lactic acidosis was due to dehydration. (5) SABRINA (acute kidney injury): Status: Acute Assessment and plan: Patient has superimposed prerenal azotemia in the setting of stage III chronic kidney disease. We will get a tacrolimus level in the morning and monitor his BMP and urine output overnight. (6) Chronic kidney disease: Status: Chronic Assessment and plan: As above. If renal function does not improve her urine output remains low we will ultrasound his kidneys. Qualifiers: Chronic kidney disease stage: unspecified stage Qualified Code(s): N18.9 - Chronic kidney disease, unspecified (7) Liver transplant recipient: Status: Chronic Assessment and plan: Continue his tacrolimus in spite of his infection. Check tacrolimus level. (8) Diabetes: Status: Chronic Assessment and plan: Patient's been on Jardiance but no other diabetic medications. While he is hospitalized we will treat his hyperglycemia with insulin sensitive sliding scale NovoLog. (9) Symptom of bladder outlet obstruction: Status: Acute Assessment and plan: Placement of Cruz catheter. Consider urology consultation. We will perform digital rectal exam in the morning when the patient's more stable from a respiratory standpoint. History of Present Illness History of Present Illness Chief Complaint: Dizziness, nausea vomiting, dyspnea Narrative: 66-year-old male with history of liver transplant status posttreatment of hepatitis C and alcoholic liver disease, transplant was in 2005 at [facility] in [facility]. Patient has been abstinent of alcohol since then. Follow-up testing for HCV has been negative. Patient has chronic kidney disease stage III, essential hypertension as well as a history of coronary artery disease with previous NSTEMI October 31, 2020 for which he was transferred to [facility] in [facility] he reportedly had cardiac catheterization but no stent. Patient has had atrial fibrillation which was recently diagnosed in February 2022 when he was here at [facility]. He was treated that admission w/ iv diltiazem and discharged home on 03/12/22 on cardizem CD 120 mg daily along w/ his home dose of carvedilol 37.5 mg bid. Since that time he has had follow up w/ his cardilogist through the [facility] in [place], [place]; with Dr. Monet Morales. Since that time his diltiazem has been stopped and he is now on coreg 25 mg bid. Today he presents w/ increasing dyspnea, chills (rigors), decreased appetite and oral intake along w/ nausea and vomiting but no chest pain or pressure and no abdominal pain. Patient has been around ill contacts including grandchildren who have had respiratory viral illnesses but not COVID or RSV. On arrival to the ED he was found to be in narrow complex tachycardia w/ HR in the 140's to 150's and he was not hypoxemic but was found to have an elevated white count of 11,700 and was found to have worsening azotemia compared to his baseline chronic kidney disease. BUN was 27 creatinine 2.4 from his last values of 30 and 2.0 respectively 2 months prior. Procalcitonin level was not checked in the emergency department but has since been checked and found to be mildly elevated 0.2. LFTs were essentially normal except for a chronically elevated alkaline phosphatase of 193. Blood lactate was elevated at 3.3 but after he had 1 and half liters of fluid of normal saline given the emergency department repeat lactate is now down to 1.4. His troponin was normal at 59 and his EKG demonstrated either sinus tachycardia or atrial flutter at 2:1. However upon arrival to the ICU he was noted to be in rate in the 140's and what appears to be atrial flutter at 2:[address] scan of his chest multifocal pneumonia w/ infiltrates in the posterior basal segment of both lower lobes larger on the left as well as a significant infiltrate in the subapical right upper lobe. No pleural effusions and no adenopathy. Does have a 5 mm noncalcified nodule in the right lower lobe. Blood cultures were obtained. Patient was begun on Levaquin 750 mg IV as the patient has a history of anaphylaxis to Keflex. Per my request he was started on Cardizem drip after initial bolus of 10 mg. Patient's had dry heaves since presenting to the intensive care unit. He has been given a dose of Phenergan. He will continue to receive more IV fluids overnight and have started him on low-dose Lopressor and will titrate the Cardizem drip. Heart rate is down into the 110s to 120 range. Patient be kept on Levaquin 750 mg IV every 48 hours due to his renal insufficiency. We will monitor his urine output. He has been having symptoms of urinary urgency and hesitancy and incomplete emptying of his bladder. Bladder scan tonight was for over 400 mL therefore Cruz catheter was placed. Review of Systems All systems reviewed & are unremarkable except as noted in HPI and below PFSH All Active Problems (Updated 05/18/22 @ 19:19 by Murphy Lima MD) Symptom of bladder outlet obstruction (Acute) Atrial flutter (Acute) Pneumonia (Acute) Sepsis (Acute) SABRINA (acute kidney injury) (Acute) Atrial fibrillation (Chronic) Acidosis, lactic (Acute) Hypertension (Chronic) Palpitations (Acute) Non-ST elevation [place] (NSTEMI) (Acute) New onset atrial fibrillation (Acute) Liver transplant recipient (Chronic) Chronic kidney disease (Chronic) High cholesterol (Chronic) Diabetes (Chronic) Hypomagnesemia (Acute) Myoclonus (Acute) Ventricular ectopy (Acute) Medical History (Updated 05/18/22 @ 19:19 by Murphy Lima MD) Depression Erectile dysfunction Gastric ulcer GI bleeding Hepatitis C History of COVID-19 Myocardial infarction SVT (supraventricular tachycardia) Tachycardia Surgical History H/O vasectomy S/P liver transplant Family History Mother Heart disease Sister Heart disease Brother Heart disease Other Diabetes Social History Smoking/Tobacco Use Status: Former Tobacco Use Smoking risk assessment performed?: Yes Alcohol Intake: former Drug use: Never Substance use type: does not use Do you feel safe at home: Yes Do you feel safe in your relationship?: Yes Additional Social history: recently ; still going through grieving process Meds Allergies and Home Medications Allergies Allergy/AdvReac Type Severity Reaction Status Date / Time cephalexin monohydrate Allergy Severe Anaphylaxsi Unverified 05/18/22 09:36 [From [facility]] s Home Medications Medication Instructions Recorded Confirmed Type carvedilol 12.5 mg tablet (Coreg) 25 mg PO BID 11/25/15 05/18/22 History oxycodone 5 mg tablet 5 mg PO Q4H PRN 11/25/15 05/18/22 History morphine 30 mg tablet,extended 30 mg PO BID 02/05/19 05/18/22 History release rabeprazole 20 mg tablet,delayed 20 mg PO DAILY 02/05/19 05/18/22 History release naloxone 4 mg/actuation nasal 4 mg intranasal Q2M PRN opioid 04/13/19 05/18/22 Rx spray (Narcan) overdose #2 ea albuterol sulfate 90 mcg/actuation 2 inh inhalation TID PRN 10/31/20 05/18/22 History breath activated powder inhaler aspirin 81 mg tablet 81 mg PO DAILY 10/31/20 05/18/22 History apixaban 5 mg tablet (Eliquis) 5 mg PO BID 05/18/22 05/18/22 History empagliflozin 25 mg tablet 25 mg PO DAILY 05/18/22 05/18/22 History tacrolimus 1 mg capsule, 1 mg PO HS 05/18/22 05/18/22 History immediate-release Exam Narrative Exam Narrative: Corby appears to be toxic he is alert oriented person place time circumstance but he is diaphoretic mildly tachypneic and tachycardic. Neck veins are flat Oropharynx reveals dry mucous membranes Lungs are clear anteriorly posteriorly has some bibasilar rales no rhonchi Heart is tachycardic and irregularly irregular with no appreciable murmur Abdomen is soft nondistended minimal tenderness with deep palpation no palpable masses or bruits Extremities without peripheral cyanosis or edema Neuro exam grossly intact no focal cranial nerve deficits no focal motor deficits. Results Labs 05/18/22 09:50 05/18/22 09:50 Labs: Laboratory Results - last 24 hr 05/18/22 05/18/22 05/18/22 09:50 09:50 09:50 WBC 11.77 H RBC 5.08 Hgb 15.8 Hct 45.1 MCV 89 MCH 31.1 MCHC 35.0 RDW 12.2 Plt Count 185 MPV 10.7 Immature Gran % 0.3 Neutrophils % 86.3 Lymphocytes % 6.5 Monocytes % 6.5 Eosinophils % 0.1 Basophils % 0.3 Nucleated RBC % 0.0 Absolute Neutrophils 10.16 H Absolute Lymphocytes 0.77 L Absolute Monocytes 0.77 Absolute Eosinophils 0.01 Absolute Basophils 0.04 VBG Lactate 3.3 H* Sodium 143 Potassium 4.2 Chloride 102 Carbon Dioxide 25.9 Anion Gap 15.1 H BUN 27 H Creatinine 2.4 H Est GFR (CKD-EPI 2020) 28.85 Glucose 237 H Calcium 10.0 Total Bilirubin 0.8 AST 30 ALT 38 Alkaline Phosphatase 193 H Troponin I Total Protein 9.4 H Albumin 4.5 Urine Color Urine Clarity Urine pH Ur Specific [place] Urine Protein Urine Ketones Urine Blood Urine Nitrite Urine Bilirubin Urine Urobilinogen Ur Leukocyte Esterase Urine RBC Urine WBC Ur Epithelial Cells Urine Crystals Urine Bacteria Urine Casts Urine Mucus Ur Culture Indicated? Urine Glucose COVID-19 Source SARS-CoV-2 (PCR) Influenza Type A (PCR) Influenza Type B (PCR) RSV (PCR) 05/18/22 05/18/22 05/18/22 09:50 09:52 11:30 WBC RBC Hgb Hct MCV MCH MCHC RDW Plt Count MPV Immature Gran % Neutrophils % Lymphocytes % Monocytes % Eosinophils % Basophils % Nucleated RBC % Absolute Neutrophils Absolute Lymphocytes Absolute Monocytes Absolute Eosinophils Absolute Basophils VBG Lactate Sodium Potassium Chloride Carbon Dioxide Anion Gap BUN Creatinine Est GFR (CKD-EPI 2020) Glucose Calcium Total Bilirubin AST ALT Alkaline Phosphatase Troponin I 59 Total Protein Albumin Urine Color Yellow Urine Clarity Clear Urine pH 5.5 Ur Specific [place] 1.025 Urine Protein >=300 H Urine Ketones 15 H Urine Blood Moderate H Urine Nitrite Negative Urine Bilirubin Negative Urine Urobilinogen 0.2 Ur Leukocyte Esterase Negative Urine RBC 10-20 H Urine WBC 0-2 Ur Epithelial Cells Rare Urine Crystals Negative Urine Bacteria Rare Urine Casts 0-2 Coarse Granular Urine Mucus Trace Ur Culture Indicated? No Urine Glucose 500 H COVID-19 Source Nasopharynx SARS-CoV-2 (PCR) Negative Influenza Type A (PCR) Negative Influenza Type B (PCR) Negative RSV (PCR) Negative 05/18/22 15:54 WBC RBC Hgb Hct MCV MCH MCHC RDW Plt Count MPV Immature Gran % Neutrophils % Lymphocytes % Monocytes % Eosinophils % Basophils % Nucleated RBC % Absolute Neutrophils Absolute Lymphocytes Absolute Monocytes Absolute Eosinophils Absolute Basophils VBG Lactate 1.4 Sodium Potassium Chloride Carbon Dioxide Anion Gap BUN Creatinine Est GFR (CKD-EPI 2020) Glucose Calcium Total Bilirubin AST ALT Alkaline Phosphatase Troponin I Total Protein Albumin Urine Color Urine Clarity Urine pH Ur Specific [place] Urine Protein Urine Ketones Urine Blood Urine Nitrite Urine Bilirubin Urine Urobilinogen Ur Leukocyte Esterase Urine RBC Urine WBC Ur Epithelial Cells Urine Crystals Urine Bacteria Urine Casts Urine Mucus Ur Culture Indicated? Urine Glucose COVID-19 Source SARS-CoV-2 (PCR) Influenza Type A (PCR) Influenza Type B (PCR) RSV (PCR) Last Vital Signs Temp 36.6 C 05/18/22 10:52 Pulse 125 H 05/18/22 16:31 Resp 20 05/18/22 16:31 BP 169/107 H 05/18/22 16:31 Pulse Ox 97 05/18/22 16:30 Time Spent Time spent with Patient: 55-74 minutes Time was spent: preparing to see the patient(eg.review tests), obtaining and/or reviewing separately otained hiistory, ordering medications,tests, procedures, referring, communicating with other health reservoir caretaker, indepentently interpreting results, counseling the patient and care coordination
[2022-05-18] MEDS: Normal Saline 500 ML 30 ML IV (17:22)
[2022-05-18 18:23] LABS: Lab Add On Test DONE
[2022-05-18] MEDS: Lactated Ringers 1,000 ML 150 ML IV (18:48)
[2022-05-18 18:55] LABS: Procalcitonin 0.2 ng/mL
[2022-05-18] MEDS: Metoprolol 25 MG TAB PO (19:37)
[2022-05-18] MEDS: Apixaban 5 MG TAB PO (19:37)
[2022-05-18 19:57] LABS: Troponin I 317 ng/L (<or=60)
[2022-05-18] MEDS: Tacrolimus 0.5 MG CAP 1 MG PO (21:30)
[2022-05-18] MEDS: Pantoprazole 40 MG TABCR PO (21:31)
[2022-05-18] MEDS: Acetaminophen 325 MG TAB PO (21:44)
[2022-05-18 22:40] LABS: Troponin I 426 ng/L (<or=60)
[2022-05-19] VITALS (43 sets, daily range): BP systolic 100–165; BP diastolic 58–94; PULSE 57–143; RESP 12–30; TEMP 36.6–37.4; O2SAT 86–100
[2022-05-19] MEDS: Metoprolol 25 MG TAB PO ×5 (00:06→23:39)
[2022-05-19] MEDS: Lactated Ringers 1,000 ML 150 ML IV ×3 (01:13→14:17)
[2022-05-19 04:25] LABS: Abs Immature Grans 0.04 10^3/uL (0.0-0.06); Absolute Basophil Count 0.02 10^3/uL (0.0-0.2); Absolute Eosinophil Count 0.01 10^3/uL (0.0-0.7); Absolute Lymphocyte Count 1.24 10^3/uL (1.2-3.4); Basophils % 0.2; Eosinophils % 0.1; HCT 34.3 % (40.0-50.0); HGB 11.8 g/dL (13.5-17.5); Immature Grans % 0.3; Lymphocytes % 10.8; MCH 31.1 pg (27.0-33.0); MCHC 34.4 % (32.0-36.0); MCV 90 fL (80-95); MPV 10.7 fL (8.0-11.0); Neutrophils % 77.6; Platelet Count 164 10^3/uL (130-400); RDW 12.4 % (11.8-14.1); RDW-SD 40.7 fL
[2022-05-19 04:28] LABS: Absolute Monocyte Count 1.27 10^3/uL (0.1-0.8); Absolute Neutrophil Count 8.92 10^3/uL (1.2-6.7)
[2022-05-19 05:04] LABS: ALT 23 U/L (16-63); AST 24 U/L (15-37); Albumin 3.2 g/dL (3.4-5.0); Alkaline Phosphatase 129 U/L (46-116); Anion Gap 8.8 mmol/L (3-11); BUN 37 mg/dL (7-18); Bilirubin, Total 0.5 mg/dL (0.2-1.0); CO2 26.2 mmol/L (21.0-32.0); CREATININE 2.3 mg/dL (0.70-1.30); Chloride 105 mmol/L (98-107); Estimated GFR 30.36 (mL/min/1.73m2); Glucose 120 mg/dL (74-106); Potassium 3.9 mmol/L (3.5-5.1); Sodium 140 mmol/L (136-145); TSH 0.62 uIU/mL (0.36-3.74); Total Protein 6.6 g/dL (6.4-8.2)
[2022-05-19 05:10] LABS: Troponin I 503 ng/L (<or=60)
[2022-05-19 05:13] LABS: Hemoglobin A1C 6.5 % (<5.7)
[2022-05-19] MEDS: oxyCODONE 5 MG TAB PO (05:21)
[2022-05-19] MEDS: Pantoprazole 40 MG TABCR PO (07:43)
[2022-05-19] MEDS: Apixaban 5 MG TAB PO (08:22)
[2022-05-19] MEDS: Aspirin E.C. 81 MG TABEC PO (08:22)
[2022-05-19] MEDS: Empaglifozin 25 MG TAB PO (08:22)
[2022-05-19] MEDS: Normal Saline Flush 10 ML SYR IVP ×2 (08:23→19:50)
--- NOTE | 2022-05-19 08:39 | W.PM.PROGNOT ---
Date of Service Date of service: 05/19/22 Time of Service: 08:39 Assessment and Plan Assessment and plan (1) Sepsis: Status: Acute Assessment and plan: Blood culture results are pending. Urine for Legionella and strep antigen are pending. So far patient has been unable to produce a sputum. For now we will continue Levaquin 750 mg every 48 hours. Encourage cough and deep breathing incentive spirometry etc. Patient remains on LR at 150 mL an hour. Cruz catheter was placed because of obstructive symptoms. We will continue IV fluids for this morning but if he continues to eat and drink well we will discontinue IV fluids this afternoon. Critical care time spent interviewing and examining the patient, reviewing studies, discussing case with patient's nurse and consulting physicians was 30 minutes (2) Pneumonia: Status: Acute Assessment and plan: As above (3) Atrial flutter: Status: Acute Assessment and plan: Now in sinus rhythm. Continue metoprolol 25 mg every 6 hours with holding parameters. Continue Eliquis. (4) Elevated troponin I level: Status: Acute Assessment and plan: Likely demand ischemia brought on by his infection is rapid atrial flutter. We will continue to trend his troponin levels until they plateau and start to decline. We will check a repeat EKG this morning to be sure there is no new ST-T wave abnormalities and check an echocardiogram this morning. Looking for any new regional wall motion abnormalities. Of note when he has previous NSTEMI he did not have typical chest pain or pressure. Once I have his repeat troponin level back in his echocardiogram report I will call his instrument and electrical technician Dr. Monet Morales at [facility]. (5) Acidosis, lactic: Status: Resolved Assessment and plan: Repeat lactate is normalized with IV fluid hydration. I think his lactic acidosis was due to dehydration. (6) SABRINA (acute kidney injury): Status: Acute Assessment and plan: Patient has superimposed prerenal azotemia in the setting of stage III chronic kidney disease. Tacrolimus level is pending. Creatinine is unchanged at 2.3 BUN is slightly higher at 37. We will continue IV fluid hydration for now but once he is taking adequate p.o. liquids we will stop his IV fluids. We will get a renal ultrasound this morning given his history of obstructive symptoms and I will consult with Dr. Trent. (7) Chronic kidney disease: Status: Chronic Assessment and plan: As above. In light of his rising creatinine will get an ultrasound of his kidneys and ask urology to evaluate his obstructive symptoms. Continue Cruz catheter for now. Continue IV fluid hydration. Qualifiers: Chronic kidney disease stage: unspecified stage Qualified Code(s): N18.9 - Chronic kidney disease, unspecified (8) Liver transplant recipient: Status: Chronic Assessment and plan: Continue his tacrolimus in spite of his infection. Check tacrolimus level. (9) Diabetes: Status: Chronic Assessment and plan: Patient's been on Jardiance but no other diabetic medications. While he is hospitalized we will treat his hyperglycemia with insulin sensitive sliding scale NovoLog. (10) Symptom of bladder outlet obstruction: Status: Acute Assessment and plan: Placement of Cruz catheter. When asked Dr. Trent to evaluate the patient. We will obtain renal ultrasound. Subjective Subjective Interval history since last seen: Patient denies any chest pain or pressure overnight denies any dyspnea this morning. His nausea has resolved and he has an appetite and ate about 50% of his breakfast. Overnight his troponin luanne to 503 ng/L. We will recheck an EKG and echocardiogram this morning and I will continue to trend his troponins until it plateaus and starts to decline. With respect to his tachycardia he has been in sinus rhythm and actually his rate is now controlled in the 70s. He is off the diltiazem drip. We are now treating his rhythm with scheduled doses of Lopressor. Exam Narrative Exam Narrative: Ismael is sitting up in bed talking with his daughter Rosmery he is alert and oriented person place time circumstance denies any discomfort or dyspnea. Patient denies any sputum production. Lungs are clear anteriorly particular in the upper marie posteriorly has bibasilar rales no rhonchi or wheezing Heart is regular rate and rhythm no appreciable murmur rub Abdomen soft nondistended nontender Extremities without peripheral edema Objective Last Vital Signs Temp 36.8 C 05/19/22 04:04 Pulse 75 05/19/22 06:01 Resp 13 05/19/22 06:01 BP 115/71 05/19/22 06:01 Pulse Ox 100 05/19/22 04:04 Laboratory Results - last 24 hr 05/18/22 05/18/22 05/18/22 09:50 09:50 09:50 WBC 11.77 H RBC 5.08 Hgb 15.8 Hct 45.1 MCV 89 MCH 31.1 MCHC 35.0 RDW 12.2 Plt Count 185 MPV 10.7 Immature Gran % 0.3 Neutrophils % 86.3 Lymphocytes % 6.5 Monocytes % 6.5 Eosinophils % 0.1 Basophils % 0.3 Nucleated RBC % 0.0 Absolute Neutrophils 10.16 H Absolute Lymphocytes 0.77 L Absolute Monocytes 0.77 Absolute Eosinophils 0.01 Absolute Basophils 0.04 VBG Lactate 3.3 H* Sodium 143 Potassium 4.2 Chloride 102 Carbon Dioxide 25.9 Anion Gap 15.1 H BUN 27 H Creatinine 2.4 H Est GFR (CKD-EPI 2020) 28.85 Glucose 237 H Hemoglobin A1c Calcium 10.0 Total Bilirubin 0.8 AST 30 ALT 38 Alkaline Phosphatase 193 H Troponin I Total Protein 9.4 H Albumin 4.5 Procalcitonin TSH Urine Color Urine Clarity Urine pH Ur Specific [place] Urine Protein Urine Ketones Urine Blood Urine Nitrite Urine Bilirubin Urine Urobilinogen Ur Leukocyte Esterase Urine RBC Urine WBC Ur Epithelial Cells Urine Crystals Urine Bacteria Urine Casts Urine Mucus Ur Culture Indicated? Urine Glucose COVID-19 Source SARS-CoV-2 (PCR) Influenza Type A (PCR) Influenza Type B (PCR) RSV (PCR) Add-On Test Request 05/18/22 05/18/22 05/18/22 09:50 09:52 11:30 WBC RBC Hgb Hct MCV MCH MCHC RDW Plt Count MPV Immature Gran % Neutrophils % Lymphocytes % Monocytes % Eosinophils % Basophils % Nucleated RBC % Absolute Neutrophils Absolute Lymphocytes Absolute Monocytes Absolute Eosinophils Absolute Basophils VBG Lactate Sodium Potassium Chloride Carbon Dioxide Anion Gap BUN Creatinine Est GFR (CKD-EPI 2020) Glucose Hemoglobin A1c Calcium Total Bilirubin AST ALT Alkaline Phosphatase Troponin I 59 Total Protein Albumin Procalcitonin TSH Urine Color Yellow Urine Clarity Clear Urine pH 5.5 Ur Specific [place] 1.025 Urine Protein >=300 H Urine Ketones 15 H Urine Blood Moderate H Urine Nitrite Negative Urine Bilirubin Negative Urine Urobilinogen 0.2 Ur Leukocyte Esterase Negative Urine RBC 10-20 H Urine WBC 0-2 Ur Epithelial Cells Rare Urine Crystals Negative Urine Bacteria Rare Urine Casts 0-2 Coarse Granular Urine Mucus Trace Ur Culture Indicated? No Urine Glucose 500 H COVID-19 Source Nasopharynx SARS-CoV-2 (PCR) Negative Influenza Type A (PCR) Negative Influenza Type B (PCR) Negative RSV (PCR) Negative Add-On Test Request 05/18/22 05/18/2205/18/23 15:54 15:54 15:54 WBC RBC Hgb Hct MCV MCH MCHC RDW Plt Count MPV Immature Gran % Neutrophils % Lymphocytes % Monocytes % Eosinophils % Basophils % Nucleated RBC % Absolute Neutrophils Absolute Lymphocytes Absolute Monocytes Absolute Eosinophils Absolute Basophils VBG Lactate 1.4 Sodium Potassium Chloride Carbon Dioxide Anion Gap BUN Creatinine Est GFR (CKD-EPI 2020) Glucose Hemoglobin A1c Calcium Total Bilirubin AST ALT Alkaline Phosphatase Troponin I Total Protein Albumin Procalcitonin 0.2 TSH Urine Color Urine Clarity Urine pH Ur Specific [place] Urine Protein Urine Ketones Urine Blood Urine Nitrite Urine Bilirubin Urine Urobilinogen Ur Leukocyte Esterase Urine RBC Urine WBC Ur Epithelial Cells Urine Crystals Urine Bacteria Urine Casts Urine Mucus Ur Culture Indicated? Urine Glucose COVID-19 Source SARS-CoV-2 (PCR) Influenza Type A (PCR) Influenza Type B (PCR) RSV (PCR) Add-On Test Request DONE 05/18/22 05/18/22 05/19/22 19:10 22:00 04:06 WBC RBC Hgb Hct MCV MCH MCHC RDW Plt Count MPV Immature Gran % Neutrophils % Lymphocytes % Monocytes % Eosinophils % Basophils % Nucleated RBC % Absolute Neutrophils Absolute Lymphocytes Absolute Monocytes Absolute Eosinophils Absolute Basophils VBG Lactate Sodium 140 Potassium 3.9 Chloride 105 Carbon Dioxide 26.2 Anion Gap 8.8 BUN 37 H Creatinine 2.3 H Est GFR (CKD-EPI 2020) 30.36 Glucose 120 H Hemoglobin A1c Calcium 9.0 Total Bilirubin 0.5 AST 24 ALT 23 Alkaline Phosphatase 129 H Troponin I 317 H* 426 H* 503 H* Total Protein 6.6 Albumin 3.2 L Procalcitonin TSH 0.62 Urine Color Urine Clarity Urine pH Ur Specific [place] Urine Protein Urine Ketones Urine Blood Urine Nitrite Urine Bilirubin Urine Urobilinogen Ur Leukocyte Esterase Urine RBC Urine WBC Ur Epithelial Cells Urine Crystals Urine Bacteria Urine Casts Urine Mucus Ur Culture Indicated? Urine Glucose COVID-19 Source SARS-CoV-2 (PCR) Influenza Type A (PCR) Influenza Type B (PCR) RSV (PCR) Add-On Test Request 05/19/22 05/19/22 04:06 04:06 WBC 11.50 H RBC 3.80 L Hgb 11.8 L D Hct 34.3 L MCV 90 MCH 31.1 MCHC 34.4 RDW 12.4 Plt Count 164 MPV 10.7 Immature Gran % 0.3 Neutrophils % 77.6 Lymphocytes % 10.8 Monocytes % 11.0 Eosinophils % 0.1 Basophils % 0.2 Nucleated RBC % 0.0 Absolute Neutrophils 8.92 H Absolute Lymphocytes 1.24 Absolute Monocytes 1.27 H Absolute Eosinophils 0.01 Absolute Basophils 0.02 VBG Lactate Sodium Potassium Chloride Carbon Dioxide Anion Gap BUN Creatinine Est GFR (CKD-EPI 2020) Glucose Hemoglobin A1c 6.5 H Calcium Total Bilirubin AST ALT Alkaline Phosphatase Troponin I Total Protein Albumin Procalcitonin TSH Urine Color Urine Clarity Urine pH Ur Specific [place] Urine Protein Urine Ketones Urine Blood Urine Nitrite Urine Bilirubin Urine Urobilinogen Ur Leukocyte Esterase Urine RBC Urine WBC Ur Epithelial Cells Urine Crystals Urine Bacteria Urine Casts Urine Mucus Ur Culture Indicated? Urine Glucose COVID-19 Source SARS-CoV-2 (PCR) Influenza Type A (PCR) Influenza Type B (PCR) RSV (PCR) Add-On Test Request Time Spent with Patient Time Spent with Patient: 25-34 minutes Time was spent: preparing to see the patient(eg.review tests), obtaining and/or reviewing separately otained hiistory, ordering medications,tests, procedures, referring, communicating with other health direct care supervisor (Nursing staff), indepentently interpreting results, counseling the patient and care coordination
--- NOTE | 2022-05-19 08:45 | RT.EKG_ITS ---
APPROVED REPORT Exam: Resting ECG Reason for Exam: elevated troponin Patient Location: I HR:71 bpm ECG Measurements Heart Rate 71 AXIS IL 164 P 60 QRSd 141 QRS 35 QT 427 T 136 QTc 465 Conclusion Sinus rhythm...normal P axis, V-rate 50- 99 Atrial premature complex...SV complex w/ short R-R interval Right bundle branch block...QRSd>120, terminal axis(90,270) Premature ventricular contraction
--- NOTE | 2022-05-19 09:06 | INITIAL_ITS ---
- If Service Date Differs Date of service: 05/19/22 Time of Service: 09:06 Care Management Initial Assess REASON FOR HOSPITALIZATION:: Sepsis, Pneumonia, Rapid afib PAST MEDICAL HISTORY/PAST SURGICAL HISTORY:: All Active Problems (Updated 05/18/22 @ 19:19 by Murphy Lima MD). Symptom of bladder outlet obstruction (Acute). Atrial flutter (Acute). Pneumonia (Acute). Sepsis (Acute). SABRINA (acute kidney injury) (Acute). Atrial fibrillation (Chronic). Acidosis, lactic (Acute). Hypertension (Chronic). Palpitations (Acute). Non- ST elevation SC (NSTEMI) (Acute). New onset atrial fibrillation (Acute). Liver transplant recipient (Chronic). Chronic kidney disease (Chronic). High cholesterol (Chronic). Diabetes (Chronic). Hypomagnesemia (Acute). Myoclonus (Acute). Ventricular ectopy (Acute). Medical History (Updated 05/18/22 @ 19:19 by Murphy Lima MD). Depression. Erectile dysfunction. Gastric ulcer. GI bleeding. Hepatitis C. History of COVID-19. Myocardial infarction. SVT (supraventricular tachycardia). Tachycardia. Surgical History . H/O vasectomy. S/P liver transplant PREVIOUS FUNCTIONAL STATUS/SOCIAL/FAMILY SUPPORTS:: Ismael lives in alone in [facility]. He is retired, [facility] and [facility]. He has four adult children that are supportive. Ismael drives and is independent at baseline. He recently started using a walking stick. CURRENT FUNCTIONAL STATUS:: Ismael is lying in bed when CM met with him. He is awake and easily engages in conversation. Per pt his PCP, Production Material Handler and first mate through the [facility] in [facility]. Ismael shaers that he has a supportive family and is especially proud of his daughter Rosmery. ADVANCE DIRECTIVES:: None on file. Has patient been provided with info about the portal/API?: Yes Did the patient sign up for the portal?: No CODE STATUS:: Full Code INSURANCE COVERAGE / FINANCIAL ISSUES:: [facility] CURRENT HOME/COMMUNITY SERVICES/EQUIPMENT:: [employer], [employer]. [facility]. Uses a cane and home nebulizer PRIMARY CARE PHYSICIAN:: Dr. Munroe ([facility]) POTENTIAL DISCHARGE NEEDS:: New [facility] RN/PT, close outpatient follow up with [facility] and community providers. PATIENT/FAMILY EDUCATION NEEDS:: Review discharge instructions, limitations, medications and plan to follow up with [facility] and community providers. Discuss ask me three and goals of self care. TRANSPORTATION:: via private vehicle with son. PLAN:: Anticipate, Ismael will discharge home with New [facility] RN/PT (if needed) when medically ready. He will follow up with [facility] and community providers. CM will continue to support pt and access discharge needs.
--- NOTE | 2022-05-19 10:17 | NUR.NOTE ---
Telemetry nursing audit chart review - Bertha Bethea 05/19/22 1018 Nursing Note:
[2022-05-19 12:05] LABS: Troponin I 436 ng/L (<or=60)
[2022-05-19] MEDS: Insulin Aspart 300 UNITS/3 ML PEN SC (12:13)
--- NOTE | 2022-05-19 15:36 | PHA.REVIEW2 ---
Pharmacy Admission Review - Admission Clinical Review (Last Updated 05/18/22 @ 19:16 by Murphy Lima MD) Elevated troponin I level (Acute) Symptom of bladder outlet obstruction (Acute) Atrial flutter (Acute) Pneumonia (Acute) Sepsis (Acute) SABRINA (acute kidney injury) (Acute) cephalexin monohydrate [From Keflex] Allergy (Severe, Unverified 05/18/22 09:36) Anaphylaxsis Resuscitation Status Full Code Height 6 ft 4 in Weight 62.3 kg - Renal Dosing Renal Dosing: BUN 37 mg/dL (7-18) H 05/19/22 04:06 Creatinine 2.3 mg/dL (0.70-1.30) H 05/19/22 04:06 Medications needing adjustments: Reviewed (eCrCl 27 ml/min; levaquin is renally adjusted, other orders ok) - Anticoagulation Anticoagulation: Hgb 11.8 g/dL (13.5-17.5) L D 05/19/22 04:06 Hct 34.3 % (40.0-50.0) L 05/19/22 04:06 Plt Count 164 10^3/uL (130-400) 05/19/22 04:06 Creatinine 2.3 mg/dL (0.70-1.30) H 05/19/22 04:06 Therapeutic Anticoagulation: Reviewed Medications: Apixaban (appropriately dosed) - Opiate Usage Evaluate Pain Scale/Pains Meds: Reviewed (morphine cr 30 BID + oxycodone 5mg q4h prn) Scheduled Bowel Reg ordered if on Opiates?: Yes (prn orders only) - Relevant Labs Sodium 140 mmol/L (136-145) 05/19/22 04:06 Potassium 3.9 mmol/L (3.5-5.1) 05/19/22 04:06 Chloride 105 mmol/L (98-107) 05/19/22 04:06 Electrolytes, C-Reactive P, ESR: Reviewed - DM Control DM Control: Glucose 120 mg/dL (74-106) H 05/19/22 04:06 Hemoglobin A1c 6.5 % (<5.7) H 05/19/22 04:06 Finger Stick Blood Glucose 161 Finger Stick Blood Glucose 161 Finger Stick Blood Glucose 161 Finger Stick Blood Glucose 107 Finger Stick Blood Glucose 107 Finger Stick Blood Glucose 107 DM Control: Reviewed (aspart per SS) - Cardiac Review Cardiac Review: Troponin I 436 ng/L (<or=60) H* 05/19/22 11:05 BP, HR, EF%: Reviewed (dilt gtt paused, metoprolol q6h) - Qtc Review QTc: Reviewed If Elevated, List meds needing intervention: QTc 442 on admission - IV to PO Switch IV Medications: Reviewed - Home Meds Home Med List reviewed: Reviewed Relevent Home Meds Not ordered & why?: all ordered - Current meds Current Medication Order Review: Reviewed (levaquin 750mg q48h, so far patient has been unable to produce sputum for culture)
[2022-05-19] MEDS: Clopidogrel 300 MG TAB PO (17:39)
[2022-05-19 17:48] LABS: INR 1.2 (0.9-1.1); PTT Activated 29.6 sec (21.5-31.9); Prothrombin Time 12.6 sec (9.3-11.0)
[2022-05-19 17:56] LABS: Troponin I 416 ng/L (<or=60)
[2022-05-19] MEDS: Atorvastatin 40 MG TAB PO (19:49)
[2022-05-19] MEDS: Tacrolimus 0.5 MG CAP 1 MG PO (21:15)
--- NOTE | 2022-05-19 21:24 | NUR.NOTE ---
Sent [facility] transfer center EKGs per Dr. Lima for a cardiology consult.
[2022-05-19] MEDS: Acetaminophen 325 MG TAB PO (21:40)
[2022-05-20] VITALS (93 sets, daily range): BP systolic 111–158; BP diastolic 63–98; PULSE 69–114; RESP 11–30; TEMP 36.4–37.3; O2SAT 94–100
[2022-05-20 02:18] LABS: PTT Activated 36.6 sec (21.5-31.9)
[2022-05-20] MEDS: Metoprolol 25 MG TAB PO ×3 (06:15→18:32)
[2022-05-20 06:40] LABS: Abs Immature Grans 0.04 10^3/uL (0.0-0.06); Absolute Basophil Count 0.04 10^3/uL (0.0-0.2); Absolute Eosinophil Count 0.07 10^3/uL (0.0-0.7); Absolute Lymphocyte Count 2.19 10^3/uL (1.2-3.4); Absolute Monocyte Count 0.99 10^3/uL (0.1-0.8); Absolute Neutrophil Count 7.36 10^3/uL (1.2-6.7); Basophils % 0.4; Eosinophils % 0.7; HCT 36.9 % (40.0-50.0); HGB 12.6 g/dL (13.5-17.5); Immature Grans % 0.4; Lymphocytes % 20.5; MCH 30.9 pg (27.0-33.0); MCHC 34.1 % (32.0-36.0); MCV 90 fL (80-95); MPV 11.1 fL (8.0-11.0); Monocytes % 9.3; Neutrophils % 68.7; Platelet Count 144 10^3/uL (130-400); RBC 4.08 10^6/uL (4.36-5.78); RDW 12.4 % (11.8-14.1); RDW-SD 40.4 fL; WBC 10.69 10^3/uL (4.4-10.8)
[2022-05-20 06:52] LABS: PTT Activated 50.6 sec (21.5-31.9)
[2022-05-20 07:03] LABS: Anion Gap 10.9 mmol/L (3-11); BUN 37 mg/dL (7-18); C-Reactive Protein 1.85 mg/dL (0.0-0.3); CO2 27.1 mmol/L (21.0-32.0); CREATININE 2.5 mg/dL (0.70-1.30); Calcium 9.1 mg/dL (8.5-10.1); Chloride 105 mmol/L (98-107); Estimated GFR 27.47 (mL/min/1.73m2); Glucose 131 mg/dL (74-106); Potassium 3.8 mmol/L (3.5-5.1); Sodium 143 mmol/L (136-145)
[2022-05-20 07:36] LABS: Procalcitonin 0.2 ng/mL
[2022-05-20] MEDS: Pantoprazole 40 MG TABCR PO (07:44)
--- NOTE | 2022-05-20 08:34 | CMPROGNOTE_ITS ---
- If Service Date Differs Date of service: 05/20/22 Time of Service: 08:34 Care Management Progress Note S/O: Ismael continues to require close monitoring and treatment in the ICU. He is lying in bed watching TV when CM met with him. He is awake and easily engages in conversation. He had a visit from his daughter Rosmery this morning and he shares that he feels a bit better today. Per Dr. Prajapati he consulted with [facility] today and they do not feel a cardiac cath is needed immediately and recommend to continue to treat medically and discharge home when ready with outpatient follow up with [facility] and outpatient stress test. CM will continue to follow. A: 67 year old male admitted to [facility] on 05/18/22 for Sepsis, Pneumonia, Rapid afib P:Anticipate, Ismael will discharge home with New [facility] RN/PT (if needed) when medically ready. He will follow up with [facility] and community providers. CM will c ontinue to support pt and access discharge needs.
[2022-05-20 08:45] LABS: PTT Activated 47.9 sec (21.5-31.9)
[2022-05-20] MEDS: Empaglifozin 25 MG TAB PO (09:30)
[2022-05-20] MEDS: levoFLOXacin 750 MG/150 ML BAG 100 MG IVPB (11:51)
[2022-05-20] MEDS: Acetaminophen 325 MG TAB PO (11:56)
[2022-05-20] MEDS: Isosorbide Mononitrate 30 MG TABCR PO (11:57)
[2022-05-20] MEDS: hydrALAZINE 25 MG TAB PO ×2 (13:24→19:44)
[2022-05-20 13:49] LABS: Tacrolimus <2.0 ng/mL (See Note)
--- NOTE | 2022-05-20 14:41 | PGE_ITS ---
Date of Service Date of service: 05/20/22 Time of Service: 14:41 Assessment and Plan Assessment and plan (1) Sepsis: Status: Acute Assessment and plan: BP normaled and WBC count normalized. Afebrile. Lactate normalized. Blood culture results are negative x 48 hours. Secondary to PNA. (2) Pneumonia: Status: Acute Assessment and plan: CT scan of his chest multifocal pneumonia w/ infiltrates in the posterior basal segment of both lower lobes larger on the left as well as a significant infiltrate in the subapical right upper lobe. He has been unable to produce a sputum. Continue Levaquin 750 mg every 48 hours. Encourage cough and deep breathing incentive spirometry. Initial mildly elevated WBC count now normalized. (3) Atrial flutter: Status: Acute Assessment and plan: Now in sinus rhythm. Continue metoprolol 25 mg every 6 hours with holding parameters. Now on heparin drip for 48 hours (see below). Restart Eliquis once heparin drip completed. (4) Elevated troponin I level: Status: Acute Assessment and plan: Likely demand ischemia brought on by his infection is rapid atrial flutter. Troponin level peaked and then declined. EKG with no new ST-T wave abnormalities. Echocardiogram: LV normal size. + segmental wall motion abnormalities in the distribution of the circumflex. Est EF of 40%. Of note when he has previous NSTEMI he did not have typical chest pain or pressure. Dr Lima previously spoke with his surface supply breathing apparatus Dr. Monet Morales at [facility]. Initially, no bed availability at [facility] for possible cardiac catheterization. [facility] did call back and discussed patient with . Recommendation was 48 hours of heparin then resume Eliquis. Continue Plavix and aspirin. Afterload reduction with hydralazine 25mg TID and Imdur 30mg daily. Monitor BP closely. Follow up with surface supply breathing apparatus at [facility] and reimage if appropriate and consider a NM stress test. (5) Acidosis, lactic: Status: Resolved Assessment and plan: Repeat lactate normalized with IV fluid hydration. His lactic acidosis was likely due to dehydration. (6) SABRINA (acute kidney injury): Status: Acute Assessment and plan: Patient has superimposed prerenal azotemia in the setting of stage III chronic kidney disease. Tacrolimus level is pending. Creatinine is 2.5 (2.3 yesterday)BUN remains at 37. Dr Trent consultation pending. (7) Chronic kidney disease: Status: Chronic Assessment and plan: As above. Qualifiers: Chronic kidney disease stage: unspecified stage Qualified Code(s): N18.9 - Chronic kidney disease, unspecified (8) Liver transplant recipient: Status: Chronic Assessment and plan: Continue his tacrolimus in spite of his infection. Tacrolimus level pending. (9) Diabetes: Status: Chronic Assessment and plan: Patient's been on Jardiance but no other diabetic medications. While he is hospitalized we will treat his hyperglycemia with insulin sensitive sliding scale NovoLog. Adjust as necessary. (10) Symptom of bladder outlet obstruction: Status: Acute Assessment and plan: Placement of Cruz catheter. When asked Dr. Trent to evaluate the patient. Subjective Subjective Patient reports: no new complaints and afebrile; denies nausea or vomiting Interval history since last seen: He has had no CP/palpitations/diaphoresis Nursing reports he appears to be anxious. He endorses multiple stressors that include his current medical issues. Exam Narrative Exam Narrative: Ismael is lying in bed. His daughter Rosmery is present. Lungs are clear anteriorly particular in the upper marie posteriorly has bibasilar faint rales. Heart is regular rate and rhythm no appreciable murmur rub Abdomen soft nondistended nontender Extremities without peripheral edema Psych: affect appropriate to somewhat anxious. Objective Last Vital Signs Temp 37.3 C 05/20/22 11:45 Pulse 79 05/20/22 12:00 Resp 20 05/20/22 13:00 BP 143/84 H 05/20/22 12:00 Pulse Ox 95 05/20/22 12:00 Laboratory Results - last 24 hr 05/19/22 05/19/22 05/20/22 17:18 17:18 02:00 WBC RBC Hgb Hct MCV MCH MCHC RDW Plt Count MPV Immature Gran % Neutrophils % Lymphocytes % Monocytes % Eosinophils % Basophils % Nucleated RBC % Absolute Neutrophils Absolute Lymphocytes Absolute Monocytes Absolute Eosinophils Absolute Basophils PT 12.6 H INR 1.2 H APTT 29.6 36.6 H Sodium Potassium Chloride Carbon Dioxide Anion Gap BUN Creatinine Est GFR (CKD-EPI 2020) Glucose Calcium Troponin I 416 H* C-Reactive Protein Procalcitonin 05/20/22 05/20/22 05/20/22 05:25 06:25 06:25 WBC 10.69 RBC 4.08 L Hgb 12.6 L Hct 36.9 L MCV 90 MCH 30.9 MCHC 34.1 RDW 12.4 Plt Count 144 MPV 11.1 H Immature Gran % 0.4 Neutrophils % 68.7 Lymphocytes % 20.5 Monocytes % 9.3 Eosinophils % 0.7 Basophils % 0.4 Nucleated RBC % 0.0 Absolute Neutrophils 7.36 H Absolute Lymphocytes 2.19 Absolute Monocytes 0.99 H Absolute Eosinophils 0.07 Absolute Basophils 0.04 PT INR APTT Sodium 143 Potassium 3.8 Chloride 105 Carbon Dioxide 27.1 Anion Gap 10.9 BUN 37 H Creatinine 2.5 H Est GFR (CKD-EPI 2020) 27.47 Glucose 131 H Calcium 9.1 Troponin I C-Reactive Protein 1.85 H Procalcitonin 0.2 05/20/22 05/20/22 06:25 08:23 WBC RBC Hgb Hct MCV MCH MCHC RDW Plt Count MPV Immature Gran % Neutrophils % Lymphocytes % Monocytes % Eosinophils % Basophils % Nucleated RBC % Absolute Neutrophils Absolute Lymphocytes Absolute Monocytes Absolute Eosinophils Absolute Basophils PT INR APTT 50.6 H 47.9 H Sodium Potassium Chloride Carbon Dioxide Anion Gap BUN Creatinine Est GFR (CKD-EPI 2020) Glucose Calcium Troponin I C-Reactive Protein Procalcitonin Time Spent with Patient Time Spent with Patient: 35-49 minutes Time was spent: preparing to see the patient(eg.review tests), ordering medications,tests, procedures and counseling the patient
[2022-05-20] MEDS: LORazepam 0.5 MG TAB PO (15:02)
--- NOTE | 2022-05-20 15:10 | W.UROLOGYCON ---
Date of service: 05/20/22 Time of Service: 18:00 Assessment and Plan Assessment and plan (1) Symptom of bladder outlet obstruction: Status: Acute Assessment and plan: In reviewing his [facility] records and specifically his med list, it appears that he was started on doxazosin sometime between 2015 and 2018. At some point, the patient stopped taking the doxazosin. I can't tell if the patient was asked to stop the medication or if he did so on his own. Doxazosin can be used as an antihypertensive, but it is also used for bladder outlet obstruction symptoms. From past experience, I know that it is frequently one of the preferred treatments for [facility] patients. I see no contraindication to using an alpha consuelo on this gentleman, so I would suggest at least a short course until his voiding returns to baseline. At his age, he certainly is at risk for an enlarged prostate which can cause lower urinary tract symptoms. He has also had urologic procedures for his previous stone episode, so he is at risk for urethral stricture disease as well. If his stricture disease was very significant, I would have expected a much more difficult time placing this gentleman's catheter. His CT scan is more consistent with medical renal disease rather than obstructive uropathy. I do not believe that he will need chronic catheter drainage (either CIC or an indwelling catheter). I believe the goal should be symptom relief. Once he is able to ambulate to the restroom, I think a voiding trial would be in order. Any constipation should be addressed as well since bowel function can impact voiding function, too. History of Present Illness History of Present Illness Chief Complaint: Urinary incontinence Narrative: This is a 67-year-old gentleman who generally receives his medical care through the [facility]. He tells me that he sees a urologist at the [facility]. He was admitted to the hospital with sepsis related to pneumonia. He tells me that prior to his admission, he was quite weak and felt ill. During his illness, he would get up to void and do so without issues. He would then leak urine after he thought he was done urinating. This was a new finding for him. He does have a history of renal insufficiency, but no history of urinary retention or hydronephrosis. He has not had any type of surgical treatment on the prostate or kidneys. At one point in time, he was on doxazosin. He cannot exactly tell me why the medication was started or why it was discontinued. He has been a bit more constipated recently. He uses Metamucil at times. The patient believes that once his strength returns, his voiding will return to baseline. Review of Systems Narrative: Weakness. No fevers or chills No vision change or dysphasia No diabetes or thyroid dysfunction Short of breath with activity Palpitations but no chest pain No nausea, vomiting, hepatitis, ulcers, jaundice No seizures, strokes or peripheral neuropathy Anticoagulated - easy bruising No gout PFSH All Active Problems (Updated 05/19/22 @ 09:05 by Murphy Lima MD) Elevated troponin I level (Acute) Symptom of bladder outlet obstruction (Acute) Atrial flutter (Acute) Pneumonia (Acute) Sepsis (Acute) SABRINA (acute kidney injury) (Acute) Atrial fibrillation (Chronic) Hypertension (Chronic) Palpitations (Acute) Non-ST elevation GA (NSTEMI) (Acute) New onset atrial fibrillation (Acute) Liver transplant recipient (Chronic) Chronic kidney disease (Chronic) High cholesterol (Chronic) Diabetes (Chronic) Hypomagnesemia (Acute) Myoclonus (Acute) Ventricular ectopy (Acute) Medical History (Updated 05/19/22 @ 09:05 by Murphy Lima MD) Depression Erectile dysfunction Gastric ulcer GI bleeding Hepatitis C History of COVID-19 Myocardial infarction SVT (supraventricular tachycardia) Tachycardia Surgical History H/O vasectomy S/P liver transplant Family History Mother Heart disease Sister Heart disease Brother Heart disease Other Diabetes Social History Smoking/Tobacco Use Status: Former Tobacco Use Smoking risk assessment performed?: Yes Alcohol Intake: former Drug use: Never Substance use type: does not use Do you feel safe at home: Yes Do you feel safe in your relationship?: Yes Additional Social history: recently ; still going through grieving process Exam Narrative Exam Narrative: He is a pleasant gentleman in no obvious distress. He is cooperative. His vital signs are documented elsewhere He is awake and alert A Cruz catheter is in place and is draining clear urine I reviewed his lab work. His renal function has not really improved with the catheter in place I reviewed his CT scan on the PACS system. He has thinned renal parenchyma bilaterally with no hydronephrosis. Results Last Vital Signs Temp 37.3 C 05/20/22 11:45 Pulse 79 05/20/22 12:00 Resp 20 05/20/22 13:00 BP 143/84 H 05/20/22 12:00 Pulse Ox 95 05/20/22 12:00 Labs 05/20/22 05:25 05/20/22 06:25 Labs: Laboratory Results - last 24 hr 05/19/22 05/19/22 05/20/22 17:18 17:18 02:00 WBC RBC Hgb Hct MCV MCH MCHC RDW Plt Count MPV Immature Gran % Neutrophils % Lymphocytes % Monocytes % Eosinophils % Basophils % Nucleated RBC % Absolute Neutrophils Absolute Lymphocytes Absolute Monocytes Absolute Eosinophils Absolute Basophils PT 12.6 H INR 1.2 H APTT 29.6 36.6 H Sodium Potassium Chloride Carbon Dioxide Anion Gap BUN Creatinine Est GFR (CKD-EPI 2020) Glucose Calcium Troponin I 416 H* C-Reactive Protein Procalcitonin 05/20/22 05/20/22 05/20/22 05:25 06:25 06:25 WBC 10.69 RBC 4.08 L Hgb 12.6 L Hct 36.9 L MCV 90 MCH 30.9 MCHC 34.1 RDW 12.4 Plt Count 144 MPV 11.1 H Immature Gran % 0.4 Neutrophils % 68.7 Lymphocytes % 20.5 Monocytes % 9.3 Eosinophils % 0.7 Basophils % 0.4 Nucleated RBC % 0.0 Absolute Neutrophils 7.36 H Absolute Lymphocytes 2.19 Absolute Monocytes 0.99 H Absolute Eosinophils 0.07 Absolute Basophils 0.04 PT INR APTT Sodium 143 Potassium 3.8 Chloride 105 Carbon Dioxide 27.1 Anion Gap 10.9 BUN 37 H Creatinine 2.5 H Est GFR (CKD-EPI 2020) 27.47 Glucose 131 H Calcium 9.1 Troponin I C-Reactive Protein 1.85 H Procalcitonin 0.2 05/20/22 05/20/22 06:25 08:23 WBC RBC Hgb Hct MCV MCH MCHC RDW Plt Count MPV Immature Gran % Neutrophils % Lymphocytes % Monocytes % Eosinophils % Basophils % Nucleated RBC % Absolute Neutrophils Absolute Lymphocytes Absolute Monocytes Absolute Eosinophils Absolute Basophils PT INR APTT 50.6 H 47.9 H Sodium Potassium Chloride Carbon Dioxide Anion Gap BUN Creatinine Est GFR (CKD-EPI 2020) Glucose Calcium Troponin I C-Reactive Protein Procalcitonin
[2022-05-20 15:19] LABS: PTT Activated 52.7 sec (21.5-31.9)
[2022-05-20 16:34] LABS: Lab Add On Test DONE
[2022-05-20 16:55] LABS: Magnesium 1.7 mg/dL (1.8-2.4)
[2022-05-20] MEDS: Atorvastatin 40 MG TAB PO (19:40)
[2022-05-20] MEDS: Tamsulosin 0.4 MG CAPCR PO (19:40)
[2022-05-20] MEDS: Tacrolimus 0.5 MG CAP 1 MG PO (19:42)
[2022-05-20] MEDS: oxyCODONE 5 MG TAB PO (19:42)
[2022-05-20] MEDS: Magnesium Oxide 400 MG TAB PO (19:44)
[2022-05-20 21:26] LABS: PTT Activated 43.7 sec (21.5-31.9)
[2022-05-20] MEDS: Insulin Aspart 300 UNITS/3 ML PEN SC (22:56)
[2022-05-21] VITALS (39 sets, daily range): BP systolic 112–168; BP diastolic 54–106; PULSE 77–122; RESP 11–86; TEMP 36.2–37.1; O2SAT 90–96
[2022-05-21] MEDS: Metoprolol 25 MG TAB PO ×2 (01:02→06:39)
[2022-05-21] MEDS: oxyCODONE 5 MG TAB PO (04:08)
[2022-05-21 06:10] LABS: Anion Gap 11.7 mmol/L (3-11); BUN 37 mg/dL (7-18); CO2 26.3 mmol/L (21.0-32.0); CREATININE 2.4 mg/dL (0.70-1.30); Calcium 8.9 mg/dL (8.5-10.1); Chloride 103 mmol/L (98-107); Estimated GFR 28.85 (mL/min/1.73m2); Glucose 166 mg/dL (74-106); PTT Activated 61.1 sec (21.5-31.9); Potassium 3.8 mmol/L (3.5-5.1); Sodium 141 mmol/L (136-145)
[2022-05-21] MEDS: Pantoprazole 40 MG TABCR PO (06:39)
--- NOTE | 2022-05-21 08:21 | CMPROGNOTE_ITS ---
- If Service Date Differs Date of service: 05/21/22 Time of Service: 08:21 Care Management Progress Note S/O: Ismael is feeling better today, and is medically ready for discharge per provider. Plan is reviewed with pt and his daughter per provider. A: 67 year old male admitted to [facility] on 05/18/22 for Sepsis, Pneumonia, Rapid afib P:Anticipate, Ismael will discharge home with New [facility] RN/PT (if needed) when medically ready. He will follow up with [facility] and community providers. CM will continue to support pt and access discharge needs.
[2022-05-21] MEDS: Carvedilol 12.5 MG TAB 25 MG PO (08:39)
[2022-05-21] MEDS: Clopidogrel 75 MG TAB PO (08:39)
[2022-05-21] MEDS: Aspirin 81 MG CHEW PO (08:39)
[2022-05-21] MEDS: Empaglifozin 25 MG TAB PO (08:40)
[2022-05-21] MEDS: Isosorbide Mononitrate 30 MG TABCR PO (08:40)
[2022-05-21] MEDS: hydrALAZINE 25 MG TAB PO ×2 (08:40→15:02)
[2022-05-21] MEDS: Docusate Sodium 100 MG CAP PO (08:40)
[2022-05-21] MEDS: Magnesium Oxide 400 MG TAB PO (08:40)
[2022-05-21] MEDS: Tamsulosin 0.4 MG CAPCR PO (08:41)
[2022-05-21] MEDS: Apixaban 5 MG TAB PO (09:10)
[2022-05-21] MEDS: Insulin Aspart 300 UNITS/3 ML PEN SC (11:37)
--- NOTE | 2022-05-21 11:55 | NUR.NOTE ---
Patient set up with his lunch tray. Patient is up in chair.Nursing Note:
--- NOTE | 2022-05-21 13:34 | DSE_ITS ---
Date of service: 05/21/22 Time of Service: 13:35 DS: Diagnosis Discharge Diagnosis (1) Symptom of bladder outlet obstruction: Status: Acute Asessment and Plan: Urology consulted. Doxazosin recommended and this was initiated. He had received one dose of tamsulosin 0.4mg prior to the urology consult. Doxazosin 2mg QHS was then initiated and the tamsulosin stopped. (2) Elevated troponin I level: Status: Resolved Asessment and Plan: Likely demand ischemia brought on by his infection is rapid atrial flutter.? Troponin level peaked and then declined. EKG with no new ST-T wave abnormalities. Echocardiogram: LV normal size.? + segmental wall motion abnormalities in the distribution of the circumflex.? Est EF of 40%.? Of note when he has previous NSTEMI he did not have typical chest pain or pressure.? Dr Lima previously spoke with his clay hoister Dr. Monet Morales at [facility]. Initially, no bed availability at [facility] for possible cardiac catheterization.? [facility] did call back and discussed patient with .? Recommendation was 48 hours of heparin then resume Eliquis.? Continue Plavix and aspirin. Afterload reduction with hydralazine 25mg TID and Imdur 30mg daily.? Monitor BP closely. He has tolerated the addition of these 2 medications. Follow up with clay hoister at [facility] and reimage if appropriate and consider a NM stress test.? (3) Atrial flutter: Status: Acute Asessment and Plan: He converted back to sinus rhythm. Diltiazem drip stopped and metoprolol continued. At time of discharge; changed BB coverage back to his routine carvedilol. Cont Eliquis. (4) Pneumonia: Status: Acute Asessment and Plan: CT scan of his chest multifocal pneumonia w/ infiltrates in the posterior basal segment of both lower lobes larger on the left as well as a significant infiltrate in the subapical right upper lobe. Continue levaquin 750mg po Q48 hours; 4 doses. (5) SABRINA (acute kidney injury): Status: Resolved Asessment and Plan: Baseline creatinine now appears to be 2.0. Currently creatinine of 2.4 Monitor as outpt. (6) Hypertension: Status: Chronic Asessment and Plan: Cont carvedilol. Also now on hydralazine and Imdur. (7) Non-ST elevation SD (NSTEMI): Status: Acute Asessment and Plan: See elevated troponin. (8) Chronic kidney disease: Status: Chronic Asessment and Plan: As above. (9) Depression: Asessment and Plan: Previously on an SSRI Remaron 7.5mg QHS initiated; can titrate upward as indicated as outpt. (10) S/P liver transplant: Asessment and Plan: Tacrolimus level is low; <2.0. He needs to discuss dosage and further follow up with his PCP, possibly in consultation with the liver transplant team Discharge Plan Disposition Patient Disposition: Home Condition: Improving Discharge Details Reason For Visit: Sepsis,Pneumonia,Rapid AFIB Admit Date/Time: 05/18/22 15:38 Admit Provider: Murphy Lima Attending Provider: Murphy Lima Primary Care Provider: Hannah Farrell Hospital Course Hospital Course: 66-year-old male with history of liver transplant status posttreatment of hepatitis C and alcoholic liver disease, transplant was in 2005 at [facility] in [facility].? Patient has been abstinent of alcohol since then.? Follow-up testing for HCV has been negative.? Patient has chronic kidney disease stage III, essential hypertension as well as a history of coronary artery disease with previous NSTEMI October 31, 2020 for which he was transferred to [facility] he reportedly had cardiac catheterization but no stent.?NSTEMI diagnosed. Patient has had atrial fibrillation which was recently diagnosed in February 2022 when he was here at [facility]. He was treated that admission w/ iv diltiazem and discharged home on 03/12/22 on cardizem CD 120 mg daily along w/ his home dose of carvedilol 37.5 mg bid. Since that time he has had follow up w/ his cardilogist through the [facility] in [place], [place]; with Dr. Monet Morales. Since that time his diltiazem has been stopped and he is now on coreg 25 mg bid. Today he presents w/ increasing dyspnea, chills (rigors), decreased appetite and oral intake along w/ nausea and vomiting but no chest pain or pressure and no abdominal pain. Patient has been around ill contacts including grandchildren who have had respiratory viral illnesses but not COVID or RSV. On arrival to the ED he was found to be in narrow complex tachycardia w/ HR in the 140's to 150's and he was not hypoxemic but was found to have an elevated white count of 11,700 and was found to have worsening azotemia compared to his baseline chronic kidney disease.? BUN was 27 creatinine 2.4 from his last values of 30 and 2.0 respectively 2 months prior.? Procalcitonin level was not checked in the emergency department but has since been checked and found to be mildly elevated 0.2.? LFTs were essentially normal except for a chronically elevated alkaline phosphatase of 193.? Blood lactate was elevated at 3.3 but after he had 1 and half liters of fluid of normal saline given the emergency department repeat lactate is now down to 1.4. His troponin? was normal at 59 and his EKG demonstrated either sinus tachycardia or atrial flutter at 2:1. However upon arrival to the ICU he was noted to be in rate in the 140's and what appears to be atrial flutter at 2:[address] scan of his chest multifocal pneumonia w/ infiltrates in the posterior basal segment of both lower lobes larger on the left as well as a significant infiltrate in the subapical right upper lobe.? No pleural effusions and no adenopathy.? Does have a 5 mm noncalcified nodule in the right lower lobe. Blood cultures were obtained.? 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 He was started on Cardizem drip after initial bolus of 10 mg.? Patient's had dry heaves when he presented to the intensive care unit.? He was been given a dose of Phenergan.? He received further IV fluids overnight and was started on low-dose Lopressor. Continued Cardizem drip.? Heart rate is down into the 110s to 120 range.? Patient be kept on Levaquin 750 mg IV every 48 hours due to his renal insufficiency.? He has been having symptoms of urinary urgency and hesitancy and incomplete emptying of his bladder.? Bladder scan tonight was for over 400 mL therefore Dumont catheter was placed. See Diagnosis Scheduling appt with [place] cardiology for follow up. Home Meds and New Rx's Prescriptions: New atorvastatin 40 mg Tablet 40 mg PO QPM Qty: 30 0RF polyethylene glycol 3350 17 gram Powder In Packet 17 g PO DAILY PRN PRN (Reason: Constipation) Qty: 0 0RF isosorbide mononitrate 30 mg Tablet Extended Release 24 Hr 30 mg PO DAILY Qty: 30 0RF hydralazine 25 mg Tablet 25 mg PO TID Qty: 30 0RF clopidogrel 75 mg Tablet 75 mg PO DAILY Qty: 30 0RF mirtazapine 15 mg Tablet 7.5 mg PO HS Qty: 30 0RF doxazosin 2 mg Tablet 2 mg PO HS Qty: 30 0RF levofloxacin 750 mg tablet 750 mg PO Q48H Qty: 4 0RF Rx Instructions: First dose on 05/22/22. Continued carvedilol [Coreg] 12.5 MG tablet 25 mg PO BID oxycodone 5 MG tablet 5 mg PO Q4H PRN Rx Instructions: Q4-6H PRN morphine 30 mg Tablet Extended Release 30 mg PO BID rabeprazole 20 mg Tablet,Delayed Release (Dr/Ec) 20 mg PO DAILY naloxone [Narcan] 4 mg/actuation spray,non-aerosol 4 mg CALE Q2M PRN (Reason: opioid overdose) Qty: 2 0RF Rx Instructions: spray 1 dose into ONE nostril; alternate nostrils w each dose until help arrives albuterol sulfate 90 mcg/actuation Aerosol Powdr Breath Activated 2 inh INHALATION TID PRN aspirin 81 mg Tablet 81 mg PO DAILY tacrolimus 1 mg Capsule 1 mg PO HS Eliquis 5 mg Tablet 5 mg PO BID empagliflozin 25 mg Tablet 25 mg PO DAILY Discharge Instructions Stand Alone Forms: Nursing Discharge Form Referrals: [facility] [Outside] (Cardiology f/u with Dr Morales.) Activity:: Activity as Tolerated Equipment/Supplies:: No Equipment Needed Diet:: Heart healthy Discharge Orders Discharge Orders: Discharge Order (Routine); Ordered 05/21/22 Ordered By: Matt Prajapati Discharge Data Discharge Date/Time-TO BE ENTERED AT DEPARTURE: 05/21/22 16:35 Discharge Comment: home w/son driving, states daughter pickup scripts DS: Summary Time Spent with Patient providing and/or coordinating discharge services: Greater than 30 minutes Status at Discharge Functional status at discharge: independent ambulation Overall status at discharge: patient is progressing back to baseline Mental Status: mental status grossly normal Speech and Movement: speech and movement normal Mood: congruent mood Affect: anxious affect Exam Narrative Exam Narrative: Ismael is lying in bed. Pleasant and cooperative. Lungs are clear anteriorly Heart is regular rate and rhythm no appreciable murmur rub Abdomen soft nondistended nontender Extremities without peripheral edema Psych: affect appropriate to somewhat anxious. Psych Mental Status: mental status grossly normal Speech and Movement: speech and movement normal Mood: congruent mood Affect: anxious affect DS: Data Vitals/I&O Vitals and I&O: Vital Signs Temperature 36.8 C 05/21/22 11:49 Temperature Source Temporal Artery Scan 05/21/22 11:49 Pulse 90 05/21/22 11:49 Pulse Rhythm Regular 05/21/22 08:58 Pulse 98 H 05/21/22 12:00 Respiratory Rate 33 H 05/21/22 12:00 Respiratory Effort Normal 05/21/22 08:58 Respiratory Depth Normal 05/21/22 08:58 Respiratory Pattern Normal 05/21/22 08:58 Blood Pressure 119/63 05/21/22 11:49 Blood Pressure Mean 77 05/21/22 11:47 Blood Pressure Position Supine 05/20/22 11:45 Pulse Oximetry 95 05/21/22 11:49 Oxygen Delivery Method Room Air 05/21/22 11:49 Oxygen Flow Rate 0 05/21/22 11:49 Pain Level 3 05/21/22 11:49 Comment Right lower abdomen pain that patient says is chronic. 05/21/22 07:51 Intake & Output 05/20/22 05/21/22 05/21/22 23:59 11:59 23:59 Intake Total 579.358 / 1034.583 341.325 / 541.325 200 / 541.325 Output Total 350 / 1550 1400 / 1400 Balance 229.358 / -515.417 -1058.675 / -858.675 200 / -858.675 Weight 63.5 kg Intake: IV 279.358 / 384.583 101.325 / 101.325 Oral 300 / 650 240 / 440 200 / 440 Output: Urine 350 / 1550 1400 / 1400 Other: Urine Color Yellow Yellow Urine Appearance Clear Clear Urine Odor None Comment dumont in place and patent Voiding Methods Indwelling Catheter Data Completed and Pending Labs on day of discharge: Labs from last 24 hours 03/01/0305/21/22 05/20/22 05:35 05:35 21:05 APTT 61.1 H 43.7 H Sodium 141 Potassium 3.8 Chloride 103 Carbon Dioxide 26.3 Anion Gap 11.7 H BUN 37 H Creatinine 2.4 H Est GFR (CKD-EPI 2020) 28.85 Glucose 166 H Calcium 8.9 Magnesium Tacrolimus Add-On Test Request 05/20/22 05/20/22 05/20/22 14:59 14:59 14:59 APTT 52.7 H Sodium Potassium Chloride Carbon Dioxide Anion Gap BUN Creatinine Est GFR (CKD-EPI 2020) Glucose Calcium Magnesium 1.7 L Tacrolimus Add-On Test Request DONE 05/19/22 06:03 APTT Sodium Potassium Chloride Carbon Dioxide Anion Gap BUN Creatinine Est GFR (CKD-EPI 2020) Glucose Calcium Magnesium Tacrolimus <2.0 Add-On Test Request Preliminary micro results at discharge 05/18/22 10:18 Blood Culture - Preliminary Blood NO GROWTH 72 HOURS 05/18/22 10:10 Blood Culture - Preliminary Blood NO GROWTH 72 HOURS PFSH All Active Problems (Updated 05/22/22 @ 00:01 by HECTOR YARBROUGH) Symptom of bladder outlet obstruction (Acute) Atrial flutter (Acute) Pneumonia (Acute) Atrial fibrillation (Chronic) Hypertension (Chronic) Palpitations (Acute) Non-ST elevation SD (NSTEMI) (Acute) New onset atrial fibrillation (Acute) Liver transplant recipient (Chronic) Chronic kidney disease (Chronic) High cholesterol (Chronic) Diabetes (Chronic) Hypomagnesemia (Acute) Myoclonus (Acute) Ventricular ectopy (Acute) Medical History Depression Erectile dysfunction Gastric ulcer GI bleeding Hepatitis C History of COVID-19 Myocardial infarction SVT (supraventricular tachycardia) Tachycardia Surgical History H/O vasectomy S/P liver transplant Family History Mother Heart disease Sister Heart disease Brother Heart disease Other Diabetes Social History Smoking/Tobacco Use Status: Former Tobacco Use Smoking risk assessment performed?: Yes Alcohol Intake: former Drug use: Never Substance use type: does not use Do you feel safe at home: Yes Do you feel safe in your relationship?: Yes Additional Social history: recently ; still going through grieving process Time Spent with Patient Time Spent with Patient: <45 minutes Time was spent: preparing to see the patient(eg.review tests), obtaining and/or reviewing separately otained hiistory, referring, communicating with other health urgent care technician, indepentently interpreting results and counseling the patient
--- NOTE | 2022-05-21 13:53 | CHAPLAIN ---
I visited with Ismael yesterday. He was resting in bed, and pleasantly engaged in conversation. His daughter Rosmery has been in to visit. Rosmery is a nurse, a former [employer] employee and is currently work at [employer]. I explained my role and offered support.
--- NOTE | 2022-05-21 14:16 | PDOC.CMDIS ---
- If Service Date Differs Date of service: 05/21/22 Time of Service: 14:16 LACE Index Scoring Tool - Questions: Length of Stay (in days): 3 Acuity (Admit via E.D.?): Yes Comorbidities: Previous M.I., Diabetes w/o Complication, Liver or Renal Disease E.D. Visits: 2 - Answers: Total Score: 13 Risk of Readmission: High Risk Care Management Discharge Reason for Hospitalization: Sepsis, Pneumonia, Rapid afib Discharge Plan: Ismael is discharged home via private vehicle with family. No new [facility] services are ordered. [facility] and discharge plan of care as prescribed. New RX's are transmitted to [facility]. Patient/Family Education Needs: Review discharge instructions, limitations, medications and plan to follow up with [facility] and [facility] providers. Discuss ask me three.
== END 2022-05-21 16:35 | disposition home or self-care (01) | DRG 871 ==
LOC: ER 13:27 → ICU 16:50
PROVIDERS: Family Medicine; Admitting Provider Internal Medicine; Emergency Provider Student in an Organized Health Care Education/Training Program; PCP Internal Medicine Cardiovascular Disease; Visit Provider Internal Medicine
DX: A41.9 Sepsis, unspecified organism (principal); I21.4 Non-ST elevation (NSTEMI) myocardial infarction; J18.9 Pneumonia, unspecified organism; I48.92 Unspecified atrial flutter; N17.9 Acute kidney failure, unspecified; Z94.4 Liver transplant status; E11.22 Type 2 diabetes mellitus with diabetic chronic kidney disease; N32.0 Bladder-neck obstruction; I12.9 Hypertensive chronic kidney disease with stage 1 through stage 4 chronic kidney disease, or unspecified chronic kidney disease; N18.30 Chronic kidney disease, stage 3 unspecified; I25.10 Atherosclerotic heart disease of native coronary artery without angina pectoris; I25.2 Old myocardial infarction; I48.91 Unspecified atrial fibrillation; E83.42 Hypomagnesemia; E78.00 Pure hypercholesterolemia, unspecified; F32.A Depression, unspecified; Z87.891 Personal history of nicotine dependence; Z79.69 Long term (current) use of other immunomodulators and immunosuppressants
CPT/HCPCS: 36410; 36415; 36416; 71250; 80048; 80053; 82962; 84145; 87040; 87637; 93005; 93308; 96361; 96365; 96366; 96374; 96375; 99285; 74176; 80197; 81003; 81015; 83036; 83605; 83735; 84443; 84484; 85025; 85610; 85730; 86140; 87086; 93010; 99233; 99239; 99291; J1956; J2405; J3490

== ENCOUNTER 2022-06-24 11:07 | Inpatient (IN) | payer OTHER, SELFPAY ==
[2022-06-24] VITALS (16 sets, daily range): BP systolic 114–178; BP diastolic 58–80; PULSE 62–90; RESP 10–21; TEMP 36.5–36.6; O2SAT 97–99
--- NOTE | 2022-06-24 | DI.US_ITS ---
Exam(s) US CAROTID EXAM: US CAROTID CLINICAL HISTORY: CVA/TIA. TECHNIQUE: Ultrasound carotids performed using grayscale, color-flow, and spectral Doppler imaging. COMPARISON: No exams were available for comparison FINDINGS: RIGHT CAROTID ARTERY: Plaque: Focus of mixed plaque in bulb and proximal ICA. Visually approximately 50 percent stenosis. Velocity elevation: Mildly elevated systolic velocity in proximal ICA. LEFT CAROTID ARTERY: Plaque: mixed plaque in bulb and proximal ICA. Visually approximately 50 percent stenosis. Velocity elevation: Mildly elevated systolic classic prior more ICA. VERTEBRAL ARTERIES: Antegrade flow. Measurements: R Bulb: 80.7cm/s PS / 12.8cm/s ED R CCA: 96.5cm/s PS / 10.4cm/s ED R ECA: 106.8cm/s PS / 9.1cm/s ED R ICA Prox: 139.8cm/s PS / 19.3cm/s ED R ICA Mid: 92.4cm/s PS / 10.2cm/s ED R ICA Distal: 125.2cm/s PS /28.5cm/s ED R Vert: 74cm/s PS / 12.8cm/s ED R SVR: 1.7 R DVR: 1.4 L Bulb: 72.8cm/s PS / 15.9cm/s ED L CCA: 73.8cm/s PS / 16.5cm/s ED L ECA: 117.9cm/s PS / 8.4cm/s ED L ICA Prox: 130.7cm/s PS / 32.1cm/s ED L ICA Mid: 117.9cm/s PS / 37.6cm/s ED L ICA Distal: 117.9cm/s PS / 37.6cm/s ED L Vert: 65.1cm/s PS / 17.1cm/s ED L SVR: 1.8 L DVR: 1.8 IMPRESSION: Mixed plaque in the common carotid bulbs and proximal internal carotid arteries with mild systolic ve locity elevation consistent with approximate 50 percent stenosis. Criteria for Carotid Stenosis: Normal: ICA PSV <125 cm/s no plaque or intimal thickening is visible. <50% stenosis: ICA PSV <125 cm/s and plaque or intimal thickening is visible. 50-69% stenosis: ICA PSV is 125-250 cm/s and plaque is visible. >70% stenosis to near occlusion: ICA PSV >250 cm/s with visible plaque and luminal narrowing. DATA REPOSITORY:
--- NOTE | 2022-06-24 11:15 | RT.EKG_ITS ---
APPROVED REPORT Exam: Resting ECG Reason for Exam: CVA symptoms Patient Location: E HR:70 bpm ECG Measurements Heart Rate 70 AXIS IN 182 P 79 QRSd 139 QRS -109 QT 434 T 52 QTc 469 Conclusion Sinus rhythm...normal P axis, V-rate 60- 99 Ventricular bigeminy...bigeminy string>4 w/ V complexes Left atrial enlargement...P, P'>60mS, <-0.15mV V1 RBBB and LAFB...QRSd >120mS, axis(-40,240) Consider anteroseptal infarct...Q >30mS, dimin R, V1-V2. Sinus. Ventricular bigeminy. RBBB. LAFB. PVCs. No STEMI. I have reviewed and interpreted ECG and agree with software generated interpretation.
--- NOTE | 2022-06-24 11:37 | W.ED.GENAD ---
Discharge Plan Disposition Patient Disposition: Admit to [facility] Discharge Details Clinical Impression: Facial paresthesia, Right sided weakness, History of liver transplant, Chronic anticoagulation, Immunosuppressed status Admit Date/Time: 06/24/22 13:22 Admit Provider: Matt Prajapati Attending Provider: Matt Prajapati Primary Care Provider: Hannah Farrell ED Provider: Eladia Lacey Discharge Data Discharge Date/Time-TO BE ENTERED AT DEPARTURE: 06/24/22 14:44 Medical Decision Making 1145 -- 67yo M with a history of liver transplant in 2005, on tacrolimus, secondary to hepatitis C and alcoholic liver disease, atrial fibrillation on Eliquis, hypertension, hyperlipidemia, coronary artery disease/NSTEMI on dual antiplatelet therapy, chronic kidney disease and diabetes presents with 1 hour of right-sided facial, right arm and right leg numbness in addition to right arm and leg weakness that started just over 1 hour ago while he was sitting at home. Patient is alert and oriented x3. He answers questions appropriately. No evidence of slurred speech or facial droop. He does have right arm and leg pronator drift but no other obvious focal deficits. 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 He has an NIH score of 4 based mainly on the right-sided pronator drift and does not appear to have significant deficits to suggest the use of tPA and this would also be contraindicated as he is on Eliquis. He denies any fever and has no meningeal signs to suggest acute infectious process such as meningitis. Differential diagnosis includes TIA, CVA, electrolyte abnormality, dehydration. We cannot obtain a CTA head and neck secondary to his chronic kidney disease. We will proceed with noncontrast CT head and attempt to obtain MRI brain. 1230 --Labs and imaging reviewed. Creatinine baseline at 2.4. Normal white blood cell count and hemoglobin. Troponin negative. Noncontrast CT head negative. 1300 --Case discussed with Dr. Del Rosario --agrees with plan for admission with plan for MRI brain w/o and MRA brain and neck w/o contrast in addition to carotid ultrasound and echocardiogram. Also recommends checking a factor X antibody which can assess whether patient is taking his DOAC. Recommends patient stay on his aspirin, Plavix and Eliquis at this time. Case discussed with hospitalist who accepts patient for admission. Medical Records Medical records reviewed: Yes I reviewed the patient's medical records. Imaging Data Radiologic Study: Radiologist's impression: CT HEAD WO CLINICAL HISTORY: ? R face/arm/leg numb/weakness, r/o cva. ? TECHNIQUE:? Imaging Protocol: Axial computed tomography images with coronal and sagittal reformatted images were created and reviewed COMPARISON:? No exams were available for comparison FINDINGS: Ventricles and Extra axial spaces: Normal in size and morphology for the patient's age. Hemorrhage: None. Cerebral parenchyma: Minimal atrophy.? Mild white matter changes of microvascular disease. Midline shift: None. Brainstem/Cerebellum: Normal. Calvarium: Normal. Visualized Paranasal sinuses/Mastoids: Clear. Soft Tissues: Unremarkable. IMPRESSION: No acute intracranial process. Lab Data Lab results reviewed: Yes I reviewed the patient's lab results. Labs: Laboratory Tests Range/Units 06/24/22 06/24/22 11:30 11:30 WBC (4.4-10.8) 10^3/uL 6.31 RBC (4.36-5.78) 10^6/uL 4.09 L Hgb (13.5-17.5) g/dL 12.6 L Hct (40.0-50.0) % 36.1 L MCV (80-95) fL 88 MCH (27.0-33.0) pg 30.8 MCHC (32.0-36.0) % 34.9 RDW (11.8-14.1) % 11.3 L Plt Count (130-400) 10^3/uL 120 L MPV (8.0-11.0) fL 10.9 Immature Gran % 0.3 Neutrophils % 62.9 Lymphocytes % 19.5 Monocytes % 10.5 Eosinophils % 6.3 Basophils % 0.5 Nucleated RBC % (0.0-0.3) % 0.0 Absolute Neutrophils (1.2-6.7) 10^3/uL 3.97 Absolute Lymphocytes (1.2-3.4) 10^3/uL 1.23 Absolute Monocytes (0.1-0.8) 10^3/uL 0.66 Absolute Eosinophils (0.0-0.7) 10^3/uL 0.40 Absolute Basophils (0.0-0.2) 10^3/uL 0.03 Sodium (136-145) mmol/L 138 Potassium (3.5-5.1) mmol/L 4.0 Chloride (98-107) mmol/L 97 L Carbon Dioxide (21.0-32.0) mmol/L 33.3 H Anion Gap (3-11) mmol/L 7.7 BUN (7-18) mg/dL 41 H Creatinine (0.70-1.30) mg/dL 2.4 H Est GFR (CKD-EPI 2020) (mL/min/1.73m2) 28.85 Glucose (74-106) mg/dL 182 H Calcium (8.5-10.1) mg/dL 9.4 Magnesium (1.8-2.4) mg/dL 2.2 Total Bilirubin (0.2-1.0) mg/dL 0.7 AST (15-37) U/L 20 ALT (16-63) U/L 22 Alkaline Phosphatase (46-116) U/L 102 Troponin I (<or=60) ng/L < 50 Total Protein (6.4-8.2) g/dL 8.3 H Albumin (3.4-5.0) g/dL 4.2 ECG Data Attestation: I personally reviewed and interpreted this ECG (s) as follows: Interpretation: Rate of 70, sinus, ventricular bigeminy, right bundle branch block and left anterior fascicular block. PVCs. No acute ischemic findings. HPI General Mode of arrival: ambulatory. Date/Time Provider Initiated Documentation: 06/24/22 11:34. Limitations to Documentation: no limitations. Information obtained by: patient. HPI Narrative: Pt is a 67yo M with a history of liver transplant in 2005, on tacrolimus, status posttreatment of hepatitis C and alcoholic liver disease, atrial fibrillation on Eliquis, hypertension, hyperlipidemia, NSTEMI, chronic kidney disease, diabetes who presents to the ED with 1 hour of right-sided facial, right arm and right leg numbness in addition to right arm and leg weakness that started at 10:30 AM while he was sitting at home. Patient states he feels that his right arm and leg feel heavy . Patient states he has been able to ambulate but feels that his leg is going to give out . Patient denies fever, headache, blurry vision, slurred speech, chest pain, shortness of breath, abdominal pain, vomiting or diarrhea. Of note, patient was admitted here last month for bladder outlet obstruction and was also treated for pneumonia and atrial flutter. Related Data Home Medications Medication Instructions Recorded Confirmed carvedilol 12.5 mg tablet (Coreg) 25 mg PO BID 11/25/15 06/24/22 oxycodone 5 mg tablet 5 mg PO Q4H PRN 11/25/15 06/24/22 morphine 30 mg tablet,extended 30 mg PO BID 02/05/19 06/24/22 release rabeprazole 20 mg tablet,delayed 20 mg PO DAILY 02/05/19 06/24/22 release naloxone 4 mg/actuation nasal 4 mg intranasal Q2M PRN opioid 04/13/19 06/24/22 spray (Narcan) overdose #2 ea albuterol sulfate 90 mcg/actuation 2 inh inhalation TID PRN 10/31/20 06/24/22 breath activated powder inhaler aspirin 81 mg tablet 81 mg PO DAILY 10/31/20 06/24/22 apixaban 5 mg tablet (Eliquis) 5 mg PO BID 05/18/22 06/24/22 empagliflozin 25 mg tablet 25 mg PO DAILY 05/18/22 06/24/22 tacrolimus 1 mg capsule, 1 mg PO HS 05/18/22 06/24/22 immediate-release atorvastatin 40 mg tablet 40 mg PO QPM #30 tabs 05/21/22 06/24/22 clopidogrel 75 mg tablet 75 mg PO DAILY #30 tabs 05/21/22 06/24/22 doxazosin 2 mg tablet 2 mg PO HS #30 tabs 05/21/22 06/24/22 hydralazine 25 mg tablet 25 mg PO TID #30 tabs 05/21/22 06/24/22 isosorbide mononitrate 30 mg 30 mg PO DAILY #30 tabs 05/21/22 06/24/22 tablet,extended release 24 hr mirtazapine 15 mg tablet 7.5 mg PO HS #30 tabs 05/21/22 06/24/22 polyethylene glycol 3350 17 gram 17 g PO DAILY PRN PRN Constipation 05/21/22 06/24/22 oral powder packet #0 ea Previous Rx's Medication Instructions Recorded naloxone 4 mg/actuation nasal 4 mg intranasal Q2M PRN opioid 04/13/19 spray (Narcan) overdose #2 ea atorvastatin 40 mg tablet 40 mg PO QPM #30 tabs 05/21/22 clopidogrel 75 mg tablet 75 mg PO DAILY #30 tabs 05/21/22 doxazosin 2 mg tablet 2 mg PO HS #30 tabs 05/21/22 hydralazine 25 mg tablet 25 mg PO TID #30 tabs 05/21/22 isosorbide mononitrate 30 mg 30 mg PO DAILY #30 tabs 05/21/22 tablet,extended release 24 hr mirtazapine 15 mg tablet 7.5 mg PO HS #30 tabs 05/21/22 polyethylene glycol 3350 17 gram 17 g PO DAILY PRN PRN Constipation 05/21/22 oral powder packet #0 ea Allergies Allergy/AdvReac Type Severity Reaction Status Date / Time cephalexin monohydrate Allergy Severe Anaphylaxsi Unverified 06/24/22 11:29 [From Keflex] s General Stated Complaint: CVA/TIA PAPO: 3 Review of Systems All systems reviewed & are unremarkable except as noted in HPI and below Constitutional Constitutional: Reports as per HPI, Denies chills and Denies fever(s) Eyes Eyes: Denies blurry vision ENT Ears, Nose, Mouth, and Throat: Denies dizziness, Denies sore throat and Denies throat swelling Cardiovascular Cardiovascular: Denies chest pain and Denies dyspnea Respiratory Respiratory: Denies cough and Denies dyspnea Gastrointestinal Gastrointestinal: Denies abdominal pain, Denies diarrhea and Denies vomiting Genitourinary Genitourinary: Denies hematuria and Denies dysuria Musculoskeletal Musculoskeletal: Denies back pain and Reports numbness Integumentary/Breasts Skin/Breast: Denies lesions and Denies rash Neurologic Neurologic: Denies dizziness, Reports localized weakness and Reports numbness Allergic/Immunologic Allergic/Immunologic: Denies throat swelling PFSH All Active Problems (Updated 06/25/22 @ 15:48 by Matt Prajapati MD) Lacunar stroke (Acute) Facial paresthesia (Acute) Right sided weakness (Acute) History of liver transplant (Acute) Chronic anticoagulation (Acute) Immunosuppressed status (Acute) Symptom of bladder outlet obstruction (Acute) Atrial flutter (Acute) Pneumonia (Acute) Atrial fibrillation (Chronic) Hypertension (Chronic) Palpitations (Acute) Non-ST elevation PR (NSTEMI) (Acute) New onset atrial fibrillation (Acute) Liver transplant recipient (Chronic) Chronic kidney disease (Chronic) High cholesterol (Chronic) Diabetes (Chronic) Hypomagnesemia (Acute) Myoclonus (Acute) Ventricular ectopy (Acute) Medical History Depression Erectile dysfunction Gastric ulcer GI bleeding Hepatitis C History of COVID-19 Myocardial infarction SVT (supraventricular tachycardia) Tachycardia Surgical History H/O vasectomy S/P liver transplant Family History Mother Heart disease Sister Heart disease Brother Heart disease Other Diabetes Social History Smoking/Tobacco Use Status: Former Tobacco Use Smoking risk assessment performed?: Yes Alcohol Intake: former Drug use: Never Substance use type: does not use Do you feel safe at home: Yes Do you feel safe in your relationship?: Yes Additional Social history: recently ; still going through grieving process Course Vital Signs Vital signs: Vital Signs Pulse 90 06/24/22 11:23 Respiratory Rate 18 06/24/22 11:23 Blood Pressure 166/80 H 06/24/22 11:23 Pulse Oximetry 98 06/24/22 11:23 Pulse 90 06/24/22 11:23 Respiratory Rate 18 06/24/22 11:23 Blood Pressure 166/80 H 06/24/22 11:23 Pulse Oximetry 98 06/24/22 11:23 Oxygen Delivery Method Room Air 06/24/22 11:23 Oxygen Flow Rate 0 06/24/22 11:23 Critical Care Time Critical Care Time Critical Care Time: Yes Total Critical Care Time: 30 Attestation: I spent 30 minutes of critical care time with this patient. This does not include time spent on separately reported billable procedures.
--- NOTE | 2022-06-24 12:00 | DI.CT_ITS ---
Exam(s) CT HEAD WO EXAM: CT HEAD WO CLINICAL HISTORY: R face/arm/leg numb/weakness, r/o cva. TECHNIQUE: Imaging Protocol: Axial computed tomography images with coronal and sagittal reformatted images were created and reviewed COMPARISON: No exams were available for comparison FINDINGS: Ventricles and Extra axial spaces: Normal in size and morphology for the patient's age. Hemorrhage: None. Cerebral parenchyma: Minimal atrophy. Mild white matter changes of microvascular disease. Midline shift: None. Brainstem/Cerebellum: Normal. Calvarium: Normal. Visualized Paranasal sinuses/Mastoids: Clear. Soft Tissues: Unremarkable. IMPRESSION: No acute intracranial process. RADIATION DOSE DELIVERED: 743.38mGy.cm Total DLP DATA REPOSITORY: All CT scans at this facility are submitted to the National Radiology Data Registry (NRDR) Dose Index Registry (DIR) with the [employer] (A[employer]). RADIATION OPTIMIZATION: All CT scans at this facility use at least one of these dose optimization te chniques: automated exposure control; mA and/or kV adjustment per patient size (includes targeted exa ms where dose is matched to clinical indication); or iterative reconstruction.
[2022-06-24 12:24] LABS: Abs Immature Grans 0.02 10^3/uL (0.0-0.06); Absolute Basophil Count 0.03 10^3/uL (0.0-0.2); Absolute Lymphocyte Count 1.23 10^3/uL (1.2-3.4); Absolute Monocyte Count 0.66 10^3/uL (0.1-0.8); Absolute Neutrophil Count 3.97 10^3/uL (1.2-6.7); Basophils % 0.5; Eosinophils % 6.3; HCT 36.1 % (40.0-50.0); HGB 12.6 g/dL (13.5-17.5); Immature Grans % 0.3; Lymphocytes % 19.5; MCH 30.8 pg (27.0-33.0); MCHC 34.9 % (32.0-36.0); MCV 88 fL (80-95); MPV 10.9 fL (8.0-11.0); Monocytes % 10.5; Neutrophils % 62.9; Platelet Count 120 10^3/uL (130-400); RBC 4.09 10^6/uL (4.36-5.78); RDW 11.3 % (11.8-14.1); RDW-SD 35.9 fL; WBC 6.31 10^3/uL (4.4-10.8)
[2022-06-24 12:48] LABS: ALT 22 U/L (16-63); AST 20 U/L (15-37); Albumin 4.2 g/dL (3.4-5.0); Alkaline Phosphatase 102 U/L (46-116); Anion Gap 7.7 mmol/L (3-11); BUN 41 mg/dL (7-18); Bilirubin, Total 0.7 mg/dL (0.2-1.0); CO2 33.3 mmol/L (21.0-32.0); CREATININE 2.4 mg/dL (0.70-1.30); Calcium 9.4 mg/dL (8.5-10.1); Chloride 97 mmol/L (98-107); Estimated GFR 28.85 (mL/min/1.73m2); Glucose 182 mg/dL (74-106); Magnesium 2.2 mg/dL (1.8-2.4); Sodium 138 mmol/L (136-145); Total Protein 8.3 g/dL (6.4-8.2); Troponin I < 50 ng/L (<or=60)
[2022-06-24] MEDS: Normal Saline 500 ML IV (12:53)
--- NOTE | 2022-06-24 13:30 | DI.RAD_ITS ---
Exam(s) XR CHEST 2V PA LATERAL EXAM: XR CHEST 2V PA LATERAL CLINICAL HISTORY: right sided weakness, r/o acute disease TECHNIQUE: 2D digital imaging was performed. COMPARISON: CR,XR XR CHEST 2V PA LATERAL from 03/11/[address] CHEST WO from 05/18/2022 FINDINGS: HEART: Normal size. Aorta: Not dilated. PULMONARY VASCULATURE: Normal. LUNGS: Scarring right upper lobe. Emphysema PLEURAL SPACE: No pleural effusion or pneumothorax. BONE:Unremarkable for age. IMPRESSION: Stable scarring. No acute abnormality. DATA REPOSITORY: RADIATION DOSE DELIVERED:
[2022-06-24 14:05] LABS: Source Nasal/Nares
[2022-06-24 14:42] LABS: COVID-19 PCR Negative (Negative)
--- NOTE | 2022-06-24 16:00 | DI.MRI_ITS ---
Exam(s) MR ANGIO NECK WO EXAM: MR ANGIO NECK WO CLINICAL HISTORY: CVA/TIA. TECHNIQUE: 2D and 3D [id number] MRA of the Neck was performed. 2D [id number] exam somewhat limited by motion. COMPARISON: CT CT HEAD WO from 06/24/2022 US US CAROTID from 06/24/2022 FINDINGS: Common Carotid: Right: No dissection, occlusion or significant stenosis. Left: No dissection, occlusion or significant stenosis. External Carotid: Right: No evidence of occlusion or significant stenosis. Left: No evidence of occlusion or significant stenosis. Internal Carotid: Right: Plaque seen proximal internal carotid artery causing approximately 50 percent stenosis. No dis section. Left: Plaque seen proximal internal carotid artery causing approximately 50 percent stenosis. No diss ection. Vertebral Artery: Right: No dissection, occlusion or significant stenosis. Left: No dissection, occlusion or significant stenosis. The visualized paraspinal soft tissues are unremarkable. IMPRESSION: Plaque at the proximal internal carotid arteries causing approximately 50 percent stenosis. DATA REPOSITORY:
--- NOTE | 2022-06-24 16:03 | HPE_ITS ---
Date of service: 06/24/22 Time of Service: 16:03 Assessment and Plan Assessment and plan (1) Facial paresthesia: Status: Acute Assessment and plan: As well as mild paresthesia of right arm and leg. R/O CVA CT head negative. MRI head, MRA head not completed; pt had back and leg pain and could not lie still. CTA neck was completed and read is pending. Cont Plavix, ASA. Changing from Eliquis to Xarelto in event this is related to an Eliquis failure. He endorses compliance with meds as does his daughter. Neurology following. Echocardiogram was obtained 1 month ago. A1c 6.5 on 05/19/22. LIpid panel in AM PT consulted. OT consulted. Speech consult. (2) Right sided weakness: Status: Acute Assessment and plan: As above. (3) History of liver transplant: Status: Acute Assessment and plan: LFTs and Bilirubin normal. On tacrolimus. (4) Chronic anticoagulation: Status: Acute (5) Immunosuppressed status: Status: Acute Assessment and plan: As above. (6) Atrial fibrillation: Status: Chronic Assessment and plan: On BB (carvedilol) and Eliquis. Discussed with Dr Del Rosario and decision made to change to Xarelto in event he was a failure of Eliquis. (7) Hypertension: Status: Chronic Assessment and plan: If MRI + for CVA or he has flow limiting narrowing on MRA, will allow permissive HTN. He is on carvedilol, cardura, hydralazine and isosorbide. (8) Non-ST elevation [place] (NSTEMI): Status: Acute Assessment and plan: Past history. On ASA (also plavix) and BB. No c/o CP. History of Present Illness History of Present Illness Chief Complaint: Right sided facial, arm and leg numbness and weakness Narrative: This is a 67 yo male with a PMH of Hep C, liver transplant in 2005 on tacrolimus, alcoholic liver disease, afib on Eliquis, HTN, HLD, NSTEMI, CKD, DM2. He presented to the ED after 1 hour of right arm and right leg numbness as well as right arm and leg weakness. This occurred while at rest. No CP/SOA, slurred speech, confusion. No fever/chills. In the ED he was noted to have right arm and leg pronator drift w/o other focal deficits. No facial droop. BP 168/80. RA saturation 98%. HR 90. CT head w/o contrast negative for acute findings. WBC count normal. Hgb 12.6. Na 138. K 4.0. BUN 41. Creatinine 2.4 (within baseline range). Bili, AST, ALT normal. Trop neg. Carotid US: Mixed plaque in the common carotid bulbs and proximal internal carotid arteries with mild systolic velocity elevation consistent with approxima te 50 percent stenosis. Neurology consulted and evaluated patient in the ED. Admitted for further w/u. Review of Systems All systems reviewed & are unremarkable except as noted in HPI and below PFSH All Active Problems Facial paresthesia (Acute) Right sided weakness (Acute) History of liver transplant (Acute) Chronic anticoagulation (Acute) Immunosuppressed status (Acute) Symptom of bladder outlet obstruction (Acute) Atrial flutter (Acute) Pneumonia (Acute) Atrial fibrillation (Chronic) Hypertension (Chronic) Palpitations (Acute) Non-ST elevation [place] (NSTEMI) (Acute) New onset atrial fibrillation (Acute) Liver transplant recipient (Chronic) Chronic kidney disease (Chronic) High cholesterol (Chronic) Diabetes (Chronic) Hypomagnesemia (Acute) Myoclonus (Acute) Ventricular ectopy (Acute) Medical History Depression Erectile dysfunction Gastric ulcer GI bleeding Hepatitis C History of COVID-19 Myocardial infarction SVT (supraventricular tachycardia) Tachycardia Surgical History H/O vasectomy S/P liver transplant Family History Mother Heart disease Sister Heart disease Brother Heart disease Other Diabetes Social History Smoking/Tobacco Use Status: Former Tobacco Use Smoking risk assessment performed?: Yes Alcohol Intake: former Drug use: Never Substance use type: does not use Do you feel safe at home: Yes Do you feel safe in your relationship?: Yes Additional Social history: recently ; still going through grieving process Meds Allergies and Home Medications Allergies Allergy/AdvReac Type Severity Reaction Status Date / Time cephalexin monohydrate Allergy Severe Anaphylaxsi Unverified 06/24/22 11:29 [From [facility]] s Home Medications Medication Instructions Recorded Confirmed Type carvedilol 12.5 mg tablet (Coreg) 25 mg PO BID 11/25/15 06/24/22 History oxycodone 5 mg tablet 5 mg PO Q4H PRN 11/25/15 06/24/22 History morphine 30 mg tablet,extended 30 mg PO BID 02/05/19 06/24/22 History release rabeprazole 20 mg tablet,delayed 20 mg PO DAILY 02/05/19 06/24/22 History release naloxone 4 mg/actuation nasal 4 mg intranasal Q2M PRN opioid 04/13/19 06/24/22 Rx spray (Narcan) overdose #2 ea albuterol sulfate 90 mcg/actuation 2 inh inhalation TID PRN 10/31/20 06/24/22 History breath activated powder inhaler aspirin 81 mg tablet 81 mg PO DAILY 10/31/20 06/24/22 History apixaban 5 mg tablet (Eliquis) 5 mg PO BID 05/18/22 06/24/22 History empagliflozin 25 mg tablet 25 mg PO DAILY 05/18/22 06/24/22 History tacrolimus 1 mg capsule, 1 mg PO HS 05/18/22 06/24/22 History immediate-release atorvastatin 40 mg tablet 40 mg PO QPM #30 tabs 05/21/22 06/24/22 Rx clopidogrel 75 mg tablet 75 mg PO DAILY #30 tabs 05/21/22 06/24/22 Rx doxazosin 2 mg tablet 2 mg PO HS #30 tabs 05/21/22 06/24/22 Rx hydralazine 25 mg tablet 25 mg PO TID #30 tabs 05/21/22 06/24/22 Rx isosorbide mononitrate 30 mg 30 mg PO DAILY #30 tabs 05/21/22 06/24/22 Rx tablet,extended release 24 hr levofloxacin 750 mg tablet 750 mg PO Q48H #4 tabs 05/21/22 06/24/22 Rx mirtazapine 15 mg tablet 7.5 mg PO HS #30 tabs 05/21/22 06/24/22 Rx polyethylene glycol 3350 17 gram 17 g PO DAILY PRN PRN Constipation 05/21/22 Rx oral powder packet #0 ea Exam Narrative Exam Narrative: Lying in bed. Conversant and interactive. Const General: no acute distress Nutritional Appearance: underweight Orientation: alert and oriented x3 HENMT Head: atraumatic Ears: hearing grossly normal bilaterally Eyes General: appearance normal, both eyes and all related structures Sclera: sclerae normal Resp Effort & Inspection: normal respiratory effort Auscultation: clear to auscultation bilaterally Cardio Rate: regular rate Rhythm: abnormal rhythm irregularly irregular GI Inspection: non-distended Palpation: soft and nontender Skin General skin exam: no rashes or lesions noted Neuro General: abnormal to light touch, pain or propio. (Decreased LT and PP on right.), focal motor deficits present (Subtle R pronator drift. 4+/5 strength of R bicep/tricep and hip flexor. ) and not confused Cranial Nerves: PERRL and tongue midline Cognition: normal cognition Extrem General: no pedal edema and no calf tenderness Psych Appearance: grossly normal Mental Status: mental status grossly normal Speech and Movement: slurred speech (Mild) Results Labs 06/24/22 11:30 06/24/22 11:30 Labs: Laboratory Results - last 24 hr 06/24/22 06/24/22 06/24/22 11:30 11:30 13:58 WBC 6.31 RBC 4.09 L Hgb 12.6 L Hct 36.1 L MCV 88 MCH 30.8 MCHC 34.9 RDW 11.3 L Plt Count 120 L MPV 10.9 Immature Gran % 0.3 Neutrophils % 62.9 Lymphocytes % 19.5 Monocytes % 10.5 Eosinophils % 6.3 Basophils % 0.5 Nucleated RBC % 0.0 Absolute Neutrophils 3.97 Absolute Lymphocytes 1.23 Absolute Monocytes 0.66 Absolute Eosinophils 0.40 Absolute Basophils 0.03 Sodium 138 Potassium 4.0 Chloride 97 L Carbon Dioxide 33.3 H Anion Gap 7.7 BUN 41 H Creatinine 2.4 H Est GFR (CKD-EPI 2020) 28.85 Glucose 182 H Calcium 9.4 Magnesium 2.2 Total Bilirubin 0.7 AST 20 ALT 22 Alkaline Phosphatase 102 Troponin I < 50 Total Protein 8.3 H Albumin 4.2 COVID-19 Source Nasal/Nares SARS-CoV-2 (PCR) Negative Last Vital Signs Temp 36.6 C 06/24/22 14:54 Pulse 83 06/24/22 15:10 Resp 14 06/24/22 14:54 BP 178/80 H 06/24/22 14:54 Pulse Ox 99 06/24/22 14:54 Time Spent Time spent with Patient: 40-54 minutes Time was spent: preparing to see the patient(eg.review tests), obtaining and/or reviewing separately otained hiistory, ordering medications,tests, procedures, referring, 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
--- NOTE | 2022-06-24 16:16 | NCONE_ITS ---
Date of service: 06/24/22 Time of Service: 16:16 Assessment and Plan Assessment and plan (1) Right sided weakness: Status: Acute Assessment and plan: Mr. Thomas has known afib/aflutter who presents with acute right hemiparesis and hemianaesthesia concerning for stroke. He appears to have prior L hemisphere lacunar infarcts and thus a recrudesence could be occurring, but no obvious metabolic/infectious issues noted to cause this. Work-up: -MRI brain w/o to asses for acute stroke -MRA head/neck w/o to look at intra- and extracranial vasculature -Lipid panel -Apixaban anti-Xa (trough should be 41-230 for 5mg BID dose; if low, either non- compliance or drug resistance; if high, then dose needs to be lower based on renal function/weight) Medications: -aspirin 81mg daily for secondary stroke prevention -clopidogrel 75mg daily for secondary stroke prevention -atrovastatin 40mg daily for secondary stroke prevention -patient is on apixaban 5mg BID - but is borderline weight/cr between 2.5mg and 5mg dosing. Because of this could switch to rivaroxaban 15mg daily [CrCl 25] to avoid the issue of under/overdosing and with question of possible drug resistan ce given breakthrough stroke....pending brain MRI Other: -Allow permissive hypertension -Physical therapy for leg weakness, gait training -Occupation therapy for upper extremity weakness, activities of daily living -Speech therapy for speech and swallow He should f/up in neurology clinic following discharge. History of Present Illness History of Present Illness Chief Complaint: stroke Narrative: Handedness: right. Mr. Thomas is a 67 year-old with hypertension, hyperlipidemia, prior NSTEMI, DM2, CKD (baseline Cr ~2.5), liver transplant s/p Hep C/ETOH on tacrolimus, afib/flutter on apixaban, depression. Mr. Thomas presented to the ER with right face, arm, and left sensory loss with mild weakness. Daughter notes new dysarthria. He denies any dysphagia. Abrupt onset. BP elevated 160s in ER. He is on ASA, clopidogrel, apixaban 5mg BID, and atorvastatin 40mg at baseline. He was not a tPA candidate due to being on apixaban. CTA could not be obtained due to poor renal function. He reports no prior history of stroke and compliance with his medications. He uses a cane at baseline. He attempted MR imaging this afternoon but could not complete due to back pain. Work-up: -CTH (06/24/22): Prior : BG lacune x 2. I reviewed these images personally and this is my personal interpretation. -Labs: Hgb 12.6, Plt 120, Cr 2.4 -TTE (05/19/22): EF 40%, segmental wall abnormalities. LA not seen. -A1c (05/19/22): 6.5 Review of Systems All systems reviewed & are unremarkable except as noted in HPI and below PFSH All Active Problems Facial paresthesia (Acute) Right sided weakness (Acute) History of liver transplant (Acute) Chronic anticoagulation (Acute) Immunosuppressed status (Acute) Symptom of bladder outlet obstruction (Acute) Atrial flutter (Acute) Pneumonia (Acute) Atrial fibrillation (Chronic) Hypertension (Chronic) Palpitations (Acute) Non-ST elevation [place] (NSTEMI) (Acute) New onset atrial fibrillation (Acute) Liver transplant recipient (Chronic) Chronic kidney disease (Chronic) High cholesterol (Chronic) Diabetes (Chronic) Hypomagnesemia (Acute) Myoclonus (Acute) Ventricular ectopy (Acute) Medical History Depression Erectile dysfunction Gastric ulcer GI bleeding Hepatitis C History of COVID-19 Myocardial infarction SVT (supraventricular tachycardia) Tachycardia Surgical History H/O vasectomy S/P liver transplant Family History Mother Heart disease Sister Heart disease Brother Heart disease Other Diabetes Social History Smoking/Tobacco Use Status: Former Tobacco Use Smoking risk assessment performed?: Yes Alcohol Intake: former Drug use: Never Substance use type: does not use Do you feel safe at home: Yes Do you feel safe in your relationship?: Yes Additional Social history: recently ; still going through grieving process Visit Medication and Allergies Active Medications Generic Name Dose Route Start Last Admin Trade Name Freq PRN Reason Stop Dose Admin Acetaminophen 0 mg 06/24/22 13:28 Acetaminophen 325 Mg Tab PO Q4H PRN PRN Al Hydrox/Mg Hydrox/Simethicone 30 ml 06/24/22 13:28 Mylanta Suspension 30 Ml Cup PO Q2H PRN PRN Albuterol Sulfate 2 puff 06/24/22 14:05 Albuterol Hfa 8 Gm 60 Puff Inh IH TID PRN PRN Apixaban 2.5 mg 06/24/22 20:00 Apixaban 2.5 Mg Tab PO BID [facility] Aspirin 81 mg 06/25/22 08:30 Aspirin E.C. 81 Mg Tabec PO DAILY [facility] Atorvastatin Calcium 40 mg 06/24/22 20:00 Atorvastatin 40 Mg Tab PO QPM [facility] Carvedilol 25 mg 06/24/22 20:00 Carvedilol 25 Mg Tab PO BID [facility] Clopidogrel Bisulfate 75 mg 06/25/22 08:30 Clopidogrel 75 Mg Tab PO DAILY [facility] Dimethicone/Zinc Oxide 0 gm 06/24/22 13:22 Rose Protect Cream 142 Gm Tube TP PRN PRN Doxazosin Mesylate 2 mg 06/24/22 22:00 Doxazosin 2 Mg Tab PO HS [facility] Empagliflozin 25 mg 06/25/22 08:30 Empaglifozin 25 Mg Tab PO DAILY [facility] Hydralazine HCl 25 mg 06/24/22 14:00 Hydralazine 25 Mg Tab PO TID [facility] IV Miscellaneous Supplies 1 each 06/24/22 12:15 Iv Access IV DIRECTED [facility] Isosorbide Mononitrate 30 mg 06/25/22 08:30 Isosorbide Mononitrate 30 Mg Tabcr PO DAILY [facility] Mirtazapine 7.5 mg 06/24/22 22:00 Mirtazapine 15 Mg Tab PO HS [facility] Morphine Sulfate 30 mg 06/24/22 20:00 Morphine C.R. 30 Mg Tabcr PO BID [facility] Oxycodone HCl 5 mg 06/24/22 13:41 Oxycodone 5 Mg Tab PO Q4H PRN PRN Pantoprazole Sodium 40 mg 06/25/22 07:30 Pantoprazole 40 Mg Tabcr PO DAILY@0730 [facility] Polyethylene Glycol 17 gm 06/24/22 13:28 Polyethylene Glycol 3350 17 Gm Packet PO DAILY PRN PRN Constipation Sodium Chloride 0 ml 06/24/22 12:06 Normal Saline Flush 10 Ml Syr IVP PRN PRN Tacrolimus 1 mg 06/24/22 22:00 Tacrolimus 0.5 Mg Cap PO HS [facility] Allergies cephalexin monohydrate [From Keflex] Allergy (Severe, Unverified 06/24/22 11:29) Anaphylaxsis Exam Narrative Exam Narrative: Physical Exam: Gen: Patient of apparent stated age, NAD, thin Head and face: no facial or cranial abnormalities Neck: Supple, no meningismus, no occipital tenderness CV: irregular Resp: CTA B/L Abd: soft, nontender, nondistended Ext: No edema. No clubbing or cyanosis. No bony deformity. Neuro Exam: Language: fluency, naming, repetition, and comprehension intact; Mental Status: AAOx3, current events intact, fund of knowledge intact; Speech: mild dysarthria Cranial nerves: Funduscopy: not performed CN II: visual marie intact CN III, IV, : extraocular movements intact, no nystagmus, pupils symmetric and reactive to light CN V: reduced to LT and PP on right CN VII: Right nasolabial fold flattening CN VIII: hearing intact bilaterally CN IX, X: palate rises symmetrically CN XI: trapezius/SCM 5/5 bilaterally CN XII: protrudes tongue symmetrically Sensory: reduced to LT, PP in right arm and leg Motor: bulk and tone intact. Fine motor movements intact bilaterally. Subtle right pronator drift. Strength 5/5 throughout including the deltoids, biceps, triceps, wrist extensors, hip flexors, knee flexors, knee extensors, ankle flexors, and ankle extensors except 4+/5 R bicep/tricep and R hip flexor. Reflexes: hyporeflexic throughout; toes down going/neutral bilaterally; Coordination: FTN and HTS intact bilaterally Gait: not tested Results Last Vital Signs Temp 97.9 F 06/24/22 14:54 Pulse 83 06/24/22 15:10 Resp 14 06/24/22 14:54 BP 178/80 H 06/24/22 14:54 Pulse Ox 99 06/24/22 14:54 Labs 06/24/22 11:30 06/24/22 11:30 Labs: Laboratory Results - last 24 hr 06/24/22 06/24/22 06/24/22 11:30 11:30 13:58 WBC 6.31 RBC 4.09 L Hgb 12.6 L Hct 36.1 L MCV 88 MCH 30.8 MCHC 34.9 RDW 11.3 L Plt Count 120 L MPV 10.9 Immature Gran % 0.3 Neutrophils % 62.9 Lymphocytes % 19.5 Monocytes % 10.5 Eosinophils % 6.3 Basophils % 0.5 Nucleated RBC % 0.0 Absolute Neutrophils 3.97 Absolute Lymphocytes 1.23 Absolute Monocytes 0.66 Absolute Eosinophils 0.40 Absolute Basophils 0.03 Sodium 138 Potassium 4.0 Chloride 97 L Carbon Dioxide 33.3 H Anion Gap 7.7 BUN 41 H Creatinine 2.4 H Est GFR (CKD-EPI 2020) 28.85 Glucose 182 H Calcium 9.4 Magnesium 2.2 Total Bilirubin 0.7 AST 20 ALT 22 Alkaline Phosphatase 102 Troponin I < 50 Total Protein 8.3 H Albumin 4.2 COVID-19 Source Nasal/Nares SARS-CoV-2 (PCR) Negative
[2022-06-24] MEDS: oxyCODONE 5 MG TAB PO (16:43)
[2022-06-24] MEDS: hydrALAZINE 25 MG TAB PO ×2 (16:43→20:13)
[2022-06-24] MEDS: Rivaroxaban 15 MG TABLET PO (17:38)
[2022-06-24] MEDS: Carvedilol 25 MG TAB PO (20:13)
[2022-06-24] MEDS: Atorvastatin 40 MG TAB PO (20:13)
[2022-06-24] MEDS: Doxazosin 2 MG TAB PO (21:14)
[2022-06-24] MEDS: Tacrolimus 0.5 MG CAP 1 MG PO (21:14)
[2022-06-24] MEDS: Mirtazapine 15 MG TAB 7.5 MG PO (21:14)
[2022-06-25] VITALS: PULSE 65
--- NOTE | 2022-06-25 | DI.MRI_ITS ---
Exam(s) MR ANGIO BRAIN WO CLINICAL HISTORY: CVA/TIA. TECHNIQUE: 3D [id number] study was performed without contrast. COMPARISON: MRI of the brain of the same day FINDINGS: Carotid Arteries: Petrous: Normal. Cavernous: Normal. Cerebral: Normal. Middle Cerebral Arteries: Right: No aneurysm or significant stenosis. Left: No aneurysm or significant stenosis. Anterior Cerebral Arteries: Right: No aneurysm or significant stenosis. Left: No aneurysm or significant stenosis. Posterior cerebral arteries: Right: No aneurysm or significant stenosis Left: No aneurysm or significant stenosis Vertebral Arteries: Right: No aneurysm or significant stenosis. No dissection. Left: No aneurysm or significant stenosis. No dissection.. Basilar Artery: No aneurysm or significant stenosis. Small Vessels: No evidence of beading. IMPRESSION: Normal MRA examination of the [place]. DATA REPOSITORY:
--- NOTE | 2022-06-25 | DI.MRI_ITS ---
Exam(s) MR BRAIN WO EXAM: MR BRAIN WO CLINICAL HISTORY: CVA/TIA TECHNIQUE: Multiplanar multisequence MRI of the brain was performed. COMPARISON: CT CT HEAD WO from 06/24/2022 MR MR ANGIO BRAIN WO from 06/25/2022 FINDINGS: VENTRICLES AND EXTRA AXIAL SPACES: Normal in size and morphology for the patient's age. MIDLINE SHIFT: None. CEREBRAL PARENCHYMA: There is a small focus of restricted diffusion to in the left basal ganglia, lef t thalamic region, consistent with acute lacunar infarct. No additional areas of restricted diffusio n. Scattered areas of high signal without restricted diffusion are noted bilaterally, consistent wit h microvascular changes. Mild atrophy. No space-occupying lesion identified. HEMORRHAGE: None. BRAINSTEM/CEREBELLUM: Mild microvascular changes in the joanne. VISUALIZED PARANASAL SINUSES/MASTOIDS:Clear. Vasculature: Normal flow void. PITUITARY GLAND: Unremarkable. ORBITS: Unremarkable. IMPRESSION: Acute lacunar infarct left thalamus. DATA REPOSITORY:
[2022-06-25 03:59] VITALS: BP 140/69; PULSE 75; RESP 16; TEMP 36.2; O2SAT 95
[2022-06-25 06:37] LABS: Anion Gap 3.3 mmol/L (3-11); BUN 38 mg/dL (7-18); CO2 34.7 mmol/L (21.0-32.0); CREATININE 2.4 mg/dL (0.70-1.30); Calcium 8.7 mg/dL (8.5-10.1); Calculated LDL 28 mg/dL (<100); Chloride 99 mmol/L (98-107); Cholesterol 89 mg/dL (<200); Estimated GFR 28.85 (mL/min/1.73m2); Glucose 149 mg/dL (74-106); HDL Cholesterol 37 mg/dL (40-60); Potassium 3.8 mmol/L (3.5-5.1); Sodium 137 mmol/L (136-145); Triglyceride 122 mg/dL (<150)
[2022-06-25 06:49] VITALS: BP 138/66; PULSE 76; RESP 18; TEMP 36.6; O2SAT 96
[2022-06-25 07:00] VITALS: PULSE 87
[2022-06-25] MEDS: Empaglifozin 10 MG TAB PO (08:50)
[2022-06-25] MEDS: Pantoprazole 40 MG TABCR PO (08:50)
[2022-06-25] MEDS: hydrALAZINE 25 MG TAB PO ×3 (08:50→19:47)
[2022-06-25] MEDS: Clopidogrel 75 MG TAB PO (08:50)
[2022-06-25] MEDS: Carvedilol 25 MG TAB PO ×2 (08:50→19:46)
[2022-06-25] MEDS: Aspirin E.C. 81 MG TABEC PO (08:51)
[2022-06-25] MEDS: Isosorbide Mononitrate 30 MG TABCR PO (08:51)
--- NOTE | 2022-06-25 09:21 | PDOC.CMIN ---
- If Service Date Differs Date of service: 06/25/22 Time of Service: 09:21 Care Management Initial Assess REASON FOR HOSPITALIZATION:: CVA PAST MEDICAL HISTORY/PAST SURGICAL HISTORY:: All Active Problems . Facial paresthesia (Acute). Right sided weakness (Acute). History of liver transplant (Acute). Chronic anticoagulation (Acute). Immunosuppressed status (Acute). Symptom of bladder outlet obstruction (Acute). Atrial flutter (Acute). Pneumonia (Acute). Atrial fibrillation (Chronic). Hypertension (Chronic). Palpitations (Acute). Non-ST elevation [place] (NSTEMI) (Acute). New onset atrial fibrillation (Acute). Liver transplant recipient (Chronic). Chronic kidney disease (Chronic). High cholesterol (Chronic). Diabetes (Chronic). Hypomagnesemia (Acute). Myoclonus (Acute). Ventricular ectopy (Acute). Medical History . Depression. Erectile dysfunction. Gastric ulcer. GI bleeding. Hepatitis C. History of COVID-19. Myocardial infarction. SVT (supraventricular tachycardia). Tachycardia. Surgical History . H/O vasectomy. S/P liver transplant PREVIOUS FUNCTIONAL STATUS/SOCIAL/FAMILY SUPPORTS:: Ismael lives in alone in [place]. He is retired, [facility] and gets his care through the [place]. He has four adult children that he identifies as being supportive. He is independent at baseline and drives. He recently started using a cane. CURRENT FUNCTIONAL STATUS:: Ismael is lying in bed when CM met with him. He is awake and engages in conversation. Per pt, his speech is garbled because the right side of his mouth isn't functioning normally. He also notes drooling on that side. ST consult is ordered. In addition, Ismael reports that he is very weak and is agreeable to SNF for STR, if needed. PT consult is ordered, recommendation to follow. ADVANCE DIRECTIVES:: None Has patient been provided with info about the portal/API?: Yes Did the patient sign up for the portal?: No CODE STATUS:: Full Code INSURANCE COVERAGE / FINANCIAL ISSUES:: OK CURRENT HOME/COMMUNITY SERVICES/EQUIPMENT:: [employer]. [facility]. Uses a cane and home nebulizer PRIMARY CARE PHYSICIAN:: Dr. Munroe ([facility]) POTENTIAL DISCHARGE NEEDS:: Neurology Follow up. [facility] PT/OT/ST, close outpatient follow up with [facility] and community providers. PATIENT/FAMILY EDUCATION NEEDS:: Review discharge instructions, limitations, medications and plan to follow up with [facility] and community providers. TRANSPORTATION:: Dependent on dispo. PLAN:: Ismael is being closely monitored and requires further medical workup. He has right sided weakness and Neurology is following. PT, OT, ST consults are ordered, d/c planning conciderations to follow. Anticipate, Ismael will discharge to SNF for STR vs. home with [facility] services when medically ready, per provider. CM will follow.
[2022-06-25] MEDS: Baclofen 10 MG TAB PO (09:23)
[2022-06-25] MEDS: Normal Saline Flush 10 ML SYR IVP (09:24)
[2022-06-25] MEDS: LORazepam 2 MG/ML VIAL 0.5 MG IVP (09:25)
[2022-06-25 10:03] LABS: Lab Add On Test DONE
--- NOTE | 2022-06-25 13:47 | PHA.REVIEW2 ---
Pharmacy Admission Review - Admission Clinical Review (Last Reviewed 06/24/22 @ 16:19 by Matt Prajapati MD) Facial paresthesia (Acute) Right sided weakness (Acute) History of liver transplant (Acute) Chronic anticoagulation (Acute) Immunosuppressed status (Acute) Non-ST elevation [place] (NSTEMI) (Acute) cephalexin monohydrate [From Keflex] Allergy (Severe, Unverified 06/24/22 11:29) Anaphylaxsis Resuscitation Status Full Code Height 6 ft 5 in Weight 60.691 kg - Renal Dosing Renal Dosing: BUN 38 mg/dL (7-18) H 06/25/22 05:49 Creatinine 2.4 mg/dL (0.70-1.30) H 06/25/22 05:49 Medications needing adjustments: Intervened (Crcl ~25.64 mL/min empagliflozin and rivaroxaban are renally dosed, current meds okay.) - Anticoagulation Anticoagulation: Hgb 12.6 g/dL (13.5-17.5) L 06/24/22 11:30 Hct 36.1 % (40.0-50.0) L 06/24/22 11:30 Plt Count 120 10^3/uL (130-400) L 06/24/22 11:30 Creatinine 2.4 mg/dL (0.70-1.30) H 06/25/22 05:49 DVT Prophylaxis: N/A Therapeutic Anticoagulation: Reviewed Medications: Rivaroxaban - Opiate Usage Evaluate Pain Scale/Pains Meds: Reviewed Scheduled Bowel Reg ordered if on Opiates?: No (has PRN order) - Relevant Labs Sodium 137 mmol/L (136-145) 06/25/22 05:49 Potassium 3.8 mmol/L (3.5-5.1) 06/25/22 05:49 Chloride 99 mmol/L (98-107) 06/25/22 05:49 Magnesium 2.2 mg/dL (1.8-2.4) 06/24/22 11:30 Electrolytes, C-Reactive P, ESR: Reviewed - DM Control DM Control: Glucose 149 mg/dL (74-106) H 06/25/22 05:49 DM Control: Intervened (BG 149 currently only has empagliflozin ordered. A1C on 05/19/22 was 6.5 and AM BG levels have been good per provider, continue on just epagliflozin for now.) - Cardiac Review Cardiac Review: Troponin I < 50 ng/L (<or=60) 06/24/22 11:30 BP, HR, EF%: Reviewed - Qtc Review QTc: Reviewed If Elevated, List meds needing intervention: QTc 469 on admission - IV to PO Switch IV Medications: Reviewed - Home Meds Home Med List reviewed: Reviewed Relevent Home Meds Not ordered & why?: naloxone (PRN), rabeprazole (has pantoprazole subbed for this) - Current meds Current Medication Order Review: Reviewed - Comments Comments/Follow Ups: Watch VS, BG, SCr labs and for med changes (possible renal dose adjustments).
[2022-06-25 15:00] VITALS: PULSE 70
--- NOTE | 2022-06-25 15:44 | W.PM.PROGNOT ---
Date of Service Date of service: 06/25/22 Time of Service: 15:45 Assessment and Plan Assessment and plan (1) History of liver transplant: Status: Acute Assessment and plan: LFTs and Bilirubin normal. On tacrolimus. (2) Immunosuppressed status: Status: Acute Assessment and plan: As above. (3) Atrial fibrillation: Status: Chronic Assessment and plan: On BB (carvedilol) and Eliquis. Discussed with Dr Del Rosario and decision made to change to Xarelto in event he was a failure of Eliquis. (4) Hypertension: Status: Chronic Assessment and plan: He is on carvedilol, cardura, hydralazine and isosorbide. SBP 130's to 140's today at time of this note. Avoid hypotension. (5) Non-ST elevation [place] (NSTEMI): Status: Acute Assessment and plan: Past history. On ASA (also plavix) and BB. No c/o CP. (6) Lacunar stroke: Status: Acute Assessment and plan: Paresthesia of right arm and leg and face. CT head negative. MRI head, MRA head: acute lacunar infarct of left thalamus MRA head/neck: Normal MRA examination of the [place]. Plaque at the proximal internal carotid arteries causing approximately 50 percent stenosis Cont Plavix, ASA. Changed from Eliquis to Xarelto in event this is related to an Eliquis failure. He endorses compliance with meds as does his daughter. Neurology following. Echocardiogram was obtained 1 month ago. A1c 6.5 on 05/19/22. LIpid panel: Total cholesterol 89, LDL 28, HDL 37. PT consulted. OT consulted. Speech consult. Subjective Subjective Patient reports: tolerating a regular diet and afebrile; denies nausea, vomiting or shortness of breath Interval history since last seen: Has had sensation of heat in RUE. Numbness sensation or R face appears to involve more area than he was aware of previously. No increased weakness. Having coordination difficulties with R upper and lower exts. Exam Narrative Exam Narrative: Lying in bed. Conversant and interactive. Const General: no acute distress Nutritional Appearance: underweight Orientation: alert and oriented x3 HENMT Head: atraumatic Ears: hearing grossly normal bilaterally Eyes General: appearance normal, both eyes and all related structures Sclera: sclerae normal Resp Effort & Inspection: normal respiratory effort Auscultation: clear to auscultation bilaterally Cardio Rate: regular rate Rhythm: abnormal rhythm irregularly irregular GI Inspection: non-distended Palpation: soft and nontender Skin General skin exam: no rashes or lesions noted Neuro General: abnormal to light touch, pain or propio. (Decreased LT and PP on right.), focal motor deficits present (Subtle R pronator drift. 4+/5 strength of R bicep/tricep and hip flexor. ) and not confused Cranial Nerves: PERRL and tongue midline Cognition: normal cognition Extrem General: no pedal edema and no calf tenderness Psych Appearance: grossly normal Mental Status: mental status grossly normal Affect: normal affect Objective Last Vital Signs Temp 36.6 C 06/25/22 06:49 Pulse 87 06/25/22 07:00 Resp 18 06/25/22 06:49 BP 138/66 06/25/22 06:49 Pulse Ox 96 06/25/22 06:49 Laboratory Results - last 24 hr 06/24/22 06/24/22 06/25/22 13:43 13:45 05:49 Apixaban Cancelled Sodium 137 Potassium 3.8 Chloride 99 Carbon Dioxide 34.7 H Anion Gap 3.3 BUN 38 H Creatinine 2.4 H Est GFR (CKD-EPI 2020) 28.85 Glucose 149 H Calcium 8.7 Triglycerides 122 Total Cholesterol 89 LDL Cholesterol, Calc 28 HDL Cholesterol 37 L Add-On Test Request DONE Time Spent with Patient Time Spent with Patient: 25-34 minutes Time was spent: preparing to see the patient(eg.review tests), obtaining and/or reviewing separately otained hiistory, ordering medications,tests, procedures, referring, communicating with other health patient centered care specialist and indepentently interpreting results
[2022-06-25 15:59] LABS: Factor X Chromogenic Activity 22 % (60 - 140)
[2022-06-25] MEDS: Rivaroxaban 15 MG TABLET PO (16:35)
--- NOTE | 2022-06-25 17:18 | W.SPSTE ---
Date of service: 06/25/22 Time of Service: 04:45 Subjective Clinical (Bedside) Swallow Evaluation Speech Language Pathology Patient referred for Clinical Swallow Evaluation from Dr Prajapati given L thalamic acute CVA. Given location of stroke, also screening for aphasia and other communication sx at this time. Precautions: Standard, Full Code HPI: 67 Y/O M with hx of Hep C, liver transplant in 2005 on tacrolimus, alcoholic liver disease, afib on Eliquis, HTN, HLD, NSTEMI, CKD, DM2.? He presented to the ED after 1 hour of right arm and right leg numbness as well as right arm and leg weakness.? This occurred while at rest.? No CP/SOA, slurred speech, confusion. No fever/chills.? In the ED he was noted to have right arm and leg pronator drift w/o other focal deficits.? No facial droop. CT scan without acute findings but MRI with acute L thalamic CVA. All Active Problems? Facial paresthesia (Acute) Right sided weakness (Acute) History of liver transplant (Acute) Chronic anticoagulation (Acute) Immunosuppressed status (Acute) Symptom of bladder outlet obstruction (Acute) Atrial flutter (Acute) Pneumonia (Acute) Atrial fibrillation (Chronic) Hypertension (Chronic) Palpitations (Acute) Non-ST elevation [place] (NSTEMI) (Acute) New onset atrial fibrillation (Acute) Liver transplant recipient (Chronic) Chronic kidney disease (Chronic) High cholesterol (Chronic) Diabetes (Chronic) Hypomagnesemia (Acute) Myoclonus (Acute) Ventricular ectopy (Acute) Medical History? Depression Erectile dysfunction Gastric ulcer GI bleeding Hepatitis C History of COVID-19 Myocardial infarction SVT (supraventricular tachycardia) Tachycardia Surgical History? H/O vasectomy S/P liver transplant Subjective: Pt was received semi reclined in bed for dinner meal and language screening. He sat upright at bedside for meal. Agreeable and pleasant throughout with good insight into events and deficits. Objective Objective Orientation: Oriented to Date, self, situation, place. Language: Western Aphasia Battery - Revised - BEDSIDE RECORD FORM Spontaneous Speech Content: 12/21 Speech Fluency: 12/21 Auditory verbal Comprehension: Y/N questions: 12/21 Sequential Commands: 12/21 Repetition: 12/21 Object namin/10 Reading & writing subtests not administered. Recall: Able to describe recent events with good detail. No structured eval tasks performed. Speech: Occasional lateralization of /S/ sounds resulting in mild slurred quality that does not impact intelligibility. Oral-Peripheral Exam: Notable for mild dry & red tongue, partially edentulous in fair/poor condition. Cranial nerve Exam: Notable for R tongue deviation (mild), R nasolabial fold flattening (mild), reduced anterior lingual sensation and reduced R facial sensation. Noting that patient is partially accurate with this task, indicating partial, not total loss of sensation. Question if volitional cough is mildly weak - patient also reports his voice is more hoarse though perceptually WFL to this clinician. Volitional swallow with timely initiation and good laryngeal excursion, however may be mildly sluggish on elevation. PO Trials: Regular Solids: (Fish, rice, beans) x 10+ bites. Thin liquids via cup edge, single and sequential sips throughout meal. Oral phase: Mild r sided oral residue, clears easily with verbal cue and liquid wash. Noting frequent anterior loss of R side, albeit while patient was conversing and eating simultaneously. Pharyngeal Phase: No cough, throat clear, wet vocal quality or complaints of pharyngeal stasis. Pt does appear with uncoordinated self feeding with RUE. TIME SPENT: 35 min Assessment Swallowing: Mild oral dysphagia characterized by mild R lingual/buccal stasis for solids due to reduced sensation which is consistent with sensory deficits noted on cranial nerve exam. CN motor function relevant to eating & speech is largely intact without weakness or discoordination, though noting mild R nasolabial flattening and slight R tongue deviation. Cognition & Communication: No aphasia detected. Patient with good recall of recent events and with very good insight into deficits. Speech is 100% intelligible though noting occasional lateralization of /S/ (resulting in ~sh pronunciation). No further VOCATIONAL CASE MANAGER services needed inpatient. Patient unlikely to need any outpatient VOCATIONAL CASE MANAGER, but may be referred if any further concerns are identified by providers or patient/family. Education provided: S/sx concerning for cognitive-communication or swallowing to warrant seeking VOCATIONAL CASE MANAGER referral outpatient. Results of evaluation. Recommended compensatory strategies for dysphagia and drooling as below. Rationale and instruction for increased diligence and frequency with oral care. Recommendations: Maintain IDDSI 7/Regular solids and 0/Thin liquids diet. Periodically perform liquid wash or finger sweep to ensure mouth is clear. Slow rate to reduce injury to buccal tissue from chewing. Small bites & sips. Oral care before/after all PO inake. Coding Diagnoses CPT Codes EVALUATE SWALLOWING FUNCTION - 51264 ([id number]) SPEECH SOUND LANG COMPREHEN - [id number] ([id number])
--- NOTE | 2022-06-25 17:21 | IN_ITS ---
Date of service: 06/25/22 Time of Service: 13:00 PT Notes Visit Reasons: Cerebrovascular accident Physical Therapy Inpatient Initial Evaluation Date: 06/25/2022 Referring Doctor:? Yoan Prajapati MD PT Orders: PT CONSULT: Eval/treat Precautions: Fall. Standard. Activity as tolerated. Patient Profile/Admitting Diagnosis:? This is a 67-year-old male with history of liver transplant within the past year who presented to the ED due to complaints of an hour-long right side facial numbness with right arm and right leg weakness. Patient is admitted for management of acute right hemiparesis and hemianesthesia, atrial fibrillation, hypertension, and NSTEMI. PMHX: All Active Problems? Facial paresthesia (Acute) Right sided weakness (Acute) History of liver transplant (Acute) Chronic anticoagulation (Acute) Immunosuppressed status (Acute) Symptom of bladder outlet obstruction (Acute) Atrial flutter (Acute) Pneumonia (Acute) Atrial fibrillation (Chronic) Hypertension (Chronic) Palpitations (Acute) Non-ST elevation [place] (NSTEMI) (Acute) New onset atrial fibrillation (Acute) Liver transplant recipient (Chronic) Chronic kidney disease (Chronic) High cholesterol (Chronic) Diabetes (Chronic) Hypomagnesemia (Acute) Myoclonus (Acute) Ventricular ectopy (Acute) Medical History? Depression Erectile dysfunction Gastric ulcer GI bleeding Hepatitis C History of COVID-19 Myocardial infarction SVT (supraventricular tachycardia) Tachycardia Surgical History? H/O vasectomy S/P liver transplant Social History/Home Situation: Lives on the second floor of an apartment building with 18 steps to enter,? rail on one side.? Independent with all indoor and outdoor ambulation using single point wooden cane.? 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 Equipment Owned/DME: Single point cane, wooden Subjective: Complains that the whole half of his body from the face down to the toes is numb and weak. States that he feels off balance and has a sensation that his head is inside a fish bowl as he stood up. Also complained of pain in abdominal area of 2-3/10 which he states has been chronic. Does not feel safe using his wooden walking stick. Objective: General Observation: Seated at edge of bed.? Telemetry monitoring in place.? No facial asymmetry seen. Mental Status: Alert and oriented as to person, place, time, and purpose. Able to pay attention, focus, and respond appropriately. Pain: Denies Vital Signs: Closely monitored by nursing staff ROM: Right Upper Extremity: ?Shoulder Flexion WFL. Shoulder abduction WFL. Elbow flexion WFL. Wrist flexion WFL. Functional opening and closing of hand WFL. Left Upper Extremity:? Shoulder Flexion WFL. Shoulder abduction WFL. Elbow flexion WFL. Wrist flexion WFL. Functional opening and closing of hand WFL. Right Lower Extremity: Hip flexion WFL. Hip abduction WFL. Knee flexion 30 degrees to 100 degrees. Knee extension -30 degrees. Ankle dorsiflexion WFL. Ankle plantarflexion WFL. Left Lower Extremity: Hip flexion WFL. Hip abduction WFL. Knee flexion WFL. Ankl e dorsiflexion WFL. Ankle plantarflexion WFL. Strength: Right Upper Extremity: Shoulder flexors 4-/5. Shoulder abductors 4-/5. Elbow flexors 4/5. Elbow extensors 4/5. Earth Science Professor strong. Left Upper Extremity: Shoulder flexors 5/5. Shoulder abductors 5/5. Elbow flexors 5/5. Elbow extensors 5/5. Earth Science Professor strong. Right Lower Extremity: Hip flexors 4-/5. Hip abductors 5/5. Knee flexors 5/5. Knee extensors 3-/5. Ankle dorsiflexors 4/5. Ankle plantarflexors 4/5. Left Lower Extremity: Hip flexors 5/5. Hip abductors 5/5. Knee flexors 5/5. Knee extensors 4/5. Ankle dorsiflexors 4/5. Ankle plantarflexors 4/5. Bed Mobility/Transfers: Sit to stand contact guard assist Stand to sit contact guard assist Bed to reclining chair minimal assist Reclining chair to bed minimal assist Gait: Instructed patient with level surface ambulation of 25 feet requiring minimal assist as myoclonus and R-side weakness cause R knee to wobble and mildly buckle. Cues provided to limit limb advancement on the R to allow maximal control of weak R quadriceps. Gait velocity decreased. Steps somewhat cautious as patient feels unsteady. Stairs: Deferred Balance: Static Sitting: Normal Dynamic Sitting: Normal Static Standing: Fair Dynamic Standing: Fair Special Tests: Mobility Limitations Standardized Measure [facility]-PAC 6 clicks Basic Mobility Inpatient Short Form: Raw Score: 19? CMS Score: 42% deficit? ? ? 4-stage Balance Test: Deferred, unable to perform safely at this time Rapid Alternating movement: Intact Informed Consent/Education:? Patient was instructed in purpose of PT consult and plan of care.? Agreeable to proceed with established PT POC to achieve personal goals. NEURO RE-ED: Facilitated and cued for safe placement of R LE to allow for maximal control by R quadriceps during ambulation performance. Worked on ensuring that R knee is extended maximally prior to L limb advancement. Verbal cues given throughout session for correct performance of transfers and in-room ambulation. Emphasized slowed movement to optimize awareness on both sides for more coordinated movement transitions. Cued on proper posture and walker management. Assessment: Dense R-sided hemianesthesia involving the face, trunk, arm, and leg alongside R-sided hemiparesis, myoclonus, weak R quadriceps, and dysequilibirum from acute CVA all contribute to high fall risk. Lives alone and will not be able to thrive well at home with risk of rehospitalization. Patient will require acute stroke rehab facility placement to address functional mobility deficits and weakness from admitting diagnoses. Patient presents with clinical signs and symptoms consistent with current/admitting diagnoses that have resulted to mobility limitations, gait instability, generalized weakness, and overall ADL decline as demonstrated by the following impairment level findings: 1.? Decreased strength to R UE and quadriceps 2.? Impaired standing balance 3.? Impaired activity tolerance 4. R hemianesthesia Impairments are contributing to the following functional limitations: 1.? Difficulty with ambulation without assistive device 2.? Increased completion time for mobility ADL performance 3.? Increased risk for falls 4.? Difficulty with managing steps alone safely Patient is assessed as a 00842 moderate complexity based on the following: History: 67-year-old male with past medical history as indicated above Examination: Demonstrable impairment in strength, balance, and mobility level with underlying impairments and functional limitations Presentation: Evolving Decision Makin moderate complexity Goals: Goals X1 week 1. Supine-Sit independent 2. Sit-Supine independent 3. Sit-Stand independent with FWW 4. Stand-Sit independent with FWW 5. Bed-Chair independent with FWW 6. Chair-Bed independent with FWW 7. Independent gait on level surface with with FWW for at least 300 feet without report of pain nor dyspnea 8. Independent stair negotiation while holding onto bilateral rails for at least 18 steps without report of pain nor dyspnea 9. Good static and dynamic standing balance/tolerance Plan of Care/Treatment Plan: 1-2x/day, 7 days/week x 1 week. Plan of care has been reviewed with the POSTAL DELIVERY OFFICER providing the service under Physical Therapy direction. Initiate Physical Therapy intervention for pain management as needed, strengthening, bed mobility, transfers, gait, stairs, balance training, and use of assistive device. DISCHARGE RECOMMENDATIONS: [] ? Home with no services [] [] ? Home with services [specify] [] ? Home with outpatient PT [] [] ? SNF for continued rehabilitation [] [] ? Account Support Analyst Care [] [] ? SNF versus LTC based on ability to participate and progress [] [X] Patient will require acute stroke rehab placement to address mobility, sterngth, corrindation, and balance impairments listed above TREATMENT CODE/TIME: 67310 x 20 minutes.? 62710 x 10 minutes beginning at 13:00 PM. Thank you for the opportunity to participate in the care of this patient. Umu Cheek PT, DPT, CLT [facility] [place], [place]
[2022-06-25 19:38] VITALS: BP 157/65; PULSE 72; RESP 18; TEMP 36.7; O2SAT 97
[2022-06-25] MEDS: Mirtazapine 15 MG TAB 7.5 MG PO (19:47)
[2022-06-25] MEDS: Tacrolimus 0.5 MG CAP 1 MG PO (19:47)
[2022-06-25] MEDS: Atorvastatin 40 MG TAB PO (19:47)
[2022-06-25] MEDS: Doxazosin 2 MG TAB PO (19:47)
[2022-06-26] VITALS (9 sets, daily range): BP systolic 125–159; BP diastolic 64–73; PULSE 61–76; RESP 16–18; TEMP 36.3–37; O2SAT 96–98
[2022-06-26 07:10] LABS: Anion Gap 3.6 mmol/L (3-11); BUN 41 mg/dL (7-18); CO2 33.4 mmol/L (21.0-32.0); CREATININE 2.5 mg/dL (0.70-1.30); Calcium 9.3 mg/dL (8.5-10.1); Chloride 101 mmol/L (98-107); Estimated GFR 27.47 (mL/min/1.73m2); Glucose 160 mg/dL (74-106); Sodium 138 mmol/L (136-145)
[2022-06-26] MEDS: Isosorbide Mononitrate 30 MG TABCR PO (07:59)
[2022-06-26] MEDS: Clopidogrel 75 MG TAB PO (08:00)
[2022-06-26] MEDS: Pantoprazole 40 MG TABCR PO (08:00)
[2022-06-26] MEDS: Carvedilol 25 MG TAB PO ×2 (08:00→19:56)
[2022-06-26] MEDS: hydrALAZINE 25 MG TAB PO ×3 (08:00→19:57)
[2022-06-26] MEDS: Empaglifozin 10 MG TAB PO (08:00)
[2022-06-26] MEDS: Aspirin E.C. 81 MG TABEC PO (08:00)
--- NOTE | 2022-06-26 09:25 | PT.INTREAT ---
PT Notes Visit Reasons: Cerebrovascular accident Inpatient Physical Therapy Treatment Note [facility] Date: 06/26/22 PRECAUTIONS: SUBJECTIVE: Pt reports that his balance is still very unstable and states the the numbness on the entire R side is still about the same. OBJECTIVE: Supine-sit: SBA Sit-stand: CGA Stand-sit: CGA GAIT Assistive Device: FWW Weight bearing: Full Assist: CGA with min assist at time due to LOB Distance: Approx 50ft THEREX: Seated UE shoulder flexion x 10 B, Horz abd x 10, Rowing x 10, UE CW/CWW x 5 B, LAQ x 10, hip abd x 10, seated marching 10. ASSESSMENT: Pt had LOB multiple time during his ambulation some of which require min assist to regain. Pt required frequent standing rest periods. Pt is very discouraged with the R sided numbness. If Pt is doing better tomorrow I will try balance activities but felt his balance was challenged enough today just completing ambulation and standing. PLAN: Cont as per PT POC. TREATMENT CODE/TIME: 8:55-9:23 (28) JAN LUNA
--- NOTE | 2022-06-26 13:36 | PGE_ITS ---
Date of Service Date of service: 06/26/22 Time of Service: 13:36 Assessment and Plan Assessment and plan (1) History of liver transplant: Status: Acute Assessment and plan: LFTs and Bilirubin normal. On tacrolimus. Most recent level on 05/19/22 was low (<2.0). Recheck. (2) Immunosuppressed status: Status: Acute Assessment and plan: As above. (3) Atrial fibrillation: Status: Chronic Assessment and plan: On BB (carvedilol) and Eliquis. Discussed with Dr Del Rosario and decision made to change to Xarelto in event he was a failure of Eliquis. (4) Hypertension: Status: Chronic Assessment and plan: He is on carvedilol, cardura, hydralazine and isosorbide. SBP ranging fro 125 - 159. Avoid hypotension. (5) Non-ST elevation [place] (NSTEMI): Status: Acute Assessment and plan: Past history. On ASA (also plavix) and BB. No c/o CP. (6) Lacunar stroke: Status: Acute Assessment and plan: Paresthesia of right arm and leg and face. CT head negative. MRI head, MRA head: acute lacunar infarct of left thalamus MRA head/neck: Normal MRA examination of the [place]. Plaque at the proximal internal carotid arteries causing approximately 50 percent stenosis Cont Plavix, ASA. Changed from Eliquis to Xarelto in event this is related to an Eliquis failure. He endorses compliance with meds as does his daughter. Neurology following. Echocardiogram was obtained 1 month ago. A1c 6.5 on 05/19/22. LIpid panel: Total cholesterol 89, LDL 28, HDL 37. PT consulted; noting balance issue particularly. OT consulted. Speech consulted; regular solid and 0/thin liquids. Subjective Subjective Patient reports: no new complaints, tolerating a regular diet and afebrile; denies nausea, vomiting or shortness of breath Interval history since last seen: RLE coordination, along with Bilateral knee DJD, causing unsteady gait. Exam Narrative Exam Narrative: Sitting on side of bed. Pleasant, conversant. Const General: no acute distress Nutritional Appearance: underweight Orientation: alert and oriented x3 HENMT Head: atraumatic Ears: hearing grossly normal bilaterally Eyes General: appearance normal, both eyes and all related structures Sclera: sclerae normal Resp Effort & Inspection: normal respiratory effort Auscultation: clear to auscultation bilaterally Cardio Rate: regular rate Rhythm: abnormal rhythm irregularly irregular GI Inspection: non-distended Palpation: soft and nontender Skin General skin exam: no rashes or lesions noted Neuro General: abnormal to light touch, pain or propio. (Decreased LT and PP on right.), focal motor deficits present (Subtle R pronator drift. 4+/5 strength of R bicep/tricep and hip flexor. ) and not confused Cranial Nerves: PERRL and tongue midline Cognition: normal cognition Extrem General: no pedal edema and no calf tenderness Psych Appearance: grossly normal Mental Status: mental status grossly normal Affect: normal affect Thought Process: normal Thought Content: normal Insight: insight good Objective Last Vital Signs Temp 36.7 C 06/26/22 11:19 Pulse 71 06/26/22 11:19 Resp 16 06/26/22 11:19 BP 125/67 06/26/22 11:19 Pulse Ox 98 06/26/22 11:19 Laboratory Results - last 24 hr 06/24/22 06/26/22 13:43 06:32 Factor X Chromogenic 22 L Sodium 138 Potassium 4.0 Chloride 101 Carbon Dioxide 33.4 H Anion Gap 3.6 BUN 41 H Creatinine 2.5 H Est GFR (CKD-EPI 2020) 27.47 Glucose 160 H Calcium 9.3 Time Spent with Patient Time Spent with Patient: 25-34 minutes Time was spent: preparing to see the patient(eg.review tests), ordering medications,tests, procedures, referring, communicating with other health eye care professional, indepentently interpreting results and counseling the patient
[2022-06-26] MEDS: Rivaroxaban 15 MG TABLET PO (17:32)
[2022-06-26] MEDS: Mirtazapine 15 MG TAB 7.5 MG PO (19:56)
[2022-06-26] MEDS: Atorvastatin 40 MG TAB PO (19:56)
[2022-06-26] MEDS: Doxazosin 2 MG TAB PO (19:56)
[2022-06-26] MEDS: Tacrolimus 0.5 MG CAP 1 MG PO (19:57)
[2022-06-26] MEDS: oxyCODONE 5 MG TAB PO (19:58)
[2022-06-27] VITALS (8 sets, daily range): BP systolic 131–182; BP diastolic 70–84; PULSE 68–82; RESP 16–18; TEMP 36–37; O2SAT 96–100
[2022-06-27 06:28] LABS: Abs Immature Grans 0.01 10^3/uL (0.0-0.06); Absolute Basophil Count 0.01 10^3/uL (0.0-0.2); Absolute Eosinophil Count 0.33 10^3/uL (0.0-0.7); Absolute Lymphocyte Count 1.32 10^3/uL (1.2-3.4); Absolute Monocyte Count 0.54 10^3/uL (0.1-0.8); Absolute Neutrophil Count 2.65 10^3/uL (1.2-6.7); Basophils % 0.2; Eosinophils % 6.8; HCT 30.8 % (40.0-50.0); HGB 10.8 g/dL (13.5-17.5); Immature Grans % 0.2; Lymphocytes % 27.2; MCH 30.9 pg (27.0-33.0); MCHC 35.1 % (32.0-36.0); MCV 88 fL (80-95); MPV 10.7 fL (8.0-11.0); Monocytes % 11.1; Neutrophils % 54.5; Platelet Count 100 10^3/uL (130-400); RBC 3.49 10^6/uL (4.36-5.78); RDW 11.5 % (11.8-14.1); RDW-SD 36.4 fL; WBC 4.86 10^3/uL (4.4-10.8)
[2022-06-27 07:17] LABS: Anion Gap 9.5 mmol/L (3-11); BUN 45 mg/dL (7-18); CO2 31.5 mmol/L (21.0-32.0); CREATININE 2.5 mg/dL (0.70-1.30); Calcium 9.1 mg/dL (8.5-10.1); Chloride 102 mmol/L (98-107); Estimated GFR 27.47 (mL/min/1.73m2); Glucose 165 mg/dL (74-106); Sodium 143 mmol/L (136-145)
[2022-06-27] MEDS: Pantoprazole 40 MG TABCR PO (07:20)
[2022-06-27] MEDS: Aspirin E.C. 81 MG TABEC PO (07:20)
[2022-06-27] MEDS: Clopidogrel 75 MG TAB PO (07:20)
[2022-06-27] MEDS: hydrALAZINE 25 MG TAB PO ×3 (07:21→19:55)
[2022-06-27] MEDS: Empaglifozin 10 MG TAB PO (07:21)
[2022-06-27] MEDS: Isosorbide Mononitrate 30 MG TABCR PO (07:21)
[2022-06-27] MEDS: Carvedilol 25 MG TAB PO ×2 (07:21→19:54)
[2022-06-27] MEDS: oxyCODONE 5 MG TAB PO (07:31)
--- NOTE | 2022-06-27 08:51 | PT.INTREAT ---
PT Notes Visit Reasons: Cerebrovascular accident Inpatient Physical Therapy Treatment Note [facility] Date: 06/27/22 PRECAUTIONS: SUBJECTIVE: Pt reports that his dizziness is better today but the numbness is the same. OBJECTIVE: Sit-stand: CGA/SBA Stand-sit: CGA/SBA GAIT Assistive Device: FWW Weight bearing: Full Assist: CGA Distance: Approx 150ft THEREX: Seated HR/TR x 10, LAQ x 10, Marching x 20, hip abd x 15, UE rowing x 15, shoulder flex x 15, CW/CCW x 5 B, and horz abd x 15. ASSESSMENT: Pt's ambulation was significantly better today no LOB no assist. Pt did take one seated rest due to a cramp in the calf. Pt did not feel comfortable completing any balance activities yet. PLAN: Cont as per PT POC. TREATMENT CODE/TIME: 8:20-8:45 (25) JAN LUNA
--- NOTE | 2022-06-27 09:32 | W.PM.PROGNOT ---
Date of Service Date of service: 06/27/22 Time of Service: 09:32 Assessment and Plan Assessment and plan (1) Lacunar stroke: Status: Acute Assessment and plan: Paresthesia of right arm and leg and face. CT head negative. MRI head, MRA head: acute lacunar infarct of left thalamus MRA head/neck: Normal MRA examination of the [place]. Plaque at the proximal internal carotid arteries causing approximately 50 percent stenosis Cont Plavix, ASA. Changed from Eliquis to Xarelto in event this is related to an Eliquis failure. He endorses compliance with meds as does his daughter. Neurology following. Echocardiogram was obtained 1 month ago. A1c 6.5 on 05/19/22. LIpid panel: Total cholesterol 89, LDL 28, HDL 37. PT consulted; noting balance issue particularly. OT consulted. Speech consulted; regular solid and 0/thin liquids. patient would benefit from aggressive rehab; will ask PT and OT and OPERATIONS BOARDMAN their opinion about [facility] or [facility] vs local SNF; however, patient would like to stay local if possible. However, I think he would benefit from more aggressive PT and OT, I do not think he really has much needs from OPERATIONS BOARDMAN standpoint. Professional time spent interviewing and examining patient, discussion of goals of care with hospital team (care management, nursing and consulting professionals) was 30 minutes. (2) History of liver transplant: Status: Acute Assessment and plan: LFTs and Bilirubin normal. On tacrolimus. renal function stable although he has CKD. Most recent level on 05/19/22 was low (<2.0). Repeat level pending. (3) Immunosuppressed status: Status: Acute Assessment and plan: As above. (4) Atrial fibrillation: Status: Chronic Assessment and plan: On BB (carvedilol) and Eliquis. Discussed with Dr Del Rosario and decision made to change to Xarelto in event he was a failure of Eliquis. he remains on telemetry and rhythm remains sinus w/ some occasional ventricular trigeminy and bigeminy (5) Hypertension: Status: Chronic Assessment and plan: He is on carvedilol, cardura, hydralazine and isosorbide. SBP ranging from 140's to 180 although did have a low of 125/67 yesterday Avoid hypotension. Subjective Subjective Interval history since last seen: Patient still has right hemiparesthesias, numbness over his right side of his face, entire right arm and hand and right leg and foot. He is right handed and still finds himself clumsy w/ use of his right hand and leg. He has to look down to see where his right foot/leg are at so he does not cross his legs when stepping. Today he did better ambulating w/ walker requiring CGA and had no LOB. He is hopeful of getting into rehab at [facility]. Patient has had no CP, dyspnea, palpitations or lightheadness and no dizziness and no visual loss. Exam Narrative Exam Narrative: Ismael is alert and oriented x 3, no discomfort or distress HEENT: No facial asymmetry, speech is clear and coherent, normal mimetic muscle use; tongue midline, normal movement of his palate; EOMI; gross VF intact Extremities: normal ROM of both arms and legs; however, fine motor control is not as good w/ the right hand and right foot/leg Neuro: no CN deficits, motor as noted above; difficult time w/ heel to jeter on the right, clumsy compared to left but able to hold right leg up against gravity and against resistance to me. right hand spiral tube winder helper is weaker then left, w/ fine finger control clumsy; gross motor function w/ arm extension and flexion is good, although slightly weaker then left Objective Last Vital Signs Temp 36.2 C L 06/27/22 07:06 Pulse 75 06/27/22 07:06 Resp 16 06/27/22 07:06 BP 150/75 H 06/27/22 07:06 Pulse Ox 100 06/27/22 07:06 Laboratory Results - last 24 hr 06/27/22 06/27/22 05:46 05:46 WBC 4.86 RBC 3.49 L Hgb 10.8 L Hct 30.8 L MCV 88 MCH 30.9 MCHC 35.1 RDW 11.5 L Plt Count 100 L MPV 10.7 Immature Gran % 0.2 Neutrophils % 54.5 Lymphocytes % 27.2 Monocytes % 11.1 Eosinophils % 6.8 Basophils % 0.2 Nucleated RBC % 0.0 Absolute Neutrophils 2.65 Absolute Lymphocytes 1.32 Absolute Monocytes 0.54 Absolute Eosinophils 0.33 Absolute Basophils 0.01 Sodium 143 Potassium 4.0 Chloride 102 Carbon Dioxide 31.5 Anion Gap 9.5 BUN 45 H Creatinine 2.5 H Est GFR (CKD-EPI 2020) 27.47 Glucose 165 H Calcium 9.1 Time Spent with Patient Time Spent with Patient: 25-34 minutes Time was spent: preparing to see the patient(eg.review tests), ordering medications,tests, procedures, indepentently interpreting results, counseling the patient and care coordination
[2022-06-27] MEDS: Acetaminophen 325 MG TAB PO (16:39)
[2022-06-27] MEDS: Rivaroxaban 15 MG TABLET PO (17:41)
[2022-06-27] MEDS: Atorvastatin 40 MG TAB PO (19:54)
[2022-06-27] MEDS: Normal Saline Flush 10 ML SYR IVP (19:55)
[2022-06-27] MEDS: Mirtazapine 15 MG TAB 7.5 MG PO (21:06)
[2022-06-27] MEDS: Tacrolimus 0.5 MG CAP 1 MG PO (21:06)
[2022-06-27] MEDS: Doxazosin 2 MG TAB PO (21:07)
[2022-06-28 03:29] VITALS: BP 141/63; PULSE 77; RESP 16; TEMP 36.4; O2SAT 99
[2022-06-28] MEDS: Isosorbide Mononitrate 30 MG TABCR PO (07:41)
[2022-06-28] MEDS: Empaglifozin 10 MG TAB PO (07:41)
[2022-06-28] MEDS: Aspirin E.C. 81 MG TABEC PO (07:41)
[2022-06-28] MEDS: Carvedilol 25 MG TAB PO ×2 (07:41→19:45)
[2022-06-28] MEDS: Clopidogrel 75 MG TAB PO (07:41)
[2022-06-28] MEDS: hydrALAZINE 25 MG TAB PO ×3 (07:42→19:45)
[2022-06-28] MEDS: Normal Saline Flush 10 ML SYR IVP ×2 (07:42→19:45)
[2022-06-28] MEDS: Pantoprazole 40 MG TABCR PO (07:42)
[2022-06-28 08:09] VITALS: PULSE 82
--- NOTE | 2022-06-28 09:57 | PDOC.CMPRO ---
- If Service Date Differs Date of service: 06/28/22 Time of Service: 09:57 Care Management Progress Note S/O: Ismael is lying in bed. He is awake and easy to engage in conversation. CM shared with pt that an acute rehab referral was sent to [facility]. His preference is to stay local if able. Per MD, he is doing much better and may not need an acute rehab stay. CM spoke with about placement and is awaiting PT recommendation for acute rehab vs SNF. CM will follow. A: 67 year old male admitted to [facility] on 06/24/22 for CVA P: Per PT, Ismael will require SNF for STR prior to discharging home. CM faxed a referral to [facility] in [place], [place] at family's request. [facility]mael[facility] does not include LTC or Rehab stays.
--- NOTE | 2022-06-28 10:37 | PGE_ITS ---
Date of Service Date of service: 06/28/22 Time of Service: 10:37 Assessment and Plan Assessment and plan (1) Lacunar stroke: Status: Acute Assessment and plan: Paresthesia of right arm and leg and face. CT head negative. MRI head, MRA head: acute lacunar infarct of left thalamus MRA head/neck: Normal MRA examination of the [facility] [place]. Plaque at the proximal internal carotid arteries causing approximately 50 percent stenosis Cont Plavix, ASA. Changed from Eliquis to Xarelto in event this is related to an Eliquis failure. He endorses compliance with meds as does his daughter. Neurology following. Echocardiogram was obtained 1 month ago. A1c 6.5 on 05/19/22. LIpid panel: Total cholesterol 89, LDL 28, HDL 37. Currently on atorvastatin 40 mg daily PT consulted; noting balance issue particularly. Awaiting PTs follow-up session for this morning. OT consulted. Speech consulted; regular solid and 0/thin liquids. patient would benefit from aggressive rehab; will ask PT and OT and DOMESTIC LAUNDRY WORKER their opinion about [facility] vs local SNF; however, patient would like to stay local if possible. However, I think he would benefit from more aggressive PT and OT, I do not think he really has much needs from DOMESTIC LAUNDRY WORKER standpoint. As of this morning on 06/28/2022 he is showing remarkable improvement in his fine motor control. I am awaiting PT to work with him this morning to see how his balance is. He may not require a lot of inpatient rehabilitation at this stage. However patient does have to go up 16 or 17 stairs to get into his home. I think he would benefit from further therapy that focuses on his balance and his performance on stairs. Once he is into his second floor apartment he is all on 1 level. Professional time spent interviewing and examining patient, discussion of goals of care with hospital team (care management, nursing and consulting professionals) was 20 minutes. (2) History of liver transplant: Status: Acute Assessment and plan: LFTs and Bilirubin normal. On tacrolimus. renal function stable although he has CKD. Most recent level on 05/19/22 was low (<2.0). Repeat level pending. (3) Immunosuppressed status: Status: Acute Assessment and plan: As above. (4) Atrial fibrillation: Status: Chronic Assessment and plan: On BB (carvedilol) and Eliquis. Discussed with Dr Del Rosario and decision made to change to Xarelto in event he was a failure of Eliquis. he remains on telemetry and rhythm remains sinus w/ some occasional ventricular trigeminy and bigeminy with 1 run of ventricular tachycardia lasting about 5 beats at a rate of 125 bpm for which she was asymptomatic. (5) Hypertension: Status: Chronic Assessment and plan: He is on carvedilol, cardura, hydralazine and isosorbide. SBP ranging from 130s to 150 Avoid hypotension. (6) Discharge planning issues: Status: Acute Assessment and plan: Await today's PT and OT evaluation and session. Will discuss with case management regarding referrals to SNF versus advanced rehabilitation center such as [facility]. Subjective Subjective Interval history since last seen: Ismael states that he is continuing to improve. He has noticed that the numbness and tingling in his limbs is decreased. Still has some paresthesias in his right hand but no longer feels it in his forearm or upper arm and the tingling they felt his face is just confined over the malar eminence of his face. He has not noticed any difficulty swallowing. He has noticed that the clumsiness of his right hand has improved and he has much improved fine motor control in his right hand today. He has not ambulated for physical therapy yet. I talked with him about referral to [facility] versus referral to a local SNF. Although he prefers to remain closer to home he realizes that [facility] as a more intensive rehabilitation program. Exam Narrative Exam Narrative: Ismael is sitting up in bed he is alert and oriented person place time circumstance. Speech is clear coherent HEENT shows no facial droop he has full extraocular motion intact visual marie grossly intact to confrontation he has normal movement of his palate and tongue. Extremities show normal range of motion and strength. Rapid finger sequencing with his right hand shows good motor control compared to yesterday. Likewise fine motor movement with his right foot has improved he is able to do xkcc-lj-hron testing with equal agility as his left foot. Lungs are clear to auscultation Heart is regular rate and rhythm Abdomen soft and nontender Objective Last Vital Signs Temp 36.4 C L 06/28/22 03:29 Pulse 82 06/28/22 08:09 Resp 16 06/28/22 03:29 BP 141/63 H 06/28/22 03:29 Pulse Ox 99 06/28/22 03:29 Reviewed Pertinent PMH: Yes Objective Narrative Objective Narrative: Review of his telemetry with ICU nursing shows his rhythm to be sinus rhythm with a bundle branch block. He has frequent PVCs. He had 1 5 beat run of ventricular tachycardia at 1 AM for which she was asymptomatic. Patient seems to be aware of his ventricular ectopy and has been followed by his pin machine operator at the [facility] has had recent outpatient Holter testing. Time Spent with Patient Time Spent with Patient: <25 minutes Time was spent: preparing to see the patient(eg.review tests), ordering medications,tests, procedures, referring, communicating with other health career professional (Care management physical therapy), indepentently interpreting results, counseling the patient and care coordination
[2022-06-28 13:10] LABS: Tacrolimus 2.9 ng/mL (See Note)
[2022-06-28 13:14] LABS: Anion Gap 4.7 mmol/L (3-11); BUN 50 mg/dL (7-18); CO2 32.3 mmol/L (21.0-32.0); CREATININE 2.3 mg/dL (0.70-1.30); Calcium 8.9 mg/dL (8.5-10.1); Chloride 102 mmol/L (98-107); Estimated GFR 30.36 (mL/min/1.73m2); Glucose 166 mg/dL (74-106); Magnesium 1.9 mg/dL (1.8-2.4); Potassium 4.6 mmol/L (3.5-5.1); Sodium 139 mmol/L (136-145)
--- NOTE | 2022-06-28 15:43 | PT.INTREAT ---
PT Notes Visit Reasons: Cerebrovascular accident Inpatient Physical Therapy Treatment Note [facility] Date: 06/28/22 PRECAUTIONS: SUBJECTIVE: Pt reports that instead of just having numbness on the R side he feels like its electric or like there should be sparklers coming out of his hand. OBJECTIVE: Supine-sit: SBA Sit-stand: CGA/SBA Stand-sit: CGA/SBA GAIT Assistive Device: FWW Weight bearing: Full Assist: CGA Distance: Approx 300ft. Pt had his R knee slightly give out while walking but was able to recover I. THEREX: Seated UE: Shoulder flexion x 15, horz abd x 15, rowing x 15, CW/CCW x 10 B, LAQ x 15 B, seated march x 20, seated HR/TR x 20, and hip abd x 15 B. Pt was given a rolled towel work on hand squeezing. ASSESSMENT: Pt was able to tolerate more ambulation today and had no dizziness during his session today. Pt's knee giving out is not a new thing for him that has happened pre stroke. PLAN: Cont as per PT POC. TREATMENT CODE/TIME: 3-3:30 (30) JAN LUNA
[2022-06-28 15:52] VITALS: PULSE 68
[2022-06-28] MEDS: Rivaroxaban 15 MG TABLET PO (16:37)
--- NOTE | 2022-06-28 16:43 | PGE_ITS ---
Date of Service Date of service: 06/28/22 Time of Service: 16:43 Assessment and Plan Assessment and plan (1) Right sided weakness: Status: Acute Assessment and plan: Mr. Thomas has known afib/aflutter who presents with acute right hemiparesis and hemianaesthesia secondary to an acute L thalamic ischemic stroke. Work-up: -Apixaban anti-Xa (trough should be 41-230 for 5mg BID dose; if low, either non- compliance or drug resistance; if high, then dose needs to be lower based on renal function/weight) Medications: -aspirin 81mg daily for secondary stroke prevention -clopidogrel 75mg daily for secondary stroke prevention -atrovastatin 40mg daily for secondary stroke prevention -patient was on apixaban 5mg BID - but is borderline weight/cr between 2.5mg and 5mg dosing. Because of this and concern for drug failure opted to switch to rivaroxaban 15mg daily [CrCl 25] Other: -Ok to start lowering BP slowly to goal 120-140 systolic -Physical therapy for leg weakness, gait training -Occupation therapy for upper extremity weakness, activities of daily living Long-term Goals: -LDL <70 -A1c <7.0 [facility] He should f/up with neurology through the [facility] in 3-4 weeks. He is welcome to f/up with me if [facility] will cover this. Please call with any further questions/concerns. Subjective Subjective Interval history since last seen: Mr. Thomas notes no improvement over the weekend until today. Instead of a dense numbness on the right, it has become patchy and with some paraesthesias/tingling as well. He is noting improvement in cooridination. Apixaban changed to rivaroxaban 15mg daily. Tolerating without ADRs. Anti-Xa pending. Of note, afib dx in Feb 2022 - apixaban started sometime prior to 05/18/22 [facility] hospital admission. PT/OT still evaluating need for SNF, etc. Work-up: -MRI brain w/o (06/25/22): acute left thalamic ischemic infarct. Moderate atrophy and chronic vascular changes. I reviewed these images personally and this is my personal interpretation. -MRA head/neck (06/25/22): read by rads as ~50% stenosis bilateral proximal ICAs, though R appears >50% per my view. I reviewed these images personally and this is my personal interpretation. -CUS (06/24/22): ~50% stenosis bilaterally common carotid bulbs and proximal ICAs. Exam Narrative Exam Narrative: Physical Exam: Constitutional: Patient of apparent stated age, no acute distress Neuro: MS/Language/Speech: Alert, oriented, clear language (fluency and comprehension), no dysarthria CN: R nasolabial fold flattening has essentially resolved Motor: Normal bulk and tone. FMM intact, subtle R pronator drift. 5/5 strength in bilateral upper and lower extremities Sensation: reduced PP throughout right hemibody Coordination: Finger to nose performed without dysmetria Gait: not seen Objective Last Vital Signs Temp 97.5 F L 06/28/22 03:29 Pulse 68 06/28/22 15:52 Resp 16 06/28/22 03:29 BP 141/63 H 06/28/22 03:29 Pulse Ox 99 06/28/22 03:29 Laboratory Results - last 24 hr 06/26/22 06/28/22 06:32 12:30 Sodium 139 Potassium 4.6 Chloride 102 Carbon Dioxide 32.3 H Anion Gap 4.7 BUN 50 H Creatinine 2.3 H Est GFR (CKD-EPI 2020) 30.36 Glucose 166 H Calcium 8.9 Magnesium 1.9 Tacrolimus 2.9 Time Spent with Patient Time Spent with Patient: 25-34 minutes Time was spent: preparing to see the patient(eg.review tests), referring, communicating with other health physician primary care sports medicine, indepentently interpreting results and counseling the patient
[2022-06-28 19:41] VITALS: BP 148/76; PULSE 77; RESP 15; TEMP 36.6; O2SAT 96
[2022-06-28] MEDS: Atorvastatin 40 MG TAB PO (19:45)
[2022-06-28 22:46] VITALS: BP 163/81; PULSE 78; RESP 15; TEMP 36.7; O2SAT 98
[2022-06-28] MEDS: Mirtazapine 15 MG TAB 7.5 MG PO (22:47)
[2022-06-28] MEDS: Tacrolimus 0.5 MG CAP 1 MG PO (22:47)
[2022-06-28] MEDS: Doxazosin 2 MG TAB PO (22:47)
[2022-06-29] VITALS (8 sets, daily range): BP systolic 116–151; BP diastolic 52–82; PULSE 68–85; RESP 15–18; TEMP 36.2–37.1; O2SAT 97–99
[2022-06-29] MEDS: Isosorbide Mononitrate 30 MG TABCR PO (07:30)
[2022-06-29] MEDS: Normal Saline Flush 10 ML SYR IVP (07:30)
[2022-06-29] MEDS: Aspirin E.C. 81 MG TABEC PO (07:30)
[2022-06-29] MEDS: Pantoprazole 40 MG TABCR PO (07:30)
[2022-06-29] MEDS: Carvedilol 25 MG TAB PO ×2 (07:30→19:18)
[2022-06-29] MEDS: hydrALAZINE 25 MG TAB PO ×3 (07:30→19:17)
[2022-06-29] MEDS: Clopidogrel 75 MG TAB PO (07:31)
[2022-06-29] MEDS: Empaglifozin 10 MG TAB PO (07:35)
[2022-06-29] MEDS: oxyCODONE 5 MG TAB PO (07:35)
--- NOTE | 2022-06-29 08:44 | PDOC.CMPRO ---
- If Service Date Differs Date of service: 06/29/22 Time of Service: 08:44 Care Management Progress Note S/O: Ismael was lying in bed when CM met with him. He is awake and easily engages in conversation. He is working with PT, and improving. He no longer needs acute rehab and wants to stay locally. CM sent STR referral to [facility] at pt and family request. CM will follow. A: 67 year old male admitted to [facility] on 06/24/22 for CVA P: Per PT, Ismael will require SNF for STR prior to discharging home. CM sent referral to [facility] and [facility] is still pending, Ismael's [facility] connection does not include LTC or Rehab stays.
--- NOTE | 2022-06-29 11:56 | W.PM.PROGNOT ---
Date of Service Date of service: 06/29/22 Time of Service: 11:56 Assessment and Plan Assessment and plan (1) Lacunar stroke: Status: Acute Assessment and plan: Paresthesia of right arm and leg and face have improved. Fine motor control has improved. CT head negative. MRI head, MRA head: acute lacunar infarct of left thalamus MRA head/neck: Normal MRA examination of the [place] [facility] [place]. Plaque at the proximal internal carotid arteries causing approximately 50 percent stenosis Cont Plavix, ASA for secondary stroke prevention. Changed from Eliquis to Xarelto in event this is related to an Eliquis failure. He endorses compliance with meds as does his daughter. Antifactor Xa is pending. Neurology following. See Dr. Del Rosario's note for details. Echocardiogram was obtained 1 month ago. A1c 6.5 on 05/19/22. LIpid panel: Total cholesterol 89, LDL 28, HDL 37. Currently at goal. Currently on atorvastatin 40 mg daily Glycohemoglobin A1c was 6.5% as of May 19, 2022. Goal is less than 7%. PT and OT consulted. Speech consulted; regular solid and 0/thin liquids. Patient has indicated preference to go for inpatient rehab at a local senior living facility. Referral placed to [facility]. As of this morning on 06/29/2022 he is showing remarkable improvement in his fine motor control. He may not require a lot of inpatient rehabilitation at this stage. However patient does have to go up 16 or 17 stairs to get into his home. I think he would benefit from further therapy that focuses on his balance and his performance on stairs. Once he is into his second floor apartment he is all on 1 level. Professional time spent interviewing and examining patient, discussion of goals of care with hospital team (care management, nursing and consulting professionals) was 20 minutes. (2) History of liver transplant: Status: Acute Assessment and plan: LFTs and Bilirubin normal. On tacrolimus. renal function stable although he has CKD. Most recent level on 05/19/22 was low (<2.0). Repeat level acceptable at 2.9 (3) Immunosuppressed status: Status: Acute Assessment and plan: As above. (4) Atrial fibrillation: Status: Chronic Assessment and plan: On BB (carvedilol) and Eliquis. Discussed with Dr Del Rosario and decision made to change to Xarelto in event he was a failure of Eliquis. Currently on telemetry remains in sinus rhythm with bundle branch block pattern with frequent isolated PVCs. No further runs of [place]. We will plan for outpatient cardiac event recorder and have him follow-up with his counter pocket trimmer at the [facility]. (5) Hypertension: Status: Chronic Assessment and plan: He is on carvedilol, cardura, hydralazine and isosorbide. Target BP 120-140 systolic Avoid hypotension. Blood pressures ranging from 116/60 to as high as 163/81 last night. Patient remains on carvedilol 25 mg twice a day along with hydralazine 25 mg 3 times daily and Imdur 30 mg daily as well as doxazosin 2 mg at bedtime. (6) Discharge planning issues: Status: Acute Assessment and plan: Referral placed to [facility]. We will transfer when a bed becomes available. I expect he will only need a short-term stay at a senior living facility before returning home with home health services.. Subjective Subjective Interval history since last seen: Ismael continues to improve. He has good use of his right hand and arm now in the right leg. However he is having problems with hyperesthesia over his right arm and hand. The numbness is gone now and he can actually feel with his fingertips and distinguish shapes of objects that he is touching. But his arm just has kind of achy type sensation. Otherwise the facial paresthesias and leg paresthesias have improved. He did well with physical therapy and ambulating with his walker. His daughter Rosmery was here to visit him as helping to facilitate his admission over to [facility]. Patient declines to go to [facility]. I think his level of recovery so far has been significant enough that he may not need a higher level rehab facility such as [facility]. I talked him about thalamic strokes can lead people with chronic pain syndromes. He had been tried on gabapentin before and it made him too sedate. Right now he is not having significant of pain that he wants any medication for this. Exam Narrative Exam Narrative: Ismael is alert oriented [place] place time circumstance. HEENT no facial asymmetry. Normal speech pattern. Visual marie grossly intact. Lungs are clear to auscultation Heart is regular rate and rhythm Abdomen soft nontender nondistended normal bowel sounds Extremities no peripheral cyanosis or edema Neuro exam cranial nerves grossly intact no facial asymmetry normal speech normal cognition normal manual muscle testing of his arms hands and legs. He has good handgrip strength in both hands. No pronator drift. Normal [id number]-hrmh testing. Objective Last Vital Signs Temp 36.2 C L 06/29/22 11:09 Pulse 77 06/29/22 11:09 Resp 16 06/29/22 11:09 BP 116/60 06/29/22 11:09 Pulse Ox 97 06/29/22 11:09 Laboratory Results - last 24 hr 06/26/22 06/28/22 06:32 12:30 Sodium 139 Potassium 4.6 Chloride 102 Carbon Dioxide 32.3 H Anion Gap 4.7 BUN 50 H Creatinine 2.3 H Est GFR (CKD-EPI 2020) 30.36 Glucose 166 H Calcium 8.9 Magnesium 1.9 Tacrolimus 2.9 Time Spent with Patient Time Spent with Patient: <25 minutes Time was spent: preparing to see the patient(eg.review tests), ordering medications,tests, procedures, indepentently interpreting results, counseling the patient (And his daughter) and care coordination
--- NOTE | 2022-06-29 15:33 | PTTR_ITS ---
PT Notes Visit Reasons: Cerebrovascular accident Inpatient Physical Therapy Treatment Note [facility] Date: 06/29/22 SUBJECTIVE: Ismael states that he feels much better today. He feels as though his nerves are waking up. He is experiencing less numbness. He does c/o ache in right shld. States that he is not interested in going to [facility] for rehab. OBJECTIVE: [] BED MOBILITY/TRANSFERS Rolling L/R: I Supine-sit: I Sit-supine: I Sit-stand: I Stand-sit: I Bed-Chair: S Chair-bed: S GAIT Assistive Device:FWW Weight bearing: AT Assist: CGA/SBA Distance: approx 275' Deviation: 2 episodes of his knee giving away/ buckling of which he was able to recover independently. THEREX: global LE strengthening while seated including LAQ and hip flex. Balance ex: feet together and tandem R/L with arm swings, head turns up/down, right/left and eyes closed with feet together. Seated UE strengthening using green tband: rows, ext, tricep/ bicep x 10 each and horizontal abd with band x5. ASSESSMENT: tolerated session well. LOB x1 with balance ex and was able to recover independently. Increased right posterior shld/cuff discomfort post UE ex, however after a brief stretch, his discomfort subsided. PLAN: will continue to progress following PT POC progressing functional mobility TREATMENT CODE/TIME: 30 min [id number], and [id number]
--- NOTE | 2022-06-29 16:01 | PTTR_ITS ---
PT Notes Visit Reasons: Cerebrovascular accident PRECAUTIONS: Hemianesthesia on the right, activity as tolerated. SUBJECTIVE: Pt reports that he is regaining more sensation on his right side, right knee is starting to feel pain, agreed to participating with therapy. OBJECTIVE: ? Supine-sit: SBA? Sit-stand: SBA? Stand-sit: SBA ? GAIT? Assistive Device: FWW? Weight bearing: Full Assist: SBA ? Distance:? 600ft. Multiple right knee buckling with pt able to self recover. ? Therapeutic procedures [id number] 10mins: Instruction in therapeutic exercises to develop strength and endurance, range of motion and flexibility. Provided skilled instruction in proper exercise performance: Provided skilled manual cues to facilitate proper muscle recruitment and/or mo vement pattern: ? Exercises: ? Seated quad setting [id number], seated hip flexion [id number], seated hip abduction/ad duction [id number], seated knee flexion extension [id number], seated ankle pumping [id number].? ASSESSMENT:? pt able to go longer duration and distance with walking, pt happy with return of pain sensation on his right knee. PLAN: Continue with balance training, global strengthening and general conditioning for improved safety, mobility and activity tolerance. TREATMENT CODE/TIME: 3:00-3:30pm (30)? JAN LUNA
[2022-06-29] MEDS: Rivaroxaban 15 MG TABLET PO (17:42)
[2022-06-29] MEDS: Atorvastatin 40 MG TAB PO (19:18)
[2022-06-29] MEDS: Doxazosin 2 MG TAB PO (22:07)
[2022-06-29] MEDS: Tacrolimus 0.5 MG CAP 1 MG PO (22:08)
[2022-06-29] MEDS: Mirtazapine 15 MG TAB 7.5 MG PO (22:09)
[2022-06-30] VITALS (11 sets, daily range): BP systolic 117–142; BP diastolic 65–72; PULSE 69–78; RESP 16–18; TEMP 36.3–37.1; O2SAT 96–98
[2022-06-30] MEDS: hydrALAZINE 25 MG TAB PO ×3 (07:56→20:05)
[2022-06-30] MEDS: Carvedilol 25 MG TAB PO ×2 (07:56→20:05)
[2022-06-30] MEDS: Aspirin E.C. 81 MG TABEC PO (07:56)
[2022-06-30] MEDS: Pantoprazole 40 MG TABCR PO (07:57)
[2022-06-30] MEDS: Clopidogrel 75 MG TAB PO (07:57)
[2022-06-30] MEDS: Isosorbide Mononitrate 30 MG TABCR PO (07:57)
[2022-06-30] MEDS: Empaglifozin 10 MG TAB PO (07:57)
[2022-06-30] MEDS: oxyCODONE 5 MG TAB PO (08:02)
--- NOTE | 2022-06-30 08:58 | PTTR_ITS ---
PT Notes Visit Reasons: Cerebrovascular accident Inpatient Physical Therapy Treatment Note [facility] Date: 06/30/22 SUBJECTIVE: Pt reports that he has almost all feeling back in his face and he is starting to get some sensation on the rest of the R side. OBJECTIVE: Sit-stand: SBA Stand-sit: SBA GAIT Assistive Device: FWW Weight bearing: Ful Assist: CGA/SBA Distance: Approx 500ft No LOB or issues with the R knee giving out. Pt required one seated rest during ambulation. THEREX: Seated LE LAQ x 20 B, Hip abd x 20 B, marching x 15 B, HR/TR x 20, UE sh oulder flexion x 20 B, horz abd x 20, cw/ccw x [address], rowing x 20. ASSESSMENT: Pt tolerated today's session well. Did very well with ambulation today with no issues. PLAN: Cont as per PT POC. TREATMENT CODE/TIME: 8:30-8:55 (25) JAN LUNA
--- NOTE | 2022-06-30 10:26 | PDOC.CMPRO ---
- If Service Date Differs Date of service: 06/30/22 Time of Service: 10:26 Care Management Progress Note S/O: Ismael was up walking with PT this morning. He is awake and easily engages in conversation. Per evaluation, he will no longer require acute rehab and prefers to rehab locally. SNF referral to [facility] pending, per Mon[facility] of admissions prior authorization has been submitted-awaiting approval. CM continues to follow. A: 67 year old male admitted to [facility] on 06/24/22 for CVA P: Per PT, Ismael will require SNF for continued rehab prior to discharging home. Anticipate he will discharge to [facility] pending bed availability and insurance approval.
--- NOTE | 2022-06-30 13:24 | PGE_ITS ---
Date of Service Date of service: 06/30/22 Time of Service: 13:25 Assessment and Plan Assessment and plan (1) Lacunar stroke: Status: Acute Assessment and plan: Paresthesia of right arm and leg and face have improved. Fine motor control has improved. CT head negative. MRI head, MRA head: acute lacunar infarct of left thalamus MRA head/neck: Normal MRA examination of the [place]. Plaque at the proximal internal carotid arteries causing approximately 50 percent stenosis Cont Plavix, ASA for secondary stroke prevention. Changed from Eliquis to Xarelto in event this is related to an Eliquis failure. He endorses compliance with meds as does his daughter. Antifactor Xa is pending. Neurology following. See Dr. Del Rosario's note for details. Echocardiogram was obtained 1 month ago. A1c 6.5 on 05/19/22. LIpid panel: Total cholesterol 89, LDL 28, HDL 37. Currently at goal. Currently on atorvastatin 40 mg daily Glycohemoglobin A1c was 6.5% as of May 19, 2022. Goal is less than 7%. PT and OT consulted. Speech consulted; regular solid and 0/thin liquids. Patient has indicated preference to go for inpatient rehab at a local senior living facility. Referral placed to [facility]. Awaiting for this center to open up beds hopefully tomorrow. Fine motor control and paresthesias have markedly improved. Ambulation continues to improve. Professional time spent interviewing and examining patient, discussion of goals of care with hospital team (care management, nursing and consulting kalpana utbbs) was 20 minutes. (2) History of liver transplant: Status: Acute Assessment and plan: LFTs and Bilirubin normal. On tacrolimus. renal function stable although he has CKD. Most recent level on 05/19/22 was low (<2.0). Repeat level acceptable at 2.9 (3) Immunosuppressed status: Status: Acute Assessment and plan: As above. (4) Atrial fibrillation: Status: Chronic Assessment and plan: On BB (carvedilol) and Eliquis. Discussed with Dr Del Rosario and decision made to change to Xarelto in event he was a failure of Eliquis. Currently on telemetry remains in sinus rhythm with bundle branch block pattern with frequent isolated PVCs. No further runs of VT. 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 (5) Hypertension: Status: Chronic Assessment and plan: He is on carvedilol, cardura, hydralazine and isosorbide. Target BP 120-140 systolic Avoid hypotension. Blood pressures ranging from 116/60 to as high as 163/81 last night. Patient remains on carvedilol 25 mg twice a day along with hydralazine 25 mg 3 times daily and Imdur 30 mg daily as well as doxazosin 2 mg at bedtime. (6) Discharge planning issues: Status: Acute Assessment and plan: Referral placed to [facility]. We will transfer when a bed becomes available. I expect he will only need a short-term stay at a senior living facility before returning home with home health services.. Subjective Subjective Interval history since last seen: Ismael continues to improve he has noticed increased proven his fine motor control in his right hand. He now has improved stereognosis with his right hand. He has just slight residual numbness in the right cheek around his lower lip. No dysarthric speech no difficulty swallowing no loss of balance with ambulation with a walker. Per care management sounds like [facility] will be opened up tomorrow for admissions at which case he will transfer over there for short-term inpatient rehab stay. I talked with physical therapy they think he could possibly go home with home health care including nursing OT and PT. However his daughter has concerns about him getting in and out of his second floor apartment. He just started working with stairs with PT today. Exam Narrative Exam Narrative: Alert and oriented x3 normal speech no dysarthria no facial asymmetry. Lungs clear to auscultation Heart is regular rate and rhythm Neuro exam no focal motor deficits normal strength in his hand orthopaedic nurse as well as upper arms lower arms as well as both legs and feet. Grossly intact sensation over both arms and legs to light touch. Objective Last Vital Signs Temp 36.4 C L 06/30/22 11:22 Pulse 69 06/30/22 11:22 Resp 17 06/30/22 11:22 BP 132/69 06/30/22 11:22 Pulse Ox 98 06/30/22 11:22 Time Spent with Patient Time Spent with Patient: <25 minutes Time was spent: preparing to see the patient(eg.review tests), ordering medications,tests, procedures, counseling the patient and care coordination
--- NOTE | 2022-06-30 14:24 | PT.INTREAT ---
PT Notes Visit Reasons: Cerebrovascular accident Inpatient Physical Therapy Treatment Note [facility] Date: 06/30/22 SUBJECTIVE: Ismael continues to report improvements in his numbness and strength. OBJECTIVE: [] BED MOBILITY/TRANSFERS Supine-sit: S Sit-supine: S Sit-stand: S Stand-sit: S GAIT Assistive Device: FWW Weight bearing: full Assist: SBA Distance: approx 450' THEREX: performed sit to stand x 8 without use of hands, LAQ, SSH, HR x 10 each. Seated rows, ext, bicep curls and horizontal abd with Green tband x 10 each. STAIRS: ascend/descend 2x6 steps x 5 with use of B rails and SBA. ASSESSMENT: tolerated session well. Right knee buckled x 1 during ambulation which is his biggest concern descending steps at home. PLAN: continue to progress strength and functional mobility to tolerance. Possible s/c to [facility] or home tomorrow. TREATMENT CODE/TIME: 25 min [id number], [id number]
--- NOTE | 2022-06-30 14:33 | CHAPLAIN ---
Ismael said he expects to be discharged soon to [facility]. His daughter, Rosmery UlrichreyNILESH, is the candy maker there. Ismael said he's thinks he needs more support and work with PT before going home. He was pleasant and easily engaged in a conversation. We remembered one another from a previous admission.
[2022-06-30] MEDS: Rivaroxaban 15 MG TABLET PO (16:23)
[2022-06-30] MEDS: Atorvastatin 40 MG TAB PO (20:05)
[2022-06-30] MEDS: Tacrolimus 0.5 MG CAP 1 MG PO (22:04)
[2022-06-30] MEDS: Mirtazapine 15 MG TAB 7.5 MG PO (22:05)
[2022-06-30] MEDS: Doxazosin 2 MG TAB PO (22:05)
[2022-07-01 07:18] VITALS: BP 123/68; PULSE 76; RESP 17; TEMP 36.7; O2SAT 97
[2022-07-01] MEDS: Carvedilol 25 MG TAB PO (07:55)
[2022-07-01] MEDS: oxyCODONE 5 MG TAB PO (07:55)
[2022-07-01] MEDS: hydrALAZINE 25 MG TAB PO ×2 (07:55→13:23)
[2022-07-01] MEDS: Empaglifozin 10 MG TAB PO (07:55)
[2022-07-01] MEDS: Isosorbide Mononitrate 30 MG TABCR PO (07:55)
[2022-07-01] MEDS: Pantoprazole 40 MG TABCR PO (07:55)
[2022-07-01] MEDS: Clopidogrel 75 MG TAB PO (07:55)
[2022-07-01] MEDS: Aspirin E.C. 81 MG TABEC PO (07:56)
--- NOTE | 2022-07-01 09:55 | PT.INTREAT ---
Date of service: 07/01/22 Time of Service: 09:20 PT Notes Visit Reasons: Cerebrovascular accident Inpatient Physical Therapy Treatment Note [facility] Date: 07/01/2022 PRECAUTIONS:Hemianesthesia on the right, activity as tolerated. SUBJECTIVE: Patient reports feeling good, slept well, increased sensation on right side. Reports having a trick right knee that was present before the stroke. Eager to learn when he will be discharged and to where. OBJECTIVE: PAIN: Reports crepitus but denies pain BED MOBILITY/TRANSFERS Rolling L/R: Independent Supine-sit: Independent Sit-supine: Independent Sit-stand: Independent Stand-sit: Independent Bed-Chair: Independent Chair-bed: Independent GAIT Assistive Device: Front wheeled walker Weight bearing: Full Assist: Supervision Distance: 600 feet Deviation: Right knee gave out x3; once during level surface ambulation, twice on stairs. Patient reports that is why he was using the walking stick at home (single point wooden cane). Patient able to smoothly recover without assistance each time. Decreased walking speed, symmetrical stride length. THEREX: 30 second chair rise 6 reps. 10 total sit to stands. 2x10 quad sets (3 second hold, 3 relax) 2x10 straight leg raises. Patient education on role of quadriceps in locking knee during stance phase of ambulation so it doesn't give out. STAIRS: 22 stairs, supervision. 10 stairs with bilateral rail, 12 with single rail. Patient reports having only a single rail at home. Verbal cues for optimal gait sequence. ASSESSMENT: Pt able to go longer duration and distance with walking, pt happy with return of pain sensation on his right knee. PLAN: Continue with balance training, global strengthening and general conditioning for improved safety, mobility and activity tolerance. TREATMENT CODE/TIME: 42153 TherEx 12, 07208 Gait 21
--- NOTE | 2022-07-01 10:56 | W.PM.DS.N ---
Date of service: 07/01/22 Time of Service: 10:56 DS: Diagnosis Discharge Diagnosis (1) Lacunar stroke: Status: Acute (2) History of liver transplant: Status: Acute (3) Immunosuppressed status: Status: Acute (4) Atrial fibrillation: Status: Chronic (5) Hypertension: Status: Chronic Discharge Plan Disposition Patient Disposition: Assisted Facility(SNF) Condition: Stable Discharge Details Reason For Visit: CVA Admit Date/Time: 06/24/22 13:22 Admit Provider: Matt Prajapati Attending Provider: Matt Prajapati [facility] Hospital Course: This is a 67 year old male with history of Hep C, liver transplant in 2005 on tacrolimus, alcoholic liver disease, afib on Eliquis, HTN, HLD, NSTEMI, CKD, DM2.? He presented to the ED after 1 hour of right arm and right leg numbness as well as right arm and leg weakness.? His CT of the head was negative and he was admitted to med/surg for further evaluation and management. Neurology was consulted and MRI ultimately did reveal an acute lacunar infarct of left thalamus. recommendations are to continue atorvastatin and dual antiplatelet therapy with Plavix and ASA for secondary stroke prevention. Also changed from Eliquis to Xarelto in event this is related to an Eliquis failure. His jardiance was adjusted from 25 mg to 10 mg daily due to kidney function. while hospitalized he remained on telemetry and rhythm remains sinus w/ some occasional ventricular? trigeminy and bigeminy with 1 run of ventricular tachycardia lasting about 5 beats at a rate of 125 bpm for which he was asymptomatic. No adjustments to his medications were required. He had no further runs of VT while hospitalized and he should follow-up with his machine boss at the [facility] outpatient. He has remained medically stable and working with physical therapy and continues to report improvements in numbness and strength. He should continue to received PT/OT and referrals placed for inpatient rehabilitation. He has been accepted at [facility] and is being discharged for ongoing rehab. discussed with DR Lima. ? Home Meds and New Rx's Prescriptions: New Xarelto 15 mg Tablet 15 mg PO DAILY@1700 Qty: 0 0RF Jardiance 10 mg Tablet 10 mg PO DAILY Qty: 0 0RF Continued carvedilol [Coreg] 12.5 MG tablet 25 mg PO BID oxycodone 5 MG tablet 5 mg PO Q4H PRN Rx Instructions: Q4-6H PRN morphine 30 mg Tablet Extended Release 30 mg PO BID rabeprazole 20 mg Tablet,Delayed Release (Dr/Ec) 20 mg PO DAILY naloxone [Narcan] 4 mg/actuation spray,non-aerosol 4 mg CALE Q2M PRN (Reason: opioid overdose) Qty: 2 0RF Rx Instructions: spray 1 dose into ONE nostril; alternate nostrils w each dose until help arrives albuterol sulfate 90 mcg/actuation Aerosol Powdr Breath Activated 2 inh INHALATION TID PRN aspirin 81 mg Tablet 81 mg PO DAILY tacrolimus 1 mg Capsule 1 mg PO HS atorvastatin 40 mg Tablet 40 mg PO QPM Qty: 30 0RF polyethylene glycol 3350 17 gram Powder In Packet 17 g PO DAILY PRN PRN (Reason: Constipation) Qty: 0 0RF isosorbide mononitrate 30 mg Tablet Extended Release 24 Hr 30 mg PO DAILY Qty: 30 0RF hydralazine 25 mg Tablet 25 mg PO TID Qty: 30 0RF clopidogrel 75 mg Tablet 75 mg PO DAILY Qty: 30 0RF mirtazapine 15 mg Tablet 7.5 mg PO HS Qty: 30 0RF doxazosin 2 mg Tablet 2 mg PO HS Qty: 30 0RF Discontinued Eliquis 5 mg Tablet 5 mg PO BID empagliflozin 25 mg Tablet 25 mg PO DAILY Discharge Instructions Instructions: Stroke (DC) Stand Alone Forms: Nursing Discharge Form Referrals: [facility] [Outside] (cardiology and neurology) Activity:: PT/OT Equipment/Supplies:: No Equipment Needed Diet:: As Tolerated Discharge Orders Discharge Orders: Discharge Order (Routine); Ordered 07/01/22 Ordered By: Michelle Jennings DS: Summary Time Spent with Patient providing and/or coordinating discharge services: Greater than 30 minutes Status at Discharge Functional status at discharge: uses cane/walker Overall status at discharge: patient is progressing back to baseline Mental Status: mental status grossly normal Speech and Movement: speech and movement normal Mood: congruent mood Affect: normal affect Exam Const General: cooperative, comfortable and no acute distress Nutritional Appearance: thin HENMT Head: normal to inspection and normocephalic Chest Chest: normal inspection of the chest Resp Effort & Inspection: normal respiratory effort Cardio Rate: regular rate Rhythm: regular rhythm Skin General skin exam: no rashes or lesions noted Neuro General: patient alert, patient awake and patient oriented x3 Cognition: normal cognition Speech: speech normal Gait: gait assisted Method: walker (front wheeled) Extrem General: normal to inspection Psych Appearance: grossly normal Mental Status: mental status grossly normal Speech and Movement: speech and movement normal Mood: congruent mood Affect: normal affect Attitude: cooperative Thought Process: normal Thought Content: normal Insight: insight good Judgment: judgment good DS: Data Vitals/I&O Vitals and I&O: Vital Signs Temperature 36.7 C 07/01/22 07:18 Temperature Source Tympanic 07/01/22 07:18 Pulse 76 07/01/22 07:18 Pulse Rhythm Regular 07/01/22 08:00 Pulse 73 06/24/22 13:50 Respiratory Rate 17 07/01/22 07:18 Respiratory Effort Normal, Non-Labored 07/01/22 08:00 Respiratory Depth Normal 07/01/22 08:00 Respiratory Pattern Normal 07/01/22 08:00 Blood Pressure 123/68 07/01/22 07:18 Blood Pressure Mean 96 06/24/22 14:07 Pulse Oximetry 97 07/01/22 07:18 Oxygen Delivery Method Room Air 07/01/22 07:18 Oxygen Flow Rate 0 07/01/22 07:18 Pain Level 2 07/01/22 08:55 Comment BP called over radio 06/29/22 15:51 Intake & Output 06/30/22 06/30/22 07/01/22 11:59 23:59 11:59 Intake Total 10 / 1210 1200 / 1210 Output Total 1300 / 1550 250 / 1550 900 / 900 Balance -1290 / -340 950 / -340 -890 / -890 Intake: IV Oral 1200 / 1200 Output: Urine 1300 / 1550 250 / 1550 900 / 900 Other: Urine Color Yellow Yellow Pale Urine Appearance Clear Clear Clear Sediment Urine Odor None Normal Voiding Methods Urinal Urinal Urinal PFSH All Active Problems (Updated 06/28/22 @ 10:47 by Murphy Lima MD) Discharge planning issues (Acute) Lacunar stroke (Acute) Facial paresthesia (Acute) Right sided weakness (Acute) History of liver transplant (Acute) Chronic anticoagulation (Acute) Immunosuppressed status (Acute) Symptom of bladder outlet obstruction (Acute) Atrial flutter (Acute) Pneumonia (Acute) Atrial fibrillation (Chronic) Hypertension (Chronic) Palpitations (Acute) New onset atrial fibrillation (Acute) Liver transplant recipient (Chronic) Chronic kidney disease (Chronic) High cholesterol (Chronic) Diabetes (Chronic) Hypomagnesemia (Acute) Myoclonus (Acute) Ventricular ectopy (Acute) Medical History (Updated 06/28/22 @ 10:47 by Murphy Lima MD) Depression Erectile dysfunction Gastric ulcer GI bleeding Hepatitis C History of COVID-19 Myocardial infarction Non-ST elevation [place] (NSTEMI) SVT (supraventricular tachycardia) Tachycardia Surgical History H/O vasectomy S/P liver transplant Family History Mother Heart disease Sister Heart disease Brother Heart disease Other Diabetes Social History Smoking/Tobacco Use Status: Former Tobacco Use Smoking risk assessment performed?: Yes Alcohol Intake: former Drug use: Never Substance use type: does not use Do you feel safe at home: Yes Do you feel safe in your relationship?: Yes Additional Social history: recently ; still going through grieving process Time Spent with Patient Time Spent with Patient: 45-69 minutes Time was spent: preparing to see the patient(eg.review tests), obtaining and/or reviewing separately otained hiistory, ordering medications,tests, procedures, indepentently interpreting results, counseling the patient and care coordination
[2022-07-01 11:43] LABS: Source Nasal/Nares
--- NOTE | 2022-07-01 12:10 | PDOC.CMDIS ---
- If Service Date Differs Date of service: 07/01/22 Time of Service: 12:10 LACE Index Scoring Tool - Questions: Length of Stay (in days): 7 - 13 Acuity (Admit via E.D.?): Yes Comorbidities: Previous M.I., Cerebrovascular Disease, Diabetes w/o Complication, Liver or Renal Disease E.D. Visits: 4 - Answers: Total Score: 17 Risk of Readmission: High Risk Care Management Discharge Reason for Hospitalization: CVA Discharge Plan: Ismael transferred to [facility] today for short term rehab prior to returning home. He will transport via facility w/c van, coordinated by CM. He will follow up with his PCP and discharge plan of care. Patient/Family Education Needs: Review discharge instructions and limitations, discussion of self care needs including ask me three. Services Needed at Discharge: [facility] ([facility]), Transportation (facility w/c van)
[2022-07-01 12:32] LABS: COVID-19 PCR Negative (Negative)
--- NOTE | 2022-07-01 13:46 | NUR.NOTE ---
Nursing Note: Patient was P/U by transportation to be taken over to the SNF. DC instructions were reviewed with the patient & all questions & or concerns were addressed. PIV was removed w/o complications. All of patients belongings were bagged & taken with the patient.
--- NOTE | 2022-07-02 09:13 | INDS_ITS ---
Date of service: 07/01/22 PT Notes Visit Reasons: Cerebrovascular accident Physical Therapy Inpatient Discharge Summary Date: 07/01/2022 Date of service: 06/25/2022 through 07/01/2022 This is a clinical summary of care provided for the duration of dates listed above. No charge was made in the completion of this documentation. Referring Doctor:? Yoan Prajapati MD PT Orders: PT CONSULT: Eval/treat Precautions: Fall. Standard. Activity as tolerated. Patient Profile/Admitting Diagnosis:? This is a 67-year-old male with history of liver transplant within the past year who presented to the ED due to complaints of an hour-long right side facial n umbness with right arm and right leg weakness.? Patient is admitted for management of acute right hemiparesis and hemianesthesia, atrial fibrillation, hypertension, and NSTEMI. PMHX: All Active Problems? Facial paresthesia (Acute) Right sided weakness (Acute) History of liver transplant (Acute) Chronic anticoagulation (Acute) Immunosuppressed status (Acute) Symptom of bladder outlet obstruction (Acute) Atrial flutter (Acute) Pneumonia (Acute) Atrial fibrillation (Chronic) Hypertension (Chronic) Palpitations (Acute) Non-ST elevation ID (NSTEMI) (Acute) New onset atrial fibrillation (Acute) Liver transplant recipient (Chronic) Chronic kidney disease (Chronic) High cholesterol (Chronic) Diabetes (Chronic) Hypomagnesemia (Acute) Myoclonus (Acute) Ventricular ectopy (Acute) Medical History? Depression Erectile dysfunction Gastric ulcer GI bleeding Hepatitis C History of COVID-19 Myocardial infarction SVT (supraventricular tachycardia) Tachycardia Surgical History? H/O vasectomy S/P liver transplant Social History/Home Situation: Lives on the second floor of an apartment building with 18 steps to enter,? rail on one side.? Independent with all indoor and outdoor ambulation using single point wooden cane.? 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 Equipment Owned/DME: Single point cane, wooden Subjective: NT. See most recent DISABILITY COORDINATOR notes. Objective: General Observation: NT. See most recent DISABILITY COORDINATOR notes. Mental Status: NT. See most recent DISABILITY COORDINATOR notes. Pain: NT. See most recent DISABILITY COORDINATOR notes. Vital Signs: NT. See most recent DISABILITY COORDINATOR notes. ROM: Right Upper Extremity: ?Shoulder Flexion WFL. Shoulder abduction WFL. Elbow flexion WFL. Wrist flexion WFL. Functional opening and closing of hand WFL. Left Upper Extremity:? Shoulder Flexion WFL. Shoulder abduction WFL. Elbow flexion WFL. Wrist flexion WFL. Functional opening and closing of hand WFL. Right Lower Extremity: Hip flexion WFL. Hip abduction WFL. Knee flexion 30 degrees to 100 degrees. Knee extension -30 degrees.? Ankle dorsiflexion WFL. Ankle plantarflexion WFL. Left Lower Extremity: Hip flexion WFL. Hip abduction WFL. Knee flexion WFL. Ankle dorsiflexion WFL. Ankle plantarflexion WFL. Strength: Right Upper Extremity: Shoulder flexors 4-/5. Shoulder abductors 4-/5. Elbow flexors 4/5. Elbow extensors 4/5. Mat Machine Tender strong. Left Upper Extremity: Shoulder flexors 5/5. Shoulder abductors 5/5. Elbow f lexors 5/5. Elbow extensors 5/5. Mat Machine Tender strong. Right Lower Extremity: Hip flexors 4-/5. Hip abductors 5/5. Knee flexors 5/5. Knee extensors 3-/5. Ankle dorsiflexors 4/5. Ankle plantarflexors 4/5. Left Lower Extremity: Hip flexors 5/5. Hip abductors 5/5. Knee flexors 5/5. Knee extensors 4/5. Ankle dorsiflexors 4/5. Ankle plantarflexors 4/5. BED MOBILITY/TRANSFERS? Rolling L/R: Independent Supine-sit: Independent? Sit-supine: Independent ? Sit-stand: Independent? Stand-sit: Independent? Bed-Chair: Independent ? Chair-bed: Independent ? GAIT? Assistive Device: Front wheeled walker? Weight bearing: Full Assist: Supervision ? Distance: 600 feet? Deviation: Right knee gave out x3; once during level surface ambulation, twice on stairs. Patient reports that is why he was using the walking stick at home (single point nery cane). Patient able to smoothly recover without assistance each time. Decreased walking speed, symmetrical stride length. ? Stairs: Deferred Balance: Static Sitting: Normal Dynamic Sitting: Normal Static Standing: Fair Dynamic Standing: Fair Special Tests: Mobility Limitations Standardized Measure [facility] 6 clicks Basic Mobility Inpatient Short Form: Raw Score: 23? CMS Score: 11% deficit? ? ? Rapid? Alternating movement: Intact NEURO RE-ED: Facilitated and cued for safe placement of R LE to allow for maximal control by R quadriceps during ambulation performance.? Worked on ensuring that R knee is extended maximally prior to L limb advancement.? Verbal cues given throughout session for correct performance of transfers and in-room ambulation.? Emphasized slowed movement to optimize awareness on both sides for more coordinated movement transitions.? Cued on proper posture and walker management. Assessment: Dense R-sided hemianesthesia involving the face,? trunk, arm, and leg alongside R-sided hemiparesis,? myoclonus,? weak R quadriceps,? and dysequilibirum from acute CVA all contribute to high fall risk.? Lives alone and will not be able to thrive well at home with risk of rehospitalization.? Patient will require acute stroke rehab facility placement to address functional mobility deficits and weakness from admitting diagnoses. Patient presents with clinical signs and symptoms consistent with current/admitting diagnoses that have resulted to mobility limitations, gait instability, generalized weakness, and overall ADL decline as demonstrated by the following impairment level findings: 1.? Decreased strength to R UE and quadriceps 2.? Impaired standing balance 3.? Impaired activity tolerance 4.? R hemianesthesia Impairments are contributing to the following functional limitations: 1.? Difficulty with ambulation without assistive device 2.? Increased completion time for mobility ADL performance 3.? Increased risk for falls 4.? Difficulty with managing steps alone safely Goals: Goals X1 week 1. Supine-Sit independent 2. Sit-Supine independent 3. Sit-Stand independent with FWW 4. Stand-Sit independent with FWW 5. Bed-Chair independent with FWW 6. Chair-Bed independent with FWW 7. Independent gait on level surface with with FWW for at least 300 feet without report of pain nor dyspnea 8. Independent stair negotiation while holding onto bilateral rails for at least 18 steps without report of pain nor dyspnea 9. Good static and dynamic standing balance/tolerance DISCHARGE RECOMMENDATIONS: [] ? Home with no services [] [] ? Home with services [specify] [] ? Home with outpatient PT [] [] ? SNF for continued rehabilitation [] [] ? [facility] [] [] ? SNF versus LTC based on ability to participate and progress [] [X]? Patient will require acute stroke rehab placement to address mobility,? strength,? corrindation, and balance impairments listed above TREATMENT CODE/TIME: NC Thank you for the opportunity to participate in the care of this patient. Umu Cheek PT, DPT, CLT [facility] [place], [place]
== END 2022-07-01 13:46 | disposition skilled nursing facility (03) | DRG 65 ==
LOC: ER 14:41 → MS 14:47
PROVIDERS: Internal Medicine; Nurse Practitioner Acute Care; Psychiatry & Neurology Neurology; Admitting Provider Family Medicine; Emergency Provider Physician Assistant; PCP Internal Medicine Cardiovascular Disease; Visit Provider Family Medicine
DX: I63.81 Other cerebral infarction due to occlusion or stenosis of small artery (principal); D84.821 Immunodeficiency due to drugs; Z94.4 Liver transplant status; G81.91 Hemiplegia, unspecified affecting right dominant side; I48.92 Unspecified atrial flutter; I47.1 Supraventricular tachycardia; Z68.1 Body mass index [BMI] 19.9 or less, adult; R53.1 Weakness; Z79.621 Long term (current) use of calcineurin inhibitor; I48.91 Unspecified atrial fibrillation; Z79.01 Long term (current) use of anticoagulants; I25.10 Atherosclerotic heart disease of native coronary artery without angina pectoris; I25.2 Old myocardial infarction; N18.9 Chronic kidney disease, unspecified; I12.9 Hypertensive chronic kidney disease with stage 1 through stage 4 chronic kidney disease, or unspecified chronic kidney disease; R20.2 Paresthesia of skin; E11.22 Type 2 diabetes mellitus with diabetic chronic kidney disease; E83.42 Hypomagnesemia; F32.A Depression, unspecified; Z86.19 Personal history of other infectious and parasitic diseases; E78.00 Pure hypercholesterolemia, unspecified; N32.0 Bladder-neck obstruction; Z87.891 Personal history of nicotine dependence; Z87.11 Personal history of peptic ulcer disease; R63.6 Underweight; Z86.73 Personal history of transient ischemic attack (TIA), and cerebral infarction without residual deficits; M17.0 Bilateral primary osteoarthritis of knee; R26.81 Unsteadiness on feet; I65.23 Occlusion and stenosis of bilateral carotid arteries
CPT/HCPCS: 36410; 36415; 70544; 70547; 80048; 80053; 80061; 80299; 80375; 87635; 92610; 93005; 96360; 97110; 97112; 97116; 97162; 97530; 99223; 99233; 99285; 70450; 70551; 71046; 80197; 83735; 84484; 85025; 85260; 92523; 93010; 93880; 99231; 99232; 99239; J2060; J3490

== ENCOUNTER 2022-08-20 11:02 | Emergency (ER) | payer OTHER, SELFPAY ==
--- NOTE | 2022-08-20 11:00 | RT.EKG_ITS ---
APPROVED REPORT Exam: Resting ECG Reason for Exam: mily Patient Location: E HR:102 bpm ECG Measurements Heart Rate 102 AXIS MO 230 P 79 QRSd 135 QRS -100 QT 389 T 51 QTc 506 Conclusion Sinus tachycardia...rate> 99 Ventricular premature complex...V complex w/ short R-R interval Prolonged MO interval...MO >215, V-rate 91-120 Right atrial enlargement...P>0.25mV 2 lds or<-0.24mV aVR/aVL RBBB and LAFB...QRSd >120mS, axis(-40,240) sinus tachycardia, frequent PVCs
--- NOTE | 2022-08-20 11:00 | DI.CT_ITS ---
Exam(s) CT HEAD WO EXAM: CT HEAD WO CLINICAL HISTORY: hx of lacunar stroke, right side numbne. TECHNIQUE: Imaging Protocol: Axial computed tomography images with coronal and sagittal reformatted images were created and reviewed COMPARISON: CT CT HEAD WO from 06/24/2022 FINDINGS: Ventricles and Extra axial spaces: Normal in size and morphology for the patient's age. Hemorrhage: None. Cerebral parenchyma: No acute territorial infarct. Old basal gangliar and thalamic lacunar infarcts are seen on the left. There are areas of decreased attenuation in the white matter most consistent w ith small vessel ischemic disease. Midline shift: None. Brainstem/Cerebellum: Normal. Calvarium: Normal. Visualized Paranasal sinuses/Mastoids: Clear. Soft Tissues: Unremarkable. IMPRESSION: 1. No acute intracranial process. 2. Findings were discussed with the emergency department at 12:22 p.m. on 08/20/2022. RADIATION DOSE DELIVERED: 830.33mGy.cm Total DLP DATA REPOSITORY: All CT scans at this facility are submitted to the National Radiology Data Registry (NRDR) Dose Index Registry (DIR) with the [employer] (ACR). RADIATION OPTIMIZATION: All CT scans at this facility use at least one of these dose optimization te chniques: automated exposure control; mA and/or kV adjustment per patient size (includes targeted exa ms where dose is matched to clinical indication); or iterative reconstruction.
[2022-08-20 11:07] VITALS: BP 164/98; PULSE 105; RESP 20; TEMP 36.6; O2SAT 100
--- NOTE | 2022-08-20 11:15 | ED.GENADUL_ITS ---
Discharge Plan Disposition Patient Disposition: Home Discharge Details Chief Complaint: GenMedical Clinical Impression: Numbness, Palpitations Primary Care Provider: Hannah Farrell ED Provider: Matt Oliver Home Meds and New Rx's Prescriptions: No Action carvedilol [Coreg] 12.5 MG tablet 25 mg PO BID oxycodone 5 MG tablet 5 mg PO Q4H PRN Rx Instructions: Q4-6H PRN morphine 30 mg Tablet Extended Release 30 mg PO BID rabeprazole 20 mg Tablet,Delayed Release (Dr/Ec) 20 mg PO DAILY naloxone [Narcan] 4 mg/actuation spray,non-aerosol 4 mg CALE Q2M PRN (Reason: opioid overdose) Qty: 2 0RF Rx Instructions: spray 1 dose into ONE nostril; alternate nostrils w each dose until help arrives albuterol sulfate 90 mcg/actuation Aerosol Powdr Breath Activated 2 inh INHALATION TID PRN aspirin 81 mg Tablet 81 mg PO DAILY tacrolimus 1 mg Capsule 1 mg PO HS atorvastatin 40 mg Tablet 40 mg PO QPM Qty: 30 0RF polyethylene glycol 3350 17 gram Powder In Packet 17 g PO DAILY PRN PRN (Reason: Constipation) Qty: 0 0RF isosorbide mononitrate 30 mg Tablet Extended Release 24 Hr 30 mg PO DAILY Qty: 30 0RF hydralazine 25 mg Tablet 25 mg PO TID Qty: 30 0RF clopidogrel 75 mg Tablet 75 mg PO DAILY Qty: 30 0RF mirtazapine 15 mg Tablet 7.5 mg PO HS Qty: 30 0RF doxazosin 2 mg Tablet 2 mg PO HS Qty: 30 0RF Xarelto 15 mg Tablet 15 mg PO DAILY@1700 Qty: 0 0RF Jardiance 10 mg Tablet 10 mg PO DAILY Qty: 0 0RF Discharge Instructions Instructions: Heart Palpitations (ED), Paresthesia (ED) Additional Instructions: Please follow-up with your primary care physician at the [facility]. Please return to the emergency department for any worsening symptoms Medical Decision Making 67-year-old male history of lacunar stroke, A-fib on Xarelto, hypertension, liver transplant presents with sensation of sweats, palpitations and worsening of his right-sided numbness that has been progressive over the last day. Patient is alert oriented hemodynamically stable although hypertensive and tachycardic afebrile nontoxic no respiratory distress, noted to be tachycardic on arrival normal sinus rhythm with frequent PVCs. Skin does appear dry no peripheral edema. Consider dehydration versus electrolyte abnormality versus infectious etiology versus less likely CVA versus atypical ACS. Will obtain basic labs imaging light fluid EKG close reassessment disposition pending results and reassess 13: 13 patient resting comfortably asymptomatic feeling much better to rest and fluids. No evidence of new stroke no evidence of acute cardiac syndrome. [facility] Given home care instructions return precautions HPI General Date/Time Provider Initiated Documentation: 08/20/22 11:04 . HPI Narrative: 67-year-old male history of prior lacunar stroke with residual right-sided numbness presents with intermittent sweats fast heartbeat and worsening numbness to right side of his body that has been progressive over the last day. Related Data Home Medications Medication Instructions Recorded Confirmed carvedilol 12.5 mg tablet (Coreg) 25 mg PO BID 11/25/15 08/20/22 oxycodone 5 mg tablet 5 mg PO Q4H PRN 11/25/15 08/20/22 morphine 30 mg tablet,extended 30 mg PO BID 02/05/19 08/20/22 release rabeprazole 20 mg tablet,delayed 20 mg PO DAILY 02/05/19 08/20/22 release naloxone 4 mg/actuation nasal 4 mg intranasal Q2M PRN opioid 04/13/19 08/20/22 spray (Narcan) overdose #2 ea albuterol sulfate 90 mcg/actuation 2 inh inhalation TID PRN 10/31/20 08/20/22 breath activated powder inhaler aspirin 81 mg tablet 81 mg PO DAILY 10/31/20 08/20/22 tacrolimus 1 mg capsule, 1 mg PO HS 05/18/22 08/20/22 immediate-release atorvastatin 40 mg tablet 40 mg PO QPM #30 tabs 05/21/22 08/20/22 clopidogrel 75 mg tablet 75 mg PO DAILY #30 tabs 05/21/22 08/20/22 doxazosin 2 mg tablet 2 mg PO HS #30 tabs 05/21/22 08/20/22 hydralazine 25 mg tablet 25 mg PO TID #30 tabs 05/21/22 08/20/22 isosorbide mononitrate 30 mg 30 mg PO DAILY #30 tabs 05/21/22 08/20/22 tablet,extended release 24 hr mirtazapine 15 mg tablet 7.5 mg PO HS #30 tabs 05/21/22 08/20/22 polyethylene glycol 3350 17 gram 17 g PO DAILY PRN PRN Constipation 05/21/22 08/20/22 oral powder packet #0 ea empagliflozin 10 mg tablet 10 mg PO DAILY #0 tabs 07/01/22 08/20/22 (Jardiance) rivaroxaban 15 mg tablet (Xarelto) 15 mg PO DAILY@1700 #0 tabs 07/01/22 08/20/22 Previous Rx's Medication Instructions Recorded naloxone 4 mg/actuation nasal 4 mg intranasal Q2M PRN opioid 04/13/19 spray (Narcan) overdose #2 ea atorvastatin 40 mg tablet 40 mg PO QPM #30 tabs 05/21/22 clopidogrel 75 mg tablet 75 mg PO DAILY #30 tabs 05/21/22 doxazosin 2 mg tablet 2 mg PO HS #30 tabs 05/21/22 hydralazine 25 mg tablet 25 mg PO TID #30 tabs 05/21/22 isosorbide mononitrate 30 mg 30 mg PO DAILY #30 tabs 05/21/22 tablet,extended release 24 hr mirtazapine 15 mg tablet 7.5 mg PO HS #30 tabs 05/21/22 polyethylene glycol 3350 17 gram 17 g PO DAILY PRN PRN Constipation 05/21/22 oral powder packet #0 ea empagliflozin 10 mg tablet 10 mg PO DAILY #0 tabs 07/01/22 (Jardiance) rivaroxaban 15 mg tablet (Xarelto) 15 mg PO DAILY@1700 #0 tabs 07/01/22 Allergies Allergy/AdvReac Type Severity Reaction Status Date / Time cephalexin monohydrate Allergy Severe Anaphylaxsi Unverified 06/24/22 11:29 [From Keflex] s General Stated Complaint: GenMedical PAPO: 3 Review of Systems Narrative: Review of Systems Constitutional: Sweats Eyes: negative ENT: negative Cardiovascular: Palpitations Respiratory: negative Gastrointestinal: negative : negative Musculoskeletal: negative Skin: negative Neurologic: Numbness Psych: negative PFSH All Active Problems (Updated 08/20/22 @ 13:14 by Matt Oliver MD) Numbness (Acute) Palpitations (Acute) Lacunar stroke (Acute) Facial paresthesia (Acute) Right sided weakness (Acute) History of liver transplant (Acute) Chronic anticoagulation (Acute) Immunosuppressed status (Acute) Symptom of bladder outlet obstruction (Acute) Atrial flutter (Acute) Pneumonia (Acute) Atrial fibrillation (Chronic) Hypertension (Chronic) Palpitations (Acute) New onset atrial fibrillation (Acute) Liver transplant recipient (Chronic) Chronic kidney disease (Chronic) High cholesterol (Chronic) Diabetes (Chronic) Hypomagnesemia (Acute) Myoclonus (Acute) Ventricular ectopy (Acute) Medical History (Updated 08/20/22 @ 13:14 by Matt Oliver MD) Depression Erectile dysfunction Gastric ulcer GI bleeding Hepatitis C History of COVID-19 Myocardial infarction Non-ST elevation NC (NSTEMI) SVT (supraventricular tachycardia) Tachycardia Surgical History H/O vasectomy S/P liver transplant Family History Mother Heart disease Sister Heart disease Brother Heart disease Other Diabetes Social History Smoking/Tobacco Use Status: Former Tobacco Use Smoking risk assessment performed?: Yes Alcohol Intake: former Drug use: Never Substance use type: does not use Do you feel safe at home: Yes Do you feel safe in your relationship?: Yes Exam Narrative Exam Narrative: Physical Examination General: alert, awake, cooperative, resting comfortably, no acute distress HEENT: normocephalic, atraumatic; PERRL, EOM intact, conjunctiva normal; no nasal discharge; moist mucous membranes, oral and pharyngeal mucosa normal, tolerating secretions Neck: supple, trachea midline; full ROM Chest: normal to inspection Respiratory: normal respiratory effort, speaking in full sentences, clear to auscultation, no wheezing, rales or rhonchi Cardiac: Tachycardia, regular rhythm, S1S2 intact, no murmurs rubs or gallops GI: abdomen soft, non-tender, non-distended; no palpable mass or hepatosplenomegaly Skin: no lesions, rashes or trauma appreciated Neuro: AAOx3, normal speech, moving all extremities; cranial nerves II through XII intact, 5/5 strength upper and lower extremities, noted to Extremities: No peripheral edema Psych: Appropriate mood and affect Course Vital Signs Vital signs: Vital Signs Temperature 36.6 C 08/20/22 11:07 Pulse 105 H 08/20/22 11:07 Respiratory Rate 20 08/20/22 11:07 Blood Pressure 164/98 H 08/20/22 11:07 Pulse Oximetry 100 08/20/22 11:07 Temperature 36.6 C 08/20/22 11:07 Temperature Source Oral 08/20/22 11:07 Pulse 105 H 08/20/22 11:07 Respiratory Rate 20 08/20/22 11:07 Blood Pressure 164/98 H 08/20/22 11:07 Blood Pressure Position Sitting 08/20/22 11:07 Pulse Oximetry 100 08/20/22 11:07 Oxygen Delivery Method Room Air 08/20/22 11:07 Oxygen Flow Rate 0 08/20/22 11:07
[2022-08-20 11:29] LABS: Abs Immature Grans 0.02 10^3/uL (0.0-0.06); Absolute Basophil Count 0.02 10^3/uL (0.0-0.2); Absolute Eosinophil Count 0.03 10^3/uL (0.0-0.7); Absolute Lymphocyte Count 1.03 10^3/uL (1.2-3.4); Absolute Monocyte Count 0.44 10^3/uL (0.1-0.8); Absolute Neutrophil Count 5.67 10^3/uL (1.2-6.7); Basophils % 0.3; Eosinophils % 0.4; HCT 40.9 % (40.0-50.0); HGB 13.9 g/dL (13.5-17.5); Immature Grans % 0.3; Lymphocytes % 14.3; MCH 30.3 pg (27.0-33.0); MCV 89 fL (80-95); MPV 10.3 fL (8.0-11.0); Monocytes % 6.1; Neutrophils % 78.6; Platelet Count 168 10^3/uL (130-400); RBC 4.59 10^6/uL (4.36-5.78); RDW 12.4 % (11.8-14.1); RDW-SD 40.2 fL; WBC 7.21 10^3/uL (4.4-10.8)
[2022-08-20 11:44] LABS: INR 1.6 (0.9-1.1); PTT Activated 35.9 sec (21.5-31.9)
[2022-08-20 11:55] LABS: ALT 24 U/L (16-63); AST 24 U/L (15-37); Albumin 4.4 g/dL (3.4-5.0); Alkaline Phosphatase 102 U/L (46-116); Anion Gap 7.9 mmol/L (3-11); BUN 36 mg/dL (7-18); Bilirubin, Total 0.7 mg/dL (0.2-1.0); CO2 33.1 mmol/L (21.0-32.0); CREATININE 2.4 mg/dL (0.70-1.30); Calcium 9.7 mg/dL (8.5-10.1); Chloride 94 mmol/L (98-107); Estimated GFR 28.85 (mL/min/1.73m2); Glucose 256 mg/dL (74-106); Magnesium 2.3 mg/dL (1.8-2.4); Potassium 4.2 mmol/L (3.5-5.1); Sodium 135 mmol/L (136-145); Total Protein 8.8 g/dL (6.4-8.2); Troponin I < 50 ng/L (<or=60)
--- NOTE | 2022-08-20 12:06 | DI.RAD_ITS ---
Exam(s) XR CHEST 2V PA LATERAL EXAM: XR CHEST 2V PA LATERAL CLINICAL HISTORY: sweats TECHNIQUE: 2D digital imaging was performed of the chest. Two images were obtained. PA and lateral views were obtained. COMPARISON: CR ABD FLAT UPRIGHT PA CHEST from 01/27/2010 CR XR CHEST 2V PA LATERAL from 04/13/2019 CR,XR XR PORTABLE CHEST AP from 10/31/2020 CR,XR XR CHEST 2V PA LATERAL from 03/11/[address] CHEST WO from 05/18/2022 CR XR CHEST 2V PA LATERAL from 06/24/2022 FINDINGS: MEDIASTINUM: Normal. HEART: Normal. PULMONARY VASCULATURE: Normal. LUNGS: The opacity in the right lung apex is unchanged dating back to 2019. There is unchanged volum e loss in the right hemithorax. No new pulmonary infiltrates are seen. PLEURAL SPACE: No pleural effusion or pneumothorax. BONE:Within normal limits for the patient's age. OTHER FINDINGS:Normal. IMPRESSION: 1. No acute pulmonary findings. 2. No change in appearance of the right hemithorax. The right apical findings appears stable compare d to prior CT scans and chest x-rays. DATA REPOSITORY: RADIATION DOSE DELIVERED:
[2022-08-20] MEDS: Normal Saline 500 ML 1000 ML IV (12:16)
== END 2022-08-20 15:44 | disposition home or self-care (01) ==
PROVIDERS: Emergency Provider Emergency Medicine; PCP Internal Medicine Cardiovascular Disease
DX: R00.2 Palpitations (principal); R20.0 Anesthesia of skin
CPT/HCPCS: 80053; 93005; 99285; 70450; 71046; 81003; 83735; 84443; 84484; 85025; 85610; 85730; 93010; 99284

== ENCOUNTER 2025-01-06 16:13 | Inpatient (IN) | payer OTHER, SELFPAY ==
[2025-01-06] VITALS (53 sets, daily range): BP systolic 139–190; BP diastolic 53–135; PULSE 41–78; RESP 11–25; TEMP 36.8–37; O2SAT 96–99
--- NOTE | 2025-01-06 16:15 | RT.EKG_ITS ---
APPROVED REPORT Exam: Resting ECG Reason for Exam: possible stroke Patient Location: E HR:73 bpm ECG Measurements Heart Rate 73 AXIS RI 194 P 50 QRSd 145 QRS 94 QT 420 T 59 QTc 463 Conclusion Sinus rhythm, rate 73 No interval abnormalities other than RBBB, which was present on prior No STEMI
--- NOTE | 2025-01-06 16:45 | DI.RAD_ITS ---
Exam(s) XR CHEST 1V IN DI DEPT EXAM: XR CHEST 1V IN DI DEPT CLINICAL HISTORY: cva TECHNIQUE: 2D digital imaging was performed of the chest. One image was obtained. An AP view was obtained. COMPARISON: CR XR CHEST 2V PA LATERAL from 04/13/2019 CR,XR XR CHEST 2V PA LATERAL from 03/11/[address] CHEST WO from 05/18/2022 CR XR CHEST 2V PA LATERAL from 08/20/2022 FINDINGS: MEDIASTINUM: Normal. HEART: Normal. PULMONARY VASCULATURE: Normal. LUNGS: There is a persistent opacity in the right lung apex which may represent scarring. There is volume loss noted in the right hemithorax which appears stable. The left lung is clear. No new infiltrates are seen on the right. PLEURAL SPACE: No pleural effusion or pneumothorax. BONE:Within normal limits for the patient's age. OTHER FINDINGS:There is again seen elevation of the right hemidiaphragm. IMPRESSION: 1. Stable volume loss in the right hemithorax with stable opacity in the right lung apex. 2. No acute pulmonary process. 3. The preliminary [facility] report was reviewed. DATA REPOSITORY: RADIATION DOSE DELIVERED:
--- NOTE | 2025-01-06 16:46 | DI.CT_ITS ---
Exam(s) CT HEAD WO EXAM: CT HEAD WO CLINICAL HISTORY: homonymous hemianopia, headache, LKW 2100. TECHNIQUE: Imaging Protocol: Axial computed tomography images with coronal and sagittal reformatted images were created and reviewed COMPARISON: CT CT HEAD WO from 06/24/[address] HEAD WO from 08/20/2022 FINDINGS: Ventricles and Extra axial spaces: Normal in size and morphology for the patient's age. Hemorrhage: None. Cerebral parenchyma: New area of decreased attenuation in the medial aspect of the left occipital lobe resulting in effacement of the adjacent sulci. There is no midline shift. Findings are suspicious for subacute infarct. There are areas of decreased attenuation in the white matter consistent with chronic microvascular ischemic disease. There is an old lacune in the left thalamus. Midline shift: None. Brainstem/Cerebellum: Normal. Calvarium: Normal. Visualized Paranasal sinuses/Mastoids: Clear. Soft Tissues: Unremarkable. IMPRESSION: 1. Finding most suggestive of a subacute infarct involving the left occipital lobe. Mass is considered less likely but cannot be entirely excluded. MRI without and with brain or CT head with contrast should be considered for further evaluation to exclude neoplasm. 2. There is no midline shift or mass effect. No intracranial hemorrhage is seen. 3. The preliminary [facility] report was reviewed. RADIATION DOSE DELIVERED: 863.44mGy.cm Total DLP DATA REPOSITORY: All CT scans at this facility are submitted to the National Radiology Data Registry (NRDR) Dose Index Registry (DIR) with the [employer] (ACR). RADIATION OPTIMIZATION: All CT scans at this facility use at least one of these dose optimization techniques: automated exposure control; mA and/or kV adjustment per patient size (includes targeted exams where dose is matched to clinical indication); or iterative reconstruction.
[2025-01-06 16:58] LABS: Abs Immature Grans 0.01 10^3/uL (0.0-0.06); HCT 33.7 % (40.0-50.0); HGB 11.2 g/dL (13.5-17.5); Immature Grans % 0.2 %; MCH 30.3 pg (27.0-33.0); MCHC 33.2 % (32.0-36.0); MCV 91 fL (80-95); MPV 10.0 fL (8.0-11.0); Platelet Count 113 10^3/uL (130-400); RBC 3.70 10^6/uL (4.36-5.78); RDW 11.9 % (11.8-14.1); RDW-SD 39.9 fL; WBC 4.93 10^3/uL (4.4-10.8)
[2025-01-06 17:17] LABS: ALT 20 U/L (16-63); AST 15 U/L (15-37); Albumin 3.6 g/dL (3.4-5.0); Alkaline Phosphatase 109 U/L (46-116); Anion Gap 7.4 mmol/L (3-11); BUN 30 mg/dL (7-18); Bilirubin, Total 0.5 mg/dL (0.2-1.0); CO2 29.6 mmol/L (21.0-32.0); Calcium 8.5 mg/dL (8.5-10.1); Chloride 100 mmol/L (98-107); Glucose 193 mg/dL (74-106); Magnesium 2.0 mg/dL (1.8-2.4); Potassium 4.7 mmol/L (3.5-5.1); Sodium 137 mmol/L (136-145); Total Protein 7.1 g/dL (6.4-8.2); Troponin I 10 ng/L (<or=76)
--- NOTE | 2025-01-06 17:44 | DI.[facility]_ITS ---
PROCEDURE INFORMATION: Exam: XR Chest Exam date and time: 01/06/2025 5:23 PM Age: 69 years old Clinical indication: Other: CVA TECHNIQUE: Imaging protocol: Radiologic exam of the chest. Views: 1 view. COMPARISON: CR XR CHEST 2V PA LATERAL 08/20/2022 12:02 PM FINDINGS: Lungs: Persistent mild interstitial coarsening without new consolidation. Pleural spaces: See Diaphragm finding. Heart/Mediastinum: Narrow cardiomediastinal silhouette. Vasculature: Tortuous mildly atheromatous aorta. Diaphragm: Similar right hemidiaphragm elevation. Similar bilateral apical pleural thickening, right greater than left. Relatively lucent lung zones, possibly representing emphysema. Bones/joints: No acute osseous abnormality. IMPRESSION: No acute process. Multiple chronic findings. Dictated and Authenticated by: Bri Reese MD. Orderin Shaina Abad MD
--- NOTE | 2025-01-06 17:45 | DI.CT_ITS ---
Exam(s) CT BRAIN NECK CTA EXAM: CT BRAIN NECK CTA CLINICAL HISTORY: infarct left, with right homonymous [place]man[place]. TECHNIQUE: Imaging Protocol: Axial CT angiography was performed with multi- slice acquisition and multi-planar and/or 3D reconstructions. CONTRAST MATERIAL: Intravenous: Omnipaque 350 contrast volume:70 mL COMPARISON: CT CT CHEST WO from 05/18/2022 CR,XR XR CHEST 1V IN DI DEPT from 01/06/[address] HEAD WO from 01/06/2025 FINDINGS: CT Head w: Ventricles and Extra axial spaces: Normal in size and morphology for the patient's age. Hemorrhage: None. Cerebral parenchyma: There is again seen a nonenhancing area of decreased attenuation in the medial aspect of the left occipital lobe with a mass effect on the adjacent sulci. There is most consistent with an acute infarct. There are old lacunar infarcts seen in the left basal ganglia and left thalamus. There are areas of decreased attenuation in the white matter consistent with chronic microvascular ischemic disease. Midline shift: None. Brainstem/Cerebellum: Normal. Calvarium: Normal. Visualized Paranasal sinuses/Mastoids: Clear. Soft Tissues: Unremarkable. Enhancement: Unremarkable. CTA Neck W: Common Carotid: Right: No dissection, occlusion or significant stenosis. Left: No dissection, occlusion or significant stenosis. External Carotid: Right: No occlusion or significant stenosis. Left: No occlusion or significant stenosis. Internal Carotid: Right: No dissection, occlusion or significant stenosis. There is atherosclerotic calcification at the origin of the internal carotid artery with less than 50 percent stenosis. Left: No dissection, occlusion or significant stenosis. There is atherosclerotic calcification at the origin of the internal carotid artery with less than 50 percent stenosis. Vertebral Artery: Right: No dissection, occlusion or significant stenosis. Left: No dissection, occlusion or significant stenosis. Lung Apices: There is a persistent area of consolidation in the right upper lobe. Bones: Within normal limits for the patient's age. Soft Tissues: Normal. Thyroid gland: Unremarkable. CTA Brain W: Internal Carotid Arteries: There is atherosclerotic calcifications seen in the cavernous portions of the internal carotid arteries bilaterally with less than 50 percent stenosis. Anterior Cerebral Arteries: Right: No aneurysm, occlusion or significant stenosis. Left: No aneurysm, occlusion or significant stenosis. Middle Cerebral Arteries: Right: No aneurysm, occlusion or significant stenosis. Left: No aneurysm, occlusion or significant stenosis. Posterior Cerebral Arteries: Right: No aneurysm, occlusion or significant stenosis. Left: No aneurysm, occlusion or significant stenosis. There is occlusion of distal left posterior cerebral artery branches (series 42, image 22). Vertebral Arteries: There is atherosclerotic calcification in the distal vertebral arteries with less than 50 percent stenosis. Right: No aneurysm, occlusion or significant stenosis. Left: No aneurysm, occlusion or significant stenosis. Basilar Artery: No aneurysm, occlusion or significant stenosis. IMPRESSION: 1. Occlusion of distal left posterior cerebral artery branches (series 42, images 21-23). 2. Acute infarct involving the medial aspect of the left occipital lobe. 3. Stable right upper lobe opacities. 4. No occlusion or significant stenosis on the CT angiography of the neck. 5. The preliminary [facility] report was reviewed. RADIATION DOSE DELIVERED: 1,412.85mGy.cm Total DLP DATA REPOSITORY: All CT scans at this facility are submitted to the National Radiology Data Registry (NRDR) Dose Index Registry (DIR) with the [employer] (A[employer]). RADIATION OPTIMIZATION: All CT scans at this facility use at least one of these dose optimization techniques: automated exposure control; mA and/or kV adjustment per patient size (includes targeted exams where dose is matched to clinical indication); or iterative reconstruction.
--- NOTE | 2025-01-06 17:56 | DI.[facility]_ITS ---
PROCEDURE INFORMATION: Exam: CT Head Without Contrast Exam date and time: 01/06/2025 4:56 PM Age: 69 years old Clinical indication: Stroke-like symptoms; Visual disturbance TECHNIQUE: Imaging protocol: Computed tomography of the head without contrast. Other technique: STROKE PROTOCOL was implemented. COMPARISON: CT HEAD WO 08/20/2022 11:55 AM FINDINGS: Brain: A new hypoattenuating focus in the medial left occipital lobe with mild sulcal effacement without midline shift or ventricular compression, most consistent with a subacute infarct in the INSOLE TACK PULLER HAND distribution; a parenchymal mass is less likely.Diffuse involutional changes with white matter hypodensities suggestive of small vessel disease. No midline shift or mass effect. Chronic left sided lacunar infarcts involving the thalamus and basal ganglia. Cerebral ventricles: Prominent ventricles, proportional to volume loss. Paranasal sinuses: Visualized sinuses are unremarkable. No fluid levels. Mastoid air cells: Visualized mastoid air cells are well aerated. Bones: No acute fracture. Soft tissues: No acute changes Vasculature: The vasculature demonstrates atherosclerotic calcification. IMPRESSION: Probable subacute left INSOLE TACK PULLER HAND distribution infarct. Consider CTA head and neck to exclude large vessel occlusion if warranted clinically. Consider MRI brain with and without contrast characterize further and exclude unlikely possibility of neoplasm. ASSESSMENT: ASPECTS (Nancy Stroke Program Early CT Score) is 10; the new findings are centered within the INSOLE TACK PULLER HAND distribution rather than the MCA distribution. Dictated and Authenticated by: Bri Reese MD. Orderin Shaina Abad MD
[2025-01-06] MEDS: Normal Saline - Diluent 50 ML VIAL IJ (18:11)
[2025-01-06] MEDS: Omnipaque 350 MG/ML 100 ML BTL IJ (18:11)
[2025-01-06 18:22] LABS: Troponin I 10 ng/L (<or=76)
--- NOTE | 2025-01-06 19:08 | DI.[facility]_ITS ---
PROCEDURE INFORMATION: Exam: CTA Head Without And With Contrast, Arteriography Exam date and time: 01/06/2025 6:05 PM Age: 69 years old Clinical indication: Other: Infarct left, with right homonymous [place] TECHNIQUE: Imaging protocol: Computed tomographic angiography of the head without and with contrast. Exam focused on the arteries. 3D rendering (Not supervised by radiologist): MIP and/or 3D reconstructed images were created by the technologist. Contrast material: 350; Contrast volume: 70 ml; Contrast route: INTRAVENOUS (IV); COMPARISON: CT HEAD WO 01/06/2025 4:56 PM FINDINGS: ANTERIOR CIRCULATION: Right internal carotid artery: Moderate atheromatous calcification is present within the cavernous portions of the right internal carotid arteries. Less than 50% luminal stenosis. Right middle cerebral artery: No occlusion or significant stenosis. No aneurysm. Right anterior cerebral artery: No occlusion or significant stenosis. No aneurysm. Left internal carotid artery: Moderate atheromatous calcification is present within the cavernous portions of the left internal carotid arteries. Less than 50% luminal stenosis. Left middle cerebral artery: No occlusion or significant stenosis. No aneurysm. Left anterior cerebral artery: No occlusion or significant stenosis. No aneurysm. POSTERIOR CIRCULATION: Right vertebral artery: No occlusion or significant stenosis. No aneurysm. Left vertebral artery: No occlusion or significant stenosis. No aneurysm. Basilar artery: No occlusion or significant stenosis. No aneurysm. Right posterior cerebral artery: No occlusion or significant stenosis. No aneurysm. Left posterior cerebral artery: No occlusion or significant stenosis. No aneurysm. HEAD: Brain: Normal. No hemorrhage. Unremarkable white matter. No mass effect. Cerebral ventricles: Normal. No ventriculomegaly. Bones: Unremarkable. No acute fracture. Paranasal sinuses: Visualized sinuses are normal. No fluid levels. Mastoid air cells: Visualized mastoids are normal. No mastoid effusion. Soft tissues: Unremarkable. IMPRESSION: Mild stenosis at the cavernous portions of the bilateral internal carotid arteries. No other hemodynamically significant stenosis, occlusion, or aneurysm. ASSESSMENT: ASPECTS (Nancy Stroke Program Early CT Score) is 10. PROCEDURE INFORMATION: Exam: CTA Neck Without And With Contrast Exam date and time: 01/06/2025 6:05 PM Age: 69 years old Clinical indication: Other: Infarct left, with right homonymous [place] TECHNIQUE: Imaging protocol: Computed tomographic angiography of the neck without and with contrast. Exam focused on the cervical segments of the vasculature. 3D rendering (Not supervised by radiologist): MIP and/or 3D reconstructed images were created by the technologist. Contrast material: 350; Contrast volume: 70 ml; Contrast route: INTRAVENOUS (IV); COMPARISON: MR ANGIO NECK WO 06/24/2022 4:07 PM FINDINGS: Right common carotid artery: No stenosis. No dissection or occlusion. Right internal carotid artery: No stenosis of the extracranial segment. No dissection or occlusion. Right external carotid artery: No occlusion or stenosis of the origin. Left common carotid artery: No stenosis. No dissection or occlusion. Left internal carotid artery: Moderate atheromatous calcifications are present at the left carotid bulb. There is approximately 50% luminal stenosis at the origin of the left internal carotid artery. Left external carotid artery: No occlusion or stenosis of the origin. Right vertebral artery: No stenosis. No dissection or occlusion. Left vertebral artery: No stenosis. No dissection or occlusion. Left subclavian artery: Dense atheromatous calcifications are present at the origin of the left subclavian artery with approximately 50% luminal stenosis. Aorta: Atheromatous calcifications are present within the visualized thoracic aorta. Soft tissues: Normal. No significant soft tissue swelling. Bones/joints: No acute fracture. Lungs: Patchy airspace consolidation is present at the right apex and within the right anterior upper lobe. IMPRESSION: 1. Patchy right upper lobe airspace opacities which are incompletely characterized on this limited view of the chest. Differential considerations include aspiration and pneumonia. If further characterization is warranted, CT of the chest could be used. 2. 50% narrowing at the origin of the left subclavian artery. 3. 60% narrowing at the origin of the right internal carotid artery. 4. 50% narrowing at the origin of the left internal carotid artery. REFERENCES: NASCET CRITERIA. The degree of stenosis in the cervical segment of the internal carotid artery is based on NASCET criteria. Normal is no stenosis. Mild is less than 50% stenosis. Moderate is 50-69% stenosis. Severe is 70% to 99% stenosis. Total occlusion is no detectable patent lumen. Dictated and Authenticated by: Marifer Mendoza MD. Orderin Shaina Abad MD
--- NOTE | 2025-01-06 19:13 | W.ED.GENAD ---
Discharge Plan Disposition Patient Disposition: Admit to [facility] Discharge Details Clinical Impression: CVA (cerebral vascular accident), Atrial fibrillation and flutter Admit Date/Time: 01/06/25 19:54 Admit Provider: Rosales Naik Attending Provider: Rosales Naik Primary Care Provider: JAROD PETERSON ED Provider: Jenniffer Merritt Discharge Data Discharge Date/Time-TO BE ENTERED AT DEPARTURE: 01/06/25 21:59 HPI General Date/Time Provider Initiated Documentation: 01/06/25 16:27. HPI Narrative: This 69-year-old male presents with report of loss of vision in the periphery on the right and the medial aspect of the left vision field. Patient also has a headache and some dizziness. He states that he awoke with the symptoms this morning but was asymptomatic when he went to bed last night at 930. He does have a prior history of stroke which affected his right side little over a year ago. He is a complex patient with history of hep C and did receive a liver transplant and is on tacrolimus. He takes Xarelto clopidogrel and aspirin daily for history of stroke and atrial fibrillation. [facility] he states his vision has been persistent since onset. He denies any speech or sensation change. He has residual sensation change on the right side from his stroke last year. Related Data Home Medications Medication Instructions Recorded Confirmed carvedilol 12.5 mg tablet (Coreg) 25 mg PO BID 11/25/15 01/07/25 oxycodone 5 mg tablet 5 mg PO Q4H PRN 11/25/15 01/07/25 morphine 30 mg tablet,extended 30 mg PO BID 02/05/19 01/07/25 release rabeprazole 20 mg tablet,delayed 20 mg PO DAILY 02/05/19 01/07/25 release naloxone 4 mg/actuation nasal 4 mg intranasal Q2M PRN opioid 04/13/19 01/06/25 spray (Narcan) overdose #2 ea albuterol sulfate 90 mcg/actuation 2 inh inhalation TID PRN 10/31/20 01/07/25 breath activated powder inhaler aspirin 81 mg tablet 81 mg PO DAILY 10/31/20 01/07/25 tacrolimus 1 mg capsule, 1 mg PO HS 05/18/22 01/07/25 immediate-release clopidogrel 75 mg tablet 75 mg PO DAILY #30 tabs 05/21/22 01/07/25 doxazosin 2 mg tablet 2 mg PO HS #30 tabs 05/21/22 01/07/25 hydralazine 25 mg tablet 25 mg PO TID #30 tabs 05/21/22 01/07/25 isosorbide mononitrate 30 mg 30 mg PO DAILY #30 tabs 05/21/22 01/07/25 tablet,extended release 24 hr rivaroxaban 15 mg tablet (Xarelto) 15 mg PO DAILY@1700 #0 tabs 07/01/22 01/07/25 cyanocobalamin (vitamin B-12) 1,000 mcg PO DAILY 01/07/25 01/07/25 1,000 mcg capsule empagliflozin 25 mg tablet 25 mg PO DAILY 01/07/25 01/07/25 (Jardiance) ergocalciferol (vitamin D2) 1,250 50,000 unit PO QWEEK 01/07/25 01/07/25 mcg (50,000 unit) capsule rosuvastatin 10 mg tablet 10 mg PO DAILY 01/07/25 01/07/25 tamsulosin 0.4 mg capsule 0.4 mg PO DAILY 01/07/25 01/07/25 Previous Rx's Medication Instructions Recorded naloxone 4 mg/actuation nasal 4 mg intranasal Q2M PRN opioid 04/13/19 spray (Narcan) overdose #2 ea clopidogrel 75 mg tablet 75 mg PO DAILY #30 tabs 05/21/22 doxazosin 2 mg tablet 2 mg PO HS #30 tabs 05/21/22 hydralazine 25 mg tablet 25 mg PO TID #30 tabs 05/21/22 isosorbide mononitrate 30 mg 30 mg PO DAILY #30 tabs 05/21/22 tablet,extended release 24 hr rivaroxaban 15 mg tablet (Xarelto) 15 mg PO DAILY@1700 #0 tabs 07/01/22 Allergies Allergy/AdvReac Type Severity Reaction Status Date / Time cephalexin monohydrate (From Allergy Severe Anaphylaxsi Unverified 06/24/22 11:29 Keflex) s General Stated Complaint: CVA/TIA PAPO: 2 Exam Narrative Exam Narrative: Alert and oriented 69-year-old male in no acute distress visual loss noted in right peripheral vision crossing the midline and left medial visual marie, his pupils are equal round reactive his extraocular muscles appear to be intact although limited by his visual field loss he has a slight persistent right facial droop which she states is residual from his stroke, he has no carotid bruit cardiac rate rhythm regular lungs clear to auscultation negative, no pronator drift, answering questions appropriately speech and phonation intact cranial nerves II through XII intact otherwise intact aside from visual marie. No visible sign of trauma Course Vital Signs Vital signs: Vital Signs Temperature 37 C 01/06/25 16:26 Pulse 75 01/06/25 16:26 Respiratory Rate 20 01/06/25 16:26 Blood Pressure 180/87 H 01/06/25 16:26 Pulse Oximetry 98 01/06/25 16:26 Temperature 37 C 01/06/25 16:26 Pulse 65 01/06/25 19:10 Pulse 66 01/06/25 19:10 Respiratory Rate 12 01/06/25 19:10 Respiratory Effort Normal, Non-Labored 01/06/25 19:01 Respiratory Depth Normal 01/06/25 19:01 Respiratory Pattern Normal 01/06/25 16:36 Blood Pressure 177/53 H 01/06/25 19:01 Blood Pressure Mean 97 01/06/25 19:01 Blood Pressure Position Sitting 01/06/25 16:26 Pulse Oximetry 97 01/06/25 19:10 Oxygen Delivery Method Room Air 01/06/25 16:26 Oxygen Flow Rate 0 01/06/25 16:26 Lab/Test Results Lab/Test Results: Laboratory Tests Range/Units 01/06/25 01/06/25 16:53 17:55 WBC (4.4-10.8) 10^3/uL 4.93 RBC (4.36-5.78) 10^6/uL 3.70 L Hgb (13.5-17.5) g/dL 11.2 L Hct (40.0-50.0) % 33.7 L MCV (80-95) fL 91 MCH (27.0-33.0) pg 30.3 MCHC (32.0-36.0) % 33.2 RDW (11.8-14.1) % 11.9 Plt Count (130-400) 10^3/uL 113 L MPV (8.0-11.0) fL 10.0 Immature Gran % % 0.2 Neutrophils % % 66.6 Lymphocytes % % 21.5 Monocytes % % 8.3 Eosinophils % % 3.0 Basophils % % 0.4 Nucleated RBC % (0.0-0.3) % 0.0 Absolute Neutrophils (1.2-6.7) 10^3/uL 3.28 Absolute Lymphocytes (1.2-3.4) 10^3/uL 1.06 L Absolute Monocytes (0.1-0.8) 10^3/uL 0.41 Absolute Eosinophils (0.0-0.7) 10^3/uL 0.15 Absolute Basophils (0.0-0.2) 10^3/uL 0.02 Sodium (136-145) mmol/L 137 Potassium (3.5-5.1) mmol/L 4.7 Chloride (98-107) mmol/L 100 Carbon Dioxide (21.0-32.0) mmol/L 29.6 Anion Gap (3-11) mmol/L 7.4 BUN (7-18) mg/dL 30 H Creatinine (0.70-1.30) mg/dL 2.1 H Est GFR (CKD-EPI 2020) (mL/min/1.73m2) 33.45 Glucose (74-106) mg/dL 193 H Calcium (8.5-10.1) mg/dL 8.5 Magnesium (1.8-2.4) mg/dL 2.0 Total Bilirubin (0.2-1.0) mg/dL 0.5 AST (15-37) U/L 15 ALT (16-63) U/L 20 Alkaline Phosphatase (46-116) U/L 109 Troponin I (<or=76) ng/L 10 10 Total Protein (6.4-8.2) g/dL 7.1 Albumin (3.4-5.0) g/dL 3.6 Medical Decision Making Results: Patient with left CLOTH HAULER infarct in the occipital region discussed with virtual radiology via phone, cannot exclude tumor, I discussed this case with the radiologist chest x-ray per radiology interpretation my review does not show acute abnormality. Baseline hemoglobin of 11.2 platelets of 113 BUN of 38 creatinine 2.1 baseline for patient Assessment and plan: Patient with homonymous hemianopsia which is new. I spoke with the teleneurologist and recommendation is to admit for stroke workup and MRI. I spoke with patient as [facility] he [facility] to stay at our facility. Recommendation from teleneuro was perhaps to switch the patient to Coumadin as he has technically failed current medication management. At this time his blood pressure is he is slightly hypertensive although he has permissive hypertension with recent CVA. Stroke score of 2. Patient remains neurologically stable throughout his time in the emergency department. Swallow study performed in the emergency department and patient tolerated this well. Case discussed with admitting hospitalist will admit for continued monitoring and MRI in the morning. Will continue to monitor blood pressure and rhythm. Will leave anticoagulation at the discretion of the admitting Hospitalist. Case discussed with Dr. Naik agreeable to admission at this time. Critical Care Time Critical Care Time Attestation: 35 minutes critical care time secondary to acute CLOTH HAULER stroke affecting patient's vision requiring MRI teleneuro consults, diagnostic imaging interpretation review discussion with radiologist, discussion with hospitalist, diagnostic lab interpretation and review and admission to this facility [facility] All Active Problems (Updated 01/07/25 @ 22:11 by KYARA Mirza) Atrial fibrillation and flutter (Acute) CVA (cerebral vascular accident) (Chronic) Lacunar stroke (Acute) Facial paresthesia (Acute) Right sided weakness (Acute) History of liver transplant (Acute) Chronic anticoagulation (Acute) Immunosuppressed status (Acute) Symptom of bladder outlet obstruction (Acute) Atrial flutter (Acute) Pneumonia (Acute) Atrial fibrillation (Chronic) Hypertension (Chronic) Palpitations (Acute) New onset atrial fibrillation (Acute) Liver transplant recipient (Chronic) Chronic kidney disease (Chronic) High cholesterol (Chronic) Diabetes (Chronic) Hypomagnesemia (Acute) Myoclonus (Acute) Ventricular ectopy (Acute) Medical History (Updated 01/07/25 @ 22:11 by KYARA Mirza) Erectile dysfunction GI bleeding Gastric ulcer SVT (supraventricular tachycardia) Depression History of COVID-19 Non-ST elevation DE (NSTEMI) Myocardial infarction Tachycardia Hepatitis C Surgical History H/O vasectomy S/P liver transplant Family History Mother Heart disease Sister Heart disease Brother Heart disease Other Diabetes Social History Smoking/Tobacco Use Status: Former Tobacco Use Smoking risk assessment performed?: Yes Alcohol Intake: former Drug use: Never Substance use type: does not use Housing: apartment Do you feel safe at home: Yes Do you feel safe in your relationship?: Yes
--- NOTE | 2025-01-06 20:00 | W.PM.HP.N ---
Date of service: 01/06/25 Time of Service: 20:00 Assessment and Plan Assessment and plan (1) CVA (cerebral vascular accident): Status: Chronic Assessment and plan: Patient does have what appears to be a new onset CVA despite anticoagulation with aspirin and Plavix. Consult to teleneurology states that their recommendation is to start him on warfarin. Of note his INR is currently 1.6. There is different recommendation in regards to the ideal way to switch from his current anticoagulation to Coumadin. At this point we will start Coumadin at 5 mg and recommend when his INR gets over 2 to stop his other anticoagulation. Would also consider reaching out to neurology for recommendations. INR goal is between 2 and 3. I will start the patient on Coumadin 5 mg with daily INRs. (2) High cholesterol: Status: Chronic Assessment and plan: Patient is on atorvastatin 40 mg daily. Will check a lipid panel. Once again we will reach out to neurology to see if they recommend high dose statins. (3) New onset atrial fibrillation: Status: Acute Assessment and plan: Patient's current EKG shows normal sinus rhythm. His heart rate is 65. (4) Hypertension: Status: Chronic Assessment and plan: Patient is on multiple antihypertensives. Will allow for permissive hypertension for 24 hours and status of a new CVA. If patient's systolic is over 185 on a regular basis already has symptoms with consider starting low-dose antihypertensives (5) Chronic anticoagulation: Status: Acute Assessment and plan: As above, consider reaching out to neurology in the morning in regards to recommendations for conversion of his anticoagulation to Coumadin. (6) Diabetes: Status: Chronic Assessment and plan: Check an A1c. Recommendations are to keep blood glucose values between 140 and 180 post CVA. Will add sliding scale insulin, this. (7) Liver transplant recipient: Status: Chronic Assessment and plan: Continue with tacrolimus (8) Chronic kidney disease: Status: Chronic Assessment and plan: Patient's renal function is stable albeit low. Patient does have chronic kidney disease stage III. Patient does not appear to be on JAS inhibitor so we will consider starting this prior to his discharge. No urinalysis was performed to check for proteinuria. (9) Hepatitis C: Assessment and plan: Noted. Continue with outpatient follow-up. History of Present Illness History of Present Illness Chief Complaint: CVA Narrative: Mr Thomas is a 69-year-old gentleman with a known history of CVAs, coronary artery disease, hepatitis C, liver transplant in 2007, chronic kidney disease stage III, atrial fibrillation, CHF, A-fib, diabetes, and hypertension who is taking daily Plavix, aspirin and Xarelto who presents with a right lateral visual field defect. Patient states this morning he woke up and could not seem to the lateral aspect of his right field of vision. Patient states otherwise his vision is fine. Nothing like this has happened before. Patient states he has been taking his medications as prescribed. 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 CT was essentially benign. In reviewing his chart he did get an echo in October 2022 but no bubble study was performed. It did show an EF of 40%. Other workup including a CBC CMP INR shows an INR of 1.6 PT 16 PTT 36. Mild anemia with a hemoglobin 11 hematocrit of 33. This BUN 30 creatinine at 2.1. Electrolytes are within normal limits. Patient does have hypertension on admission with a systolic 177 over diastolic of 53. Patient states when he had his stroke 3 years ago and he had right upper and lower extremity weakness and numbness and this is essentially resolved. Patient is a full code. Patient states he believes he got hepatitis C through a vaccination when he was in the [employer]. Review of Systems All systems reviewed & are unremarkable except as noted in HPI and below PFSH All Active Problems (Updated 01/06/25 @ 20:09 by Rosales Naik MD) CVA (cerebral vascular accident) (Chronic) Lacunar stroke (Acute) Facial paresthesia (Acute) Right sided weakness (Acute) History of liver transplant (Acute) Chronic anticoagulation (Acute) Immunosuppressed status (Acute) Symptom of bladder outlet obstruction (Acute) Atrial flutter (Acute) Pneumonia (Acute) Atrial fibrillation (Chronic) Hypertension (Chronic) Palpitations (Acute) New onset atrial fibrillation (Acute) Liver transplant recipient (Chronic) Chronic kidney disease (Chronic) High cholesterol (Chronic) Diabetes (Chronic) Hypomagnesemia (Acute) Myoclonus (Acute) Ventricular ectopy (Acute) Medical History (Updated 01/06/25 @ 20:09 by Rosales Naik MD) Erectile dysfunction GI bleeding Gastric ulcer SVT (supraventricular tachycardia) Depression History of COVID-19 Non-ST elevation [place] (NSTEMI) Myocardial infarction Tachycardia Hepatitis C Surgical History H/O vasectomy S/P liver transplant Family History Mother Heart disease Sister Heart disease Brother Heart disease Other Diabetes Social History Smoking/Tobacco Use Status: Former Tobacco Use Smoking risk assessment performed?: Yes Alcohol Intake: former Drug use: Never Substance use type: does not use Do you feel safe at home: Yes Do you feel safe in your relationship?: Yes Meds Allergies and Home Medications Allergies Allergy/AdvReac Type Severity Reaction Status Date / Time cephalexin monohydrate (From Allergy Severe Anaphylaxsi Unverified 06/24/22 11:29 Keflex) s Home Medications Medication Instructions Recorded Confirmed Type carvedilol 12.5 mg tablet (Coreg) 25 mg PO BID 11/25/15 01/06/25 History oxycodone 5 mg tablet 5 mg PO Q4H PRN 11/25/15 01/06/25 History morphine 30 mg tablet,extended 30 mg PO BID 02/05/19 01/06/25 History release rabeprazole 20 mg tablet,delayed 20 mg PO DAILY 02/05/19 01/06/25 History release naloxone 4 mg/actuation nasal 4 mg intranasal Q2M PRN opioid 04/13/19 01/06/25 Rx spray (Narcan) overdose #2 ea albuterol sulfate 90 mcg/actuation 2 inh inhalation TID PRN 10/31/20 01/06/25 History breath activated powder inhaler aspirin 81 mg tablet 81 mg PO DAILY 10/31/20 01/06/25 History tacrolimus 1 mg capsule, 1 mg PO HS 05/18/22 01/06/25 History immediate-release atorvastatin 40 mg tablet 40 mg PO QPM #30 tabs 05/21/22 01/06/25 Rx clopidogrel 75 mg tablet 75 mg PO DAILY #30 tabs 05/21/22 01/06/25 Rx doxazosin 2 mg tablet 2 mg PO HS #30 tabs 05/21/22 01/06/25 Rx hydralazine 25 mg tablet 25 mg PO TID #30 tabs 05/21/22 01/06/25 Rx isosorbide mononitrate 30 mg 30 mg PO DAILY #30 tabs 05/21/22 01/06/25 Rx tablet,extended release 24 hr mirtazapine 15 mg tablet 7.5 mg (1/2 x 15 mg) PO HS #30 tabs 05/21/22 01/06/25 Rx polyethylene glycol 3350 17 gram 17 g PO DAILY PRN PRN Constipation 05/21/22 01/06/25 Rx oral powder packet #0 ea empagliflozin 10 mg tablet 10 mg PO DAILY #0 tabs 07/01/22 01/06/25 Rx (Jardiance) rivaroxaban 15 mg tablet (Xarelto) 15 mg PO DAILY@1700 #0 tabs 07/01/22 01/06/25 Rx Exam Narrative Exam Narrative: HEENT-normocephalic atraumatic mucous membranes moist oropharynx is clear. Neck-no lymphadenopathy no JVD Cardiovascular-distant but no murmur rubs or gallops auscultated regular rate and rhythm at this time Pulm-clear to auscultation bilaterally with good air exchange no accessory muscle use Abdomen-scaphoid Extremities-no sinus clubbing or edema bilaterally Neurologic-patient does have a significant weight lateral visual defect probably dropped to 30 degrees from midline otherwise his vision is stable cranial nerves III through XII are otherwise intact. Patient does have a symmetric smile and can raise eyebrows bilaterally. 5 out of 5 strength in upper lower extremities Results Labs 01/06/25 16:53 01/06/25 16:53 Labs: Laboratory Results - last 24 hr 01/06/25 01/06/25 16:53 17:55 WBC 4.93 RBC 3.70 L Hgb 11.2 L Hct 33.7 L MCV 91 MCH 30.3 MCHC 33.2 RDW 11.9 Plt Count 113 L MPV 10.0 Immature Gran % 0.2 Neutrophils % 66.6 Lymphocytes % 21.5 Monocytes % 8.3 Eosinophils % 3.0 Basophils % 0.4 Nucleated RBC % 0.0 Absolute Neutrophils 3.28 Absolute Lymphocytes 1.06 L Absolute Monocytes 0.41 Absolute Eosinophils 0.15 Absolute Basophils 0.02 Sodium 137 Potassium 4.7 Chloride 100 Carbon Dioxide 29.6 Anion Gap 7.4 BUN 30 H Creatinine 2.1 H Est GFR (CKD-EPI 2020) 33.45 Glucose 193 H Calcium 8.5 Magnesium 2.0 Total Bilirubin 0.5 AST 15 ALT 20 Alkaline Phosphatase 109 Troponin I 10 10 Total Protein 7.1 Albumin 3.6 Last Vital Signs Temp 37 C 01/06/25 16:26 Pulse 65 01/06/25 19:10 Resp 12 01/06/25 19:10 BP 177/53 H 01/06/25 19:01 Pulse Ox 97 01/06/25 19:10 Time Spent Time spent with Patient: >75 minutes Time was spent: preparing to see the patient(eg.review tests), obtaining and/or reviewing separately otained hiistory, ordering medications,tests, procedures, referring, communicating with other health acute care assistant, indepentently interpreting results, counseling the patient and care coordination
[2025-01-06 20:35] LABS: Troponin I 11 ng/L (<or=76)
--- NOTE | 2025-01-06 21:32 | NUR.NOTE ---
Patient requested food. Provider approved food if patient was able to swallow some water without any concern for aspiration. Patient demonstrates ability to swallow and reports that he feels he is able to swallow both food and water without issue.
--- NOTE | 2025-01-06 21:32 | W.PC.ACHO ---
Registration Status: REG ER Primary Language: Preferred Language: Lithuanian ED Information & Data Chief Complaint CVA/TIA 01/06/25 19:22 Triage Note Pt LKW last night night 01/06/25 16:26 before bed at 2130. Pt reports loss of vision to the right half of both eyes (hemianopnia) to the right side. Also experiencing sinus pressure behind eyes. C/O dizziness with walking as well. Hx of afib, on blood thinner. Has past CVA with right sided numbness and slight weakness on the right side at baseline. Uses cane to walk. Medical / Surgical History (Last Updated 06/27/22 @ 10:05 by Murphy Lima MD) Erectile dysfunction GI bleeding Gastric ulcer SVT (supraventricular tachycardia) Depression History of COVID-19 Non-ST elevation [place] (NSTEMI) Myocardial infarction Tachycardia Hepatitis C (Last Reviewed 06/24/22 @ 16:19 by Matt Prajapati MD) H/O vasectomy S/P liver transplant Most Recent Vital Signs Temperature 37 C 01/06/25 16:26 Pulse 67 01/06/25 20:47 Pulse 74 01/06/25 20:47 Respiratory Rate 17 01/06/25 20:47 Respiratory Effort Normal, Non-Labored 01/06/25 19:01 Respiratory Depth Normal 01/06/25 19:01 Respiratory Pattern Normal 01/06/25 16:36 Blood Pressure 166/84 H 01/06/25 20:47 Blood Pressure Mean 96 01/06/25 20:47 Blood Pressure Position Sitting 01/06/25 16:26 Pulse Oximetry 98 01/06/25 20:47 Oxygen Delivery Method Room Air 01/06/25 16:26 Oxygen Flow Rate 0 01/06/25 16:26 Allergies cephalexin monohydrate (From Keflex) Allergy (Severe, Unverified 06/24/22 11:29) Anaphylaxsis Active Medications Generic Name Dose Route Start Last Admin Trade Name Freq PRN Reason Stop Dose Admin Iohexol 100 ml 01/06/25 18:15 01/06/25 18:11 Omnipaque 350 Mg/Ml 100 Ml Btl IJ 02/05/25 23:59 70 ml DIRECTED AMBER Administration Sodium Chloride 50 ml 01/06/25 18:15 01/06/25 18:11 Normal Saline - Diluent 50 Ml Vial IJ 50 ml DIRECTED AMBER Administration IV IV Catheter Type [Right Saline Lock Forearm] IV Catheter Gauge [Right 18 Forearm] Diet Orders Category Date Time Status Regular/Normal [DIET] Nutrition 01/07/25 Breakfast Ordered Diagnostics 01/06/25 01/06/25 01/06/25 Range/Units 20:12 17:55 16:53 WBC 4.93 (4.4-10.8) 10^3/uL RBC 3.70 L (4.36-5.78) 10^6/uL Hgb 11.2 L (13.5-17.5) g/dL Hct 33.7 L (40.0-50.0) % MCV 91 (80-95) fL MCH 30.3 (27.0-33.0) pg MCHC 33.2 (32.0-36.0) % RDW 11.9 (11.8-14.1) % Plt Count 113 L (130-400) 10^3/uL MPV 10.0 (8.0-11.0) fL Immature Gran % 0.2 % Neutrophils % 66.6 % Lymphocytes % 21.5 % Monocytes % 8.3 % Eosinophils % 3.0 % Basophils % 0.4 % Nucleated RBC % 0.0 (0.0-0.3) % Absolute Neutrophils 3.28 (1.2-6.7) 10^3/uL Absolute Lymphocytes 1.06 L (1.2-3.4) 10^3/uL Absolute Monocytes 0.41 (0.1-0.8) 10^3/uL Absolute Eosinophils 0.15 (0.0-0.7) 10^3/uL Absolute Basophils 0.02 (0.0-0.2) 10^3/uL Sodium 137 (136-145) mmol/L Potassium 4.7 (3.5-5.1) mmol/L Chloride 100 (98-107) mmol/L Carbon Dioxide 29.6 (21.0-32.0) mmol/L Anion Gap 7.4 (3-11) mmol/L BUN 30 H (7-18) mg/dL Creatinine 2.1 H (0.70-1.30) mg/dL Est GFR (CKD-EPI 2020) 33.45 (mL/min/1.73m2) Glucose 193 H (74-106) mg/dL Calcium 8.5 (8.5-10.1) mg/dL Magnesium 2.0 (1.8-2.4) mg/dL Total Bilirubin 0.5 (0.2-1.0) mg/dL AST 15 (15-37) U/L ALT 20 (16-63) U/L Alkaline Phosphatase 109 (46-116) U/L Troponin I 11 10 10 (<or=76) ng/L Total Protein 7.1 (6.4-8.2) g/dL Albumin 3.6 (3.4-5.0) g/dL Bnlpu-nh-Aarm Documentation Fingerstick Glucose Start: 01/06/25 16:41 Freq: .Stat Status: Active Protocol: Activity Type Activity Date Activity User E-sign Co-sign Detail Recorded Client Recorded Date Recorded By Document 01/06/25 16:53 BKG DAEMON(3) [id number] 01/06/25 16:54 BKG DAEMON(4) Intake and Output - 24 Hour Total 01/06/25 16:13 thru 01/06/25 20:30 Output Total 625 Balance -625 Weight 58 kg Output: Urine 625 Falls Risk Assessment History of Falls Previous History 01/06/25 16:58 Contributing Factors Unstable,Impairments, 01/06/25 16:58 Medications Ambulatory Aids Uses ambulatory device + 01/06/25 16:58 Tubes/Lines With any additional score 01/06/25 16:58 Gait Evaluation W/any additional score 01/06/25 16:58 Fall Total Score 94 01/06/25 16:58 Level of Risk Maximum Risk 01/06/25 16:58 Problems (Last Updated 06/27/22 @ 10:05 by Murphy Lima MD) CVA (cerebral vascular accident) (Chronic) Chronic anticoagulation (Acute) Hypertension (Chronic) New onset atrial fibrillation (Acute) Liver transplant recipient (Chronic) Chronic kidney disease (Chronic) High cholesterol (Chronic) Diabetes (Chronic) v v v v v v v v v Sending and/or Receiving Nurses: Please use comment section below to note any information pertinent to the patient hand-off not included above. Information / Comments: Report received from: Regina GALLOWAY
[2025-01-06] MEDS: Normal Saline Flush 10 ML SYR IVP (22:37)
[2025-01-06] MEDS: Atorvastatin 40 MG TAB PO (22:37)
[2025-01-06] MEDS: Tacrolimus 0.5 MG CAP 1 MG PO (22:38)
[2025-01-06] MEDS: oxyCODONE 5 MG TAB PO (22:38)
[2025-01-06] MEDS: Mirtazapine 15 MG TAB 7.5 MG PO (22:38)
[2025-01-06] MEDS: Docusate Sodium 100 MG CAP PO (22:39)
--- NOTE | 2025-01-07 | DI.MRI_ITS ---
Exam(s) MR BRAIN WO EXAM: MR BRAIN WO CLINICAL HISTORY: cva TECHNIQUE: Multiplanar multisequence MRI of the brain was performed. COMPARISON: MR MR BRAIN WO from 06/25/[address] BRAIN NECK CTA from 01/06/[address] HEAD WO from 01/06/2025 FINDINGS: VENTRICLES AND EXTRA AXIAL SPACES: Normal in size and morphology for the patient's age. MIDLINE SHIFT: None. CEREBRAL PARENCHYMA: There is a moderately large area of restricted diffusion in the medial aspect of the left occipital lobe consistent with a acute infarct. No space-occupying lesion identified. There are areas of hyperintense signal seen in the white matter on the FLAIR and T2 weighted images consistent with chronic microvascular ischemic disease. There are old lacune seen in the left basal ganglia and left thalamus. HEMORRHAGE: There is no evidence of an acute hemorrhage. There is a focus of hypointense signal seen in the BRAINSTEM/CEREBELLUM: Normal. CALVARIUM: Normal. VISUALIZED PARANASAL SINUSES/MASTOIDS:Clear. [place] OF JAVED: Normal flow void. PITUITARY GLAND: Unremarkable. OTHER FINDINGS: None. IMPRESSION: There is a moderately large area of restricted diffusion in the medial aspect of the left occipital lobe consistent with an acute infarct. DATA REPOSITORY:
[2025-01-07 06:41] LABS: Abs Immature Grans 0.01 10^3/uL (0.0-0.06); HCT 38.6 % (40.0-50.0); HGB 12.8 g/dL (13.5-17.5); Immature Grans % 0.2 %; MCH 30.6 pg (27.0-33.0); MCHC 33.2 % (32.0-36.0); MCV 92 fL (80-95); MPV 10.4 fL (8.0-11.0); Platelet Count 130 10^3/uL (130-400); RBC 4.18 10^6/uL (4.36-5.78); RDW 12.0 % (11.8-14.1); RDW-SD 41.0 fL; WBC 4.48 10^3/uL (4.4-10.8)
[2025-01-07 06:59] LABS: INR 1.1 (0.9-1.1); Prothrombin Time 10.9 sec (9.1-11.1)
[2025-01-07 07:01] LABS: Hemoglobin A1C 6.7 % (<5.7)
[2025-01-07 07:02] LABS: Cholesterol 184 mg/dL (<200); HDL Cholesterol 49 mg/dL (>or=40)
[2025-01-07 07:03] LABS: ALT 20 U/L (16-63); AST 13 U/L (15-37); Albumin 3.9 g/dL (3.4-5.0); Alkaline Phosphatase 117 U/L (46-116); Anion Gap 4.5 mmol/L (3-11); BUN 27 mg/dL (7-18); Bilirubin, Total 0.6 mg/dL (0.2-1.0); CO2 34.5 mmol/L (21.0-32.0); Calcium 9.2 mg/dL (8.5-10.1); Chloride 101 mmol/L (98-107); Glucose 117 mg/dL (74-106); Potassium 4.3 mmol/L (3.5-5.1); Sodium 140 mmol/L (136-145); Total Protein 7.7 g/dL (6.4-8.2)
[2025-01-07 07:24] VITALS: BP 162/77; PULSE 62; RESP 16; TEMP 36.7; O2SAT 97
--- NOTE | 2025-01-07 08:16 | PDOC.STREC ---
Date of service: 01/07/25 Time of Service: 08:17 Speech Therapy Recommendations Report ST Recommendations: SIZING MACHINE TENDER christoph attempted at 8:05 am on 01/07/25. Pt off the floor for MRI. Per nursing and chart review, pt on regular diet, which he tolerated for dinner. Nursing denies concerns with speech/language. Will reattempt evaluation tomorrow.
--- NOTE | 2025-01-07 08:22 | INITIAL_ITS ---
Date of service: 01/07/25 Time of Service: 08:22 Care Management Initial Assmt Initial Assessment Reason for Hospitalization: CVA Functional Status/Living Situation Patient Presentation: Ismael was sitting in a recliner when CM met with him. He is awake and engages in conversation. He reports difficulty with his vision bilaterally, with noted improvement overnight. He resides in [place] with his Granddaughter Erica. His daughter Romsery is a nurse and is very supportive. She helps him navigate his health issues which he states is her department. Ismael drives and is independent at baseline. He is [facility]% [facility] connected and [facility]. He does not have services at this time, although would be agreeable should they be needed. CM will continue to follow. 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 Activities of Daily Living (ADLs): Independent Medications Medication Management: No Issues/Barriers identified Physical Functioning/Mobility Assistive Device: Cane-PRN Advance Directives Advance Directives: Do you have an Advance Directive: Y , 04:50 AD On File at [facility]: N 0912/16, 22:22 Date Asked 01/06/25 01/06/25, 16:41 AD Date Reviewed COLST On File at [facility] COLST Date Scanned Code Status Resuscitation Status Full Code Portal Pt does not currently have a portal and education provided: Yes Insurance Coverage/Financial Issues [place]: [place] - [id number] Care Team Visit Care Team Role Provider Type Michelle Jennings NP NURSE PRACTITIONER JAROD PETERSON Primary Care Provider NON-[facility] STAFF PHYSICIAN Leslie Gibson Other Providers REG OCCUPATIONAL THERAPIST Kenisha Nettles, SOCIAL RESEARCH ASSISTANT Other Providers SPEECH LANGUAGE PATHOLOGIST Sofia Johnson RDN, CDCES Other Providers SOLAR ENERGY SALES SPECIALIST Cinda Montgomery, SOCIAL RESEARCH ASSISTANT Other Providers SPEECH LANGUAGE PATHOLOGIST Mally Mock Other Providers SPEECH LANGUAGE PATHOLOGIST Eda Mejia, SOCIAL RESEARCH ASSISTANT Other Providers SPEECH LANGUAGE PATHOLOGIST Martha Schmidt, SOCIAL RESEARCH ASSISTANT Other Providers SPEECH LANGUAGE PATHOLOGIST Layla Noguera Other Providers OTHER Tab Sanchez RDN Other Providers SOLAR ENERGY SALES SPECIALIST KYARA Mirza Emergency Provider PHYSICIANS MANAGER SITE Rosales Naik MD Admit Provider MD [facility] STAFF PHYSICIAN Attending Provider Discharge Potential Discharge Needs: PCP F/U Appt ([facility]) and Other (Neurology) Anticipated Barriers to Discharge: Medical Status (Requires further medical workup and monitoring) Patient/Family Education Needs: Review discharge instructions, discuss Ask Me Three Transportation: Private vehicle Plan: Ismael is being closely monitored and requires further medical workup. Anticipate, patient will discharge home with New [facility] PT vs Outpatient PT once medically ready to discharge. Family will provide transportation. Patient will follow up with community/[facility] providers and continue per his discharge plan of care. CM will follow. Social Determinants of Health Screening Social Determinants of health last assessed in clinic: 01/07/25 Will the Patient Participate in the Screening?: Yes Do you worry about having a steady place to live?: no Problems where you live: no known problems In the past 12 months, have you had to go without electric, gas, oil or water in your home?: no 1. Within the past 12 months, we worried whether our food would run out before we got money to buy more.: Never true 2. Within the past 12 months, the food we bought just didn't last and we didn't have money to get more.: Never true Has lack of transportation kept you from medical appointments or from doing things needed for daily living?: no Has anyone in your life made you feel unsafe or unsupported?: no How hard is it for you to pay for the very basics like food, housing, medical care, and heating? Would you say it is:: Not hard at all Do you want help finding or keeping work or a job?: I do not need or want help If for any reason you need help with day-to-day activities such as bathing, preparing meals, shopping, managing finances, etc., do you get the help you nee d?: I don’t need any help How often do you feel lonely or isolated from those around you?: Never Do you speak a language other than Greek at home?: No Does the patient want assistance with any of the above?: No PFSH All Active Problems (Updated 01/06/25 @ 20:09 by Rosales Naik MD) CVA (cerebral vascular accident) (Chronic) Lacunar stroke (Acute) Facial paresthesia (Acute) Right sided weakness (Acute) History of liver transplant (Acute) Chronic anticoagulation (Acute) Immunosuppressed status (Acute) Symptom of bladder outlet obstruction (Acute) Atrial flutter (Acute) Pneumonia (Acute) Atrial fibrillation (Chronic) Hypertension (Chronic) Palpitations (Acute) New onset atrial fibrillation (Acute) Liver transplant recipient (Chronic) Chronic kidney disease (Chronic) High cholesterol (Chronic) Diabetes (Chronic) Hypomagnesemia (Acute) Myoclonus (Acute) Ventricular ectopy (Acute) Medical History (Updated 01/06/25 @ 20:09 by Rosales Naik MD) Erectile dysfunction GI bleeding Gastric ulcer SVT (supraventricular tachycardia) Depression History of COVID-19 Non-ST elevation [place] (NSTEMI) Myocardial infarction Tachycardia Hepatitis C Surgical History H/O vasectomy S/P liver transplant Family History Mother Heart disease Sister Heart disease Brother Heart disease Other Diabetes Social History Smoking/Tobacco Use Status: Former Tobacco Use Smoking risk assessment performed?: Yes Alcohol Intake: former Drug use: Never Substance use type: does not use Housing: apartment Do you feel safe at home: Yes Do you feel safe in your relationship?: Yes
[2025-01-07] MEDS: Isosorbide Mononitrate 30 MG TABCR PO (08:35)
[2025-01-07] MEDS: Aspirin E.C. 81 MG TABEC PO (08:37)
[2025-01-07] MEDS: Clopidogrel 75 MG TAB PO (08:37)
--- NOTE | 2025-01-07 08:37 | PDOC.STREC ---
Date of service: 01/07/25 Time of Service: 08:[address] ST Recommendations: Pt returned from MRI before LENS BLOCK GAUGER left the floor. He was sitting in bed with his breakfast tray when LENS BLOCK GAUGER entered the room. Pt providing input on his speech and eating abilities. He denies any concern with either. Pt reports only having difficulty with his vision. Pt managing his breakfast without difficulty while LENS BLOCK GAUGER in the room. Despite vision difficulties, he is able to access his whole tray without difficulty. Pt also taking pills whole with water without difficulty. Recommend pt remain on regular consistencies diet with thin liquids.
[2025-01-07] MEDS: Empaglifozin 10 MG TAB PO (08:38)
[2025-01-07] MEDS: Normal Saline Flush 10 ML SYR IVP ×2 (08:38→21:17)
--- NOTE | 2025-01-07 09:36 | PT.INIE ---
PT Notes Visit Reasons: Cerebrovascular accident Physical Therapy Inpatient Initial Evaluation Date: 01/07/2025 Referring Doctor: Rosales Naik MD PT Orders: PT CONSULT: Eval/Treat Precautions: Fall. Standard. Activity as tolerated. 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 Patient Profile/Admitting Diagnosis: Pt 69 y/o Male arrived in the ED with loss of vision to Right side of his body. Pt is admitted for further assessment for suspected stroke. Pt is being managed for diabetes, atrial fibrillation, hypercholesterolemia. PMHX: All Active Problems (Updated 01/06/25 @ 20:09 by Rosales Naik MD) CVA (cerebral vascular accident) (Chronic) Lacunar stroke (Acute) Facial paresthesia (Acute) Right sided weakness (Acute) History of liver transplant (Acute) Chronic anticoagulation (Acute) Immunosuppressed status (Acute) Symptom of bladder outlet obstruction (Acute) Atrial flutter (Acute) Pneumonia (Acute) Atrial fibrillation (Chronic) Hypertension (Chronic) Palpitations (Acute) New onset atrial fibrillation (Acute) Liver transplant recipient (Chronic) Chronic kidney disease (Chronic) High cholesterol (Chronic) Diabetes (Chronic) Hypomagnesemia (Acute) Myoclonus (Acute) Ventricular ectopy (Acute) Medical History (Updated 01/06/25 @ 20:09 by Rosales Naik MD) Erectile dysfunction GI bleeding Gastric ulcer SVT (supraventricular tachycardia) Depression History of COVID-19 Non-ST elevation MT (NSTEMI) Myocardial infarction Tachycardia Hepatitis C Surgical History H/O vasectomy S/P liver transplant Social History/Home Situation: Lives at home with his granddaughter. Independent with all aspects of ADLs. Uses wooden cane outdoors. Equipment Owned/DME: Wooden cane made by his son in law. Pt uses in the community and sometimes in the home Subjective: Patient stated that he could see object at midline but at about 10-15 degrees from midline objects disappear. Denied headache, chest pain, and lightheadedness throughout. Objective: General Observation: Ectomorphic. Resting in bed. IV access on R UE. No facila assymetry observed. Mental Status: Alert and oriented as to person, place, time, and purpose. Able to pay attention, but needed multiple cueing to follow tasks. Motr response appeared to be minimally delayed. Pain: None reported Vital Signs: BP 190/77 mmHg, SaO2 99% on RA, HR 81 bpm AFTER 250 feet of level surface ambulation ROM: Right Upper Extremity: Shoulder Flexion WFL. Shoulder abduction WFL. Elbow flexion WFL. Wrist flexion WFL. Functional opening and closing of hand WFL. Left Upper Extremity: Shoulder Flexion WFL. Shoulder abduction WFL. Elbow flexion WFL. Wrist flexion WFL. Functional opening and closing of hand WFL. Right Lower Extremity: Hip flexion WFL. Hip abduction WFL. Knee flexion WFL. Ankle dorsiflexion WFL. Ankle plantarflexion WFL. Left Lower Extremity: Hip flexion WFL. Hip abduction WFL. Knee flexion WFL. Ankle dorsiflexion WFL. Ankle plantarflexion WFL. Strength: Right Upper Extremity: Shoulder flexors 4/5. Shoulder abductors 4/5. Elbow flexors 4/5. Elbow extensors 4/5. Manager Credit Collections strong. Left Upper Extremity: Shoulder flexors 4/5. Shoulder abductors 4/5. Elbow flexors 4/5. Elbow extensors 4/5. Manager Credit Collections strong. Right Lower Extremity: Hip flexors 4/5. Hip abductors 4/5. Knee flexors 4/5. Knee extensors 4/5. Ankle dorsiflexors 4/5. Ankle plantarflexors 4/5. Left Lower Extremity: HHip flexors 4/5. Hip abductors 4/5. Knee flexors 4/5. Knee extensors 4/5. Ankle dorsiflexors 4/5. Ankle plantarflexors 4/5. Bed Mobility/Transfers: Minimal cueing provided for use of B hands as needed for support, movement sequence, AD management, and posture to reduce fall risk and minimize pain report Rolling independent Supine to sit independent Sit to supine independent Sit to stand with contact guard with SPC Stand to sit with contact guard with SPC Bed to reclining chair with contact guard with SPC Reclining chair to bed with contact guard with SPC Gait: Instructed patient with level surface ambulation of about 325 feet requiring contact guard assist. Pt had difficulties ambulating in a straight line and needed verbal cues for directions, adjustments to prevent pt from colliding into objects/alex on his right side. Minimal loss of balance x 1 requiring minimal assist from DPT hospitality intern for stabilization. Step length nad height symmetric. No hemiplegic gait observed. Balance: Static Sitting: good Dynamic Sitting: fair Static Standing: fiar Dynamic Standing: fair Special Tests: Mobility Limitations Standardized Measure [facility] AM-PAC 6 clicks Basic Mobility Inpatient Short Form: Raw Score: 21 CMS Score: 29% deficit 4-Stage Balance: Feet together 10 seconds Semi-tandem 10 seconds Full tandem unable One-legged stance deferred Romberg Test: Positive with increased mediolateral sway which required minimal assist from DPT hospitality intern to prevent LOB Informed Consent/Education: Patient was instructed in purpose of PT consult and plan of care. Agreeable to proceed with established PT POC to achieve personal goals. Assessment: Patient demosntrates R homonymous hemianopsia which is limiting mobility performance and may increase risk for falls. B UE/LE strength and AROM are symmetric. Normotonic in B UE/LE. Gait insatbility related to visual field cut was observed with patient needing from contact guard assist t minimal assist during ambulation. Required the use of his wooden single point cane. Will determine the value of using a front-wheeled walker to incrse stability of walking in the next session. Sensation to B UE/LE intact. Patient presents with clinical signs and symptoms consistent with current/admitting diagnoses that have resulted to mobility limitations, gait instability, generalized weakness, and overall ADL decline as demonstrated by the following impairment level findings: 1. Generalized weakness 2. Impaired standing dynamic balance 3. R homonymous hemianopsia Impairments are contributing to the following functional limitations: 1. Impaired transfers 2. Difficulty with ambulation without assistive device and physical assistance 3. Increased risk for falls Patient is assessed as a 09203 moderate complexity based on the following: History: 69-year-old male with past medical history as indicated above Examination: Demonstrable impairment in strength, balance, and mobility level with underlying impairments and functional limitations as exhibited above as well as deficit score of 2% utilizing the [facility] Mobility Inpatient Short Form Presentation: Evolving Decision Makin moderate complexity Goals: Goals X1 week 1. Sit-Stand independent 2. Stand-Sit independent with no AD 3. Bed-Chair independent with no AD 4. Chair-Bed independent with no AD 5. Independent gait on level surface with use of FWW for at least 500 feet without report of pain nor dyspnea 6. Independent stair negotiation while holding onto B rails for at least 5 steps without report of pain nor dyspnea 7. Independent with home exercise program 8. Good static and dynamic standing balance/tolerance 9. Demonstrate mastery of environmental screening to minimize limitations placed by visual field deficit Plan of Care/Treatment Plan: 1-2x/day, 7 days/week x 1 week. Plan of care has been reviewed with the DETAILER FURNITURE providing the service under Physical Therapy direction. Initiate Physical Therapy intervention for pain management as needed, strengthening, bed mobility, transfers, gait, stairs, balance training, and use of assistive device. DISCHARGE RECOMMENDATIONS: HH PT vs OP PT TREATMENT CODE/TIME: 33541 x 27 minutes for 1 unit (9:08-9:35) Thank you for the opportunity to participate in the care of this patient. Devon Page DPTS [facility] Supervised by: Umu Cheek PT, DPT, CLT [facility] [address], [place]
[2025-01-07 11:51] VITALS: BP 148/75; PULSE 72; RESP 16; TEMP 36.5; O2SAT 99
--- NOTE | 2025-01-07 11:57 | NUR.NOTE ---
Nursing Note: Per daughter and Rosmery MCCORMICK, the [facility] choice for ppi (for pt) was Rabeprazole, but Protonix is fine while he is here, there is no allergy. Pharmacy has been updated. Provider notified.
[2025-01-07] MEDS: Insulin Aspart 300 UNITS/3 ML PEN SC ×3 (12:35→22:55)
--- NOTE | 2025-01-07 14:44 | PGE_ITS ---
Date of Service Date of service: 01/07/25 Time of Service: 14:44 Assessment and Plan Assessment and plan (1) CVA (cerebral vascular accident): Status: Chronic Assessment and plan: MRI confirms new CVA: There is a moderately large area of restricted diffusion in the medial aspect of the left occipital lobe consistent with an acute infarct. teleneuro consultation, see note with below recommendations continue asa and plavix high dose statin allow for permissive hypertension PPI ordered. (2) High cholesterol: Status: Chronic Assessment and plan: high dose statin lipids: cholesterol 184 triglicerides 138 LDL 108 HDL 49 (3) Hypertension: Status: Chronic Assessment and plan: Patient is on multiple antihypertensives. Will allow for permissive hypertension for 24 hours and status of a new CVA. If patient's systolic is over 185 on a regular basis already has symptoms with consider starting low-dose antihypertensives (4) Atrial fibrillation and flutter: Status: Acute Assessment and plan: Patient reports he was was anticoagulated on apixaban 2.5 mg bid, family cannot confirm this, [facility] telemetry pharmacy reconciliation requested rate has been controlled resume coreg tomorrow, sooner if rate increases (5) Chronic anticoagulation: Status: Acute Assessment and plan: bridging coumadin with lovenox for INR goal of 2-3, initially thought to have failed apixaban but family is unable to confirm that he is on this medication, previously on Xarelto now states he takes Eliquis 2.5 mg twice daily recently decreased from 5 mg twice daily, [facility] pharmacy reconciliation requested check INR daily, today 1.1 (6) Diabetes: Status: Chronic Assessment and plan: hemoglobin A1C 6.7 blood sugar elevated at lunch to almost 300, will discontinue regular diet and initiate diabetic diet sliding scale coverage AC as needed. (7) Liver transplant recipient: Status: Chronic Assessment and plan: Continue with tacrolimus (8) Chronic kidney disease: Status: Chronic Assessment and plan: 2.1 with baseline 2.1 of 2.1-2.5. Patient does have chronic kidney disease stage III. Patient does not appear to be on JAS inhibitor so we will consider starting this prior to his discharge. check urinalysis for proteinuria. (9) Hepatitis C: Assessment and plan: Noted. discussed with DR Turner Subjective Subjective Patient reports: no new complaints, tolerating liquids well, tolerating a regular diet and afebrile Exam Const General: cooperative, comfortable and no acute distress Nutritional Appearance: thin Orientation: alert and oriented x3 HENMT Head: normal to inspection, normocephalic and atraumatic Eyes General: appearance normal, both eyes and all related structures Neck Neck: normal visual inspection, full ROM and no JVD Chest Chest: normal inspection of the chest Resp Effort & Inspection: normal respiratory effort Cardio Rate: regular rate Rhythm: regular rhythm Skin General skin exam: no rashes or lesions noted Neuro General: patient alert, patient awake, patient oriented x3, tone normal, moves all extremities and no focal motor deficits Cognition: normal cognition Speech: speech normal Gait: gait assisted Method: walker (front wheeled) Extrem General: normal to inspection, full ROM and no pedal edema Psych Appearance: grossly normal Mental Status: mental status grossly normal Speech and Movement: speech and movement normal Mood: congruent mood Affect: normal affect Attitude: cooperative Thought Process: normal Thought Content: normal Insight: insight good Judgment: judgment good Objective Last Vital Signs Temp 36.5 C 01/07/25 11:51 Pulse 72 01/07/25 11:51 Resp 16 01/07/25 11:51 BP 148/75 H 01/07/25 11:51 Pulse Ox 99 01/07/25 11:51 Laboratory Results - last 24 hr 01/06/25 01/06/25 01/06/25 16:53 17:55 20:12 WBC 4.93 RBC 3.70 L Hgb 11.2 L Hct 33.7 L MCV 91 MCH 30.3 MCHC 33.2 RDW 11.9 Plt Count 113 L MPV 10.0 Immature Gran % 0.2 Neutrophils % 66.6 Lymphocytes % 21.5 Monocytes % 8.3 Eosinophils % 3.0 Basophils % 0.4 Nucleated RBC % 0.0 Absolute Neutrophils 3.28 Absolute Lymphocytes 1.06 L Absolute Monocytes 0.41 Absolute Eosinophils 0.15 Absolute Basophils 0.02 PT INR Sodium 137 Potassium 4.7 Chloride 100 Carbon Dioxide 29.6 Anion Gap 7.4 BUN 30 H Creatinine 2.1 H Est GFR (CKD-EPI 2020) 33.45 Glucose 193 H Hemoglobin A1c Calcium 8.5 Magnesium 2.0 Total Bilirubin 0.5 AST 15 ALT 20 Alkaline Phosphatase 109 Troponin I 10 10 11 Total Protein 7.1 Albumin 3.6 Triglycerides Total Cholesterol LDL Cholesterol, Calc HDL Cholesterol 01/07/25 06:00 WBC 4.48 RBC 4.18 L Hgb 12.8 L Hct 38.6 L MCV 92 MCH 30.6 MCHC 33.2 RDW 12.0 Plt Count 130 MPV 10.4 Immature Gran % 0.2 Neutrophils % 54.8 Lymphocytes % 28.3 Monocytes % 10.9 Eosinophils % 5.4 Basophils % 0.4 Nucleated RBC % 0.0 Absolute Neutrophils 2.45 Absolute Lymphocytes 1.27 Absolute Monocytes 0.49 Absolute Eosinophils 0.24 Absolute Basophils 0.02 PT 10.9 INR 1.1 Sodium 140 Potassium 4.3 Chloride 101 Carbon Dioxide 34.5 H Anion Gap 4.5 BUN 27 H Creatinine 2.1 H Est GFR (CKD-EPI 2020) 33.45 Glucose 117 H Hemoglobin A1c 6.7 H Calcium 9.2 Magnesium Total Bilirubin 0.6 AST 13 L ALT 20 Alkaline Phosphatase 117 H Troponin I Total Protein 7.7 Albumin 3.9 Triglycerides 138 Total Cholesterol 184 LDL Cholesterol, Calc 108 H HDL Cholesterol 49 Time Spent with Patient Time Spent with Patient: 35-49 minutes Time was spent: preparing to see the patient(eg.review tests), obtaining and/or reviewing separately otained hiistory, ordering medications,tests, procedures, indepentently interpreting results and counseling the patient
--- NOTE | 2025-01-07 14:44 | TELEP.MEDREC ---
Date of service: 01/07/25 Time of Service: 14:49 [facility] Allergies Allergies: cephalexin monohydrate (From Keflex) Allergy (Severe, Unverified 06/24/22 11:29) Anaphylaxsis Interview Person Interviewed: Ismael is a poor historian of his medications, only able to provide the names of his morphine and oxycodone. [facility]. [facility] med list was compared to patient lisst and updated where feasible. Of note, I made comments on medications I could not verify by the [facility] list Quality Quality of Interview/Accuracy of Medication List: Poor Sources Sources used to compile medication list: Other Changes made to Home Medication List: ADDITIONS: cyanocobalamin rosuvastatin tamsulosin ergocalciferol DELETIONS: mirtazepine Miralax atorvastatin CHANGES: jardiance Recommended Changes Attestation: The home medication list is now updated to the best of my knowledge and is ready to be reconciled by the provider. [facility] at for any questions. Meds Allergies and Home Medications Allergies Allergy/AdvReac Type Severity Reaction Status Date / Time cephalexin monohydrate (From Allergy Severe Anaphylaxsi Unverified 06/24/22 11:29 Keflex) s Home Medication Medication Instructions Recorded carvedilol 12.5 mg tablet (Coreg) 25 mg PO BID 11/25/15 oxycodone 5 mg tablet 5 mg PO Q4H PRN 11/25/15 morphine 30 mg tablet,extended 30 mg PO BID 02/05/19 release rabeprazole 20 mg tablet,delayed 20 mg PO DAILY 02/05/19 release naloxone 4 mg/actuation nasal 4 mg intranasal Q2M PRN opioid 04/13/19 spray (Narcan) overdose #2 ea albuterol sulfate 90 mcg/actuation 2 inh inhalation TID PRN 10/31/20 breath activated powder inhaler aspirin 81 mg tablet 81 mg PO DAILY 10/31/20 tacrolimus 1 mg capsule, 1 mg PO HS 05/18/22 immediate-release clopidogrel 75 mg tablet 75 mg PO DAILY #30 tabs 05/21/22 doxazosin 2 mg tablet 2 mg PO HS #30 tabs 05/21/22 hydralazine 25 mg tablet 25 mg PO TID #30 tabs 05/21/22 isosorbide mononitrate 30 mg 30 mg PO DAILY #30 tabs 05/21/22 tablet,extended release 24 hr rivaroxaban 15 mg tablet (Xarelto) 15 mg PO DAILY@1700 #0 tabs 07/01/22 cyanocobalamin (vitamin B-12) 1,000 mcg PO DAILY 01/07/25 1,000 mcg capsule empagliflozin 25 mg tablet 25 mg PO DAILY 01/07/25 (Jardiance) ergocalciferol (vitamin D2) 1,250 50,000 unit PO QWEEK 01/07/25 mcg (50,000 unit) capsule rosuvastatin 10 mg tablet 10 mg PO DAILY 01/07/25 tamsulosin 0.4 mg capsule 0.4 mg PO DAILY 01/07/25 Current Visit Medications: Current Medications Generic Name Dose Route Start Last Admin Trade Name Freq PRN Reason Stop Dose Admin Acetaminophen 325 - 650 mg 01/06/25 21:59 Acetaminophen 325 Mg Tab PO Q4H PRN PRN Al Hydrox/Mg Hydrox/Simethicone 30 ml 01/06/25 19:54 Mylanta Suspension 30 Ml Cup PO Q2H PRN PRN Albuterol Sulfate 2 puff 01/06/25 22:05 Albuterol Hfa 6.7 Gm 200 Puff Inh IH Q8H PRN PRN Aspirin 81 mg 01/07/25 08:30 01/07/25 08:37 Aspirin E.C. 81 Mg Tabec PO 81 mg DAILY AMBER Administration Atorvastatin Calcium 40 mg 01/06/25 21:44 01/06/25 22:37 Atorvastatin 40 Mg Tab PO 40 mg QPM AMBER Administration Clopidogrel Bisulfate 75 mg 01/07/25 08:30 01/07/25 08:37 Clopidogrel 75 Mg Tab PO 75 mg DAILY AMBER Administration Dextrose 0 gm 01/06/25 20:26 Glucose Oral Gel 15 Gm/37.5 Gm Tube PO DIRECTED PRN Dextrose/Water 0 gm 01/06/25 20: Dextrose 50%-Water 25 Gm/50 Ml Syr IVP DIRECTED PRN Docusate Sodium 100 mg 01/06/25 19:54 01/06/25 22:39 Docusate Sodium 100 Mg Cap PO 100 mg TID PRN PRN Administration Empagliflozin 10 mg 01/07/25 08:30 01/07/25 08:38 Empaglifozin 10 Mg Tab PO 10 mg DAILY [facility] Administration Enoxaparin Sodium 60 mg 01/07/25 22:00 Enoxaparin 60 Mg/0.6 Ml Syr SC Q12H [facility] IV Miscellaneous Supplies 1 each 01/07/25 09:45 Iv Access IV DIRECTED [facility] Insulin Aspart 0 units 01/07/25 08:00 01/07/25 12:35 Insulin Aspart 300 Units/3 Ml Pen SC 4 units 0800,1200,1700 [facility] Administration Protocol Isosorbide Mononitrate 30 mg 01/07/25 08:30 01/07/25 08:35 Isosorbide Mononitrate 30 Mg Tabcr PO 30 mg DAILY [facility] Administration Magnesium Hydroxide 30 ml 01/06/25 19:54 Milk Of Magnesia 30 Ml Cup PO DAILY PRN PRN Mirtazapine 7.5 mg 01/06/25 21:44 01/06/25 22:38 Mirtazapine 15 Mg Tab PO 7.5 mg HS [facility] Administration Morphine Sulfate 30 mg 01/06/25 21:44 01/07/25 08:37 Morphine Cr 30 Mg Tabcr PO 30 mg BID [facility] Administration Naloxone HCl 4 mg 01/06/25 21:44 Naloxone Nasal 4 Mg/[place] Inhn-Vdh NS Q2M PRN opioid overdose Oxycodone HCl 5 mg 01/06/25 21:55 01/06/25 22:38 Oxycodone 5 Mg Tab PO 5 mg Q4H PRN PRN Administration Pantoprazole Sodium 40 mg 01/08/25 07:30 Pantoprazole 40 Mg Tabcr PO DAILY@0730 [facility] Polyethylene Glycol 17 gm 01/06/25 19:54 Polyethylene Glycol 3350 17 Gm Packet PO DAILY PRN PRN Constipation Sodium Chloride 0 ml 01/06/25 16:41 Normal Saline Flush 10 Ml Syr IVP PRN PRN Sodium Chloride 0 ml 01/06/25 20:00 01/07/25 08:38 Normal Saline Flush 10 Ml Syr IVP 10 ml BID [facility] Administration Sodium Chloride 0 ml 01/06/25 16:41 Normal Saline 10 Ml Vial IJ DIRECTED PRN Tacrolimus 1 mg 01/06/25 23:00 01/06/25 22:38 Tacrolimus 0.5 Mg Cap PO 1 mg HS [facility] Administration Warfarin Sodium 5 mg 01/07/25 18:00 Warfarin 5 Mg Tab PO DAILY@1800 AMBER Administered Discontinued Medications: Discontinued Medications Generic Name Dose Route Start Last Admin Trade Name Jolly PRN Reason Stop Dose Admin Iohexol 100 ml 01/06/25 18:15 01/06/25 18:11 Omnipaque 350 Mg/Ml 100 Ml Btl IJ 02/05/25 23:59 70 ml DIRECTED AMBER Administration Sodium Chloride 50 ml 01/06/25 18:15 01/06/25 18:11 Normal Saline - Diluent 50 Ml Vial IJ 50 ml DIRECTED AMBER Administration
[2025-01-07 16:01] VITALS: BP 136/81; PULSE 74; RESP 17; TEMP 36.5; O2SAT 98
[2025-01-07] MEDS: Warfarin 5 MG TAB PO (17:35)
[2025-01-07 17:59] LABS: Glucose >=1000 mg/dL (Negative)
[2025-01-07 18:06] LABS: C & S Indicated? No; RBC 0-2 HPF (0-2); WBC 0-2 HPF (0-5)
[2025-01-07 19:54] VITALS: BP 164/75; PULSE 74; RESP 17; TEMP 37; O2SAT 99
[2025-01-07] MEDS: Tacrolimus 0.5 MG CAP 1 MG PO (21:15)
[2025-01-07] MEDS: Mirtazapine 15 MG TAB 7.5 MG PO (21:16)
[2025-01-07] MEDS: Atorvastatin 40 MG TAB 80 MG PO (21:16)
[2025-01-07] MEDS: Enoxaparin 60 MG/0.6 ML SYR SC (22:56)
[2025-01-07 23:11] VITALS: BP 139/69; PULSE 67; RESP 16; TEMP 36.9; O2SAT 97
[2025-01-08 03:30] VITALS: BP 155/76; PULSE 74; RESP 17; TEMP 36.6; O2SAT 99
[2025-01-08 06:47] LABS: Abs Immature Grans 0.01 10^3/uL (0.0-0.06); HCT 37.2 % (40.0-50.0); HGB 12.4 g/dL (13.5-17.5); Immature Grans % 0.2 %; MCH 30.2 pg (27.0-33.0); MCHC 33.3 % (32.0-36.0); MCV 91 fL (80-95); MPV 10.4 fL (8.0-11.0); Platelet Count 120 10^3/uL (130-400); RBC 4.11 10^6/uL (4.36-5.78); RDW 11.9 % (11.8-14.1); RDW-SD 38.9 fL; WBC 4.33 10^3/uL (4.4-10.8)
[2025-01-08 06:58] LABS: INR 1.1 (0.9-1.1); Prothrombin Time 10.9 sec (9.1-11.1)
[2025-01-08 07:07] LABS: ALT 16 U/L (16-63); AST 12 U/L (15-37); Albumin 3.7 g/dL (3.4-5.0); Alkaline Phosphatase 105 U/L (46-116); Anion Gap 5.1 mmol/L (3-11); BUN 31 mg/dL (7-18); Bilirubin, Total 0.5 mg/dL (0.2-1.0); CO2 34.9 mmol/L (21.0-32.0); Calcium 9.1 mg/dL (8.5-10.1); Chloride 99 mmol/L (98-107); Glucose 137 mg/dL (74-106); Potassium 4.2 mmol/L (3.5-5.1); Sodium 139 mmol/L (136-145); Total Protein 7.5 g/dL (6.4-8.2)
[2025-01-08 07:51] VITALS: BP 146/81; PULSE 69; RESP 16; TEMP 36.1; O2SAT 97
[2025-01-08] MEDS: Aspirin E.C. 81 MG TABEC PO (08:10)
[2025-01-08] MEDS: Clopidogrel 75 MG TAB PO (08:10)
[2025-01-08] MEDS: Pantoprazole 40 MG TABCR PO (08:11)
[2025-01-08] MEDS: Empaglifozin 10 MG TAB PO (08:11)
[2025-01-08] MEDS: Normal Saline Flush 10 ML SYR IVP (08:11)
[2025-01-08] MEDS: Isosorbide Mononitrate 30 MG TABCR PO (08:11)
--- NOTE | 2025-01-08 08:57 | PDOC.CMPRO ---
Date of service: 01/08/25 Time of Service: 08:57 Care Management Progress Note Progress Note Text Progress Note Text: Ismael was alert and sitting in a chair when CM met with him. He was polite and engaged appropriately in conversation. He is currently being closely monitored and medically managed following a recent CVA. [facility] has been consulted and provided recommendations. The patient failed outpatient anticoagulation and is currently being bridged to coumadin with lovenox, with an INR goal of 2-3. Ismael plans to discharge home once medically ready,with outpatient PT, no H services are anticipated at this time. CM will continue to follow. Discharge Potential Discharge Needs: PCP F/U Appt Anticipated Barriers to Discharge: None Identified Patient/Family Education Needs: Review discharge instructions, discuss Ask Me Three Transportation: Private vehicle Plan: Anticipate, patient will discharge home with New Outpatient PT once medically ready to discharge. Family will provide transportation. Patient will follow up with community/[facility] providers and continue per his discharge plan of care. CM will follow. Social Determinants of Health Screening Social Determinants of health last assessed in clinic: 01/08/25 Will the Patient Participate in the Screening?: Yes Do you worry about having a steady place to live?: no Problems where you live: no known problems In the past 12 months, have you had to go without electric, gas, oil or water in your home?: no 1. Within the past 12 months, we worried whether our food would run out before we got money to buy more.: Never true 2. Within the past 12 months, the food we bought just didn't last and we didn't have money to get more.: Never true Has lack of transportation kept you from medical appointments or from doing things needed for daily living?: no Has anyone in your life made you feel unsafe or unsupported?: no How hard is it for you to pay for the very basics like food, housing, medical care, and heating? Would you say it is:: Not hard at all Do you want help finding or keeping work or a job?: I do not need or want help If for any reason you need help with day-to-day activities such as bathing, preparing meals, shopping, managing finances, etc., do you get the help you need?: I don’t need any help How often do you feel lonely or isolated from those around you?: Never Do you speak a language other than Armenian at home?: No Does the patient want assistance with any of the above?: No
--- NOTE | 2025-01-08 10:04 | W.NUTRFU ---
Date of service: 01/08/25 Time of Service: 10:04
[2025-01-08] MEDS: Apixaban 2.5 MG TAB PO (10:12)
[2025-01-08 11:18] VITALS: BP 144/88; PULSE 85; RESP 16; TEMP 37.3; O2SAT 96
--- NOTE | 2025-01-08 13:33 | W.PM.DS.N ---
Date of service: 01/08/25 Time of Service: 13:33 DS: Diagnosis Discharge Diagnosis (1) CVA (cerebral vascular accident): Status: Chronic (2) High cholesterol: Status: Chronic (3) Hypertension: Status: Chronic (4) Atrial fibrillation and flutter: Status: Acute (5) Chronic anticoagulation: Status: Acute (6) Diabetes: Status: Chronic (7) Liver transplant recipient: Status: Chronic (8) Chronic kidney disease: Status: Chronic (9) Hepatitis C: Discharge Plan Disposition Patient Disposition: Home Condition: Improving Discharge Details Reason For Visit: CVA Admit Date/Time: 01/06/25 19:54 Admit Provider: Rosales Naik Attending Provider: Rosales Naik [facility] Hospital Course: Mr Thomas is a 69-year-old gentleman with a known history of CVAs, coronary artery disease, hepatitis C, liver transplant in 2007, chronic kidney disease stage III, atrial fibrillation, CHF, A-fib, diabetes, and hypertension who is taking daily Plavix, aspirin and Xarelto who presented with a right lateral visual field defect on 01/06/25. Work up in the ED was suspicious for stroke with a atient states this morning he woke up and could not seem to the lateral aspect of his right field of vision. Workup in the ED including a CT of the head showed possible subacute left RN ER infarct. The patient was admitted to the medical surgical floor for stroke work-up as per tele-neurology consultation. [facility] [place] recommended the addition of warfarin but patient had been Eliquis prior then changed to Xarelto; eliquis was resumed. Echocardiogram with bubble study showed no PFO and a LVEF of 50% with mild mitral valve regurgitation. The patient is reporting improvement in visual field ,hemodynamically stable without actionable findings in blood work this AM and will be discharged home with follow-up with PCP with 7 days of discharge. Outpatient referral for physical therapy recommended. The patient would benefit from an outpatient nutrition consultation. Discussed with Dr. Turner Recommendations for Follow Up Recommended tests to be ordered by follow up provider: Eliquis resumption -CVA- infarction on Xarelto , LDL 108, TG 138, total chol 184, A1C 6.7, nutrition consultation, outpatient physical therapy recommendation Home Meds and New Rx's Prescriptions: New Eliquis 2.5 mg Tablet 2.5 mg PO BID Qty: 60 0RF Continued carvedilol [Coreg] 12.5 MG tablet 25 mg PO BID Rx Instructions: [facility] confirmed 01/07/25: TAKE ONE TABLET BY MOUTH TWICE DAILY WITH MEALS FOR ATRIAL FIBRILLATION/HF oxycodone 5 MG tablet 5 mg PO Q4H PRN Patient Comments: usually takes BID with morphine Rx Instructions: [facility] confirmed 01/08/25: TAKE ONE TO TWO TABLETS BY MOUTH THREE TIMES DAILY NEEDED FOR SEVERE/BREAKTHROUGH PAIN morphine 30 mg Tablet Extended Release 30 mg PO BID rabeprazole 20 mg Tablet,Delayed Release (Dr/Ec) 20 mg PO DAILY Rx Instructions: [place] Med List 01/07/25: TAKE ONE TABLET BY MOUTH ONCE DAILY TO CONTROL STOMACH ACID naloxone [Narcan] 4 mg/actuation spray,non-aerosol 4 mg CALE Q2M PRN (Reason: opioid overdose) Qty: 2 0RF Rx Instructions: spray 1 dose into ONE nostril; alternate nostrils w each dose until help arrives albuterol sulfate 90 mcg/actuation Aerosol Powdr Breath Activated 2 inh INHALATION TID PRN aspirin 81 mg Tablet 81 mg PO DAILY tacrolimus 1 mg Capsule 1 mg PO HS isosorbide mononitrate 30 mg Tablet Extended Release 24 Hr 30 mg PO DAILY Qty: 30 0RF Patient Comments: NOT on [place] Med list, unable to confirm hydralazine 25 mg Tablet 25 mg PO TID Qty: 30 0RF clopidogrel 75 mg Tablet 75 mg PO DAILY Qty: 30 0RF doxazosin 2 mg Tablet 2 mg PO HS Qty: 30 0RF Patient Comments: NOT on [place] Med List- unable to confirm cyanocobalamin (vitamin B-12) 1,000 mcg capsule 1,000 mcg PO DAILY Rx Instructions: [facility] confirmed :TAKE ONE TABLET BY MOUTH ONCE DAILY VITAMIN B12 Jardiance 25 mg tablet 25 mg PO DAILY Rx Instructions: [facility] confirmed 01/07/25: TAKE ONE TABLET BY MOUTH ONCE EVERY MORNING FOR DIABETES ergocalciferol (vitamin D2) 1,250 mcg (50,000 unit) capsule 50,000 unit PO QWEEK Rx Instructions: [facility] confirmed 01/07/25: TAKE ONE CAPSULE BY MOUTH ONCE A WEEK NOT A NUTRITIONAL SUPPLEMENT-OVERDOSE POSSIBLE-USE ONLY DIRECTED rosuvastatin 10 mg tablet 10 mg PO DAILY Rx Instructions: [facility] confirmed 10/28/25: TAKE ONE TABLET BY MOUTH ONCE DAILY TO PREVENT STROKE tamsulosin 0.4 mg capsule 0.4 mg PO DAILY Rx Instructions: [facility] confirmed 01/08/25: TAKE ONE CAPSULE BY MOUTH ONCE DAILY FOR PROSTATE TAKE 30 MIN AFTER DINNER Discharge Instructions Stand Alone Forms: Nursing Discharge Form Referrals: Tab Sanchez [SORTER/ASSAY TECH, Dietary] Referral Note: Outpatient referral. Dietary will give you a call to set up a follow up appointment. JAROD PETERSON [Primary Care Provider, Medicine] Referral Note: Follow-up within 7days of discharge. PCP office will give you a call to set up a follow up appointment. If you don't hear from him, please give them a call. Activity:: Activity as Tolerated Equipment/Supplies:: As per [employer] Diet:: Heart healthy Discharge Orders Discharge Orders: Discharge Order (Routine); Ordered 01/08/25 Ordered By: Deepti Hall Discharge Data Discharge Date/Time-TO BE ENTERED AT DEPARTURE: 01/08/25 15:45 DS: Summary Time Spent with Patient providing and/or coordinating discharge services: Greater than 30 minutes Status at Discharge Functional status at discharge: independent ambulation Overall status at discharge: patient is progressing back to baseline Mental Status: mental status grossly normal Speech and Movement: speech and movement normal Mood: congruent mood Affect: normal affect Exam Narrative Exam Narrative: Tall, thin 69 yo male appearing older than age. Alert and oriented X4, no acute neurological focal deficits, persisting right homonymous hemianopsia, no JVD, non-icteric sclera, heart is regular S1, S2, HR 72-90, unlabored breathing clear lungs, abdomen is flat , soft non-tender, no CVA tenderness Psych Mental Status: mental status grossly normal Speech and Movement: speech and movement normal Mood: congruent mood Affect: normal affect DS: Data Vitals/I&O Vitals and I&O: Vital Signs Temperature 37.3 C 01/08/25 11:18 Temperature Source Temporal Artery Scan 01/08/25 11:18 Pulse 85 01/08/25 11:18 Pulse Rhythm Regular 01/06/25 21:52 Pulse 68 01/06/25 21:31 Respiratory Rate 16 01/08/25 11:18 Respiratory Effort Normal, Non-Labored 01/06/25 21:52 Respiratory Depth Normal 01/06/25 21:52 Respiratory Pattern Normal 01/06/25 16:36 Blood Pressure 144/88 H 01/08/25 11:18 Blood Pressure Mean 106 01/08/25 11:18 Blood Pressure Position Sitting 01/06/25 16:26 Pulse Oximetry 96 01/08/25 11:18 Oxygen Delivery Method Room Air 01/08/25 11:18 Oxygen Flow Rate 0 01/08/25 11:18 Pain Level 3 01/08/25 07:51 Intake & Output 01/07/25 01/08/25 01/08/25 23:59 11:59 23:59 Intake Total 430 / 670 240 / 240 Output Total 1000 / 1500 825 / 825 Balance -570 / -830 -585 / -585 Weight 53.3 kg Intake: IV Oral 420 / 660 240 / 240 Output: Urine 750 / 1250 825 / 825 Emesis 250 / 250 Other: Urine Color Pale Yellow Urine Appearance Clear Clear Urine Odor None Normal Comment pt voids in urinal. Emesis Description Undigested Food Data Completed and Pending Pending Labs at Discharge: 01/06/25 01/06/25 01/06/25 16:53 17:55 20:12 WBC 4.93 RBC 3.70 L Hgb 11.2 L Hct 33.7 L MCV 91 MCH 30.3 MCHC 33.2 RDW 11.9 Plt Count 113 L MPV 10.0 Immature Gran % 0.2 Neutrophils % 66.6 Lymphocytes % 21.5 Monocytes % 8.3 Eosinophils % 3.0 Basophils % 0.4 Nucleated RBC % 0.0 Absolute Neutrophils 3.28 Absolute Lymphocytes 1.06 L Absolute Monocytes 0.41 Absolute Eosinophils 0.15 Absolute Basophils 0.02 PT INR Sodium 137 Potassium 4.7 Chloride 100 Carbon Dioxide 29.6 Anion Gap 7.4 BUN 30 H Creatinine 2.1 H Est GFR (CKD-EPI 2020) 33.45 Glucose 193 H Hemoglobin A1c Calcium 8.5 Magnesium 2.0 Total Bilirubin 0.5 AST 15 ALT 20 Alkaline Phosphatase 109 Troponin I 10 10 11 Total Protein 7.1 Albumin 3.6 Triglycerides Total Cholesterol LDL Cholesterol, Calc HDL Cholesterol Urine Color Urine Clarity Urine pH Ur Specific [place] Urine Protein Urine Ketones Urine Blood Urine Nitrite Urine Bilirubin Urine Urobilinogen Ur Leukocyte Esterase Urine RBC Urine WBC Ur Epithelial Cells Urine Crystals Urine Bacteria Urine Casts Urine Mucus Ur Culture Indicated? Urine Glucose 1001/07/25 01/08/25 06:00 17:50 05:53 WBC 4.48 4.33 L RBC 4.18 L 4.11 L Hgb 12.8 L 12.4 L Hct 38.6 L 37.2 L MCV 92 91 MCH 30.6 30.2 MCHC 33.2 33.3 RDW 12.0 11.9 Plt Count 130 120 L MPV 10.4 10.4 Immature Gran % 0.2 0.2 Neutrophils % 54.8 51.7 Lymphocytes % 28.3 29.3 Monocytes % 10.9 14.1 Eosinophils % 5.4 4.2 Basophils % 0.4 0.5 Nucleated RBC % 0.0 0.0 Absolute Neutrophils 2.45 2.24 Absolute Lymphocytes 1.27 1.27 Absolute Monocytes 0.49 0.61 Absolute Eosinophils 0.24 0.18 Absolute Basophils 0.02 0.02 PT 10.9 10.9 INR 1.1 1.1 Sodium 140 139 Potassium 4.3 4.2 Chloride 101 99 Carbon Dioxide 34.5 H 34.9 H Anion Gap 4.5 5.1 BUN 27 H 31 H Creatinine 2.1 H 2.0 H Est GFR (CKD-EPI 2020) 33.45 35.46 Glucose 117 H 137 H Hemoglobin A1c 6.7 H Calcium 9.2 9.1 Magnesium Total Bilirubin 0.6 0.5 AST 13 L 12 L ALT 20 16 Alkaline Phosphatase 117 H 105 Troponin I Total Protein 7.7 7.5 Albumin 3.9 3.7 Triglycerides 138 Total Cholesterol 184 LDL Cholesterol, Calc 108 H HDL Cholesterol 49 Urine Color Yellow Urine Clarity Clear Urine pH 5.0 Ur Specific [place] 1.010 Urine Protein 30 H Urine Ketones Negative Urine Blood Trace-intact H Urine Nitrite Negative Urine Bilirubin Negative Urine Urobilinogen 0.2 Ur Leukocyte Esterase Negative Urine RBC 0-2 Urine WBC 0-2 Ur Epithelial Cells Rare Urine Crystals Negative Urine Bacteria Moderate Urine Casts Negative Urine Mucus Negative Ur Culture Indicated? No Urine Glucose >=1000 H PFSH All Active Problems (Updated 01/07/25 @ 22:11 by KYARA Mirza) Atrial fibrillation and flutter (Acute) CVA (cerebral vascular accident) (Chronic) Lacunar stroke (Acute) Facial paresthesia (Acute) Right sided weakness (Acute) History of liver transplant (Acute) Chronic anticoagulation (Acute) Immunosuppressed status (Acute) Symptom of bladder outlet obstruction (Acute) Atrial flutter (Acute) Pneumonia (Acute) Atrial fibrillation (Chronic) Hypertension (Chronic) Palpitations (Acute) New onset atrial fibrillation (Acute) Liver transplant recipient (Chronic) Chronic kidney disease (Chronic) High cholesterol (Chronic) Diabetes (Chronic) Hypomagnesemia (Acute) Myoclonus (Acute) Ventricular ectopy (Acute) Medical History (Updated 01/07/25 @ 22:11 by KYARA Mirza) Erectile dysfunction GI bleeding Gastric ulcer SVT (supraventricular tachycardia) Depression History of COVID-19 Non-ST elevation PR (NSTEMI) Myocardial infarction Tachycardia Hepatitis C Surgical History H/O vasectomy S/P liver transplant Family History Mother Heart disease Sister Heart disease Brother Heart disease Other Diabetes Social History Smoking/Tobacco Use Status: Former Tobacco Use Smoking risk assessment performed?: Yes Alcohol Intake: former Drug use: Never Substance use type: does not use Housing: apartment Do you feel safe at home: Yes Do you feel safe in your relationship?: Yes Time Spent with Patient Time Spent with Patient: >85 minutes Time was spent: preparing to see the patient(eg.review tests), obtaining and/or reviewing separately otained hiistory, ordering medications,tests, procedures, referring, communicating with other health home health caregiver, indepentently interpreting results, counseling the patient, care coordination and other
--- NOTE | 2025-01-08 13:59 | PDOC.CMDIS ---
Date of service: 01/08/25 Time of Service: 13:59 LACE Index Scoring Tool Questions: Length of Stay (in days): 2 Was the patient admitted via the E.D.?: Yes Comorbidities: Cerebrovascular Disease, Diabetes w/o Complication and Liver or Renal Disease E.D. Visits: 1 Answers: Total Score: 11 Risk of Readmission: High Risk Care Management Discharge Plan Reason for Hospitalization: CVA Discharge Plan: Ismael is being discharged home with via family-provided transportation. Patient will follow up with community/[facility] providers and continue per his discharge plan of care. Outpatient PT is recommended and will require [facility] approval. [facility] Patient/Family Education Needs: Review discharge instructions and plan to follow up after discharge. Discuss ask me three.
--- NOTE | 2025-01-08 14:59 | PT.INTREAT ---
PT Notes Visit Reasons: Cerebrovascular accident Inpatient Physical Therapy Treatment Note [facility] Date: 01/08/25 SUBJECTIVE: Joaquina states that he thinks his vision is a little better compared to yesterday. He is hoping to go home today. OBJECTIVE: [] VITALS: monitored by nsg. Therapeutic Activities ([id number]): Direct one-on-one instruction in dynamic activities to improve functional performance. BED MOBILITY/TRANSFERS Sit-stand: I Stand-sit: I Bed-Chair: I Chair-bed: I Provided skilled cues and instruction on performance and technique throughout. GAIT Assistive Device: trial of FWW, but typically uses walking stick Weight bearing: FWB Assist: S/SBA Distance: approx 300' Deviation: shortened stride Neuromuscular Re-education ([id number]): Activities that facilitate re-education of movement balance, posture, coordination, and proprioception or kinesthetic sense, requiring skilled tactile and verbal cues Exercises/techniques: at rail in hallway(approx 10'): side step, regular step and big steps. High knee marching. NBOS: looking up, down, left and right. Modified tandem: R/L. hold x10 sec ea x3. SLS 3x5sec. ASSESSMENT: still noting visual deficits to the right of midline. He reports that he does not really feel like it affects him as he is able to turn his head to see. No LOB noted with ambulation. Noted weakness on right side presumably from his last CVA PLAN: Possible d/c to home later today, otherwise will continue working on functional mobility and balance ex. TREATMENT CODE/TIME: 25 min DISCHARGE RECOMMENDATION: home with PT
== END 2025-01-08 15:45 | disposition home or self-care (01) | DRG 65 ==
LOC: ER 18:09 → MS 21:44
PROVIDERS: Nurse Practitioner Acute Care; Admitting Provider Hospitalist; Emergency Provider Physician Assistant; PCP Internal Medicine; Responsible Provider Nurse Practitioner Acute Care; Visit Provider Hospitalist
DX: I63.532 Cerebral infarction due to unspecified occlusion or stenosis of left posterior cerebral artery (principal); D84.821 Immunodeficiency due to drugs; I48.92 Unspecified atrial flutter; Z94.4 Liver transplant status; I48.91 Unspecified atrial fibrillation; E78.00 Pure hypercholesterolemia, unspecified; I12.9 Hypertensive chronic kidney disease with stage 1 through stage 4 chronic kidney disease, or unspecified chronic kidney disease; Z79.01 Long term (current) use of anticoagulants; E11.22 Type 2 diabetes mellitus with diabetic chronic kidney disease; Z79.4 Long term (current) use of insulin; B19.20 Unspecified viral hepatitis C without hepatic coma; Z79.02 Long term (current) use of antithrombotics/antiplatelets; Z79.82 Long term (current) use of aspirin; Z86.73 Personal history of transient ischemic attack (TIA), and cerebral infarction without residual deficits; I25.10 Atherosclerotic heart disease of native coronary artery without angina pectoris; N18.30 Chronic kidney disease, stage 3 unspecified; R20.2 Paresthesia of skin; Z79.621 Long term (current) use of calcineurin inhibitor; Z79.84 Long term (current) use of oral hypoglycemic drugs; I34.0 Nonrheumatic mitral (valve) insufficiency; H53.462 Homonymous bilateral field defects, left side; H53.461 Homonymous bilateral field defects, right side
CPT/HCPCS: 00123; 36415; 36416; 70496; 70498; 80053; 80061; 82962; 93005; 97112; 97162; 97530; 99285; 99291; 70450; 70551; 71045; 81003; 81015; 83036; 83735; 84484; 85025; 85610; 93010; 93306; 99223; 99232; 99239; J1650; J1815; J3490